=== PATIENT | female | born 1955 | race Caucasian/White ===

== ENCOUNTER 2023-02-05 12:57 | Outpatient (OUT) | payer MEDICARE, OTHER, SELFPAY ==
--- NOTE | 2023-02-05 | MM_ITS ---
Patient Name: SHANTA HANKINS MR#: [id number] : 1955 Exam Date: 02/05/2023 Ordering Doctor: MRS. Malini Gama NP RADIOLOGY REPORT PROCEDURE: MM TOMOSYNTHESIS SCREENING BI COMPARISON: MG MAMM SCREEN 3D KEE CAD, 01/24/2021. MG MAMM SCREEN 3D KEE CAD, 01/29/2022. INDICATIONS: screening for malignant neoplasm Calculator Name NCI Breast Cancer Risk Assessment Tool 5 Year Breast Cancer Risk 3.30% Lifetime Breast Cancer Risk 9.90% Personal Breast Cancer No Personal Ovarian Cancer No Treatments HYST Family Cancers Sister with breast cancer at age 49; Grandmother-maternal with lung cancer at age ~70; Aunt-maternal with lung cancer at age 38; Sister with blood cancer at age 55. LOCATION: [facility] BREAST COMPOSITION: Heterogeneously dense,which may obscure small masses. FINDINGS: DIAGNOSTIC CATEGORY 2--BENIGN FINDING. NO CHANGE FROM COMPARISON. Scattered benign-appearing nodules are present. Scattered benign-appearing calcifications are present. Scattered benign-appearing lymph nodes are present. RIGHT BREAST: No significant suspicious finding. LEFT BREAST: No significant suspicious finding. RECOMMENDATIONS: ROUTINE MAMMOGRAM AND CLINICAL EVALUATION IN 12 MONTHS. PLEASE NOTE: A NORMAL MAMMOGRAM DOES NOT EXCLUDE THE POSSIBILITY OF BREAST CANCER. A CLINICALLY SUSPICIOUS PALPABLE LUMP SHOULD BE BIOPSIED. Dictated by: Ochoa Pierre MD on 02/06/2023 at 07:53 Approved by: Ochoa Pierre MD on 02/06/2023 at 07:56
== END 2023-02-05 12:58 | disposition home or self-care (01) ==
LOC: MAMMO 12:57
PROVIDERS: PCP Internal Medicine; Visit Provider Nurse Practitioner Family
DX: Z12.31 Encounter for screening mammogram for malignant neoplasm of breast (principal); Z80.3 Family history of malignant neoplasm of breast; Z80.1 Family history of malignant neoplasm of trachea, bronchus and lung; Z80.8 Family history of malignant neoplasm of other organs or systems
CPT/HCPCS: 77063; 77067

== ENCOUNTER 2024-02-11 10:43 | Outpatient (OUT) | payer MEDICARE, OTHER, SELFPAY ==
--- OUTSIDE RECORDS SUMMARY | 2024-02-11 11:06 | XMS_ITS | CCD ---
Author Organization [facility] Care Team Providers Care Airline Reservationist Name Role Phone HSANE, DR CAMPBELL Attending Unavailable SHANE, DR CAMPBELL Consulting Unavailable SHANE, DR CAMPBELL Primary Care Unavailable SHANE, DR CAMPBELL Admitting Unavailable LANEY, DR CARLOS Pinon Consulting Unavailable HEMTRISH, DR HEIDI Hall Admitting Unavailable CHARLESTOWN, DR LEE Cowan Consulting Unavailable SHANE, DR CAMPBELL Primary Care Unavailable HEMTRISH, DR HEIDI Hall Attending Unavailable HEMTRISH, DR HEIDI Hall Consulting Unavailable Marika Vasquez Unavailable MICHELLE Lynn Primary Care Provider MD Marika Vasquez Attending Provider Shane, MICHELLE Campbell Primary Care Provider MD Marika Vasquez Attending Provider MICHELLE Lynn Primary Care Provider MD Marika Vasquez Attending Provider Shane, II Adrian Primary Care Provider MD Marika Vasquez Attending Provider [phone] MD Dwight Pan Attending Provider Adrian Lynn MD Primary Care Provider [phone] Adrian Lynn Primary Care Unavailable Marika Vasquez Admitting Unavailable Marika Vasquez Attending Unavailable Adrian Lynn Primary Care Unavailable Marika Vasquez Admitting Unavailable Marika Vasquez Attending Unavailable Marika Vasquez Attending Unavailable Marika Vasquez Admitting Unavailable Adrian Lynn Primary Care Unavailable Marika Vasquez Attending Unavailable Marika Vasquez Admitting Unavailable Adrian Lynn Primary Care Unavailable Adrian Lynn Primary Care Unavailable Calvey, Marika R Attending Unavailable Calvey, Marika R Admitting Unavailable Calvey, Marika R Admitting Unavailable Calvey, Marika R Attending Unavailable Shane Adrian Primary Care Unavailable Lynn, Adrian Primary Care Unavailable Calvey, Marika R Attending Unavailable Calvey, Marika R Admitting Unavailable Calvey, Marika R Admitting Unavailable Calvey, Marika R Attending Unavailable Lynn, Adrian Primary Care Unavailable MaximDwight anand R Admitting Unavailabl e Dwight Pan R Attending Unavailabl e Pancho Lynnel Primary Care Unavailable CLOVIS ABRAMS Attending Unavailable NIKKI PATTEN S Referring Unavailable LYNN, ADRIAN B Primary Care Unavailable NIENBERGNIKKI Attending Unavailable LYNN, ADRIAN B Referring Unavailable LYNN, ADRIAN B Primary Care Unavailable NIENBERGNIKKI S Referring Unavailable LYNN, ADRIAN B Primary Care Unavailable NIENBERGNIKKI S Attending Unavailable NINIKKI LEE S Referring Unavailable LYNN, ADRIAN B Primary Care Unavailable NIENBERG, NIKKI S Referring Unavailable LYNN, ADRIAN B Primary Care Unavailable NIENBERGNIKKI Attending Unavailable LYNN, ADRIAN B Referring Unavailable LYNN, ADRIAN B Primary Care Unavailable NIENBERGNKIKI Attending Unavailable LYNN, ADRIAN B Referring Unavailable LYNN, ADRIAN B Primary Care Unavailable HILL SY Admitting Unavailable HILL SY Attending Unavailable LYNN, ADRIAN B Referring Unavailable LYNN, ADRIAN B Primary Care Unavailable HILL SY Attending Unavailable HILL SY Referring Unavailable LYNN, ADRIAN B Primary Care Unavailable NIENBERGNIKKI Attending Unavailable LYNN, ADRIAN B Referring Unavailable LYNN, ADRIAN B Primary Care Unavailable HILL SY Attending Unavailable HILL SY Referring Unavailable LYNN, ADRIAN B Primary Care Unavailable HILL SY Admitting Unavailable HILL SY Attending Unavailable LYNN, ADRIAN B Referring Unavailable LYNN, ADRIAN B Primary Care Unavailable NIENBERGNIKKI Attending Unavailable LYNN, ADRIAN B Referring Unavailable LYNN, ADRIAN B Primary Care Unavailable HILL SY Attending Unavailable HILL SY Referring Unavailable LYNN, ADRIAN B Primary Care Unavailable HILL SY Admitting Unavailable HILL SY Attending Unavailable LYNN, ADRIAN B Referring Unavailable LYNN, ADRIAN B Primary Care Unavailable HEIDI RODRIGUEZ Referring Unavailable LYNN, ADRIAN B Primary Care Unavailable NINIKKI LEE Attending Unavailable LYNN, ADRIAN B Referring Unavailable LYNN, ADRIAN B Primary Care Unavailable SY, HILL E Admitting Unavailable SY, HILL E Attending Unavailable ADRIAN LYNN B Referring Unavailable SHANE ADRIAN B Primary Care Unavailable SY, HILL E Attending Unavailable SY, HILL E Referring Unavailable LYNN, ADRIAN B Primary Care Unavailable SY, HILL E Admitting Unavailable SY, HILL E Attending Unavailable SHANE, ADRIAN B Referring Unavailable LYNN, ADRIAN B Primary Care Unavailable SY, HILL E Attending Unavailable SY, HILL E Referring Unavailable LYNN, ADRIAN B Primary Care Unavailable NIENBERG, NIKKI S Attending Unavailable SHANE ADRIAN B Referring Unavailable LYNN, ADRIAN B Primary Care Unavailable NIENBERG, NIKKI S Referring Unavailable LYNN, ADRIAN B Primary Care Unavailable NIENBERG, NIKKI S Referring Unavailable SHANE ADRIAN B Primary Care Unavailable HEIDI RODRIGUEZ Attending Unavailable HEIDI RODRIGUEZ Referring Unavailable HEIDI RODRIGUEZ Attending Unavailable MADISYN WILLSON Attending Unavailable HEIDI RODRIGUEZ Attending Unavailable Adrian Lynn MD Primary Care Provider Adrian Lynn MD Unavailable [phone] Allergies Allergy Classification Reported Allergen(s) Allergy Type Date of Onset Reaction(s) Facility (1 source) Fish derivative Drug allergy (disorder) 0 [facility] (16 sources) Iodine Drug Allergy 8 Unknown, ate my skin out [facility] (12 sources) Chicken Derived; Translations: [CHICKEN DERIVED] Drug allergy (disorder) [address] [facility] Repository (15 sources) Fish Containing Products; Translations: [Fish Containing Products] Allergy to substance 8 [facility] (3 sources) chicken allergenic extract Drug Allergy 4 [facility] (5 sources) Povidone-Iodine ; Translations: [POVIDONE-IODIN E] Drug Allergy 4 [facility] (5 sources) Nutritional Supplement-Fibe r; Translations: [NUTRITIONAL SUPPLEMENT-FIBE R] Propensity to adverse reactions to drug 4 [facility] (1 source) Iodine Drug Allergy 4 [facility] Repository (1 source) chicken derived Drug allergy (disorder) 4 [facility] (3 sources) Fish - dietary Allergy to substance 4 Hives [facility] Work Phone: (3 sources) Iodine Drug Allergy 3 Unknown [facility] (3 sources) Chicken Allergy Propensity to adverse reactions 5 [facility] (3 sources) Egg-Derived Products Drug Allergy 3 Unknown [facility] Medications Current Medications Medication Drug Class(es) Dates Sig (Normalized) Sig (Original) acetaminophen 325 mg / HYDROcodone bitartrate 5 mg oral tablet (10 sources) Opioid Agonist Start: 02-10-2023 take 1 tablet by mouth every four to six hours Hydrocodone-Aceta minophen Active 1 - 2 TAB PO EVERY 4-6 HOURS 30 4 February 10, 2023 Start: 10-24-2022 End: 02-07-2023 take 1 tablet by mouth every four to six hours Hydrocodone-Acetaminophen Discontinued 1 - 2 TAB PO EVERY 4-6 HOURS 50 7 October 24, 2022 February 07, 2023 7:35am [id number] 200 actuat albuterol 0.09 mg/actuat metered dose inhaler (3 sources) beta2-Adrenergic Agonist Start: 09-25-2023 take 2 puff(s) by inhalation every four hours for wheezing albuterol HFA 90 mcg/act inhaler Indications: Acute bronchitis, unspecified organism Inhale 2 puffs every 4 (four) hours if needed for wheezing or shortness of breath 18 g 2 09/25/2023 Active ascorbic acid 250 mg oral tablet (3 sources) Vitamin C take 2 tablets by mouth in the morning ascorbic acid (Vitamin C) 250 MG tablet Take 500 mg by mouth in the morning. Active ascorbic acid 113 mg / beta carotene 7160 mg / cuprous oxide 0.4 mg / dl-alpha tocopheryl acetate 100 unt / zinc oxide 17.4 mg oral tablet (9 sources) Vitamin C Start: 12-02-2017 take 1 tablet by mouth once daily Vitamins A,C,U-Ohga-Tkvjbu (Preservision Areds) 7,160-113-100 qalw-ou-hugl Tablet Active 1 TAB PO Daily December 01, 2017 11:00pm Start: 12-02-2017 take [address] [facility] twice daily Vitamins A,C,R-Kpnh-Lmrged (Preservision Areds) 7,160-113-100 ridt-uc-gmro Tablet Active 1 TAB PO Twice daily December 02, 2017 12:00am Aspir-81 (6 sources) Aspir-81 Active aspirin 81 mg oral tablet (14 sources) Platelet Aggregation Inhibitor, Nonsteroidal Anti-inflammatory Drug Start: 10-10-2022 aspirin 81 mg capsule Daily 10/10/2022 Active Start: 10-10-2022 aspirin 81 mg capsule Daily 0 10/10/2022 Active Start: 10-10-2022 take 1 capsule by [facility] once daily aspirin ([place]) 81 MG capsule Take 81 mg by mouth Daily 10/10/2022 Active atorvastatin 40 mg oral tablet (20 sources) HMG-CoA Reductase Inhibitor Start: 10-10-2022 take 1 tablet by mouth once daily atorvastatin (Lipitor) 40 MG tablet Indications: Hyperlipidemia, unspecified hyperlipidemia type (CMS/HCC) Take 1 tablet by mouth once daily 90 tablet 10/16/2023 Active b complex vitamins capsule (6 sources) Start: 02-07-2023 take 1 capsule by mouth once daily b complex vitamins capsule Take 1 capsule by mouth Daily 02/07/2023 Active Start: 02-07-2023 b complex aries mins capsule 1 capsule. 02/07/2023 Active Start: 02-07-2023 b complex aries mins capsule 1 capsule. 0 02/07/2023 Active baclofen 10 mg oral tablet (20 sources) gamma-Aminobutyric Acid-ergic Agonist Start: 06-19-2023 take 0.5-1 tablets by mouth three times daily at mealtime baclofen (Lioresal) 10 MG tablet Indications: Degeneration of intervertebral disc of lumbar region TAKE 1/2 TO 1 (ONE-HALF TO ONE) TABLET BY MOUTH THREE TIMES DAILY WITH FOOD 270 tablet 06/19/2023 Active Start: 12-02-2017 take 10 mg by mouth twice kimberly y Baclofen Active 10 MG PO Twice daily December 01, 2017 11:00pm benzonatate 200 mg oral capsule (2 sources) Non-narcotic Antitussive Start: 01-16-2024 End: 01-23-2024 take 1 capsule by mouth three times daily as needed for cough benzonatate (Tessalon) 200 MG capsule Indications: COPD exacerbation (CMS/HCC) Take 1 capsule (200 mg) by mouth 3 (three) times a day as needed for cough for up to 7 days Do not crush or chew. 21 capsule 01/16/2024 01/23/2024 Active biotin 10 mg disintegrating oral tablet (20 sources) Start: 12-02-2017 take 1 tablet by mouth twice daily Biotin Active 1 TAB PO Twice daily December 01, 2017 11:00pm biotin (Biotin M aximum Strength) 10 MG tablet every 12 (twelve) hours. Active take 1 tablet by mp every twenty-four hours Biotin 10 MG 1 tablet Orally Once a day Active cefdinir 300 mg oral capsule (2 sources) Cephalosporin Antibacterial Start: 01-16-2024 End: 01-26-2024 take 1 capsule by mouth in the morning cefdinir (Omnicef) 300 MG capsule Indications: COPD exacerbation (CMS/HCC) , Acute non-recurrent pansinusitis Take 1 capsule (300 mg) by mouth in the morning and 1 capsule (300 mg) before bedtime. Do all this for 10 days. 20 capsule 01/16/2024 01/26/2024 Active celecoxib 200 mg oral capsule (20 sources) Nonsteroidal Anti-inflammatory Drug Start: 12-02-2017 take 1 capsule by mouth in the morning celecoxib (CeleBREX) 200 MG capsule Indications: Degeneration of intervertebral disc of lumbar region Take 1 capsule (200 mg) by mouth in the morning and 1 capsule (200 mg) before bedtime. 180 capsule 11/05/2023 Active take 1 capsule by mo [facility] every twenty-four hours Celecoxib 200 MG 1 capsule with food Orally Once a day Active Centrum (6 sources) Centrum Orally A ctive chlorhexidine gluconate 1.2 mg/ml mouthwash (2 sources) Start: 05-20-2023 take 15 mL by mouth in the morning chlorhexidine (PERIDEX) 0.12 % solution Apply 15 mL to the mouth or throat in the morning and 15 mL before bedtime. 05/20/2023 Active cinnamon bark 500 mg oral capsule (10 sources) Start: 02-07-2023 cinnamon bark 500 mg capsule Twice daily 02/07/2023 Active cinnamon 500 MG capsule 1 (one) time each day at the same time. Active citalopram 40 mg oral tablet (20 sources) Serotonin Reuptake Inhibitor Start: 12-02-2017 take 1 tablet by mouth once daily citalopram (CeleXA) 40 MG tablet Indications: Generalized anxiety disorder (CMS/HCC) Take 1 tablet by mouth once daily 90 tablet 12/17/2023 Active Diclofenac (3 sources) Nonsteroidal Anti-inflammatory Drug Start: 11-27-2022 Voltaren 1 % Apply 1-2 grams to the affected area Externally 4-5 times a day for 30 days Nov, Active doxycycline hyclate 100 mg oral tablet (10 sources) Tetracycline-class Drug Start: 02-10-2023 take 100 mg by mouth twice daily Doxycycline Hyclate Active 100 MG PO Twice daily 12 05February 10, 2023 12:00am Start: 10-24-2022 End: 02-07-2023 take 100 mg by mouth twice daily Doxycycline Hyclate Discontinued 100 MG PO Twice daily 12 05October 23, 2022 11:00pm February 07, 2023 7:35am esomeprazole 40 mg delayed release oral capsule (15 sources) Proton Pump Inhibitor Start: 07-30-2023 take 1 capsule by mouth before mealtime esomeprazole (NexIUM) [address] capsule Indications: Gastroesophageal reflux disease without esophagitis Take 1 capsule (40 mg) by mouth in the morning. Take before meals. Do not open capsule.. 90 capsule 3 07/30/2023 Active Start: 12-02-2017 take 1 capsule by [facility] once daily in the morning Esomeprazole Magnesium (Nexium) 20 mg Capsule,Delayed Release(Dr/Ec) Active 20 MG PO Every morning December 01, 2017 11:00pm esomeprazole (Ne xIUM) 20 mg packet Take 20 mg by mouth. 0 Active 30 actuat fluticasone furoate 0.1 mg/actuat / umeclidinium 0.0625 mg/actuat / vilanterol 0.025 mg/actuat dry powder inhaler (5 sources) Anticholinergic, Corticosteroid, beta2-Adrenergic Agonist Start: 07-30-2023 Vzknjsregfn-Twianazos-Xllrkm (Trelegy Ellipta) 100-62.5-25 MCG/ACT aerosol powder Indications: Chronic obstructive pulmonary disease, unspecified COPD type (CMS/HCC) Inhale 1 Inhalation Daily 3 each 3 07/30/2023 Active Start: 01-09-2023 take 1 puff(s) by inhalation in the morning gzxsxjstrzr-mutrxihnn-wjbczqad (TRELEGY ELLIPTA) 100-62.5-25 mcg blister with device Inhale 1 puff in the morning. 01/09/2023 Active gabapentin 300 mg oral capsule (20 sources) Anti-epileptic Agent Start: 12-02-2017 take 1 capsule by mouth three times daily gabapentin (Neurontin) 300 MG capsule Indications: Neuralgia of lower extremity TAKE 1 CAPSULE BY MOUTH THREE TIMES DAILY 270 capsule 10/29/2023 Active Start: 12-02-2017 take 300 mg by mouth twice radha ly Gabapentin Active 300 MG PO Twice daily December 02, 2017 12:00am take 1 capsule by [facility] every twenty-four hours Gabapentin 300 MG 1 capsule Orally Once a day Active hydroCHLOROthiazide 12.5 mg oral capsule (20 sources) Thiazide Diuretic Start: 12-02-2017 take 1 capsule by mouth once daily hydroCHLOROthiazide (Microzide) 12.5 MG capsule Indications: Mixed hyperlipidemia (CMS/HCC) Take 1 capsule by mouth once daily 100 capsule 3 10/29/2023 Active lisinopril 5 mg oral tablet (20 sources) Angiotensin Converting Enzyme Inhibitor Start: 12-02-2017 take 1 tablet by mouth once daily lisinopril 5 MG tablet Indications: Mixed hyperlipidemia (CMS/HCC) Take 1 tablet by mouth once daily 100 tablet 3 10/29/2023 Active loratadine 10 mg oral tablet (10 sources) Start: 02-07-2023 take 1 tablet by mouth once daily loratadine (Claritin) 10 MG tablet Indications: Seasonal allergic rhinitis due to pollen Take 1 tablet (10 mg) by mouth Daily 90 tablet 3 07/30/2023 Active methylPREDNISolone (2 sources) Corticosteroid Start: 01-16-2024 methylPREDNISolone (Medrol Dospak) 4 MG tablets Indications: COPD exacerbation (CMS/HCC) Follow schedule on package instructions 21 tablet 01/16/2024 Active Multiple Vitamins-Minerals (Centrum Silver Adult 50+) tablet (3 sources) Multiple Vitamins-Minerals (Centrum Silver Adult 50+) tablet Take by mouth. Active Gkrbfnkupima-Acps-Clegv Acid (Centrum) 18-400 mg-mcg Tablet (9 sources) Start: 12-02-2017 take 1 tablet by mouth once daily Ueqwqfguyikk-Yskb-Ymrp c Acid (Centrum) 18-400 mg-mcg Tablet Active 1 TAB PO Daily December 01, 2017 11:00pm Start: 12-02-2017 take 1 tablet by mp th once daily Pojdmnlgfwqg-Srln-Wiuun Acid (Centrum) 18-400 mg-mcg Tablet Active 1 TAB PO Daily December 02, 2017 12:00am NON FORMULARY (3 sources) NON FORMULARY Me d Name: Centrum Silver Active NON FORMULARY Me d Name: Centrum Silver 0 Active traZODone hydrochloride 50 mg oral tablet (20 sources) Serotonin Reuptake Inhibitor Start: 12-02-2017 take 1 tablet by mouth at bedtime traZODone (Desyrel) 50 MG tablet Indications: Primary insomnia TAKE 1 TABLET BY MOUTH AT BEDTIME 90 tablet 12/17/2023 Active vit A/vit C/vit E/zinc/copper (PRESERVISION AREDS ORAL) (3 sources) vit A/vit C/vit E/zinc/copper (PRESERVISION AREDS ORAL) Take by mouth. Active vit A/vit C/vit E/zinc/copper (PRESERVISION AREDS ORAL) Take by mouth. 0 Active Vitamin B Complex (4 sources) Start: 02-07-2023 take 1 capsule by mouth once daily Vitamin B Complex Active 1 CAP PO Daily February 07, 2023 12:00am vitamin e 180 mg oral capsule (4 sources) Start: 02-07-2023 take 450 mg by mouth once daily Vitamin E Active 450 MG PO Daily February 07, 2023 12:00am Completed/Discontinued Medications Medication Drug Class(es) Dates Sig (Normalized) Sig (Original) 1 ml triamcinolone acetonide 40 mg/ml prefilled syringe (4 sources) Corticosteroid Start: 01-16-2024 End: 01-16-2024 triamcinolone acetonide (Kenalog-40) injection 40 mg Start: 01-16-2024 End: 01-16-2024 inject 40 mg by intramuscular injection once 40 mg, Intramuscular, Once, On Fri01/16/24 at 1115, For 1 dose Problems Active Problems Problem Classification Problem Date Documented Da te Episodic/Chronic Anal and rectal conditions (6 sources) Rectal polyp; Translations: [Rectal polyp] Episodic Anxiety disorders (3 sources) Generalized anxiety disorder; Translations: [Generalized anxiety disorder] Onset: 04-03-2023 Chronic Chronic obstructive pulmonary disease and bronchiectasis (8 sources) Chronic obstructive lung disease; Translations: [Chronic obstructive pulmonary disease, unspecified] Onset: 4 04-03-2023 Chronic Disorders of lipid metabolism (3 sources) Hyperlipidemia; Translations: [Hyperlipidemia, unspecified] Onset: 4 04-03-2023 Chronic Diverticulosis and diverticulitis (6 sources) Diverticular disease of colon; Translations: [Diverticulosis of intestine, part unspecified, without perforation or abscess without bleeding] Chronic Esophageal disorders (3 sources) Gastroesophageal reflux disease without esophagitis; Translations: [Gastro-esophageal reflux disease without esophagitis] Onset: 4 07-30-2023 Chronic Essential hypertension (3 sources) Benign essential hypertension; Translations: [Essential (primary) hypertension] Onset: 4 04-03-2023 Chronic Joint disorders and dislocations; trauma-related (3 sources) Traumatic arthropathy-knee; Translations: [Traumatic arthropathy, right knee] Onset: 4 04-03-2023 Chronic Menopausal disorders (4 sources) Other primary ovarian failure; Translations: [Decreased estrogen level] Onset: 2 04-18-2023 Chronic Mood disorders (3 sources) Single episode of major depression in full remission; Translations: [Major depressive disorder, single episode, in full remission] Onset: 4 04-03-2023 Chronic Occlusion or stenosis of precerebral arteries (6 sources) Arteriosclerosis of carotid artery; Translations: [Occlusion and stenosis of bilateral carotid arteries] Onset: 4 Resolved: 4 04-03-2023 Chronic Osteoarthritis (20 sources) Osteoarthritis of joint of right hand; Translations: [Primary osteoarthritis, right hand] Onset: 5 Chronic Other and unspecified benign neoplasm (2 sources) Personal history of colonic polyps; Translations: [Personal history of colonic polyps] Onset: 4 04-15-2023 Episodic Other bone disease and musculoskeletal deformities (3 sources) Idiopathic scoliosis of lumbar spine; Translations: [Other idiopathic scoliosis, lumbar region] Onset: 4 04-22-2023 Chronic Other connective tissue disease (1 source) Pain in right hand Episodic Other connective tissue disease (1 source) Pain in unspecified limb; Translations: [Pain in unspecified limb] Onset: 3 Episodic Other gastrointestinal disorders (9 sources) Irritable bowel syndrome; Translations: [Irritable bowel syndrome without diarrhea] Onset: 4 04-03-2023 Chronic Other gastrointestinal disorders (6 sources) Disorder of intestine; Translations: [Other specified diseases of intestine] Episodic Other nervous system disorders (1 source) Other chronic pain; Translations: [Other chronic pain] Onset: 4 Chronic Other nervous system disorders (1 source) Other acute postprocedural pain; Translations: [Other acute postprocedural pain] Onset: 3 Episodic Other non-traumatic joint disorders (2 sources) Pain in right knee; Translations: [Pain in joint, lower leg] Onset: 4 01-13-2024 Episodic Other non-traumatic joint disorders (1 source) Pain in left knee; Translations: [Pain in left knee] Onset: 4 Episodic Other nutritional; endocrine; and metabolic disorders (6 sources) Body mass index 25-29 - overweight; Translations: [Body mass index (BMI) 27.0-27.9, adult] Episodic Other screening for suspected conditions (not mental disorders or infectious disease) (12 sources) Encounter for screening mammogram for malignant neoplasm of breast; Translations: [Full blood count abnormal] Onset: 2 Episodic Other upper respiratory disease (3 sources) Allergic rhinitis; Translations: [Allergic rhinitis, unspecified] Onset: 4 04-03-2023 Chronic Other upper respiratory infections (2 sources) Acute pansinusitis; Translations: [Acute pansinusitis, unspecified] 01-16-2024 Episodic Peripheral and visceral atherosclerosis (2 sources) Atherosclerosis of aorta; Translations: [Atherosclerosis of aorta] 01-16-2024 Chronic Residual codes; unclassified (3 sources) Obstructive sleep apnea syndrome; Translations: [Obstructive sleep apnea (adult) (pediatric)] Onset: 4 04-03-2023 Chronic Residual codes; unclassified (1 source) Family history of malignant neoplasm of trachea, bronchus and lung; Translations: [FAM HX MALIG NEOPLSM TRACH BRON LNG] Onset: 2 Episodic Residual codes; unclassified (1 source) Family history of malignant neoplasm of breast; Translations: [FAMILY HX MALIG NEOPLASM OF BREAST] Onset: 2 Episodic Residual codes; unclassified (1 source) Family history of malignant neoplasm of other organs or systems; Translations: [FAM HX MALIG NEOPLASM OTH ORGN/SYS] Onset: 2 Episodic Residual codes; unclassified (4 sources) Other specified postprocedural states; Translations: [Other specified postprocedural states] Onset: 4 Episodic Spondylosis; intervertebral disc disorders; other back problems (12 sources) Lumbosacral spondylosis without myelopathy; Translations: [Spondylosis without myelopathy or radiculopathy, lumbosacral region] Onset: 4 05-01-2023 Chronic Substance-related disorders (9 sources) Nicotine dependence, cigarettes, uncomplicated; Translations: [Tobacco dependence syndrome] Onset: 2 Chronic Unclassified (1 source) Encounter for screening for malignant neoplasm of colon; Translations: [Encounter for screening for malignant neoplasm of colon] Onset: 4 Unclassified (1 source) Primary osteoarthritis, left hand; Translations: [Primary osteoarthritis, left hand] Onset: 4 Unclassified (1 source) Encounter for other preprocedural examination; Translations: [Encounter for other preprocedural examination] Onset: 3 Unclassified (1 source) Primary osteoarthritis, right hand; Translations: [Primary osteoarthritis, right hand] Onset: 3 Unclassified (1 source) Encounter for preprocedural cardiovascular examination; Translations: [Encounter for preprocedural cardiovascular examination] Onset: 3 Unclassified (1 source) Pain in right hand; Translations: [Pain in right hand] Onset: 3 Unclassified (1 source) Consult Onset: 4 Unclassified (1 source) Spinal stenosis of lumbar region with neurogenic claudication [M48.062] Onset: 4 Unclassified (1 source) Low back pain, unspecified; Translations: [Low back pain, unspecified] Onset: 4 Past or Other Problems Problem Classification Problem Date Documented Da te Episodic/Chronic Diabetes mellitus without complication (3 sources) Impaired glucose tolerance; Translations: [Impaired glucose tolerance (oral)] Onset: 04-03-2023 04-03-2023 Episodic Mood disorders (3 sources) Mood disorders Onset: 04-18-2023 04-18-2023 Other and unspecified benign neoplasm (12 sources) History of polyp of colon; Translations: [Personal history of colonic polyps] Onset: 04-18-2023 12-02-2017 Episodic Other bone disease and musculoskeletal deformities (1 source) Other specified disorders of bone density and structure, unspecified site; Translations: [OTH D/O BONE DEN STRUCT UNS SITE] Onset: 05-04-2021 Episodic Other connective tissue disease (1 source) Muscle weakness (generalized); Translations: [Muscle weakness (generalized)] Onset: 05-01-2023 Episodic Other connective tissue disease (1 source) Neuralgia and neuritis, unspecified; Translations: [Neuralgia and neuritis, unspecified] Onset: 04-21-2023 Episodic Other connective tissue disease (3 sources) Muscle pain; Translations: [Myalgia, unspecified site] Onset: 12-12-2022 12-12-2022 Episodic Other connective tissue disease (3 sources) Peripheral neuralgia; Translations: [Neuralgia and neuritis, unspecified] Onset: 04-03-2023 04-03-2023 Episodic Other nervous system disorders (10 sources) Pain in limb; Translations: [Other acute postprocedural pain] Onset: 04-18-2023 10-24-2022 Episodic Other nervous system disorders (1 source) Other abnormalities of gait and mobility; Translations: [Other abnormalities of gait and mobility] Onset: 05-01-2023 Episodic Other non-traumatic joint disorders (1 source) Stiffness of unspecified joint, not elsewhere classified; Translations: [Stiffness of unspecified joint, not elsewhere classified] Onset: 05-01-2023 Episodic Residual codes; unclassified (1 source) Other specified postprocedural states; Translations: [Other specified postprocedural states] Onset: 11-27-2022 Episodic Residual codes; unclassified (3 sources) Insomnia; Translations: [Insomnia, unspecified] Onset: 04-03-2023 04-03-2023 Episodic Spondylosis; intervertebral disc disorders; other back problems (10 sources) Lumbar radiculopathy; Translations: [Radiculopathy, lumbar region] Onset: 05-01-2023 05-01-2023 Episodic Results Test Name Value Interpretation Reference Range Facility XR KNEE LT 3 VWSon 4 XR KNEE LT 3 VWS XR KNEE LT 3 VWS XR KNEE LT 3 VWS HISTORY: Chronic pain of both knees. COMPARISON: none IMPRESSION: Age compatible degenerative changes. No effusion. Finalized by Ezio Jamison MD on 01/13/2024 2:47 PM Normal [facility] XR KNEE RT 3 VWSon 4 XR KNEE RT 3 VWS XR KNEE RT 3 VWS XR KNEE RT 3 VWS HISTORY: Chronic bilateral knee pain COMPARISON: None FINDINGS: 3 views of the right knee obtained. No fracture or dislocation. There is no destructive osseous lesion. Mild joint space narrowing, subchondral sclerosis, and osteophytosis involving the medial tibiofemoral compartment. There is no significant joint effusion. IMPRESSION: Mild medial compartment osteoarthritis. Consider MRI if you suspect occult process. Approved by Carmen Johnson DO on 01/13/2024 1:12 PM IJesus MD have personally reviewed the image(s) and agree with and/or edited the report Finalized by Jesus Buckley MD on 01/13/2024 1:31 PM Normal [facility] XR Knee - left 3 Viewson XR KNEE LT 3 VWS HISTORY: Chronic pain of both knees. COMPARISON: none IMPRESSION: Age compatible degenerative changes. No effusion. Finalized by Ezio Jamison MD on 01/13/2024 2:47 PM SECTRAEzio Kimble MD - 01/13/2024 XR KNEE LT 3 VWS HISTORY: Chronic pain of both knees. COMPARISON: none IMPRESSION: Age compatible degenerative changes. No effusion. Finalized by Ezio Jamison MD on 01/13/2024 2:47 PM [facility] Radiology Study observation (narrative) [facility] XR Knee - left 3 ViewsOrdere d By: Ezio Jamison on 01-13-2024 [facility] Work Phone: XR Knee - right 3 Viewson XR KNEE RT 3 VWS HISTORY: Chronic bilateral knee pain COMPARISON: None FINDINGS: 3 views of the right knee obtained. No fracture or dislocation. There is no destructive osseous lesion. Mild joint space narrowing, subchondral sclerosis, and osteophytosis involving the medial tibiofemoral compartment. There is no significant joint effusion. IMPRESSION: Mild medial compartment osteoarthritis. Consider MRI if you suspect occult process. Approved by Carmen Johnson DO on 01/13/2024 1:12 PM Jesus Chris MD have personally reviewed the image(s) and agree with and/or edited the report Finalized by Jesus Buckley MD on 01/13/2024 1:31 PM [facility] - 01/13/2024 XR KNEE RT 3 VWS HISTORY: Chronic bilateral knee pain COMPARISON: None FINDINGS: 3 views of the right knee obtained. No fracture or dislocation. There is no destructive osseous lesion. Mild joint space narrowing, subchondral sclerosis, and osteophytosis involving the medial tibiofemoral compartment. There is no significant joint effusion. IMPRESSION: Mild medial compartment osteoarthritis. Consider MRI if you suspect occult process. Approved by Carmen Johnson DO on 01/13/2024 1:12 PM Jesus Chris MD have personally reviewed the image(s) and agree with and/or edited the report Finalized by Jesus Buckley MD on 01/13/2024 1:31 PM [facility] (narrative[facility] K[facility] - right 3 ViewsOrder ed By: Jesus Buckley on 01-13-2024 [facility] CT LUNG SCREENING LOW DOSEon 05-08-2023 CT LUNG SCREENING LOW DOSE This is a summary report. The complete report is available in the patient's medical record. If you cannot access the medical record, please contact the sending organization for a detailed fax or copy. EXAM: CT LUNG SCREENING LOW DOSE History: Lung cancer screening. Current smoker Technique: Multiple contiguous axial images were obtained of the thorax from the thoracic inlet through the upper abdomen without IV contrast. Multiplanar reformats were obtained. All CT scans at this facility use dose modulation, iterative reconstruction, and/or weight based dosing when appropriate to reduce radiation dose to as low as reasonably achievable. Comparison: CT chest May 03, 2021 Findings: Visualized portion of the thyroid gland is within normal limits. No axillary, mediastinal, or hilar lymphadenopathy. No thoracic aortic aneurysm. Atherosclerotic calcification of the thoracic aorta. Coronary artery calcifications are identified. Heart size is within normal limits. No significant pericardial effusion. Esophagus is within normal limits. Solid 8 mm right upper lobe nodule is new when compared to prior examination. Stable solid 4 mm right middle lobe nodule. Stable solid 6 mm left lower lobe nodule. Biapical pleural/parenchymal scarring. Mild emphysema. No consolidation, pleural effusion, or pneumothorax. No acute osseous abnormality. Visualized upper abdomen demonstrates no acute abnormality. IMPRESSION: Lung RADS score 4A. Recommendation: 3-month low-dose CT follow-up; PET/CT may be considered if there is a greater than or equal to 8 mm solid nodule. ELECTRONICALLY SIGNED BY: Jaime Lea DO Normal Not Available DEXA BONE DENSITYon 05-08-19 DEXA BONE DENSITY CLINICAL HISTORY: screening. COMPARISON: None available. TECHNIQUE: The lumbar spine and both hips were scanned. FINDINGS: The mean bone mineral density from L1 to L4 is 1.013 g/cm2 and this value is -0.3 standard of deviation below the standard reference value for a young adult. Bone mineral density of the left femoral neck is 0.661 g/cm2 and this value is -1.7 standard of deviation below the standard reference value. Bone mineral density of the right femoral neck is 0.645 g/cm2 and this value is -1.8 standard of deviation below the standard reference value. These values meet WHO criteria for osteopenia. 10 year probability (FRAX) of major osteoporotic fracture is 12%, and hip fracture 3.2%. IMPRESSION: OSTEOPENIA. ELECTRONICALLY SIGNED BY: Adrian Donovan MD Normal Not Available MR LUMBAR SPINE WO CONTon MR LUMBAR SPINE WO CONT MR LUMBAR SPINE WO CONT MR LUMBAR SPINE WO CONT HISTORY: Chronic lumbar pain/radiculopathy COMPARISON: Radiographs of the lumbar spine dated 04/21/2023 TECHNIQUE: Multisequence, multiplanar images of the lumbar spine without intravenous contrast. FINDINGS: Levoconvex curvature of the lumbar spine with apex at L4. Slight lateral listhesis of L2 on L3 and left lateral listhesis of L4 on L5. This degree of scoliotic changes also contributes degenerative endplate at L1-L2, L2-L3 and L4-L5. Additional intervertebral disc space narrowing is noted L5-S1. Slight edema along the L2-L3 endplates. Vertebral body heights are preserved. Grade 1 retrolisthesis of L2 on L3, degenerative in nature. No suspicious marrow signal changes. Conus medullaris terminates at the level of L1. No distal cord signal abnormality. Crowding and peripheralization of the cauda equina nerve roots at L4-L5 and L5-S1. L1-L2: Mild diffuse disc osteophyte complex and facet arthropathy contributes to mild right and orqw-vm-gpcpcjow left neuroforaminal narrowing. Minimal spinal canal narrowing. L2-L3: Eznz-ve-jyfbfxos diffuse disc bulge, facet arthropathy and dorsal epidural lipomatosis results in severe spinal canal narrowing with crowding the cauda equina nerve roots. Mild right and moderate left neuroforaminal narrowing. L3-L4: Mild diffuse disc bulge with small right paracentral disc annular tear/protrusion, abutting the right. Mild facet arthropathy also contributes to mild right and lhxv-ny-ffkpxrte left neuroforaminal narrowing. L4-L5: Moderate diffuse disc, severe facet arthropathy, ligamentum flavum hypertrophy results in severe spinal canal narrowing with severe right and qkelzbio-dk-wbdofs left neuroforaminal narrowing L5-S1: Mild diffuse disc osteophyte complex, moderate facet arthropathy rdatnmdw-gk-glwvsl right and severe left neuroforaminal narrowing. Mild spinal canal narrowing. IMPRESSION: * Scoliotic and degenerative spondylosis, with significant spinal canal narrowing at L2-L3 and L4-L5. Significant multilevel neuroforaminal narrowing most significant at the left L2-L3, right greater than left L4-L5 and left greater than right L5-S1 levels. * Slight abutment of the right L4 traversing nerve roots as a result of right paracentral disc protrusion at L3-L4. * Slight edema along the posterior L2-L3 endplates. Approved by Resident Chavez Cedeno MD on 05/08/2023 7:42 AM I, Barber Lyman have personally reviewed the image(s) and agree with and/or edited the report Finalized by Barber Lyman on 05/08/2023 9:37 AM Normal [facility] XR SPINE LUMBAR MIN 4 VWSon 04-21-2023 XR SPINE LUMBAR MIN 4 VWS XR SPINE LUMBAR MIN 4 VWS CLINICAL HISTORY: Degeneration of intervertebral disc of lumbar region; Neuralgia of lower extremity COMPARISON: None. For views of the lumbar spine were obtained. There are 5 lumbar vertebral bodies identified. Levoconvex lumbar scoliosis The vertebral body height and alignment are well maintained. Significant disc space narrowing with bony spurring at L1-2 and also vacuum phenomenon and disc space narrowing at L4-5 and L5-S1 level There is no evidence of spondylolysis or spondylolisthesis. There is no evidence of compression deformity or paraspinal opacity. Metallic clips in the pelvis bilaterally from prior surgery and metallic clips in the right upper quadrant likely from prior cholecystectomy. Vascular calcification in the abdominal aorta. IMPRESSION: Levoconvex lumbar scoliosis and multilevel lumbar spondylosis. Oblique views did not reveal any evidence of pars defects. Finalized by Kevin Murguia MD on 04/21/2023 9:57 PM Normal [facility] Pavel 04-15-2023 L Specimen: [id number] Received: 04/15/23 Status: [facility] Num: [id number] Spec Type: Surgical Subm Dr: Dwight Pan MD Tissues: A Colon Biopsy (RECTL POLYP) Procedures: HE/2, Gross/Micro L4 Age/ Patient Sex Location Account Attending Physician Zoë Montero 67/F [id number] Dwight Pan MD SPEC NUM: [id number] RECD: 04/15/23 STATUS[facility] NUM: [id number] KRISTEN: 04/15/23- SUBM DR: Dwight Pan MD ENTERED: 04/15/[address] [facility] DR: SPEC TYPE: Surgical DEPT: S ENTERED BY: [id number] RECV BY: [id number] ORDERED: HE/2, Gross/Micro L4 ORDERED: HE/2, Gross/Micro L4 Pathological Diagnosis Rectal polyp, biopsy: - Fragments of hyperplastic polyp. Clinical Information History of colon polyps Gross Description Received in formalin labeled with the patient's name, date of and rectal polyp biopsy are 3 bustamante soft tissue fragments, 0.3-0.4 cm in greatest dimensions. Entirely submitted in one cassette labeled A1. Microscopic Description Microscopic sections confirm the above rendered diagnosis. CPT Codes 05018 Specimen: [id number] Received: 04/15/23 Status: [facility] Num: [id number] Spec Type: Surgical Subm Dr: Dwight Pan MD Tissues: A Colon Biopsy (RECTL POLYP) Procedures: HE/Rahat, Gross/Micro L4 Patient: WinstonZoë [id number] (Continued) Signed (signature on file) Kathy Wilhelm MD 04/16/23 1036 [facility] XR hand LT min 3V*on 024 XR hand LT min 3V* [facility] Main [address] [address] XRay Report Signed Patient: Zoë Montero MR#: [id number] 0 : 1955 Acct:[id number] Age/Sex: 67 / F ADM Date: 03/19/23 Loc: [facility] Room: Type: [facility] Attending Dr: Marika Vasquez MD Copies to: Marika Vasquez MD Ordering Provider: Marika Vasquez MD Date of Service: 03/19/23 XR/XR hand LT min 3V*: Arthritis of left hand;Other specified postprocedural states 4 views left hand plain film COMPARISON: None HISTORY: Status post left first bony osteophyte excision. Second PIP effusion ACUTE FINDINGS: None DEGENERATIVE CHANGE: Unremarkable SOFT TISSUE FINDINGS: Unremarkable JOINT EFFUSION: None POSTOP CHANGES: Plate-screw fusion hardware of the first metacarpal phalangeal articulation. The bony fusion changes present. Intramedullary fusion screw at the second interphalangeal joint stable. Subtle interval fusion changes. BONY MINERALIZATION: Adequate XR/XR hand LT min 3V* IMPRESSION: No hardware failure. The interval bony fusion changes. Impression dictated by: German Clay M.D.03/19/2023 2:52 PM Dictation Location: [place] [address] Transcribed By: [facility] 03/19/23 1452 Dictated By: German Clay DO 03/19/23 1450 Signed By: 03/19/23 1452 [facility] XR hand LT min 3V* [facility] [employer] Other XR hand LT min 3V* [facility] Main [facility] [employer] Other XR hand LT min 3V* [address] [place] [address] [employer] Other XR hand LT min 3V* [place] [id number] [facility] [employer] Other XR hand LT min 3V* XRay Report [employer] Other XR hand LT min 3V* Signed [employer] Other XR hand LT min 3V* Patient: Zoë Montero MR#: [id number] [employer] Other XR hand LT min 3V* 0 [employer] Other XR hand LT min 3V* : 1955 Acct:[id number] [employer] Other XR hand LT min 3V* Age/Sex: 67 / F ADM Date: 03/19/23 [employer] Other XR hand LT min 3V* Loc: [facility] Room: Type: [facility] [employer] Other XR hand LT min 3V* Attending Dr: Marika Vasquez MD [employer] Other XR hand LT min 3V* Copies to: Marika Vasquez MD [employer] Other XR hand LT min 3V* Ordering Provider: Marika Vasquez MD [employer] Other XR hand LT min 3V* Date of Service: 03/19/23 [employer] Other XR hand LT min 3V* XR/XR hand LT min 3V*: Arthritis of left hand;Other specified [employer] Other XR hand LT min 3V* postprocedural states [employer] Other XR hand LT min 3V* 4 views left hand plain film [employer] Other XR hand LT min 3V* COMPARISON: None [employer] Other XR hand LT min 3V* HISTORY: Status post left first bony osteophyte excision. Second PIP effusion [employer] Other XR hand LT min 3V* ACUTE FINDINGS: None [employer] Other XR hand LT min 3V* DEGENERATIVE CHANGE: Unremarkable [employer] Other XR hand LT min 3V* SOFT TISSUE FINDINGS: Unremarkable [employer] Other XR hand LT min 3V* JOINT EFFUSION: None [employer] Other XR hand LT min 3V* POSTOP CHANGES: Plate-screw fusion hardware of the first metacarpal phalangeal articulation. The [employer] Other XR hand LT min 3V* bony fusion changes present. Intramedullary fusion screw at the second interphalangeal joint stable. [employer] Other XR hand LT min 3V* Subtle interval fusion changes. [employer] Other XR hand LT min 3V* BONY MINERALIZATION: Adequate [employer] Other XR hand LT min 3V* XR/XR hand LT min 3V* [employer] Other XR hand LT min 3V* IMPRESSION: No hardware failure. The interval bony fusion changes. [employer] Other XR hand LT min 3V* Impression dictated by: German Clay M.D.03/19/2023 2:52 PM [employer] Other XR hand LT min 3V* Dictation Location: [place] [address] [employer] Other XR hand LT min 3V* Transcribed By: PWS 03/19/23 [facility] [employer] Other XR hand LT min 3V* Dictated By: German Clay DO 03/19/23 [facility] [employer] Other XR hand LT min 3V* Signed By: [employer] Other XR hand LT min 3V* 03/19/[address] [place] [address] [employer] Other XR finger LT 2nd digiton XR finger LT 2nd digit [facility] [place] [address] XRay Report Signed Patient: Zoë Montero MR#: [id number] 0 : 1955 Acct:[id number] Age/Sex: 67 / F ADM Date: 02/10/23 Loc: [place] Room: Type: [facility] Attending Dr: Marika Vasquez MD Copies to: Marika Vasquez MD Ordering Provider: Marika Vasquez MD Date of Service: 02/10/23 XR/XR finger LT 2nd digit: SX XR finger LT 2nd digit 02/10/2023 11:34 AM SIGNS AND SYMPTOMS: Fusion of the left index finger PROTOCOL: Intraoperative views of the left index finger COMPARISON: 10/08/2022 FINDINGS: Intraoperative view of the left index finger demonstrates fusion hardware placement across the distal interphalangeal joint. Cumulative Air Kerma in mGy: 0.83 mGy XR/XR finger LT 2nd digit IMPRESSION: Intraoperative view of the left index finger demonstrates fusion hardware placement across the distal interphalangeal joint. Impression dictated by: Gabo Wright M.D.02/10/2023 2:31 PM Dictation Location: [place] [address] Transcribed By: [facility] 02/10/23 1431 Dictated By: Gabo Wright II, MD 02/10/23 1430 Signed By: 02/10/23 1431 Normal [facility] Alanine aminotransferase [En zymatic activity/volume] in Serum or PlasmaOrdered By: Marika Vasquez on 02-07-2023 ALT [Catalytic activity/Vol] 15 U/L 7-52 [facility] Albumin [Mass/volume] in Ser um or Plasma by Bromocresol green (BCG) dye binding methoOrdered By: Marika Vasquez on 02-07-2023 Albumin BCG dye [Mass/Vol] 4.1 g/dL 3.5-5.7 [facility] Alkaline phosphatase [Enzyma tic activity/volume] in Serum or PlasmaOrdered By: Marika Vasquez on 02-07-2023 ALP [Catalytic activity/Vol] 87 U/L 34-104 [facility] Aspartate aminotransferase [ Enzymatic activity/volume] in Serum or PlasmaOrdered By: Marika Vasquez on 02-07-2023 AST [Catalytic activity/Vol] 19 U/L 13-39 [facility] Basophils Auto (Bld) [#/Vol] Ordered By: Marika Vasquez on 02-07-2023 Basophils (Bld) [#/Vol] 0.1 10*3/uL 0.0-0.2 [facility] Basophils/100 WBC Auto (Bld) Ordered By: Marika Vasquez on 02-07-2023 Basophils/100 WBC (Bld) 0.7 % . F [facility] Bilirubin.total [Mass/volume ] in Serum or PlasmaOrdered By: Marika Vasquez on 02-07-2023 Bilirubin [Mass/Vol] 0.4 mg/dL 0.3-1.0 [facility] CMP with reflex to A1Con Albumin [Mass/Vol] 4.1 g/dL Normal 3.5-5.7 [facility] Comment on above: Performed By: #### C MP wRFX A1C, CBC #### [facility] [address] Albumin/Globulin [Mass ratio] 1.6 {ratio} Normal [facility] Comment on above: Performed By: #### C MP wRFX A1C, CBC #### [facility] [address] ALP [Catalytic activity/Vol] 87 U/L Normal 34-104 [facility] Comment on above: Result Comment: PERF ORMED BY: [facility] [address] [place] [address] PATHOLOGIST SKEIN MERCERIZING MACHINE OPERATOR GENI SKAGGS M.D. Performed By: #### C MP wRFX A1C, CBC #### [facility] [address] ALT [Catalytic activity/Vol] 15 U/L Normal 7-52 [facility] Comment on above: Performed By: #### C MP wRFX A1C, CBC #### [facility] [address] [place] [id number] [facility] Anion gap [Moles/Vol] 9.5 mmol/L Normal 6.0-15.0 [facility] Comment on above: Performed By: #### C MP wRFX A1C, CBC #### [facility] [address] [place] [id number] [facility] AST [Catalytic activity/Vol] 19 U/L Normal 13-39 [facility] Comment on above: Performed By: #### C MP wRFX A1C, CBC #### [facility] [address] Bilirubin [Mass/Vol] 0.4 mg/dL Normal 0.3-1.0 [facility] Comment on above: Performed By: #### C MP wRFX A1C, CBC #### [facility] [address] Calcium [Mass/Vol] 9.6 mg/dL Normal 8.6-10.3 [facility] Comment on above: Performed By: #### C MP wRFX A1C, CBC #### [facility] [address] [place] [address] [place] Chloride [Moles/Vol] 107 mmol/L Normal 98-107 [facility] Comment on above: Performed By: #### C MP wRFX A1C, CBC #### [facility] [address] [place] [id number] [place] CO2 [Moles/Vol] 29.6 mmol/L Normal 21.0-31.0 [facility] Comment on above: Performed By: #### C MP wRFX A1C, CBC #### [facility] [address] [place] [id number] [place] Creatinine [Mass/Vol] 0.80 mg/dL Normal 0.60-1.20 [facility] Comment on above: Performed By: #### C MP wRFX A1C, CBC #### [facility] [address] [place] [id number] [place] GFR/1.73 sq M.predicted MDRD (S/P/Bld) [Vol rate/Area] mL/min/{1.73_m2} Normal [facility] Comment on above: Performed By: #### C MP wRFX A1C, CBC #### [facility] [address] [place] [address] [place] Globulin (S) [Mass/Vol] 2.6 g/dL Normal F [facility] Comment on above: Performed By: #### C MP wRFX A1C, CBC #### [facility] [address] Glucose [Mass/Vol] 100 mg/dL Normal 70-100 [facility] Comment on above: Performed By: #### C MP wRFX A1C, CBC #### [facility] [address] Potassium [Moles/Vol] 4.1 mmol/L Normal 3.5-5.1 [facility] Comment on above: Performed By: #### C MP wRFX A1C, CBC #### [facility] [address] Protein [Mass/Vol] 6.7 g/dL Normal 6.4-8.9 [facility] Comment on above: Performed By: #### C MP wRFX A1C, CBC #### [facility] [address] [place] [address] [place] Sodium [Moles/Vol] 142 mmol/L Normal 136-145 [facility] Comment on above: Performed By: #### C MP wRFX A1C, CBC #### [facility] [address] [place] [address] [place] Urea nitrogen [Mass/Vol] 13 mg/dL Normal 7-25 [facility] Comment on above: Performed By: #### C MP wRFX A1C, CBC #### [facility] [address] [place] [address] [place] Calcium [Mass/volume] in Ser um or PlasmaOrdered By: Marika Vasquez on 02-07-2023 Calcium [Mass/Vol] 9.6 mg/dL 8.6-10.3 [facility] Carbon dioxide, total [Moles /volume] in Serum or PlasmaOrdered By: Marika Vasquez on 02-07-2023 CO2 [Moles/Vol] 29.6 mmol/L 21.0-31.0 [facility] Chloride [Moles/volume] in S michael or PlasmaOrdered By: Marika Vasquez on 02-07-2023 Chloride [Moles/Vol] 107 mmol/L 98-107 [facility] Complete Blood Count Auto Di ffon 02-07-2023 Basophils (Bld) [#/Vol] 0.1 10*3/uL Normal 0.0-0.2 [facility] Comment on above: Result Comment: PERF ORMED BY: [facility] [address] [place] [address] PATHOLOGIST SKEIN MERCERIZING MACHINE OPERATOR GENI SKAGGS M.D. Performed By: #### C MP wRFX A1C, CBC #### [facility] [address] [place] [address] [place] Basophils/100 WBC (Bld) 0.7 % Normal . [facility] Comment on above: Performed By: #### C MP wRFX A1C, CBC #### [facility] [address] [place] [address] [place] Eosinophils (Bld) [#/Vol] 0.3 10*3/uL Normal 0.0-0.45 [facility] Comment on above: Performed By: #### C MP wRFX A1C, CBC #### [facility] [address] [place] [address] [place] Eosinophils/100 WBC (Bld) 4.1 % Normal . [facility] Comment on above: Performed By: #### C MP wRFX A1C, CBC #### [facility] [address] [place] [address] [place] Erythrocyte distribution width (RBC) [Ratio] 18.2 % High 11.9-15.3 [facility] Comment on above: Performed By: #### C MP wRFX A1C, CBC #### [facility] [address] [place] [address] [place] Hematocrit (Bld) [Volume fraction] 33.5 % Low 34.0-46.4 [facility] Comment on above: Performed By: #### C MP wRFX A1C, CBC #### [facility] [address] Hemoglobin (Bld) [Mass/Vol] 10.7 g/dL Low 11.8-15.4 [facility] Comment on above: Performed By: #### C MP wRFX A1C, CBC #### [address] Lymphocytes (Bld) [#/Vol] 2.1 10*3/uL Normal 1.00-4.8 [facility] Comment on above: Performed By: #### C MP wRFX A1C, CBC #### [address] Lymphocytes/100 WBC (Bld) 30.3 % Normal . [facility] Comment on above: Performed By: #### C MP wRFX A1C, CBC #### [address] MCH (RBC) [Entitic mass] 25.3 pg Normal 24.7-34.3 [facility] Comment on above: Performed By: #### C MP wRFX A1C, CBC #### [address] MCV (RBC) [Entitic vol] 79.0 fL Low 80-100 [facility] Comment on above: Performed By: #### C MP wRFX A1C, CBC #### [address] Mean Corpuscular HGB Conc 32.0 g/dL Normal 32.0-35.0 [facility] Comment on above: Performed By: #### C MP wRFX A1C, CBC #### [place] [address] [place] Monocytes (Bld) [#/Vol] 0.5 10*3/uL Normal 0.0-0.8 [facility] Comment on above: Performed By: #### C MP wRFX A1C, CBC #### [place] [address] [place] Monocytes/100 WBC (Bld) 7.0 % Normal . [facility] Comment on above: Performed By: #### C MP wRFX A1C, CBC #### [facility] [address] [place] [address] Neutrophils (Bld) [#/Vol] 4.1 10*3/uL Normal 1.8-7.7 [facility] Comment on above: Performed By: #### C MP wRFX A1C, CBC #### [facility] [address] [place] [address] Neutrophils/100 WBC (Bld) 57.9 % Normal . [facility] Comment on above: Performed By: #### C MP wRFX A1C, CBC #### [facility] [address] [place] [address] NRBC% 0.0 /100{WBC} Normal 0-0.5 [facility] Comment on above: Performed By: #### C MP wRFX A1C, CBC #### [address] Platelet mean volume (Bld) [Entitic vol] 8.5 fL Normal 6.3-10.7 [facility] Comment on above: Performed By: #### C MP wRFX A1C, CBC #### [address] Platelets (Bld) [#/Vol] 209 10*3/uL Normal 150-450 [facility] Comment on above: Performed By: #### C MP wRFX A1C, CBC #### [facility] [address] [place] [address] RBC (Bld) [#/Vol] 4.24 10*6/uL Normal 3.60-5.00 [facility] Comment on above: Performed By: #### C MP wRFX A1C, CBC #### [address] WBC (Bld) [#/Vol] 7.0 10*3/uL Normal 3.8-11.6 [facility] Comment on above: Performed By: #### C MP wRFX A1C, CBC #### [facility] [address] [place] [id number] [facility] Creatinine [Mass/volume] in Serum or PlasmaOrdered By: Marika Vasquez on 02-07-2023 Creatinine [Mass/Vol] 0.80 mg/dL 0.60-1.20 [facility] Eosinophils Auto (Bld) [#/Vo l]Ordered By: Marika Vasquez on 02-07-2023 Eosinophils (Bld) [#/Vol] 0.3 10*3/uL 0.0-0.45 [facility] Eosinophils/100 WBC Auto (Bl d)Ordered By: Marika Vasquez on 02-07-2023 Eosinophils/100 WBC (Bld) 4.1 % . [facility] Erythrocyte distribution wid th Auto (RBC) [Ratio]Ordered By: Marika Vasquez on 02-07-2023 Erythrocyte distribution width (RBC) [Ratio] 18.2 % 11.9-15.3 [facility] Globulin Calc (S) [Mass/Vol] Ordered By: Marika Vasquez on 02-07-2023 Globulin (S) [Mass/Vol] 2.6 g/dL [facility] Glucose [Mass/volume] in Ser um or PlasmaOrdered By: Marika Vasquez on 02-07-2023 Glucose [Mass/Vol] 100 mg/dL 70-100 [facility] Hematocrit Auto (Bld) [Volum e fraction]Ordered By: Marika Vasquez on 02-07-2023 Hematocrit (Bld) [Volume fraction] 33.5 % 34.0-46.4 [facility] Hemoglobin [Mass/volume] in BloodOrdered By: Marika Vasquez on 02-07-2023 Hemoglobin (Bld) [Mass/Vol] 10.7 g/dL 11.8-15.4 [facility] Leukocytes [#/volume] correc kamila for nucleated erythrocytes in Blood by Automated counOrdered By: Marika Vasquez on 02-07-2023 WBC corrected for nucl RBC Auto (Bld) [#/Vol] 7.0 10*3/uL 3.8-11.6 [facility] Lymphocytes Auto (Bld) [#/Vo l]Ordered By: Marika Vasquez on 02-07-2023 Lymphocytes (Bld) [#/Vol] 2.1 10*3/uL 1.00-4.8 [facility] Lymphocytes/100 WBC Auto (Bl d)Ordered By: Marika Vasquez on 02-07-2023 Lymphocytes/100 WBC (Bld) 30.3 % . [facility] MCH Auto (RBC) [Entitic mass ]Ordered By: Marika Vasquez on 02-07-2023 MCH (RBC) [Entitic mass] 25.3 pg 24.7-34.3 [facility] MCHC Auto (RBC) [Mass/Vol]Or dered By: Marika Vasquez on 02-07-2023 MCHC (RBC) [Mass/Vol] 32.0 g/dL 32.0-35.0 [facility] MCV Auto (RBC) [Entitic vol] Ordered By: Marika Vasquez on 02-07-2023 MCV (RBC) [Entitic vol] 79.0 fL 80-100 [facility] Monocytes Auto (Bld) [#/Vol] Ordered By: Marika Vasquez on 02-07-2023 Monocytes (Bld) [#/Vol] 0.5 10*3/uL 0.0-0.8 [facility] Monocytes/100 WBC Auto (Bld) Ordered By: Marika aVsquez on 02-07-2023 Monocytes/100 WBC (Bld) 7.0 % . [facility] Neutrophils Auto (Bld) [#/Vo l]Ordered By: Marika Vasquez on 02-07-2023 Neutrophils (Bld) [#/Vol] 4.1 10*3/uL 1.8-7.7 [facility] Neutrophils/100 WBC Auto (Bl d)Ordered By: Marika Vasquez on 02-07-2023 Neutrophils/100 WBC (Bld) 57.9 % . [facility] No Panel InformationOrdered By: Marika Vasquez on 02-07-2023 Estimated GFR (CKD-EPI) > 60.0 mL/Min [facility] Creatinine Clearance (Chem N/A [facility] Nucleated erythrocytes [Pres ence] in Blood by Automated countOrdered By: Marika Vasquez on 02-07-2023 Nucleated RBC Auto Ql (Bld) 0.0 /100{WBC} 0-0.5 [facility] Platelet mean volume Auto (B ld) [Entitic vol]Ordered By: Marika Vasquez on 02-07-2023 Platelet mean volume (Bld) [Entitic vol] 8.5 fL 6.3-10.7 [facility] Platelets Auto (Bld) [#/Vol] Ordered By: Marika Vasquez on 02-07-2023 Platelets (Bld) [#/Vol] 209 10*3/uL 150-450 [facility] Potassium [Moles/volume] in Serum or PlasmaOrdered By: Marika Vasquez on 02-07-2023 Potassium [Moles/Vol] 4.1 mmol/L 3.5-5.1 [facility] Protein [Mass/volume] in Ser um or PlasmaOrdered By: Marika Vasquez on 02-07-2023 Protein [Mass/Vol] 6.7 g/dL 6.4-8.9 [facility] RBC Auto (Bld) [#/Vol]Ordere d By: Marika Vasquez on 02-07-2023 RBC (Bld) [#/Vol] 4.24 10*6/uL 3.60-5.00 [facility] Serum or plasma albumin/glob ulin mass ratioOrdered By: Marika Vasquez on 02-07-2023 Albumin/Globulin [Mass ratio] 1.6 {ratio} [facility] Serum or plasma anion gap de terminationOrdered By: Marika Vasquez on 02-07-2023 Anion gap [Moles/Vol] 9.5 mmol/L 6.0-15.0 [facility] Sodium [Moles/volume] in Ser um or PlasmaOrdered By: Marika Vasquez on 02-07-2023 Sodium [Moles/Vol] 142 mmol/L 136-145 [facility] Urea nitrogen [Mass/volume] in Serum or PlasmaOrdered By: Marika Vasquez on 02-07-2023 Urea nitrogen [Mass/Vol] 13 mg/dL 7-25 [facility] WBC Auto (Bld) [#/Vol]Ordere d By: Marika Vasquez on 02-07-2023 WBC (Bld) [#/Vol] 7.0 10*3/uL 3.8-11.6 [facility] XR hand RT min 3V*on 023 XR hand RT min 3V* [facility] Main [address] [address] XRay Report Signed Patient: Zoë Montreo MR#: [id number] 0 : 1955 Acct:[id number] Age/Sex: 67 / F ADM Date: 12/25/22 Loc: [facility] Room: Type: [facility] Attending Dr: Marika Vasquez MD Copies to: Marika Vasquez MD Ordering Provider: Marika Vasquez MD Date of Service: 12/25/22 XR/XR hand RT min 3V*: Other specified postprocedural states RIGHT HAND - 4 views COMPARISON: 11/27/2022 CLINICAL DATA: Follow-up distal interphalangeal joint fusion AP, lateral and oblique views were obtained along with supplemental AP view of the thumb. There are postoperative changes of fusion at the distal interphalangeal joints of the second through fourth fingers where screws are again noted. Appearance is stable. There is no developing fracture or dislocation. Minor degenerative change with joint space narrowing and hypertrophy is again noted at the distal interphalangeal joint of the thumb. There are no significant soft tissue abnormalities. XR/XR hand RT min 3V* IMPRESSION: STABLE FUSION AT THE DISTAL INTERPHALANGEAL JOINTS OF THE SECOND THROUGH FOURTH FINGERS Impression dictated by: Heidi Lara M.D.12/25/2022 1:42 PM Dictation Location: [place] [address] Transcribed By: [facility] 12/25/22 1342 Dictated By: Heidi Lara MD 12/25/22 1339 Signed By: 12/25/22 1342 Normal [facility] XR hand RT min 3V*on 023 XR hand RT min 3V* [facility] Main [address] [address] XRay Report Signed Patient: Zoë Montero MR#: [id number] 0 : 1955 Acct:[id number] Age/Sex: 67 / F ADM Date: 11/27/22 Loc: [facility] Room: Type: [facility] Attending Dr: Marika Vasquez MD Copies to: Marika Vasquez MD Ordering Provider: Marika Vasquez MD Date of Service: 11/27/22 XR/XR hand RT min 3V*: Other specified postprocedural states XR hand RT min 3V* 11/27/2022 10:49 AM SIGNS AND SYMPTOMS: Follow-up fusion distal interphalangeal joints PROTOCOL: Frontal, lateral, and oblique radiographs of the right hand COMPARISON: 10/08/2022 FINDINGS: There is screw fixation across a distal interphalangeal joints of the second through fourth digits. There is no hardware complication or malalignment. There is narrowing of the first carpometacarpal junction. There is soft tissue swelling of the digits which may be postoperative. XR/XR hand RT min 3V* IMPRESSION: There is fusion of the distal interphalangeal joints of the second through fourth digits without hardware complication. There is accompanying soft tissue swelling. Postoperative. Degenerative changes are noted in the first carpometacarpal junction. Impression dictated by: Gabo Wright M.D.11/27/2022 1:55 PM Dictation Location: [place] [address] Transcribed By: [facility] 11/27/22 1355 Dictated By: Gabo Wright II, MD 11/27/22 1348 Signed By: 11/27/22 1355 [facility] XR hand RT min 3V*on 023 XR hand RT min 3V* [facility] Main [place] [address] [place] [address] XRay Report Signed Patient: Zoë Montero MR#: [id number] 0 : 1955 Acct:[id number] Age/Sex: 67 / F ADM Date: 10/24/22 Loc: [place] Room: Type: [facility] Attending Dr: Marika Vasquez MD Copies to: Marika Vasquez MD Ordering Provider: Marika Vasquez MD Date of Service: 10/24/22 XR/XR hand RT min 3V*: RT. HAND DIP FUSION 2,3,4 DIGITS Fluoroscopic assessment for right infusion HISTORY: Distal interphalangeal fusion involving the second third and fourth right digits. 23 image was obtained. Cumulative Air Kerma in mGy: 3.3 mGy Adequate placement of fusion hardware complication. Adequate alignment. XR/XR hand RT min 3V* IMPRESSION: No procedural complication. Impression dictated by: German Clay M.D.10/24/2022 12:03 PM Dictation Location: [place] [address] Transcribed By: [facility] 10/24/22 1203 Dictated By: German Clay DO 10/24/22 1201 Signed By: 10/24/22 1203 Normal [facility] Alanine aminotransferase [En zymatic activity/volume] in Serum or PlasmaOrdered By: Marika Vasquez on 10-10-2022 ALT [Catalytic activity/Vol] 15 U/L 7-52 [facility] Albumin [Mass/volume] in Ser um or Plasma by Bromocresol green (BCG) dye binding methoOrdered By: Marika Vasquez on 10-10-2022 Albumin BCG dye [Mass/Vol] 4.4 g/dL 3.5-5.7 [facility] Alkaline phosphatase [Enzyma tic activity/volume] in Serum or PlasmaOrdered By: Marika Vasquez on 10-10-2022 ALP [Catalytic activity/Vol] 79 U/L 34-104 [facility] Aspartate aminotransferase [ Enzymatic activity/volume] in Serum or PlasmaOrdered By: Marika Vasquez on 10-10-2022 AST [Catalytic activity/Vol] 19 U/L 13-39 [facility] Basophils Auto (Bld) [#/Vol] Ordered By: Marika Vasquez on 10-10-2022 Basophils (Bld) [#/Vol] 0.0 10*3/uL 0.0-0.2 [facility] Basophils/100 WBC Auto (Bld) Ordered By: Marika Vasquez on 10-10-2022 Basophils/100 WBC (Bld) 0.5 % . [facility] Bilirubin.total [Mass/volume ] in Serum or PlasmaOrdered By: Marika Vasquez on 10-10-2022 Bilirubin [Mass/Vol] 0.5 mg/dL 0.3-1.0 [facility] CMP with reflex to A1Con Albumin [Mass/Vol] 4.4 g/dL Normal 3.5-5.7 [facility] Comment on above: Performed By: #### C MP wRFX A1C, CBC #### [facility] [address] Albumin/Globulin [Mass ratio] 1.8 {ratio} Normal [facility] Comment on above: Performed By: #### C MP wRFX A1C, CBC #### [facility] [address] ALP [Catalytic activity/Vol] 79 U/L Normal 34-104 [facility] Comment on above: Result Comment: PERF ORMED BY: [place] [address] PATHOLOGIST SKEIN [employer] MACHINE OPERATOR GENI SKAGGS M.D. Performed By: #### C MP wRFX A1C, CBC #### [facility] [address] ALT [Catalytic activity/Vol] 15 U/L Normal 7-52 [facility] Comment on above: Performed By: #### C MP wRFX A1C, CBC #### [facility] [address] [place] [id number] [facility] Anion gap [Moles/Vol] 10.2 mmol/L Normal 6.0-15.0 [facility] Comment on above: Performed By: #### C MP wRFX A1C, CBC #### [facility] [address] AST [Catalytic activity/Vol] 19 U/L Normal 13-39 [facility] Comment on above: Performed By: #### C MP wRFX A1C, CBC #### [facility] [address] [place] [id number] [facility] Bilirubin [Mass/Vol] 0.5 mg/dL Normal 0.3-1.0 [facility] Comment on above: Performed By: #### C MP wRFX A1C, CBC #### [facility] [address] Calcium [Mass/Vol] 10.3 mg/dL Normal 8.6-10.3 [facility] Comment on above: Performed By: #### C MP wRFX A1C, CBC #### [facility] [address] Chloride [Moles/Vol] 104 mmol/L Normal 98-107 [facility] Comment on above: Performed By: #### C MP wRFX A1C, CBC #### [facility] [address] CO2 [Moles/Vol] 31.1 mmol/L High 21.0-31.0 [facility] Comment on above: Performed By: #### C MP wRFX A1C, CBC #### [facility] [address] Creatinine [Mass/Vol] 0.88 mg/dL Normal 0.60-1.20 [facility] Comment on above: Performed By: #### C MP wRFX A1C, CBC #### [facility] [address] [place] [address] [place] GFR/1.73 sq M.predicted MDRD (S/P/Bld) [Vol rate/Area] mL/min/{1.73_m2} Normal [facility] Comment on above: Performed By: #### C MP wRFX A1C, CBC #### [facility] [address] [place] [address] [place] Globulin (S) [Mass/Vol] 2.4 g/dL Normal [facility] Comment on above: Performed By: #### C MP wRFX A1C, CBC #### [facility] [address] [place] [address] [place] Glucose [Mass/Vol] 82 mg/dL Normal 70-100 [facility] Comment on above: Performed By: #### C MP wRFX A1C, CBC #### [facility] [address] [place] [address] [place] Potassium [Moles/Vol] 4.3 mmol/L Normal 3.5-5.1 [facility] Comment on above: Performed By: #### C MP wRFX A1C, CBC #### [facility] [address] Protein [Mass/Vol] 6.8 g/dL Normal 6.4-8.9 [facility] Comment on above: Performed By: #### C MP wRFX A1C, CBC #### [facility] [address] Sodium [Moles/Vol] 141 mmol/L Normal 136-145 [facility] Comment on above: Performed By: #### C MP wRFX A1C, CBC #### [facility] [address] Urea nitrogen [Mass/Vol] 14 mg/dL Normal 7-25 [facility] Comment on above: Performed By: #### C MP wRFX A1C, CBC #### [facility] [address] Calcium [Mass/volume] in Ser um or PlasmaOrdered By: Marika Vasquez on 10-10-2022 Calcium [Mass/Vol] 10.3 mg/dL 8.6-10.3 [facility] Carbon dioxide, total [Moles /volume] in Serum or PlasmaOrdered By: Marika Vasquez on 10-10-2022 CO2 [Moles/Vol] 31.1 mmol/L 21.0-31.0 [facility] Chloride [Moles/volume] in S michael or PlasmaOrdered By: Marika Vasquez on 10-10-2022 Chloride [Moles/Vol] 104 mmol/L 98-107 [facility] Complete Blood Count Auto Di ffon 10-10-2022 Basophils (Bld) [#/Vol] 0.0 10*3/uL Normal 0.0-0.2 [facility] Comment on above: Result Comment: PERF ORMED BY: [place] [address] PATHOLOGIST SKEIN [employer]ING MACHINE OPERATOR GENI SKAGGS M.D. Performed By: #### C MP wRFX A1C, CBC #### [facility] [address] [place] [address] [place] Basophils/100 WBC (Bld) 0.5 % Normal . [facility] Comment on above: Performed By: #### C MP wRFX A1C, CBC #### [facility] [address] Eosinophils (Bld) [#/Vol] 0.1 10*3/uL Normal 0.0-0.45 [facility] Comment on above: Performed By: #### C MP wRFX A1C, CBC #### [facility] [address] Eosinophils/100 WBC (Bld) 1.7 % Normal . [facility] Comment on above: Performed By: #### C MP wRFX A1C, CBC #### [address] Erythrocyte distribution width (RBC) [Ratio] 16.5 % High 11.9-15.3 [facility] Comment on above: Performed By: #### C MP wRFX A1C, CBC #### [address] Hematocrit (Bld) [Volume fraction] 34.8 % Normal 34.0-46.4 [facility] Comment on above: Performed By: #### C MP wRFX A1C, CBC #### [place] [address] [place] Hemoglobin (Bld) [Mass/Vol] 11.3 g/dL Low 11.8-15.4 [facility] Comment on above: Performed By: #### C MP wRFX A1C, CBC #### [facility] [address] [place] [address] [place] Lymphocytes (Bld) [#/Vol] 2.2 10*3/uL Normal 1.00-4.8 [facility] Comment on above: Performed By: #### C MP wRFX A1C, CBC #### [place] [address] [place] Lymphocytes/100 WBC (Bld) 39.8 % Normal . [facility] Comment on above: Performed By: #### C MP wRFX A1C, CBC #### [address] MCH (RBC) [Entitic mass] 26.7 pg Normal 24.7-34.3 [facility] Comment on above: Performed By: #### C MP wRFX A1C, CBC #### [address] MCV (RBC) [Entitic vol] 82.3 fL Normal 80-100 [facility] Comment on above: Performed By: #### C MP wRFX A1C, CBC #### [address] Mean Corpuscular HGB Conc 32.4 g/dL Normal 32.0-35.0 [facility] Comment on above: Performed By: #### C MP wRFX A1C, CBC #### [address] Monocytes (Bld) [#/Vol] 0.4 10*3/uL Normal 0.0-0.8 [facility] Comment on above: Performed By: #### C MP wRFX A1C, CBC #### [address] Monocytes/100 WBC (Bld) 7.3 % Normal . [facility] Comment on above: Performed By: #### C MP wRFX A1C, CBC #### [address] Neutrophils (Bld) [#/Vol] 2.8 10*3/uL Normal 1.8-7.7 [facility] Comment on above: Performed By: #### C MP wRFX A1C, CBC #### [address] Neutrophils/100 WBC (Bld) 50.7 % Normal . [facility] Comment on above: Performed By: #### C MP wRFX A1C, CBC #### [address] NRBC% 0.1 /100{WBC} Normal 0-0.5 [facility] Comment on above: Performed By: #### C MP wRFX A1C, CBC #### [facility] [address] Platelet mean volume (Bld) [Entitic vol] 9.1 fL Normal 6.3-10.7 [facility] Comment on above: Performed By: #### C MP wRFX A1C, CBC #### [facility] [address] Platelets (Bld) [#/Vol] 179 10*3/uL Normal 150-450 [facility] Comment on above: Performed By: #### C MP wRFX A1C, CBC #### [facility] [address] RBC (Bld) [#/Vol] 4.23 10*6/uL Normal 3.60-5.00 [facility] Comment on above: Performed By: #### C MP wRFX A1C, CBC #### [facility] [address] WBC (Bld) [#/Vol] 5.6 10*3/uL Normal 3.8-11.6 [facility] Comment on above: Performed By: #### C MP wRFX A1C, CBC #### [address] Creatinine [Mass/volume] in Serum or PlasmaOrdered By: Marika Vasquez on 10-10-2022 Creatinine [Mass/Vol] 0.88 mg/dL 0.60-1.20 [facility] ECG 12 lead ECGon 10-10-2022 ECG 12 lead ECG [facility] Main [place] [address] [place] [address] Electrocardiograph Report Signed Patient: Zoë Montero MR#: [id number] 0 : 1955 Acct:[id number] Age/Sex: 67 / F ADM Date: 10/10/22 Loc: [place] Room: Type: [facility] CLI Attending Dr: Marika Vasquez MD Ordering Provider: Marika Vasquez MD Date of Service: 10/10/2212/23/1502 ECG/ECG 12 lead ECG: Pre op Copies to: Test Reason : Blood Pressure : / mmHG Vent. Rate : 054 BPM Atrial Rate : 054 BPM P-R Int : 130 ms QRS Dur : 078 ms QT Int : 420 ms P-R-T Axes : 070 045 055 degrees QTc Int : 398 ms Sinus bradycardia Nonspecific T wave abnormality Abnormal ECG No previous ECGs available Confirmed by AFTAB MARSHALL [facility], FREDY ([id number]) on 10/10/2022 8:11:18 PM Referred By: AKIRA Electronically Signed By:FREDY EL MD [facility] Transcribed By: MARLI Signed By Fredy El MD, FACC 10/10/222010 Normal [facility] Eosinophils Auto (Bld) [#/Vo l]Ordered By: Marika Vasquez on 10-10-2022 Eosinophils (Bld) [#/Vol] 0.1 10*3/uL 0.0-0.45 [facility] Eosinophils/100 WBC Auto (Bl d)Ordered By: Marika Vasquez on 10-10-2022 Eosinophils/100 WBC (Bld) 1.7 % . [facility] Erythrocyte distribution wid th Auto (RBC) [Ratio]Ordered By: Marika Vasquez on 10-10-2022 Erythrocyte distribution width (RBC) [Ratio] 16.5 % 11.9-15.3 [facility] Globulin Calc (S) [Mass/Vol] Ordered By: Marika Vasquez on 10-10-2022 Globulin (S) [Mass/Vol] 2.4 g/dL [facility] Glucose [Mass/volume] in Ser um or PlasmaOrdered By: Marika Vasquez on 10-10-2022 Glucose [Mass/Vol] 82 mg/dL 70-100 [facility] Hematocrit Auto (Bld) [Volum e fraction]Ordered By: Marika Vasquez on 10-10-2022 Hematocrit (Bld) [Volume fraction] 34.8 % 34.0-46.4 [facility] Hemoglobin [Mass/volume] in BloodOrdered By: Marika Vasquez on 10-10-2022 Hemoglobin (Bld) [Mass/Vol] 11.3 g/dL 11.8-15.4 [facility] [facility] Leukocytes [#/volume] correc kamila for nucleated erythrocytes in Blood by Automated counOrdered By: Marika Vasquez on 10-10-2022 WBC corrected for nucl RBC Auto (Bld) [#/Vol] 5.6 10*3/uL 3.8-11.6 [facility] Lymphocytes Auto (Bld) [#/Vo l]Ordered By: Marika Vasquez on 10-10-2022 Lymphocytes (Bld) [#/Vol] 2.2 10*3/uL 1.00-4.8 [facility] Lymphocytes/100 WBC Auto (Bl d)Ordered By: Marika Vasquez on 10-10-2022 Lymphocytes/100 WBC (Bld) 39.8 % . [facility] MCH Auto (RBC) [Entitic mass ]Ordered By: Marika Vasquez on 10-10-2022 MCH (RBC) [Entitic mass] 26.7 pg 24.7-34.3 [facility] MCHC Auto (RBC) [Mass/Vol]Or dered By: Marika Vasquez on 10-10-2022 MCHC (RBC) [Mass/Vol] 32.4 g/dL 32.0-35.0 [facility] MCV Auto (RBC) [Entitic vol] Ordered By: Marika Vasquez on 10-10-2022 MCV (RBC) [Entitic vol] 82.3 fL 80-100 F [facility] Monocytes Auto (Bld) [#/Vol] Ordered By: Marika Vasquez on 10-10-2022 Monocytes (Bld) [#/Vol] 0.4 10*3/uL 0.0-0.8 [facility] Monocytes/100 WBC Auto (Bld) Ordered By: Marika Vasquez on 10-10-2022 Monocytes/100 WBC (Bld) 7.3 % . F [facility] Neutrophils Auto (Bld) [#/Vo l]Ordered By: Marika Vasquez on 10-10-2022 Neutrophils (Bld) [#/Vol] 2.8 10*3/uL 1.8-7.7 [facility] Neutrophils/100 WBC Auto (Bl d)Ordered By: Marika Vasquez on 10-10-2022 Neutrophils/100 WBC (Bld) 50.7 % . [facility] No Panel InformationOrdered By: Marika Vasquez on 10-10-2022 Estimated GFR (CKD-EPI) > 60.0 mL/Min [facility] Creatinine Clearance (Chem N/A [facility] Nucleated erythrocytes [Pres ence] in Blood by Automated countOrdered By: Marika Vasquez on 10-10-2022 Nucleated RBC Auto Ql (Bld) 0.1 /100{WBC} 0-0.5 [facility] Platelet mean volume Auto (B ld) [Entitic vol]Ordered By: Marika Vasquez on 10-10-2022 Platelet mean volume (Bld) [Entitic vol] 9.1 fL 6.3-10.7 [facility] Platelets Auto (Bld) [#/Vol] Ordered By: Marika Vasquez on 10-10-2022 Platelets (Bld) [#/Vol] 179 10*3/uL 150-450 [facility] Potassium [Moles/volume] in Serum or PlasmaOrdered By: Marika Vasquez on 10-10-2022 Potassium [Moles/Vol] 4.3 mmol/L 3.5-5.1 [facility] Protein [Mass/volume] in Ser um or PlasmaOrdered By: Marika Vasquez on 10-10-2022 Protein [Mass/Vol] 6.8 g/dL 6.4-8.9 [facility] RBC Auto (Bld) [#/Vol]Ordere d By: Marika Vasquez on 10-10-2022 RBC (Bld) [#/Vol] 4.23 10*6/uL 3.60-5.00 [facility] Serum or plasma albumin/glob ulin mass ratioOrdered By: Marika Vasquez on 10-10-2022 Albumin/Globulin [Mass ratio] 1.8 {ratio} [facility] Serum or plasma anion gap de terminationOrdered By: Marika Vasquez on 10-10-2022 Anion gap [Moles/Vol] 10.2 mmol/L 6.0-15.0 [facility] Sodium [Moles/volume] in Ser um or PlasmaOrdered By: Marika Vasquez on 10-10-2022 Sodium [Moles/Vol] 141 mmol/L 136-145 [facility] Urea nitrogen [Mass/volume] in Serum or PlasmaOrdered By: Marika Vasquez on 10-10-2022 Urea nitrogen [Mass/Vol] 14 mg/dL 7-25 [facility] WBC Auto (Bld) [#/Vol]Ordere d By: Marika Vasquez on 10-10-2022 WBC (Bld) [#/Vol] 5.6 10*3/uL 3.8-11.6 [facility] XR hand BI 3Von 10-08-2022 XR hand BI 3V [facility] [place] [address] [place] [address] XRay Report Signed Patient: Zoë Montero MR#: [id number] 0 : 1955 Acct:[id number] Age/Sex: 67 / F ADM Date: 10/08/22 Loc: [facility] Room: Type: [facility] Attending Dr: Marika Vasquez MD Copies to: Marika Vasquez MD Ordering Provider: Marika Vasquez MD Date of Service: 10/08/22 XR/XR hand BI 3V: Right hand pain Bilateral hand series 4 views each Reason for exam: Right hand pain second through fourth digits. Left hand pain first CMC joint. Comparison: None. FINDINGS: Left hand: No focal soft tissue abnormality. No acute bony process is seen. Hardware fixation is seen involving the first MCP joint without evidence of hardware complication. Bones are grossly demineralized. Carpus demonstrates bony fusion involving the CMC joint of the thumb. DIP joints demonstrate mild degenerative changes. No bony erosions. Right hand: No focal soft tissue abnormality. No acute bony process is seen. Carpus demonstrates mild degenerative change without bony erosions. Moderate degenerative changes are noted involving the DIP joints particularly involving the second and third digits without bony erosions. Bones are grossly demineralized. XR/XR hand BI 3V Impression: 1. No acute bony process. 2. 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 3. There appears to be bony fusion involving the CMC joint of the left hand. 4. DIP joints demonstrate mild degenerative changes of the left hand without bony erosion. 5. Moderate degenerative changes involving the DIP joints of the right hand without bony erosion. Impression dictated by: Yves Rousseau Jr., D.O.10/08/2022 12:57 PM Dictation Location: [facility] Transcribed By: [facility] 10/08/22 1257 Dictated By: Yves Rousseau Jr, DO 10/08/22 1251 Signed By: 10/08/22 1257 Normal [facility] XR hand BI 3V [facility] [employer] Other XR hand BI 3V [facility] [employer] Other XR hand BI 3V [address] [place] [address] [employer] Other XR hand BI 3V [address] [employer] Other XR hand BI 3V XRay Report [facility] [employer] Other XR hand BI 3V Signed [employer] Other XR hand BI 3V Patient: Zoë Montero MR#: [id number] [employer] Other XR hand BI 3V 0 [employer] Other XR hand BI 3V : 1955 Acct:[id number] [employer] Other XR hand BI 3V Age/Sex: 67 / F ADM Date: 10/08/22 [employer] Other XR hand BI 3V Loc: [facility] Room: Type: [facility] [employer] Other XR hand BI 3V Attending Dr: Marika Vasquez MD [employer] Other XR hand BI 3V Copies to: Marika Vasquez MD [employer] Other XR hand BI 3V Ordering Provider: Marika Vasquez MD [employer] Other XR hand BI 3V Date of Service: 10/08/22 [employer] Other XR hand BI 3V XR/XR hand BI 3V: Right hand pain [employer] Other XR hand BI 3V Bilateral hand series 4 views each [employer] Other XR hand BI 3V Reason for exam: Right hand pain second through fourth digits. Left hand pain first CMC joint. [employer] Other XR hand BI 3V Comparison: None. [employer] Other XR hand BI 3V FINDINGS: Left hand: No focal soft tissue abnormality. No acute bony process is seen. Hardware [employer] Other XR hand BI 3V fixation is seen involving the first MCP joint without evidence of hardware complication. Bones are [employer] Other XR hand BI 3V grossly demineralized. Carpus demonstrates bony fusion involving the CMC joint of the thumb. DIP [employer] Other XR hand BI 3V joints demonstrate mild degenerative changes. No bony erosions. [employer] Other XR hand BI 3V Right hand: No focal soft tissue abnormality. No acute bony process is seen. Carpus demonstrates [employer] Other XR hand BI 3V mild degenerative change without bony erosions. Moderate degenerative changes are noted involving [employer] Other XR hand BI 3V the DIP joints particularly involving the second and third digits without bony erosions. Bones are [employer] Other XR hand BI 3V grossly demineralized. [employer] Other XR hand BI 3V XR/XR hand BI 3V [employer] Other XR hand BI 3V Impression: [employer] Other XR hand BI 3V 1. No acute bony process. [employer] Other XR hand BI 3V 2. 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 [employer] Other XR hand BI 3V 3. There appears to be bony fusion involving the CMC joint of the left hand. [employer] Other XR hand BI 3V 4. DIP joints demonstrate mild degenerative changes of the left hand without bony erosion. [employer] Other XR hand BI 3V 5. Moderate degenerative changes involving the DIP joints of the right hand without bony erosion. [employer] Other XR hand BI 3V Impression dictated by: Yves Rousseau Jr., D.O.10/08/2022 12:57 PM [employer] Other XR hand BI 3V Dictation Location: [place] [address] [employer] Other XR hand BI 3V Transcribed By: PWS 10/08/22 [facility] [employer] Other XR hand BI 3V Dictated By: Yves Rousseau Jr, DO 10/08/22 [facility] [employer] Other XR hand BI 3V Signed By: [employer] Other XR hand BI 3V 10/08/22 [facility] [employer] Other MG MAMM SCREEN 3D KEE CADon 01-29-2022 MG MAMM SCREEN 3D KEE CAD Patient: ZOË MONTERO Exam Date: 01/29/2022 : 1955 Gender:F Ordering : DR ADRIAN LYNN M.D. Admission #: [id number] Family : Order #: [id number] CLICK HERE TO VIEW EXAM RADIOLOGY REPORT PROCEDURE: MAMMOGRAM SCREENING 3D BILATERAL CAD COMPARISON: MG MAMM SCREEN 3D KEE CAD, 01/24/2021. MG MAMM SCREEN KEE W CAD, 01/12/2020. INDICATIONS: Screening mammography Calculator Name NCI Breast Cancer Risk Assessment Tool 5 Year Breast Cancer Risk 3.30% Lifetime Breast Cancer Risk 10.40% Personal Breast Cancer No Personal Ovarian Cancer No Treatments HYST Family Cancers Sister with breast cancer at age 49; Grandmother-maternal with lung cancer at age 70; Aunt-maternal with lung cancer at age 38; Sister with blood cancer at age 55. LOCATION: [facility] BREAST COMPOSITION: Heterogeneously dense,which may obscure small masses. FINDINGS: DIAGNOSTIC CATEGORY 2--BENIGN FINDING: RIGHT BREAST: No significant suspicious finding. Scattered benign-appearing nodules are present. No significant change has occurred. LEFT BREAST: No significant suspicious finding. Scattered benign-appearing nodules are present. No significant change has occurred. RECOMMENDATIONS: ROUTINE MAMMOGRAM AND CLINICAL EVALUATION IN 12 MONTHS. PLEASE NOTE: A NORMAL MAMMOGRAM DOES NOT EXCLUDE THE POSSIBILITY OF BREAST CANCER. A CLINICALLY SUSPICIOUS PALPABLE LUMP SHOULD BE BIOPSIED. Dictated by: Carlos Arce M.D. on 01/30/2022 at 14:33 Approved by: Carlos Arce M.D. on 01/30/2022 at 14:40 Normal [facility] CT LUNG CANCER SCREENINGon 0 05-03-2021 CT LUNG CANCER SCREENING EXAMINATION: CT LUNG CANCER SCREENING HISTORY: Primary ovarian failure , nicotine dependence COMPARISON: 04/17/2020 TECHNIQUE: Axial, Coronal, and Sagittal images were created without the administration of IV contrast material. Dose reduction techniques were achieved by using automated exposure control and/or adjustment of mA and/or kV according to patient size and/or use of iterative reconstruction technique. FINDINGS: LUNGS: Mild stable diffuse centrilobular and paraseptal emphysema. Biapical opacities likely chronic pleural parenchymal scarring, unchanged. Scattered subcentimeter calcified and noncalcified pulmonary nodules, the largest noncalcified nodule is identified in the left lower lobe measuring 6 mm in diameter, axial image #95. Some new linear opacities in both lung bases likely represent atelectasis and/or scarring. Mild peribronchial thickening. PLEURA: No mass, effusion, or pneumothorax. VASCULATURE: No abnormality. BAKARI: Small right hilar lymph nodes MEDIASTINUM: Small pretracheal calcified lymph nodes. No pathologic lymphadenopathy CARDIAC: No enlargement, pericardial thickening, or significant calcification. AORTA: No aortic aneurysm. Mild to moderate atherosclerosis CHEST WALL: No mass or axillary adenopathy BONES: Focal sclerosis right humeral head, benign enostosis is favored LIMITED ABDOMEN: No suspicious findings. Limited images of the upper abdomen. OTHER: Negative. IMPRESSION: LUNG SCREENING: Lung-RADS Category 2- Benign Appearance or Behavior. Nodules with a very low likelihood of becoming a clinically active cancer due to size or lack of growth. 2. Continue annual screening with LDCT in 12 months. Electronically authenticated by: LEE LEE Date: 2021-05-03 10:54 Normal [facility] XR DEXA BONE DENSITYon 05-03 XR DEXA BONE DENSITY EXAMINATION: XR DEX A BONE DENSITY, 05/03/2021 9:31 AM EST HISTORY: Tobacco dependence caused by cigarettes COMPARISON: 2004 TECHNIQUE: Dual-energy X-ray absorptiometry (DEXA) bone density study performed for the axial skeleton. FINDINGS: Bone mineral density AP spine L1-L4 measures 1.188 g/sq cm. T score 0.1. Stable from the prior exam. WHO classification: Normal Lowest bone mineral density right femur, 0.792 g/sq cm. T score -1.7. This is a 2.3% reduction from 2018, physiologic. WHO classification: Osteopenia IMPRESSION: Stable bone mineral density. Osteopenia, moderate fracture risk Electronically authenticated by: LEE LEE Date: 2021-05-03 10:31 Normal [facility] Complete Blood Count with Au to Diffon 04-16-2021 Basophils (Bld) [#/Vol] 0.04 10*3/uL Normal 0.00-0.20 [facility] [employer] Comment on above: Performed By: #### C BCAD, TSH reflex FT4, VITD, LIPD, CMP #### [facility] [address] [place], [place] [id number] Basophils/100 WBC (Bld) 0.7 % Normal [place] [employer] Comment on above: Performed By: #### C BCAD, TSH reflex FT4, VITD, LIPD, CMP #### [facility] [address] [place], [place] [id number] Eosinophils (Bld) [#/Vol] 0.19 10*3/uL Normal 0.02-0.50 [facility] [employer] Comment on above: Performed By: #### C BCAD, TSH reflex FT4, VITD, LIPD, CMP #### [facility] [address] [place], [place] [id number] Eosinophils/100 WBC (Bld) 3.3 % Normal [facility] Specialist Comment on above: Performed By: #### C BCAD, TSH reflex FT4, VITD, LIPD, CMP #### [facility] [address] [place], [place] [id number] Erythrocyte distribution width (RBC) [Ratio] 13.8 % Normal 11.0-15.0 [facility] Comment on above: Performed By: #### C BCAD, TSH reflex FT4, VITD, LIPD, CMP #### [facility] [address] [place], [place] [id number] Hematocrit (Bld) [Volume fraction] 38.0 % Normal 35.0-47.0 [facility] Special[facility] Comment on above: Performed By: #### C BCAD, TSH reflex FT4, VITD, LIPD, CMP #### [facility] [address] [place], [place] [id number] Hemoglobin (Bld) [Mass/Vol] 11.9 g/dL Normal 11.6-15.5 [facility] Specialist Comment on above: Performed By: #### C BCAD, TSH reflex FT4, VITD, LIPD, CMP #### [facility] [address] [place], [place] [id number] Lymphocytes (Bld) [#/Vol] 1.9 10*3/uL Normal 0.9-3.9 [facility] Comment on above: Performed By: #### C BCAD, TSH reflex FT4, VITD, LIPD, CMP #### [facility] [address] [place], [place] [id number] Lymphocytes/100 WBC (Bld) 33.2 % Normal [facility] Specialist Comment on above: Performed By: #### C BCAD, TSH reflex FT4, VITD, LIPD, CMP #### [facility] [address] [place], [place] [id number] MCH (RBC) [Entitic mass] 27.5 pg Normal 27.0-33.0 [facility] Special[facility] Comment on above: Performed By: #### C BCAD, TSH reflex FT4, VITD, LIPD, CMP #### [facility] [address] [place], [place] [id number] MCHC (RBC) [Mass/Vol] 31.3 g/dL Low 32.0-36.0 [facility] Comment on above: Performed By: #### C BCAD, TSH reflex FT4, VITD, LIPD, CMP #### [facility] [address] [place], [place] [id number] MCV (RBC) [Entitic vol] 88 fL Normal 80-100 [facility] Comment on above: Performed By: #### C BCAD, TSH reflex FT4, VITD, LIPD, CMP #### [facility] [address] [place], [place] [id number] Monocytes (Bld) [#/Vol] 0.4 10*3/uL Normal 0.2-0.9 [facility] Comment on above: Performed By: #### C BCAD, TSH reflex FT4, VITD, LIPD, CMP #### [facility] [address] [place], [place] [id number] Monocytes/100 WBC (Bld) 7.4 % Normal [facility] Comment on above: Performed By: #### C BCAD, TSH reflex FT4, VITD, LIPD, CMP #### [facility] [address] [place], [place] [id number] Neutrophils (Bld) [#/Vol] 3.2 10*3/uL Normal 1.5-7.8 [facility] Comment on above: Performed By: #### C BCAD, TSH reflex FT4, VITD, LIPD, CMP #### [facility] [address] [place], [place] [id number] Neutrophils/100 WBC (Bld) 55.2 % Normal [facility] Comment on above: Performed By: #### C BCAD, TSH reflex FT4, VITD, LIPD, CMP #### [facility] [address] [place], [place] [id number] Platelet mean volume (Bld) [Entitic vol] 11.40 fL Normal 7.50-12.50 [facility] Comment on above: Performed By: #### C BCAD, TSH reflex FT4, VITD, LIPD, CMP #### [facility] [address] [place], [place] [id number] Platelets (Bld) [#/Vol] 207 10*3/uL Normal 140-400 [facility] Specialist Comment on above: Performed By: #### C BCAD, TSH reflex FT4, VITD, LIPD, CMP #### [facility] [address] [place], [place] [id number] RBC (Bld) [#/Vol] 4.32 10*6/uL Normal 3.90-5.[address] [facility] Comment on above: Performed By: #### C BCAD, TSH reflex FT4, VITD, LIPD, CMP #### [facility] [address] [place], [place] [id number] RDW-SD 44.7 fL Normal 37.0-50.0 [facility] Specialist Comment on above: Performed By: #### C BCAD, TSH reflex FT4, VITD, LIPD, CMP #### [facility] [address] [place], [place] [id number] WBC (Bld) [#/Vol] 5.8 10*3/uL Normal 3.8-11.0 [facility] Specialist Comment on above: Performed By: #### C BCAD, TSH reflex FT4, VITD, LIPD, CMP #### [facility] [address] [place], [place] [id number] Comprehensive Metabolic Pane [facility] 04-16-2021 Albumin [Mass/Vol] 4.6 g/dL Normal 3.6-5.1 [facility] [employer] Comment on above: Performed By: #### C BCAD, TSH reflex FT4, VITD, LIPD, CMP #### [facility] [address] [place], [place] [id number] Albumin/Globulin [Mass ratio] 1.8 {ratio} Normal 1.0-2.5 [facility] Comment on above: Performed By: #### C BCAD, TSH reflex FT4, VITD, LIPD, CMP #### [facility] [address] [place], [place] [id number] ALP [Catalytic activity/Vol] 86 U/L Normal 35-119 [facility] Special[facility] Comment on above: Performed By: #### C BCAD, TSH reflex FT4, VITD, LIPD, CMP #### [facility] [address] [facility] [place] [id number] ALT [Catalytic activity/Vol] 11 U/L Normal 6-33 [facility] Comment on above: Result Comment: 01/31 Female reference range changed. Performed By: #### C BCAD, TSH reflex FT4, VITD, LIPD, CMP #### [facility] [address] [facility] [place] [id number] Anion gap [Moles/Vol] 17 mmol/L Normal 12-20 [facility] Comment on above: Result Comment: Effe ctive 03/08/2019 reference range changed. Performed By: #### C BCAD, TSH reflex FT4, VITD, LIPD, CMP #### [facility] [address] [facility] [place] [id number] AST [Catalytic activity/Vol] 15 U/L Normal 9-34 [facility] Comment on above: Performed By: #### C BCAD, TSH reflex FT4, VITD, LIPD, CMP #### [facility] [address] [facility] [place] [id number] Bilirubin [Mass/Vol] 0.34 mg/dL Normal 0.30-1.[address] [facility] Comment on above: Performed By: #### C BCAD, TSH reflex FT4, VITD, LIPD, CMP #### [facility] [address] [facility] [place] [id number] BUN/CREA 17 Ratio Normal 6-22 [facility] Comment on above: Performed By: #### C BCAD, TSH reflex FT4, VITD, LIPD, CMP #### [facility] [address] [place] [id number] Calcium [Mass/Vol] 10.0 mg/dL Normal 8.6-10.2 [facility] Comment on above: Performed By: #### C BCAD, TSH reflex FT4, VITD, LIPD, CMP #### [facility] [address] [facility] [place] [id number] Chloride [Moles/Vol] 105 mmol/L Normal 98-[address] [facility] Comment on above: Performed By: #### C BCAD, TSH reflex FT4, VITD, LIPD, CMP #### [facility] [address] [place], [place] [id number] CO2 [Moles/Vol] 25 mmol/L Normal 20-31 [facility] Comment on above: Performed By: #### C BCAD, TSH reflex FT4, VITD, LIPD, CMP #### [facility] [address] [place], [place] [id number] Creatinine [Mass/Vol] 0.7 mg/dL Normal 0.6-1.4 [facility] Comment on above: Performed By: #### C BCAD, TSH reflex FT4, VITD, LIPD, CMP #### [facility] [address] [place], [place] [id number] eGFRAA 95 mL/min/1.73m2 Normal >60 [facility] Comment on above: Performed By: #### C BCAD, TSH reflex FT4, VITD, LIPD, CMP #### [facility] [address] [place], [place] [id number] eGFRNAA 78 mL/min/1.73m2 Normal >60 [facility] Comment on above: Performed By: #### C BCAD, TSH reflex FT4, VITD, LIPD, CMP #### [facility] [address] [place], [place] [id number] Globulin (S) [Mass/Vol] 2.5 g/dL Normal 1.9-3.7 [facility] Comment on above: Performed By: #### C BCAD, TSH reflex FT4, VITD, LIPD, CMP #### [facility] [address] [place], [place] [id number] Glucose [Mass/Vol] 99 mg/dL Normal 65-99 [facility] Comment on above: Result Comment: For FASTING Glucose --- ADA reference ranges: Normal 65-99 mg/dl Prediabetes 100-125 Diabetes >/= 126 Performed By: #### C BCAD, TSH reflex FT4, VITD, LIPD, CMP #### [facility] [address] [place], [place] [id number] Potassium [Moles/Vol] 3.9 mmol/L Normal 3.5-5.5 [facility] Comment on above: Performed By: #### C BCAD, TSH reflex FT4, VITD, LIPD, CMP #### [facility] [address] [place], [place] [id number] Protein [Mass/Vol] 7.1 g/dL Normal 6.1-8.1 [facility]la [facility]ich[facility] Comment on above: Performed By: #### C BCAD, TSH reflex FT4, VITD, LIPD, CMP #### [facility] [address] [place], [place] [id number] Sodium [Moles/Vol] 143 mmol/L Normal 135-146 [facility] [employer] Comment on above: Performed By: #### C BCAD, TSH reflex FT4, VITD, LIPD, CMP #### [facility] [address] [place], [place] [id number] Urea nitrogen [Mass/Vol] 13 mg/dL Normal 7-25 [facility] [employer] Comment on above: Performed By: #### C BCAD, TSH reflex FT4, VITD, LIPD, CMP #### [facility] [address] [place], [place] [id number] Hemoglobin A1Con 04-16-2021 EAG 108.28 Normal [facility] Specialist Comment on above: Performed By: #### A 1C #### [facility] [address] [place], [place] [id number] HbA1c (Bld) [Mass fraction] 5.4 % Normal 4.0-6.0 [facility] Specialist Comment on above: Performed By: #### A 1C #### [facility] [address] [place], [place] [id number] Lipid Panelon 04-16-2021 Cholesterol [Mass/Vol] 266 mg/dL High 125-200 [facility] Comment on above: Result Comment: Low risk < 200mg/dL Borderline risk 201-239 mg/dl High risk > or equal to 240 Performed By: #### C BCAD, TSH reflex FT4, VITD, LIPD, CMP #### [facility] [address] [place], [place] [id number] Cholesterol in HDL [Mass/Vol] 73 mg/dL Normal >40 [facility] Specialist Comment on above: Result Comment: High Cardiovascular Risk HDL <40 mg/dL Low Cardiovascular Risk HDL > or equal to 60 mg/dl Performed By: #### C BCAD, TSH reflex FT4, VITD, LIPD, CMP #### [facility] [address] [place], [place] [id number] Cholesterol in LDL [Mass/Vol] 153 mg/dL Normal [facility] Specialist Comment on above: Result Comment: LDL ATP III CLASSIFICATION LDL less than 100 mg/dl Optimal LDL 100-129 mg/dl Near or above optimal LDL 130-159 Borderline high LDL 160-189 High LDL greater than 189 mg/dl Very High Performed By: #### C BCAD, TSH reflex FT4, VITD, LIPD, CMP #### [facility] [address] [place], [place] [id number] Cholesterol in VLDL [Mass/Vol] 40 mg/dL Normal [facility] Comment on above: Performed By: #### C BCAD, TSH reflex FT4, VITD, LIPD, CMP #### [facility] [address] [place], [place] [id number] Cholesterol.total/Holly sterol in HDL [Mass ratio] 4 {ratio} Normal [facility] Comment on above: Performed By: #### C BCAD, TSH reflex FT4, VITD, LIPD, CMP #### [facility] [address] [place], [place] [id number] Triglyceride [Mass/Vol] 200 mg/dL High 30-150 N [facility]los [facility] Hospital[facility] Comment on above: Result Comment: TRIG ATPIII CLASSIFICATIONS TRIG less than 150 mg/dl Normal TRIG 150-199 mg/dl Borderline High TRIG 200-500 mg/dl High TRIG greather than 500 mg/dl Very High Performed By: #### C BCAD, TSH reflex FT4, VITD, LIPD, CMP #### [facility] [address] [place], [place] [id number] TSH w/ Reflex to Free T4on 0 2- TSH 2.740 uIU/mL Normal 0.400-4.500 [facility] Specialist Comment on above: Performed By: #### C BCAD, TSH reflex FT4, VITD, LIPD, CMP #### [facility] [address] [place], [place] [id number] Vitamin D 25-OHon 04-16-2021 VIT D 25 OH 50 ng/ml Normal >29 [facility] [employer] Comment on above: Result Comment: Aries min D Status Deficiency <20 ng/mL Insufficiency 20-29 ng/mL Optimal 30-100 ng/mL Possible Toxicity >=150 ng/mL Performed By: #### C BCAD, TSH reflex FT4, VITD, LIPD, CMP #### [facility] [address] [place], [place] [id number] Vital Signs Date Time Vital Sign Value Performing Clinician Facility 01-16-2024 10:58-0500 Body height 160 cm Heidi Hemmer PA Work Phone: [facility] 01-16-2024 10:58-0500 Body mass index (BMI) [Ratio] 25.9 kg/m2 Heidi Hemmer PA Work Phone: [facility] 01-16-2024 10:58-0500 Body temperature 97.7 [degF] Heidi Hemmer PA Work Phone: [facility] 01-16-2024 10:58-0500 Body weight 66.32 kg Heidi Hemmer PA Work Phone: [facility] 01-16-2024 10:58-0500 Diastolic blood pressure 88 mm[Hg] Heidi Hemmer PA Work Phone: [facility] 01-16-2024 10:58-0500 Heart rate 54 /min Heidi Hemmer PA Work Phone: [facility] 01-16-2024 10:58-0500 Respiratory rate 16 /min Heidi Hemmer PA Work Phone: [facility] 01-16-2024 10:58-0500 SaO2% (BldA) [Mass fraction] 99 % Heidi Hemmer PA Work Phone: [facility] 01-16-2024 10:58-0500 Systolic blood pressure 136 mm[Hg] Heidi Hemmer PA Work Phone: [facility] 01-13-2024 09:40-0500 Body height 157.5 cm Nikkichanel Patten PA Work Phone: [facility] 01-13-2024 09:40-0500 Body mass index (BMI) [Ratio] 26.52 kg/m2 Nikkichanel Patten PA Work Phone: [facility] 01-13-2024 09:40-0500 Body weight 65.77 kg Nikkichanel Patten PA Work Phone: [facility] 01-13-2024 09:40-0500 Diastolic blood pressure 74 mm[Hg] Nikki Patten PA Work Phone: [facility] 01-13-2024 09:40-0500 Heart rate 51 /min Nikki Patten PA Work Phone: [facility] 01-13-2024 09:40-0500 Respiratory rate 18 /min Nikkichanel Patten PA Work Phone: [facility] 01-13-2024 09:40-0500 SaO2% (BldA) [Mass fraction] 93 % Nikki Patten PA Work Phone: [facility] 01-13-2024 09:40-0500 Systolic blood pressure 142 mm[Hg] Nikki Patten PA Work Phone: [facility] 06-05-2023 10:06-0400 Body mass index (BMI) [Ratio] 25.69 kg/m2 Nikki Patten PA Work Phone: [facility] 06-05-2023 10:06-0400 Body weight 65.77 kg Nikki Patten PA Work Phone: [facility] 06-05-2023 10:06-0400 Diastolic blood pressure 63 mm[Hg] Nikki Patten PA Work Phone: [facility] 06-05-2023 10:06-0400 Heart rate 63 /min Nikki Patten PA Work Phone: [facility] 06-05-2023 10:06-0400 Respiratory rate 16 /min Nikki Auenberg PA Work Phone: [facility] 06-05-2023 10:06-0400 SaO2% (BldA) [Mass fraction] 93 % Nikki Nienberg PA Work Phone: [facility] 06-05-2023 10:06-0400 Systolic blood pressure 133 mm[Hg] Nikki Nienberg PA Work Phone: [facility] 05-01-2023 12:35-0500 Body height 160 cm Nikki Nienberg PA Work Phone: [facility] 05-01-2023 12:35-0500 Body mass index (BMI) [Ratio] 25.69 kg/m2 Nikki Nienberg PA Work Phone: [facility] 05-01-2023 12:35-0500 Body weight 65.77 kg Nikki Nienberg PA Work Phone: [facility] 05-01-2023 12:35-0500 Diastolic blood pressure 76 mm[Hg] Nikki Nienberg PA Work Phone: [facility] 05-01-2023 12:35-0500 Heart rate 63 /min Nikki Nienberg PA Work Phone: [facility] 05-01-2023 12:35-0500 SaO2% (BldA) [Mass fraction] 98 % Nikki Nienberg PA Work Phone: [facility] 05-01-2023 12:35-0500 Systolic blood pressure 137 mm[Hg] Nikki Nienberg PA Work Phone: [facility] 04-15-2023 11:35-0500 Diastolic blood pressure 54 mm[Hg] II Adrian Lynn Work Phone: [facility] 04-15-2023 11:35-0500 Heart rate 60 /min II Adrian Lynn Work Phone: [facility] 04-15-2023 11:35-0500 Respiratory rate 16 /min II Adrian Lynn Work Phone: [facility] 04-15-2023 11:35-0500 SaO2% (BldA) [Mass fraction] 95 % II Adrian Lynn Work Phone: [facility] 04-15-2023 11:35-0500 Systolic blood pressure 117 mm[Hg] II Adrian Lynn Work Phone: [facility] 04-15-2023 09:09-0500 Body height 160.02 cm II Adrian Lynn Work Phone: [facility] 04-15-2023 09:09-0500 Body temperature 98 [degF] II Adrian Lynn Work Phone: [facility] 04-15-2023 09:09-0500 Body weight 65.77 kg II Adrian Lynn Work Phone: [facility] 02-10-2023 12:00-0500 Diastolic blood pressure 58 mm[Hg] II Adrian Lynn Work Phone: [facility] 02-10-2023 12:00-0500 Heart rate 53 /min II Adrian Lynn Work Phone: [facility] 02-10-2023 12:00-0500 Respiratory rate 16 /min II Adrian Lynn Work Phone: [facility] 02-10-2023 12:00-0500 SaO2% (BldA) [Mass fraction] 94 % II Adrian Lynn Work Phone: [facility] 02-10-2023 12:00-0500 Systolic blood pressure 116 mm[Hg] II Adrian Lynn Work Phone: [facility] 02-10-2023 09:46-0500 Body mass index (BMI) [Ratio] 26.5 kg/m2 II Adrian Lynn Work Phone: [facility] 02-10-2023 09:39-0500 Body height 160.02 cm II Adrian Lynn Work Phone: [facility] 02-10-2023 09:39-0500 Body weight 68 kg II Adrian Lynn Work Phone: [facility] 02-10-2023 09:10-0500 Body temperature 97.9 [degF] II Adrian Lynn Work Phone: [facility] 02-05-2023 10:30-0500 Body height 160.02 cm Marika Vasquez Other [facility] 02-05-2023 10:30-0500 Body mass index (BMI) [Ratio] 26.57 kg/m2 Marika [employer] Other [employer] Other 02-05-2023 10:30-0500 Body weight 68.04 kg Marika [employer] Other [employer] Other 02-05-2023 10:30-0500 Body weight 68.03 kg II Adrian Lynn Work Phone: [facility] 10-24-2022 10:42-0400 Diastolic blood pressure 65 mm[Hg] II Adrian Lynn Work Phone: [facility] 10-24-2022 10:42-0400 Heart rate 60 /min II Adrian Lynn Work Phone: [facility] 10-24-2022 10:42-0400 Respiratory rate 16 /min II Adrian Lynn Work Phone: [facility] 10-24-2022 10:42-0400 SaO2% (BldA) [Mass fraction] 94 % II Adrian Lynn Work Phone: [facility] 10-24-2022 10:42-0400 Systolic blood pressure 117 mm[Hg] II Adrian Lynn Work Phone: [facility] 10-24-2022 10:12-0400 Inhaled oxygen flow rate 6 L/min II Adrian Lynn Work Phone: [facility] 10-24-2022 07:11-0400 Body height 160.02 cm II Adrian Lynn Work Phone: [facility] 10-24-2022 07:11-0400 Body mass index (BMI) [Ratio] 26.2 kg/m2 II Adrian Lynn Work Phone: [facility] 10-24-2022 07:11-0400 Body weight 67 kg II Adrian Lynn Work Phone: [facility] 10-24-2022 06:10-0400 Body temperature 98.3 [degF] II Adrian Lynn Work Phone: [facility] 10-08-2022 08:00-0400 Body height 162.56 cm Marika Akira Other [employer] Other 10-08-2022 08:00-0400 Body mass index (BMI) [Ratio] 27.29 kg/m2 Marika Akira Other [employer] Other 10-08-2022 08:00-0400 Body weight 72.12 kg Marika Arunaenriqueta Other [employer] Other Encounters Encounter Date Encounter Type Care Provider Facility Start: 01-16-2024 End: 01-16-2024 MDdatacordena CARDENAS Work Phone: [facility] Start: 01-16-2024 End: 01-16-2024 BamEashmartheet Heidi CARDENAS Work Phone: [facility] Start: 01-16-2024 End: 01-16-2024 Office outpatient visit 15 minutes Heidi CARDENAS Work Phone: [facility] Comment on above: COPD exacerbation (C MS/HCC) (Primary Dx); Encounter for screening mammogram for malignant neoplasm of breast; Acute non-recurrent pansinusitis; Tobacco dependence; Atherosclerosis of aorta (CMS/HCC) Start: 01-16-2024 End: 01-16-2024 ambulatory HEIDI RODRIGUEZ Not Available Start: 01-13-2024 End: 01-13-2024 ambulatory [facility] Kalina Adena [facility] Start: 01-13-2024 End: 01-13-2024 ambulatory [facility] Kalina Adena [facility] Start: 01-13-2024 End: 01-13-2024 Office outpatient visit 15 minutes Nikki Kalina Aunathalia CARDENAS Work Phone: [facility] Comment on above: Chronic pain of both knees (Primary Dx) Start: 12-12-2023 End: 12-12-2023 ambulatory [facility] Start: 11-28-2023 End: 11-28-2023 ambulatory [facility] Start: 10-30-2023 End: 10-30-2023 ambulatory [facility] Start: 10-03-2023 End: 10-03-2023 ambulatory [facility] Start: 09-25-2023 End: 09-25-2023 ambulatory MADISYN WILLSON Not Available Start: 09-11-2023 End: 09-11-2023 ambulatory [facility] Start: 08-22-2023 End: 08-22-2023 ambulatory [facility] Start: 08-22-2023 End: 08-22-2023 ambulatory [facility] Start: 07-31-2023 End: 07-31-2023 ambulatory [facility] Start: 07-30-2023 End: 07-30-2023 ambulatory HEIDI RODRIGUEZ Not Available Start: 07-04-2023 End: 07-04-2023 ambulatory [facility] Start: 07-01-2023 End: 07-01-2023 ambulatory [facility] Start: 06-30-2023 End: 06-30-2023 ambulatory [facility] Start: 06-05-2023 End: 06-05-2023 Office outpatient visit 15 minutes Nikki CARDENAS Work Phone: [facility] Comment on above: Spinal stenosis of l umbar region with neurogenic claudication (Primary Dx) Start: 06-05-2023 End: 06-05-2023 ambulatory [facility] Start: 06-02-2023 End: 07-02-2023 ambulatory [facility] Start: 05-08-2023 End: 05-08-2023 ambulatory HEIDI RODRIGUEZ Not Available Start: 05-06-2023 End: 05-06-2023 ambulatory [facility] Start: 05-01-2023 End: 06-02-2023 ambulatory [facility] Start: 05-01-2023 End: 05-01-2023 Office outpatient new 45 minutes Nikki CARDENAS Work Phone: [facility] Comment on above: Lumbosacral spondylo sis without myelopathy (Primary Dx); Disc displacement, lumbar; Lumbar radiculopathy, chronic Start: 05-01-2023 End: 05-01-2023 ambulatory [facility] Start: 04-21-2023 End: 04-21-2023 ambulatory HEIDI DARRIANTRISH [facility] Start: 04-18-2023 End: 04-18-2023 ambulatory HEIDI RODRIGUEZ Not Available Start: 04-15-2023 End: 04-15-2023 ambulatory Dwight Pan Facility:[facility] Start: 04-15-2023 Non-patient / Non-visit II Audie Lynn Work Phone: [facility] Work Phone: Start: 04-15-2023 End: 04-15-2023 Admission to same day surgery center II Adrian Lynn Work Phone: [facility] Work Phone: Start: 04-15-2023 End: 04-15-2023 ambulatory II Adrian Lynn Work Phone: [facility] Work Phone: Start: 03-19-2023 Postop follow up vis it related to original px Marika Valdovinosey [facility] Start: 03-19-2023 End: 03-19-2023 ambulatory Marika R Calvey Facility:[facility] Start: 03-19-2023 End: 03-19-2023 ambulatory II Adrian Lynn Work Phone: [employer] Other Start: 03-19-2023 End: 03-19-2023 Patient encounter procedure II Adrian Lynn Work Phone: [facility] [place] [facility] Start: 03-19-2023 Patient encounter procedure II Adrian Lynn Work Phone: [facility]- Start: 02-18-2023 End: 02-18-2023 Patient encounter procedure II Adrian Lynn Work Phone: [facility] Work Phone: Start: 02-10-2023 End: 02-10-2023 ambulatory Marika R Arunaey Facility:[facility] Start: 02-10-2023 End: 02-10-2023 Admission to same day surgery center II Adrian Lynn Work Phone: [facility] [place] Start: 02-10-2023 End: 02-10-2023 ambulatory II Adrian Lynn Work Phone: [facility] Work Phone: Start: 02-07-2023 End: 02-07-2023 ambulatory Marika R Calvey Facility:[facility] Start: 02-07-2023 End: 02-07-2023 ambulatory II Adrian Lynn Work Phone: [facility] Work Phone: Start: 02-07-2023 End: 02-07-2023 Patient encounter procedure II Adrian Lynn Work Phone: [facility] [employer] Work Phone: Start: 02-05-2023 End: 02-05-2023 ambulatory Marika Vasquez Other [employer] Other Start: 02-05-2023 Office outpatient vi sit 25 minutes Marika Calvenriqueta [facility] Start: 02-05-2023 End: 02-05-2023 Patient encounter procedure II Adrian Lynn Work Phone: [facility] Work Phone: Start: 12-25-2022 End: 12-25-2022 ambulatory Adrianval Lynn Facility:[facility] Start: 12-25-2022 End: 12-25-2022 ambulatory II Adrian Lynn Work Phone: [facility] Work Phone: Start: 12-25-2022 End: 12-25-2022 Patient encounter procedure II Adrian Lynn Work Phone: [facility] Start: 11-27-2022 Postop follow up vis it related to original px Marikatravis Vasquez [facility] Start: 11-27-2022 End: 11-27-2022 ambulatory Adrianval Lynn Facility:[facility] Start: 11-27-2022 End: 11-27-2022 ambulatory II Adrian Lynn Work Phone: [facility] Work Phone: Start: 11-27-2022 End: 11-27-2022 Patient encounter procedure II Adrian Lynn Work Phone: [facility] Start: 10-24-2022 End: 10-24-2022 ambulatory Adrian Shane Facility:[facility] Start: 10-24-2022 End: 10-24-2022 Admission to same day surgery center II Adrian Lynn Work Phone: [facility] [place] Start: 10-24-2022 End: 10-24-2022 ambulatory II Adrian Lynn Work Phone: [facility] Work Phone: Start: 10-23-2022 End: 10-23-2022 ambulatory Marika Valdovinosenriqueta Other [employer] Other Start: 10-23-2022 Telephone encounter Marika Vasquez [facility] Start: 10-14-2022 End: 10-14-2022 ambulatory Marika Vasquez Other [employer] Other Start: 10-14-2022 Telephone encounter Marika Akira [facility] Start: 10-10-2022 End: 10-10-2022 ambulatory II Adrian Lynn Work Phone: [facility] Work Phone: Start: 10-10-2022 End: 10-10-2022 Patient encounter procedure II Adrian Lynn Work Phone: [facility] [employer] Work Phone: Start: 10-08-2022 Encounter for other preprocedural examination Marika Vasquez [facility] Start: 10-08-2022 Office outpatient ne w 45 minutes Marika Vasquez [facility] Start: 10-08-2022 End: 10-08-2022 ambulatory II Adrian Lynn Work Phone: [employer] Other Start: 10-08-2022 End: 10-08-2022 Patient encounter procedure II Adrian Lynn Work Phone: [facility] Start: 01-29-2022 End: 01-30-[address] ADRIAN LYNN Facility: Start: 05-03-2021 End: 05-04-[address] HEIDI RODRIGUEZ Facility:[facility] Procedures Date Procedure Procedure Detail Performing Clinician Start: 04-15-2023 End: 04-15-2023 Colonoscopy II Adrian Lynn Work Phone: Start: 04-03-2023 H/O: hysterectomy History of hysterectomy Heidi CARDENAS Work Phone: Start: 03-19-2023 Plain X-ray of left hand II Adrian Lynn Work Phone: Start: 02-10-2023 Release of trigger finger II Ardian Lynn Work Phone: Start: 02-10-2023 X-ray of index finger II Adrian Lynn Work Phone: Start: 02-06-2023 Mammography Heidi CARDENAS Work Phone: Start: 12-25-2022 Plain X-ray of right hand II Adrian Lynn Work Phone: Start: 11-27-2022 Plain X-ray of right hand II Adrian Lynn Work Phone: Start: 10-24-2022 Plain X-ray of right hand II Adrian Lynn Work Phone: Start: 10-24-2022 Release of trigger finger II Adrian Lynn Work Phone: Start: 10-08-2022 Plain X-ray of bilateral hands II Adrian Lynn Work Phone: Plan of Treatment Date Care Activity Detail Author Start: 04-15-2033 Screening for malign ant neoplasm of colon [facility] Start: 01-12-2025 Adult BMI Screening Adult BMI Screen ing [facility] Start: 01-12-2025 Tobacco Screening Tobacco Screening [facility] Start: 06-04-2024 Adult BMI Screening Adult BMI Screen ing [facility] Start: 06-04-2024 Tobacco Screening Tobacco Screening [facility] Start: 04-30-2024 Adult BMI Screening Adult BMI Screen ing [facility] Start: 04-30-2024 Tobacco Screening Tobacco Screening [facility] Start: 04-21-2024 End: 04-21-2024 Patient encounter procedure 04/21/2024 10:00 AM EST Office Visit [facility] [address] [facility] [address] [place] [id number] Heidi Rodriguez PA [address] [facility] [address] [place] [address] [facility] Start: 02-19-2024 End: 02-19-2024 Patient encounter procedure 02/19/2024 2:15 PM EST Office Visit [facility] [address] [place] [phone] Nikki Patten PA [address] [place] [address] [facility] Start: 02-07-2024 Screening for malign ant neoplasm of breast Mammogram [facility] Start: 01-16-2024 End: 03-17-2025 DBT Breast - bilateral screening Bilateral screening mammogram with tomosynthesis Imaging Routine Encounter for screening mammogram for malignant neoplasm of breast Expected: 01/16/2024, Expires: 03/17/2025 [facility] Work Phone: Comment on above: Expected: 01/16/2024 , Expires: 03/17/2025 Start: 11-02-2023 COVID-19 Vaccine ( season) COVID-19 Vaccine ( season) [facility] Start: 11-02-2023 Influenza vaccination Influenza Vacc ine [facility] Start: 06-30-2023 End: 06-30-2023 Patient encounter procedure 06/30/2023 10:50 AM EDT Office Visit [facility] [address] [facility] [address] [place] [address] Clovis Abrams MD [address], [facility] [address] [place] [address] [facility] Start: 06-05-2023 End: 06-05-2023 Patient encounter procedure 06/05/2023 9:45 AM EDT Office Visit [facility] [address] [place] [id number] Nikki Patten, PA [address] [place] [address] [facility] Start: 05-13-2023 End: 05-13-2023 Patient encounter procedure 05/13/2023 1:00 PM EDT Appointment [facility] [address] [place] [id number] Lumbosacral spondylosis without myelopathy; Disc displacement, lumbar [facility] Comment on above: Lumbosacral spondylo sis without myelopathy; Disc displacement, lumbar Start: 04-15-2023 [facility] Start: 02-10-2023 End: 02-10-2023 [facility] Start: 02-10-2023 X-ray of index finger XR finger LT 2 nd digit [facility] Start: 02-10-2023 XR Finger second - l eft Views [facility] Start: 10-24-2022 [facility] Start: 10-24-2022 Plain X-ray of right hand XR hand RT min 3V* [facility] Start: 10-24-2022 XR Hand - right GE 3 Views [facility] Start: 10-24-2022 [facility] Start: 2018 Fall Risk Screening Fall Risk Screen ing [facility] Start: 08-26-2013 Administration of varicella zoster vaccine Zoster (Shingles) Vaccine (2 of 3) [facility] Start: 1972 DTaP,Tdap and Td Vaccines (1 - Tdap) DTaP,Tdap and Td Vaccines (1 - Tdap) [facility] Start: 05-31-1971 Adult BMI Follow Up Plan Adult BMI Follow Up Plan [facility] Start: 1965 Depression Screening Depression Scre ening [facility] Start: 1953 Medicare Annual Well ness Visit Medicare Annual Well[email or web address] Start: 1955 Screening for malign ant neoplasm of colon [facility] Start: 1953 Tobacco Counseling Tobacco Counselin g [facility] [employer] End: 04-30-2024 MR Lumbar spine WO contrast MR lumbar spine without contrast Imaging Routine Lumbar radiculopathy, chronic 1 Occurrences starting 05/01/2023 until 04/30[facility] Comment on above: 1 Occurrences starti ng 05/01/2023 until 04/30/2024 Patient Education Colon Polypectomy (DC) [facility] Work Phone: Patient referral [facility] Work Phone: Immunizations Immunization Date Immunization Notes Care Provider Fa [facility] 01-09-2023 influenza virus vacc ine, unspecified formulation Nikki CARDENAS Work Phone: [facility] 11-27-2021 COVID-19 mRNA Bivale nt Booster (Pfizer) II Adrian Lynn Work Phone: [facility] 11-27-2021 Influenza, High-dose Seasonal, Quadrivalent, Preservative Free Heidi CARDENAS Work Phone: [facility] 06-07-2021 COVID-19 mRNA, Comir pilo (Pfizer) II Adrian Lynn Work Phone: [facility] 12-26-2020 Influenza, High-dose Seasonal, Quadrivalent, Preservative Free Heidi CARDENAS Work Phone: [facility] 12-12-2020 COVID-19 mRNA, Comir pilo (Pfizer) II Adrian Lynn Work Phone: [facility] 2020 COVID-19 mRNA, Comir pilo (Pfizer) II Adrian Lynn Work Phone: [facility] 05-08-2020 COVID-19 mRNA, Comir pilo (Pfizer) II Adrian Lynn Work Phone: [facility] 12-02-2019 influenza, injectabl e, quadrivalent, preservative free Heidi CARDENAS Work Phone: [facility] 12-02-2019 pneumococcal conjuga te vaccine, 13 valent Heidi CARDENAS Work Phone: [facility] 06-15-2018 pneumococcal polysaccharide vaccine, 23 valent Heidi CARDENAS Work Phone: [facility] 07-01-2013 zoster vaccine, live Heidi CARDENAS Work Phone: [facility] 07-01-2013 zoster vaccine, unspecified formulation Nikki Aunathalia PA Work Phone: [facility] [employer] 06-11-2013 zoster vaccine, live Heidi CARDENAS Work Phone: [facility] Healthcare Payers Date Payer Category Payer Self-pay [id number] 2018 Commercial Managed C are - POS [employer] [id number] 2018 Private Health Insurance [id number] 2017 Medicare [id number] 2017 Medicare [id number] 1959 Medicare [id number] 1959 Private Health Insurance [facility] [id number] 1953 Unknown [id number] .[id number] 1953 Unknown [id number] [id number] .2.593 1953 Unknown [id number] [id number] .2.128 1953 Unknown [id number] [id number] .2.128 1953 Unknown [id number] [id number] .2.1285 1953 Unknown [id number] [id number] .2.1285 1953 Unknown [id number] 2.840.1.649665.3.579 .2.1285 1953 Unknown [id number] 2.840.1.640193.3.579 .2.1285 1953 Unknown [id number] 2.840.1.467307.3.579 .2.1285 1953 Unknown [id number] 2.840.1.226499.3.579 .2.128 1953 Unknown [id number] 2.16840.1.224439.3.579 .2.1285 1953 Unknown [id number] 2.16.840.1.262159.3.579 .2.128 1953 Unknown [id number] 2.16.840.1.257444.3.579 .2.1285 1953 Unknown [id number] 2.16.840.1.308450.3.579 .2.128 1955 Unknown [id number] 2.16.840.1.141200.3.579 .2.128 1955 Unknown [id number] 2.16.840.1.231012.3.579 .2.1285 1955 Unknown [id number] 2.16.840.1.895646.3.579 .2.1285 1955 Unknown [id number] 2.16.840.1.887034.3.579 .2.1285 1955 Unknown [id number] 2.16.840.1.526847.3.579 .2.1285 1955 Unknown [id number] 2.16.840.1.134315.3.579 .2.1285 1955 Unknown [id number] 2.16.840.1.752741.3.579 .2.1285 1955 Unknown [id number] 2.16.840.1.370839.3.579 .2.1285 1955 Unknown [id number] 2.16.840.1.597169.3.579 .2.1285 1955 Unknown [id number] 2.16.840.1.039850.3.579 .2.1285 1955 Unknown [id number] 2.16.840.1.637791.3.579 .2.1285 1955 Unknown [id number] 2.16.840.1.315389.3.579 .2.1285 1955 Unknown [id number] 2.16.840.1.803055.3.579 .2.1258 1955 Unknown [id number] 2.16.840.1.394006.3.579 .2.1258 1955 Unknown [id number] 2.16.840.1.927545.3.579 .2.1258 1955 Unknown [id number] 2.16.840.1.429924.3.579 .2.1258 1955 Unknown [id number] 2.16.840.1.792647.3.579 .2.1259 1955 Unknown [id number] 2.16.840.1.238995.3.579 .2.1259 Unknown [facility] [id number] Unknown [id number] 2.16.840.1.279304.3.579 .2.531 Unknown [id number] 2.16.840.1.264694.3.579 .2.531 Unknown [id number] 2.16.840.1.378082.3.579 .2.531 Unknown [id number] 2.16.840.1.265458.3.579 .2.531 Unknown [id number] 2.16.840.1.610837.3.579 .2.531 Unknown [id number] 2.16.840.1.649492.3.579 .2.531 Unknown [id number] 2.16.840.1.118870.3.579 .2.531 Unknown [id number] 2.16.840.1.837703.3.579 .2.531 Unknown [id number] 2.16.840.1.873947.3.579 .2.531 Social History Date Type Detail Facility Start: 04-18-2023 End: 05-01-2023 Sex Assigned At [facility] Start: 1955 Sex Assigned At Female F [facility] Start: 10-10-2022 End: 04-15-2023 Tobacco smoking status CTIS Smoker (finding) [facility] Start: 04-18-2023 End: 05-01-2023 Tobacco smoking status CTIS Smokes tobacco daily [facility] use [facility] Start: 04-18-2023 End: 05-01-2023 Cigarettes smoked current (pack per day) - Reported 0.5 [facility] Start: 04-18-2023 End: 05-01-2023 Tobacco use and exposure Smokeless tobacco non-user [facility] Start: 05-01-2023 End: 06-05-2023 Alcohol intake Ex-drinker (finding) [facility] stem Childcare Unknown [facility] Start: 1955 Sex Assigned At Not on file P [facility] Start: 01-13-2024 End: 01-16-2024 Alcoholic beverage intake Current drinker of alcohol (finding) [facility] Start: 10-06-2014 Sex Female (finding) [facility] How often to you hav e a drink containing alcohol? 2-4 times a month [facility] How many standard drinks containing alcohol do you have on a typical day? 1 or 2 [facility] How often do you hav e 6 or more drinks on 1 occasion? Never [facility] Start: 04-18-2023 Alcohol Comment Caffeine intak e: coffee [facility] Medical Equipment Procedure Code Equipment Code Equipment Origin al Text Equipment Identifier Dates Trigger finger release Orthopaedic bone screw, non-bioabsorbable, non-sterile ()[id number] FDA Start: 10-24-2022 Trigger finger release Orthopaedic bone screw, non-bioabsorbable, non-sterile ()[id number] FDA Start: 10-24-2022 Trigger finger release Orthopaedic bone screw, non-bioabsorbable, non-sterile ()[id number] [facility] Start: 02-10-2023 Goals Date Patient Goal Desired Activity /State Clinical Notes 07-06-2014 to 01-16-2024 THERESA Martin - 01/16/2024 11:00 AM THERESA Mendes - 01/13/2024 9:15 AM THERESA Mendes - 06/05/2023 9:45 AM THERESA Wheatley - 05/01/2023 1:00 PM EST Note Date & Type Note Facility 01-16-2024 History of Present illness Narrative Images from the original note were not included. Subjective Patient ID: Zoë Montero is a 68 y.o. female who presents for sinus infection. Zoë is present today for evaluation of sinus issues. Admits sinus pressures, post nasal drainage, cough with green/yellow phlegm, nasal congestion, sore throat, fatigue, hoarseness. Started 3 days ago. She has been using chloraseptic and OTC cough medicine that is not helping. Current Outpatient Medications on File Prior to Visit Medication Sig Dispense Refill albuterol HFA 90 mcg/act inhaler Inhale 2 puffs every 4 (four) hours if needed for wheezing or shortness of breath 18 g 2 ascorbic acid (Vitamin C) 250 MG tablet Take 500 mg by mouth in the morning. aspirin (Vazalore) 81 MG capsule Take 81 mg by mouth Daily atorvastatin (Lipitor) 40 MG tablet Take 1 tablet by mouth once daily 90 tablet 0 b complex vitamins capsule Take 1 capsule by mouth Daily baclofen (Lioresal) 10 MG tablet TAKE 1/2 TO 1 (ONE-HALF TO ONE) TABLET BY MOUTH THREE TIMES DAILY WITH FOOD 270 tablet 0 biotin (Biotin Maximum Strength) 10 MG tablet every 12 (twelve) hours. celecoxib (CeleBREX) 200 MG capsule Take 1 capsule (200 mg) by mouth in the morning and 1 capsule (200 mg) before bedtime. 180 capsule 0 cinnamon 500 MG capsule 1 (one) time each day at the same time. citalopram (CeleXA) 40 MG tablet Take 1 tablet by mouth once daily 90 tablet 0 esomeprazole (NexIUM) [address] capsule Take 1 capsule (40 mg) by mouth in the morning. Take before meals. Do not open capsule.. 90 capsule 3 Hvxbykkngad-Ixwdpywud-Kmynhv (Trelegy Ellipta) 100-62.5-25 MCG/ACT aerosol powder Inhale 1 Inhalation Daily 3 each 3 gabapentin (Neurontin) 300 MG capsule TAKE 1 CAPSULE BY MOUTH THREE TIMES DAILY 270 capsule 0 hydroCHLOROthiazide (Microzide) 12.5 MG capsule Take 1 capsule by mouth once daily 100 capsule 3 lisinopril 5 MG tablet Take 1 tablet by mouth once daily 100 tablet 3 loratadine (Claritin) 10 MG tablet Take 1 tablet (10 mg) by mouth Daily 90 tablet 3 Multiple Vitamins-Minerals (Centrum Silver Adult 50+) tablet Take by mouth. traZODone (Desyrel) 50 MG tablet TAKE 1 TABLET BY MOUTH AT BEDTIME 90 tablet 0 No current facility-administered medications on file prior to visit. I have reviewed and reconciled the history and medication list with the patient today. Allergies Allergen Reactions Chicken Allergy Egg-Derived Products Unknown Other Reaction(s): hives/dyspnea Fish Allergy Hives Iodine Unknown Social History Tobacco Use Smoking status: Every Day Current packs/day: 0.50 Types: Cigarettes Smokeless tobacco: Never Vaping Use Vaping status: Never Used Substance Use Topics Alcohol use: Yes Comment: Caffeine intake: coffee Drug use: Yes Types: Hydrocodone Family History Problem Relation Name Age of Onset Diabetes Mother Hypertension Mother Diabetes Sibling Hypertension Sibling Mental illness Sibling Past Medical History: Diagnosis Date Allergies Anxiety Arthritis Cervical ca (CMS/HCC) Depression (CMS/HCC) History of hysterectomy Hypertension (CMS/HCC) Irritable bowel disease Osteoarthritis Submandibular abscess 10/2020 Past Surgical History: Procedure Laterality Date ARTHRODESIS Left 02/10/2023 Index Finger DIP CATARACT EXTRACTION CHOLECYSTECTOMY 2005 COLONOSCOPY W/ POLYPECTOMY 04/15/2023 HYSTERECTOMY JOINT REPLACEMENT Right 10/24/2022 Right 2nd, 3rd, and 4th Fingers Arthrodesis/Fusion NOSE SURGERY OTHER SURGICAL HISTORY 2016 back injections done by neurology OTHER SURGICAL HISTORY [address] [place] TOTAL ABDOMINAL HYSTERECTOMY W/ BILATERAL SALPINGOOPHORECTOMY 1992 Visit Vitals BP 136/88 Pulse 54 Temp 97.7 F Resp 16 Ht 5' 3 Wt 146 lb 3.2 oz SpO2 99% BMI 25.90 kg/m Smoking Status Every Day BSA 1.72 m Review of Systems Constitutional: Positive for fatigue. Negative for chills and fever. HENT: Positive for congestion, postnasal drip, rhinorrhea, sinus pressure, sinus pain, sore throat and voice change. Negative for ear pain. Respiratory: Positive for cough. Negative for shortness of breath and wheezing. Cardiovascular: Negative for chest pain, palpitations and leg swelling. Gastrointestinal: Negative for abdominal pain, constipation, diarrhea, nausea and vomiting. Objective Physical Exam Constitutional: General: She is not in acute distress. Appearance: Normal appearance. She is well-developed. HENT: Head: Normocephalic and atraumatic. Right Ear: Tympanic membrane and ear canal normal. Left Ear: Tympanic membrane and ear canal normal. Nose: Congestion present. Mouth/Throat: Mouth: Mucous membranes are moist. Pharynx: Posterior oropharyngeal erythema present. Eyes: General: No scleral icterus. Conjunctiva/sclera: Conjunctivae normal. Cardiovascular: Rate and Rhythm: Normal rate and regular rhythm. Heart sounds: Normal heart sounds. No murmur heard. Pulmonary: Effort: Pulmonary effort is normal. No respiratory distress. Breath sounds: Normal breath sounds. No wheezing, rhonchi or rales. Lymphadenopathy: Cervical: No cervical adenopathy. Skin: General: Skin is warm and dry. Neurological: General: No focal deficit present. Mental Status: She is alert and oriented to person, place, and time. Psychiatric: Mood and Affect: Mood normal. Behavior: Behavior normal. Assessment/Plan Diagnoses and all orders for this visit: COPD exacerbation ([facility]) - cefdinir (Omnicef) 300 MG capsule; Take 1 capsule (300 mg) by mouth in the morning and 1 capsule (300 mg) before bedtime. Do all this for 10 days. - benzonatate (Tessalon) 200 MG capsule; Take 1 capsule (200 mg) by mouth 3 (three) times a day as needed for cough for up to 7 days Do not crush or chew. - methylPREDNISolone (Medrol Dospak) 4 MG tablets; Follow schedule on package instructions - triamcinolone acetonide (Kenalog-40) injection 40 mg Provided pt with Kenalog 40 mg IM, she tolerated this well. Start the above medications as directed. Advised of potential side effects of the steroid. Patient is to take the steroid with food, starting tomorrow. Can take Tessalon Perles prn for cough. Increase water intake, get plenty of rest. Can take Tylenol prn for any discomfort or fever. No other anti-inflammatories while on steroid. Cough into elbow. Wash hands often. Advised patient that cough can linger with bronchitis. Follow up in our office if no improvement in one week. Encounter for screening mammogram for malignant neoplasm of breast - Bilateral screening mammogram with tomosynthesis; Future Provided patient with an order for an updated Mammogram. If results are negative/normal, will plan to continue with routine yearly screenings. Acute non-recurrent pansinusitis - cefdinir (Omnicef) 300 MG capsule; Take 1 capsule (300 mg) by mouth in the morning and 1 capsule (300 mg) before bedtime. Do all this for 10 days. Start Cefdinir as prescribed. Continue Loratadine daily. Tobacco dependence Is down to 1/2 PPD. Discussed smoking cessation with the patient. Encouraged patient to continue to cut back and soon quit smoking. Health risks of smoking, and benefits of quitting reviewed with the patient. Atherosclerosis of aorta Seen on previous imaging. Will continue to work on minimizing risk factors. Follow up in about 3 months (around 04/19/2024) for Medicare Wellness Visit. documented in this encounter [facility] 01-13-2024 History of Present illness Narrative [facility] [address] [place] [address] Patient: Zoë Montero Sex: female : 1955 Age: 68 y.o. PCP: ADRIAN LYNN MD 01/13/2024 Zoë Montero is here for a(n) post procedure follow up left L4/5 5/1 RFA with 50% relief that continues, and right L4/5 5/1 RFA with 60% relief that continues. Patient reports pain is currently a 3-4/10 and can increase to 8/10 depending on activity. Reports has constant aching on left side of back, and numbness to right anterior and lateral thigh and knee. Date of onset of pain: January 2023 , pain has lasted greater than 3 months. Pain scale before treatment: 8/10 Percentage of relief after and duration: left 50% relief, right 60% Pain scale after treatment: 3-4/10 Chief Complaint Patient presents with Back Pain HPI: Physical therapy started in May and continues. No noticeable improvement as of this visit. Back: 5-05-24 Caudal with 60% relief (none now). 08/22/23 Bilateral L4/5, 5/1 MBB with 80% relief for 6 days. Pre-proc pain 6/10 post proc -04/1210/03/23 Bilateral L4/5, 5/1 MBB with 90% relief for 6 days then by day 7 baseline pain of 6/10. Pre-proc pain 6/10 post proc 03/12. 11/28/23 Left L4/5 5/1 RFA 50% relief that continues Pain scale before treatment: 8/10 Pain scale after treatment: 3-4/10 12/12/23 Right L4/5 5/1 RFA 60% relief that continues Pain scale before treatment: 8/10 Pain scale after treatment: 3-4/10 Back Pain This is a chronic problem. The current episode started more than 1 year ago (years ago, flare up 4 months ago (Jan 2023)). The problem occurs constantly. The problem has been gradually improving (since RFAs) since onset. The pain is present in the lumbar spine, gluteal and sacro-iliac. The quality of the pain is described as aching (left side constant aching). Radiates to: BLE lateral to knee with cramping and in left hip. The pain is at a severity of 6/10 (can get to 8/10 depending on activity). The pain is moderate. Worse during: Rt side during day, Lt side at night. The symptoms are aggravated by bending, lying down, coughing, position, sitting, standing, stress and twisting. Stiffness is present: occasionally. Associated symptoms include leg pain (bilateral thighs anterior), numbness (RLE constant and right knee, bilateral toes and hands) and weakness (BLE). Pertinent negatives include no abdominal pain, bladder incontinence, bowel incontinence, chest pain, fever or tingling. (Constant Right anterior/ lateral thigh numbness and right knee Occasionally down left thigh N/T and cramping bilateral toes, hands ) She has tried chiropractic manipulation and home exercises (Prev Injs years ago, Prev PT, massage, baclofen, gabapentin, trazodone, icyhot, salonpas: PT May 24-current no relief) for the symptoms. The treatment provided mild relief. Knee Pain The incident occurred more than 1 week ago. There was no injury mechanism. The pain is at a severity of 5/10. The pain is moderate. The pain has been Worsening since onset. Associated symptoms include numbness (RLE constant and right knee, bilateral toes and hands). Pertinent negatives include no tingling. The symptoms are aggravated by weight bearing, palpation and movement. The effect of pain on patient's ADLS: Moderate Impairment. Past Medical History: Diagnosis Date Allergic rhinitis, seasonal Anxiety Arteriolosclerosis bilat carotids Arthritis Cervical cancer (CMS-HCC) Chronic pain disorder Cigarette nicotine dependence COPD (chronic obstructive pulmonary disease) ([facility]) Depression Estrogen deficiency Full dentures GERD (gastroesophageal reflux disease) Heberden's nodes Hyperlipidemia Hypertension IBS (irritable bowel syndrome) Insomnia Low back pain Lumbosacral disc disease Myalgia Neuralgia of both lower extremities Osteoarthritis Sleep apnea Submandibular abscess Past Surgical History: Procedure Laterality Date CATARACT EXTRACTION W/ INTRAOCULAR LENS IMPLANT CHOLECYSTECTOMY COLONOSCOPY W/ POLYPECTOMY HAND SURGERY HYSTERECTOMY INJECTION BLOCK EPIDURAL CAUDAL STEROID N/A 07/04/2023 Performed by Hill Sy MD at [facility] INJECTION BLOCK NERVE MEDIAL BRANCH: bilat L 4/5, 5/1 Bilateral 10/03/2023 Performed by Hill Sy MD at [facility] INJECTION BLOCK NERVE MEDIAL BRANCH: bilat L 4/5, 5/1 Bilateral 08/22/2023 Performed by Hill Sy MD at [facility] NOSE SURGERY RADIOFREQUENCY ABLATION SPINAL: right L 4/5, 5/1 Right 12/12/2023 Performed by Hill Sy MD at [facility] RADIOFREQUENCY ABLATION SPINAL: left L 4/5, 5/1 Left 11/28/2023 Performed by Hill Sy MD at [facility] Allergies Allergen Reactions Chicken Derived Hives Ezzs-Mhylyx-Nzcn [Nutritional Supplement-Fiber] Hives dyspnea Fish Containing Products Hives Povidone-Iodine Rash Family History Problem Relation Age of Onset Back Problems Mother Alzheimer's disease Mother Hypertension Mother Diabetes Mother Memory loss Father Cancer Sister Back Problems Sister Mental illness Sister Hypertension Sister Diabetes Sister Mental illness Brother Hypertension Brother Diabetes Brother Social History Socioeconomic History Marital status: Spouse name: Not on file Number of children: Not on file Years of education: Not on file Highest education level: Not on file Occupational History Not on file Tobacco Use Smoking status: Every Day Current packs/day: 0.50 Average packs/day: 0.5 packs/day for 40.0 years (20.0 ttl pk-yrs) Types: Cigarettes Smokeless tobacco: Never Vaping Use Vaping status: Never Used Substance and Sexual Activity Alcohol use: Yes Drug use: Never Sexual activity: Defer Other Topics Concern Not on file Social History Narrative Not on file Social Drivers of Health Financial Resource Strain: Not on file Food Insecurity: No Food Insecurity (01/13/2024) Hunger Screening Food Insecurity - Worry: Never True Food Insecurity - Inability: Never True Transportation Needs: Not on file Physical Activity: Not on file Stress: Not on file Social Connections: Not on file Interpersonal Safety: Not on file Housing Instability: Not on file Review of Systems Constitutional: Negative. Negative for chills, fatigue and fever. HENT: Negative. Negative for congestion and sore throat. Eyes: Negative. Respiratory: Negative. Negative for cough and shortness of breath. Cardiovascular: Negative. Negative for chest pain. Gastrointestinal: Negative. Negative for abdominal pain and bowel incontinence. Endocrine: Negative. Genitourinary: Negative. Negative for bladder incontinence. Musculoskeletal: Positive for back pain. Negative for gait problem. Skin: Negative. Negative for rash and wound. Allergic/Immunologic: Negative. Neurological: Positive for weakness (BLE) and numbness (RLE constant and right knee, bilateral toes and hands). Negative for tingling. Hematological: Negative. Does not bruise/bleed easily. Psychiatric/Behavioral: Negative. Negative for self-injury and suicidal ideas. Vital Signs: BP 142/74 (BP Site: Right Arm, BP Postition: Sitting) Pulse 51 Resp 18 Ht 157.5 cm (5' 2 ) Wt 65.8 kg (145 lb) SpO2 93% BMI 26.52 kg/m Physical Exam: GENERAL - Healthy patient that appears stated age. HEENT - Normocephalic / Atraumatic, Extraoccular movements intact, trachea midline, thyroid within normal limits. CV - pulse regular, Warm extremities with appropriate color of nailbeds. RESP - No obvious wheezing, No Shortness of Breath, No overexertion response to exam maneuvers. COORDINATION - remains intact. PSYCH - Alert and Oriented x4, Attentive and appropriate, constitutionally normal, displays normal mood and affect per situation, answered questions appropriately during examination, demonstrated appropriate attention during discussion, demonstrated appropriate cognitive reasoning and understanding of the medical condition by asking appropriate questions regarding the diagnosis and risks/benefits/alternatives of treatment modalities. No obvious deficits in memory, reasoning, or intellect. Distal Joint Exam - Lower Extremity: SKIN - No rashes or bruising in the area of the patient s pain. EXTREMITIES - Lower extremities are warm, with minimal edema and palpable pulses. Strength is 5/5 all muscle groups of the bilateral lower extremities. There is no obvious atrophy, fasciculations, or spasms. There are no notable sensory deficits in the overlying dermatomal distributions. Gait remains normal. Examination of the Bilateral knee reveals tenderness to palpation over the superior, inferior, lateral, and medial aspect of the knee. Some swelling is noted without significant erythema. Pain is elicited with flexion and extension of the knee both actively and passively. Some grinding is noted with these motions. There is no notable ligamental laxity or instability and drawer test is negative. Assessment/Treatment Plan: Zoë was seen today for back pain. Diagnoses and all orders for this visit: Chronic pain of both knees - X-ray knee right 3 views; Future - X-ray knee left 3 views; Future Bilateral Knee xrays Imaging/Diagnostic Testing - It is felt that additional diagnostic testing is necessary to further evaluate the patients current pain pathology. For this reason, we will order additional imaging/diagnostic testing noted above. It is hopeful that this study will identify a significant pain generator that will be amenable to therapy. It is felt that this modality is necessary due to the severity and chronicity of symptoms and physical exam findings combined with the lack of recent imaging/diagnostic testing of the area. Follow up 1 month The medications I have prescribed have been reviewed for medication interactions/contraindications and/or for upcoming procedures: continue current medication regimen without any changes. DISCUSSION: Treatment options discussed with patient and all questions answered to patient's satisfaction. Discussed the rules and regulations surrounding prescription of opioids and compliance at length. Failure to follow the rules and regulation will result in tapering and discontinuation of medications if applicable. Prescribed medication that requires intensive monitoring for toxicity We do not currently prescribe any controlled substance from this practice. Treatment plans discussed but not opted for at this time: Bilateral knee injections. Pain is under adequate control. It does appear that the patient benefited from the previous injection and the benefit has continued through this visit. At this time, we will monitor the patient s low back symptoms from an interventional standpoint and consider another injection in the future if the patient s symptoms return or intensify severely. The patient was made aware that they should call if symptoms worsen or if their pain begins to have a negative impact on their quality of life and activities of daily living again. The spine model was demonstrated and MRI was reviewed and used to explain the condition. OARRS: Reviewed. Scribe Statement: Scribed for and in the presence of THERESA BAUMANN by Therese Sandhu CNA. Provider Statement: I, THERESA BAUMANN, personally performed the services described in the documentation, as scribed by Therese Sandhu CNA in my presence, and it is both accurate and complete. Therese Sandhu CNA 01/13/24 1032 Therese Sandhu CNA 01/13/24 1041 THERESA Baumann 01/13/24 1119 documented in this encounter [facility] 06-05-2023 History of Present illness Narrative [facility] [address] [place] [address] Patient: Zoë Montero Sex: female : 1955 Age: 68 y.o. PCP: ADRIAN LYNN MD 06/05/2023 Zoë Montero is here for evaluation after PT and to review lumbar MRI results. Patient has completed 6 sessions of PT and has not noticed any improvement in symptoms. Chief Complaint Patient presents with Back Pain HPI: Physical therapy started in May and continues. No noticeable improvement as of this visit. Back Pain This is a chronic problem. The current episode started more than 1 year ago (years ago, flare up 4 months ago (Jan 2023)). The problem occurs constantly. The problem is unchanged. The pain is present in the lumbar spine, gluteal and sacro-iliac. The quality of the pain is described as shooting, burning and aching (throbbing Left lumbar). Radiates to: BLE. The pain is at a severity of 4/10 (can get to 8/10 depending on activity). The pain is moderate. Worse during: Rt side during day, Lt side at night. The symptoms are aggravated by bending, lying down, coughing, position, sitting, standing, stress and twisting. Stiffness is present: occasionally. Associated symptoms include leg pain (BLE with prolonged ambulation) and numbness (lateral aspect of thighs). Pertinent negatives include no bladder incontinence, bowel incontinence, chest pain, fever, tingling or weakness. She has tried chiropractic manipulation and home exercises (Prev Injs years ago, Prev PT, massage, baclofen, gabapentin, trazodone, icyhot, salonpas: PT May 24-current no relief) for the symptoms. The treatment provided mild relief. The effect of pain on patient's ADLS: Moderate Impairment. Past Medical History: Diagnosis Date Allergic rhinitis, seasonal Anxiety Arteriolosclerosis bilat carotids Arthritis Cervical cancer ([facility]) Cigarette nicotine dependence COPD (chronic obstructive pulmonary disease) ([facility]) Depression Estrogen deficiency Full dentures GERD (gastroesophageal reflux disease) Heberden's nodes Hyperlipidemia Hypertension IBS (irritable bowel syndrome) Insomnia Low back pain Lumbosacral disc disease Myalgia Neuralgia of both lower extremities Osteoarthritis Sleep apnea Submandibular abscess Past Surgical History: Procedure Laterality Date CATARACT EXTRACTION W/ INTRAOCULAR LENS IMPLANT CHOLECYSTECTOMY COLONOSCOPY W/ POLYPECTOMY HAND SURGERY HYSTERECTOMY NOSE SURGERY Allergies Allergen Reactions Chicken Derived Hives [id number] [Nutritional Supplement-Fiber] Hives dyspnea Fish Containing Products Hives Povidone-Iodine Rash Family History Problem Relation Age of Onset Hypertension Mother Diabetes Mother Mental illness Sister Hypertension Sister Diabetes Sister Mental illness Brother Hypertension Brother Diabetes Brother Social History Socioeconomic History Marital status: Spouse name: Not on file Number of children: Not on file Years of education: Not on file Highest education level: Not on file Occupational History Not on file Tobacco Use Smoking status: Every Day Packs/day: 0.50 Years: 40.00 Additional pack years: 0.00 Total pack years: 20.00 Types: Cigarettes Smokeless tobacco: Never Vaping Use Vaping Use: Never used Substance and Sexual Activity Alcohol use: Not Currently Drug use: Never Sexual activity: Defer Other Topics Concern Not on file Social History Narrative Not on file Social Determinants of Health Financial Resource Strain: Not on file Food Insecurity: No Food Insecurity (06/05/2023) Hunger Screening Food Insecurity - Worry: Never True Food Insecurity - Inability: Never True Transportation Needs: Not on file Physical Activity: Not on file Stress: Not on file Social Connections: Not on file Interpersonal Safety: Not on file Housing Instability: Not on file Review of Systems Constitutional: Negative for fever. Cardiovascular: Negative for chest pain. Gastrointestinal: Negative for bowel incontinence. Genitourinary: Negative for bladder incontinence. Musculoskeletal: Positive for back pain. Neurological: Positive for numbness (lateral aspect of thighs). Negative for tingling and weakness. Vital Signs: BP 133/63 Pulse 63 Resp 16 Wt 65.8 kg (145 lb) SpO2 93% BMI 25.69 kg/m Physical Exam: GENERAL - Healthy patient that appears stated age. HEENT - Normocephalic / Atraumatic, Extraoccular movements intact, trachea midline, thyroid within normal limits. CV - pulse regular, Warm extremities with appropriate color of nailbeds. RESP - No obvious wheezing, No Shortness of Breath, No overexertion response to exam maneuvers. COORDINATION - remains intact. PSYCH - Alert and Oriented x4, Attentive and appropriate, constitutionally normal, displays normal mood and affect per situation, answered questions appropriately during examination, demonstrated appropriate attention during discussion, demonstrated appropriate cognitive reasoning and understanding of the medical condition by asking appropriate questions regarding the diagnosis and risks/benefits/alternatives of treatment modalities. No obvious deficits in memory, reasoning, or intellect. Lumbar: SKIN - No rashes or bruising in the area of the patient s pain. LYMPH NODES - demonstrate no obvious enlargement. EXTREMITIES - Lower extremities are warm, with minimal edema and palpable pulses. Tenderness to palpation noted in the lumbar spine and paraspinal musculature. Pain is elicited with flexion, extension, and lateral rotation of the lumbar spine. Range of motion is diminished with these motions due to pain. Facet palpation is noted to be somewhat tender and facet loading maneuvers are mildly positive, but not concordant with the patient s normal pain complaints. STRENGTH - noted to be 5 out of 5 all muscle groups bilateral lower extremities including muscles involving hip flexion and abduction, knee flexion and extension, as well as foot dorsiflexion and plantarflexion. No notable atrophy, fasciculations or spasm. SENSORY - No notable sensory deficits in the bilateral lower extremities to touch or pinprick in all dermatomal distributions. Straight Leg Raise is negative. Gait is normal. Assessment/Treatment Plan: Zoë was seen today for back pain. Diagnoses and all orders for this visit: Spinal stenosis of lumbar region with neurogenic claudication - Ambulatory referral to Neurosurgery; Future [facility] Referral - It is felt that due to the severity of the patient s symptoms and lack of response to conservative treatment, surgical options need to be reviewed at this time. Hopefully this will provide more definitive treatment strategies for these symptoms. Follow up after consult The medications prescribed have been reviewed for medication interactions/contraindications and/or for upcoming procedures: continue current medication regimen without any changes. DISCUSSION: Treatment options discussed with patient and all questions answered to patient's satisfaction. Discussed the rules and regulations surrounding prescription of opioids and compliance at length. Failure to follow the rules and regulation will result in tapering and discontinuation of medications if applicable. Prescribed medication that requires intensive monitoring for toxicity We do not currently prescribe any controlled substance from this practice. Treatment plans discussed but not opted for at this time: Lumbar epidural steroid injections. Patient would like to proceed with the current outlined treatment plan before moving forward with any other options. The spine model was demonstrated and MRI was reviewed and used to explain the condition. OARRS: Reviewed. Scribe Statement: Scribed for and in the presence of THERESA BAUMANN by Therese Sandhu CNA. Provider Statement: I, THERESA BAUMANN, personally performed the services described in the documentation, as scribed by Therese Sandhu CNA in my presence, and it is both accurate and complete. Therese Sandhu CNA 06/05/23 1026 Therese Sandhu CNA 06/05/23 1057 THERESA Baumann 06/05/23 1322 documented in this encounter [facility] 05-01-2023 History of Present illness Narrative [facility] [address] [place] [address] Patient: Zoë Montero Sex: female : 1955 Age: 67 y.o. PCP: ADRIAN LYNN MD 05/01/2023 Zoë Montero is here for a(n) initial consultation for low back pian. Chief Complaint Patient presents with Back Pain HPI: Back Pain This is a chronic problem. The current episode started more than 1 year ago (years ago, flare up 4 months ago). The problem occurs constantly. The problem has been gradually worsening since onset. The pain is present in the lumbar spine, gluteal and sacro-iliac. The quality of the pain is described as shooting, burning and aching (throbbing). Radiates to: BLE. Pain scale: 6/10 then increased to 9/10 during OV. The pain is moderate. Worse during: Rt side during day, Lt side at night. The symptoms are aggravated by bending, lying down, coughing, position, sitting, standing, stress and twisting. Associated symptoms include leg pain (BLE) and numbness (BLE). Pertinent negatives include no chest pain, fever, tingling or weakness. (RLE worse w/walking. Lt Lumbar, LLE worse w/sitting) She has tried chiropractic manipulation and home exercises (Prev Injs years ago, Prev PT, massage, baclofen, gabapentin, trazodone, icyhot, salonpas) for the symptoms. The treatment provided mild relief. The effect of pain on patient's ADLS: Moderate Impairment. Past Medical History: Diagnosis Date Allergic rhinitis, seasonal Anxiety Arteriolosclerosis bilat carotids Arthritis Cervical cancer ([facility]) Cigarette nicotine dependence COPD (chronic obstructive pulmonary disease) ([facility]) Depression Estrogen deficiency Full dentures GERD (gastroesophageal reflux disease) Heberden's nodes Hyperlipidemia Hypertension IBS (irritable bowel syndrome) Insomnia Low back pain Lumbosacral disc disease Myalgia Neuralgia of both lower extremities Osteoarthritis Sleep apnea Submandibular abscess Past Surgical History: Procedure Laterality Date CATARACT EXTRACTION W/ INTRAOCULAR LENS IMPLANT CHOLECYSTECTOMY COLONOSCOPY W/ POLYPECTOMY HAND SURGERY HYSTERECTOMY NOSE SURGERY Allergies Allergen Reactions Chicken Derived Hives [id number] [Nutritional Supplement-Fiber] Hives dyspnea Fish Containing Products Hives Povidone-Iodine Rash Family History Problem Relation Age of Onset Hypertension Mother Diabetes Mother Mental illness Sister Hypertension Sister Diabetes Sister Mental illness Brother Hypertension Brother Diabetes Brother Social History Socioeconomic History Marital status: Spouse name: Not on file Number of children: Not on file Years of education: Not on file Highest education level: Not on file Occupational History Not on file Tobacco Use Smoking status: Every Day Packs/day: 0.50 Years: 40.00 Additional pack years: 0.00 Total pack years: 20.00 Types: Cigarettes Smokeless tobacco: Never Vaping Use Vaping Use: Never used Substance and Sexual Activity Alcohol use: Not Currently Drug use: Never Sexual activity: Defer Other Topics Concern Not on file Social History Narrative Not on file Social Determinants of Health Financial Resource Strain: Not on file Food Insecurity: No Food Insecurity (05/01/2023) Hunger Screening Food Insecurity - Worry: Never True Food Insecurity - Inability: Never True Transportation Needs: Not on file Physical Activity: Not on file Stress: Not on file Social Connections: Not on file Interpersonal Safety: Not on file Housing Instability: Not on file Review of Systems Constitutional: Negative for chills and fever. HENT: Negative. Eyes: Negative. Respiratory: Positive for cough (COPD). Negative for shortness of breath. Cardiovascular: Negative for chest pain. Gastrointestinal: Negative. Endocrine: Negative. Genitourinary: Negative. Musculoskeletal: Positive for back pain. Skin: Negative. Allergic/Immunologic: Positive for environmental allergies. Neurological: Positive for numbness (BLE). Negative for tingling and weakness. Hematological: Negative. Psychiatric/Behavioral: Negative. Vital Signs: BP 137/76 Pulse 63 Ht 160 cm (5' 3 ) Wt 65.8 kg (145 lb) SpO2 98% BMI 25.69 kg/m Physical Exam: GENERAL - Healthy patient that appears stated age. HEENT - Normocephalic / Atraumatic, Extraoccular movements intact, trachea midline, thyroid within normal limits. CV - pulse regular, Warm extremities with appropriate color of nailbeds. RESP - No obvious wheezing, No Shortness of Breath, No overexertion response to exam maneuvers. COORDINATION - remains intact. PSYCH - Alert and Oriented x4, Attentive and appropriate, constitutionally normal, displays normal mood and affect per situation, answered questions appropriately during examination, demonstrated appropriate attention during discussion, demonstrated appropriate cognitive reasoning and understanding of the medical condition by asking appropriate questions regarding the diagnosis and risks/benefits/alternatives of treatment modalities. No obvious deficits in memory, reasoning, or intellect. Lumbar: SKIN - No rashes or bruising in the area of the patient s pain. LYMPH NODES - demonstrate no obvious enlargement. EXTREMITIES - Lower extremities are warm, with minimal edema and palpable pulses. Tenderness to palpation noted in the lumbar spine and paraspinal musculature. Pain is elicited with flexion, extension, and lateral rotation of the lumbar spine. Range of motion is diminished with these motions due to pain. Facet palpation is noted to be somewhat tender and facet loading maneuvers are mildly positive, but not concordant with the patient s normal pain complaints. STRENGTH - noted to be 5 out of 5 all muscle groups bilateral lower extremities including muscles involving hip flexion and abduction, knee flexion and extension, as well as foot dorsiflexion and plantarflexion. No notable atrophy, fasciculations or spasm. SENSORY - No notable sensory deficits in the bilateral lower extremities to touch or pinprick in all dermatomal distributions. Straight Leg Raise is negative. Gait is normal. Assessment/Treatment Plan: Zoë was seen today for back pain. Diagnoses and all orders for this visit: Lumbosacral spondylosis without myelopathy - Ambulatory referral to Physical Therapy; Future Disc displacement, lumbar - Ambulatory referral to Physical Therapy; Future Lumbar radiculopathy, chronic - MR lumbar spine without contrast; Future Physical/Aquatic Therapy - It is felt that the patient will benefit from a course of physical therapy focusing on the above mentioned diagnosis. We will recommend that the physical therapist fully evaluate and treat at their discretion considering the modalities that are most useful for the condition being treated. This may include modalities of comfort including moist heat, ultrasound, and TENS therapy. It may also utilize manual therapy and myofascial release for the myofascial component of the patient s pain. It will likely advance to modalities aimed at stabilizing and strengthing the target area while improving range of motion as well. We are also requesting that the physical therapist send notes that will keep our clinic updated to the patient s progress. Lumbar spine MRI - It is felt that additional diagnostic testing is necessary to further evaluate the patients current pain pathology. For this reason, we will order additional imaging noted above. It is hopeful that this study will identify a significant pain generator that will be amenable to therapy. It is felt that this modality is necessary due to the severity and chronicity of symptoms and physical exam findings combined with the lack of recent imaging of the area. An MRI is specifically felt to be necessary due to the physical exam findings noted above and the patient s description of refractory pain in a neuropathic distribution that is not relieved by change in body position and interferes with the patient s activities of daily living Follow up 1 month The medications prescribed have been reviewed for medication interactions/contraindications and/or for upcoming procedures: continue current medication regimen without any changes. DISCUSSION: Treatment options discussed with patient and all questions answered to patient's satisfaction. Discussed the rules and regulations surrounding prescription of opioids and compliance at length. Failure to follow the rules and regulation will result in tapering and discontinuation of medications if applicable. Prescribed medication that requires intensive monitoring for toxicity We do not currently prescribe any controlled substance from this practice. Treatment plans discussed but not opted for at this time: Lumbar SHANTEL. Patient would like to proceed with the current outlined treatment plan before moving forward with any other options. The spine model was demonstrated and Xray was reviewed and used to explain the condition. Chronic conditions not treated during this visit that affected my overall medical decision making: Anxiety and COPD OARRS: Reviewed. Scribe Statement: Scribed for and in the presence of THERESA BAUMANN by Therese Sandhu CNA. Provider Statement: I, THERESA BAUMANN, personally performed the services described in the documentation, as scribed by Therese Sandhu CNA in my presence, and it is both accurate and complete. Therese Sandhu CNA 05/01/23 1353 Therese Sandhu CNA 05/01/23 1358 Therese Sandhu CNA 05/01/23 1400 THERESA Baumann 05/01/23 1405 documented in this encounter [facility] 04-15-[address] [facility] 03-19-2023 Evaluation note Encounter Date Diagnosis Assessment Notes Mar, Primary osteoarthritis of right hand (ICD-10 - M19.041) Mar, Arthritis of left hand (ICD-10 - M19.042) Mar, Other specified postprocedural states (ICD-10 - Z98.890) Advised she can discontinue using wrist splint and finger splint, she can wear them for comfort if she feel necessary. She can continue activity as tolerated. All questions were answered at this time. She will follow up in 5 weeks for reevaluation. [employer] Other 12-06-2023 Evaluation note* Encounter Date Diagnosis Assessment Notes Treatment Notes Treatment Clinical Notes Jan, Primary osteoarthritis of right hand (ICD-10 - M19.041) Jan, Arthritis of left hand (ICD-10 - M19.042) We will proceed with left index DIP fusion and excision of osteophyte left thumb metacarpal Jan, Other specified postprocedural states (ICD-10 - Z98.890) [employer] Other 09-27-2023 Evaluation note* Encounter Date Diagnosis Assessment Notes Treatment Notes Treatment Clinical Notes Nov, Primary osteoarthritis of right hand (ICD-10 - M19.041) Nov, Other specified postprocedural states (ICD-10 - Z98.890) Nov, Other X-rays of th e right hand was reviewed with the patient today, along with a physical examination. Patient can advance as tolerated, no restrictions at this time. For swelling, we recommend using Voltaren Gel. Patient advised to use finger compression to help reduce swelling. [employer] Other 08-08-2023 Evaluation note* Encounter Date Diagnosis Assessment Notes Treatment Notes Treatment Clinical Notes Oct, Right hand pain (ICD-10 - M79.641) Oct, Primary osteoarthritis of right hand (ICD-10 - M19.041) All treatment options as well as risks of the proposed procedure were thoroughly discussed with the patient including bleeding, nerve and vessel injury, infection, persistent pain, stiffness, failure of procedure, mechanical failure, need for further surgery, DVT, as well as risks of anesthesia. Patient has admitted full understanding of these risks and would like to proceed. Oct, Pre-op examination (ICD-10 - Z01.818) [employer] Other 05-06-2015 History general Narrative - Reported* Type Description Date Medical History 07-06-14 EGD with biopsy Medical History 07-06-14 Colonoscopy and polypecto my Medical History Cancer Medical History Hypertension Medical History Insomnia Medical History Depression Medical History Constipation Medical History Bloating Medical History Hiatal hernia Medical History Melanosis coli Medical History Colon spasm Medical History Hemorrhoids Medical History Tubular adenoma of colon Medical History History of colon polyps Medical History Tubular adenoma polyp of rectum Medical History high cholesterol Surgical History left hand/thumb sugery 2014 Surgical History hysterectomy-post cancer cervic al Surgical History cataract bilateral Surgical History gallbladder Hospitalization History see above [employer] Other 05-06-2015 History general Narrative - Reported* Type Description Date Medical History 07-06-14 EGD with biopsy Medical History 07-06-14 Colonoscopy and polypecto my Medical History Cancer Medical History Hypertension Medical History Insomnia Medical History Depression Medical History Constipation Medical History Bloating Medical History Hiatal hernia Medical History Melanosis coli Medical History Colon spasm Medical History Hemorrhoids Medical History Tubular adenoma of colon Medical History History of colon polyps Medical History Tubular adenoma polyp of rectum Medical History high cholesterol Surgical History left hand/thumb sugery 2014 Surgical History hysterectomy-post cancer cervic al Surgical History cataract bilateral Surgical History gallbladder Surgical History Right Index/Long/Rin g finger distal interphalangeal joint arthrodesis/ fusion / 11/2022 Hospitalization History see above [employer] Other Evaluation noteNo assessment information available [facility] Work Phone: evaluation noteNo [employer] Other evalucojov note* Diagnosis Onset Date Resolution Status History of colon polyps acut e [facility] Work Phone: evaluation note* Diagnosis Lumbosacral spondylosis without myelopathy- Primary Disc displacement, lumbar Displacement of lumbar intervertebral disc without myelopathy Lumbar radiculopathy, chronic Lumbosacral spondylosis without myelopathy Disc displacement, lumbar Displacement of lumbar intervertebral disc without myelopathy [facility] Diagnosis Spinal stenosis of lumbar region with neurogenic claudication- Primary [facility]* Diagnosis Chronic pain of both knees- Primary Chronic pain of both knees Chronic pain of both knees [facility]* Diagnosis COPD exacerbation (CMS/HCC)- Primary Obstructive chronic bronchitis with exacerbation Encounter for screening mammogram for malignant neoplasm of breast Acute non-recurrent pansinusitis Tobacco dependence Tobacco use disorder Atherosclerosis of aorta (CMS/HCC) Atherosclerosis of [facility] Instructions DR. VASQUEZ'S POST OP INSTRUCTIONS Take prescribed pain medication as directed and as needed to control your post- operative pain. -In addition to the prescribed medication, you may take ibuprofen (Advil, Motrin) or naproxen (Aleve/Naprosyn) to help control pain and decrease swelling. -DO NOT TAKE ibuprofen/Naprosyn/naproxen if you have a history of bleeding ulcer, are taking anticoagulation medication (Coumadin/warfarin, Eliquis, Xarelto, Plavix, Lovenox), if you have had a history of gastric bypass surgery, or if you have a history of kidney disease. Elevate the operative area as much as possible, using at least 2-3 pillows, keeping the hand higher than the elbow. Keep ice at the operative area as much as possible. It takes longer than 20 minutes for the cold to penetrate the bandages, so leave the ice bag or cold pack in place until the ice melts, then it is time to change to a fresh ice bag or cold pack. -Elevation and ice help to lessen the swelling post-operatively which helps to lessen pain so that you will need to take less pain medication, as well as maintaining better range of motion and function of your hand (more swelling, less movement). You may wiggle your fingers, bending, flexing, and move them to decrease stiffness. You may use your hands for light activities of 2-5 lbs. This is lifting your coffee cup, using your silverware, and typing on a computer or tablet. -Do NOT perform strenuous lifting or lift greater than 10 lbs until 4-6 weeks after surgery to minimize exacerbation of pain at the surgery site. You may remove your dressing on the third day after surgery, and get your surgical incision wet in the shower or when washing your hands with soap and water. -DO NOT soak your incision or submerge it under standing water such as dishwater or bathtub. -DO NOT apply perfumed moisturizers or ointments unless otherwise instructed by your physician. -Washing your incision gently with soap and water on a daily basis, helps to rid your skin of bacteria and decrease the risk of wound infections. -After showering or washing your hands, pat the incision dry, and keep covered with a clean dry gauze bandage. -You may apply Bacitracin, Neosporin, or generic triple antibiotic ointment to incision if you would like -You may use the removable plastic finger splints obtained at the office during activities to protect the finger from being hit or bumped which will exacerbate pain, may come out of the splint as often as you would like to work on range of motion - Patient was counseled on bone healing protocol including smoking cessation/ avoidance of nicotine products, appropriate weight bearing restrictions and limitations, and vitamin supplementation to aid in bone and fracture healing/ strengthening. Patient was counseled to take: 1) Vitamin C 500 mg PO Q daily 2) Calcium 500-600 mg/ Vitamin D 200-400 Units PO Q TID Take antibiotics as directed to decrease risk of infection after surgery [facility] Work Phone: Hospital Discharge instructions Additional Instructions DR. VASQUEZ'S POST OP INSTRUCTIONS Take prescribed pain medication as directed and as needed to control your post- operative pain. -In addition to the prescribed medication, you may take ibuprofen (Advil, Motrin) or naproxen (Aleve/Naprosyn) to help control pain and decrease swelling. -DO NOT TAKE ibuprofen/Naprosyn/naproxen if you have a history of bleeding ulcer, are taking anticoagulation medication (Coumadin/warfarin, Eliquis, Xarelto, Plavix, Lovenox), if you have had a history of gastric bypass surgery, or if you have a history of kidney disease. Elevate the operative area as much as possible, using at least 2-3 pillows, keeping the hand higher than the elbow. Keep ice at the operative area as much as possible. It takes longer than 20 minutes for the cold to penetrate the bandages, so leave the ice bag or cold pack in place until the ice melts, then it is time to change to a fresh ice bag or cold pack. -Elevation and ice help to lessen the swelling post-operatively which helps to lessen pain so that you will need to take less pain medication, as well as maintaining better range of motion and function of your hand (more swelling, less movement). You may wiggle your fingers, bending, flexing, and move them to decrease stiffness. You may use your hands for light activities of 2-5 lbs. This is lifting your coffee cup, using your silverware, and typing on a computer or tablet. -Do NOT perform strenuous lifting or lift greater than 10 lbs until directed by your surgeon at follow up You may remove your dressing on the third day after surgery, and get your surgical incision wet in the shower or when washing your hands with soap and water. -DO NOT soak your incision or submerge it under standing water such as dishwater or bathtub. -DO NOT apply perfumed moisturizers or ointments unless otherwise instructed by your physician. -Washing your incision gently with soap and water on a daily basis, helps to rid your skin of bacteria and decrease the risk of wound infections. -After showering or washing your hands, pat the incision dry, and keep covered with a clean dry gauze bandage. -You may apply Bacitracin, Neosporin, or generic triple antibiotic ointment to incision if you would like -You may use the finger splint for comfort when sleeping at night and during the day for activities. You may come out of the splint as much as you would like for range of motion exercises and for comfort - Patient was counseled on bone healing protocol including smoking cessation/ avoidance of nicotine products, appropriate weight bearing restrictions and limitations, and vitamin supplementation to aid in bone and fracture healing/ strengthening. Patient was counseled to take: 1) Vitamin C 500 mg PO Q daily 2) Calcium 500-600 mg/ Vitamin D 200-400 Units PO Q TID Take antibiotics as directed to decrease risk of infection after surgery [facility] Work Phone: InstructionsNot on filedocumented in this encounter [facility]Not on filedocumented in this encounter [facility] for [facility] (n[facility]ative[facility] Consultation (Routine) - Pending Review Specialty Diagnoses / Procedures Referred By Ally juarez Referred To Contact Neurosurgery Diagnoses Spinal stenosis of lumbar region with neurogenic claudication Nikki Patten PA [address] [facility], [address] [place] [address] [facility], [facility] [address] [address] Referral ID Status Reason Start Date Expiration Date Visits Requested Visits Authorized [id number] Pending Review Specialty Services Required 06/05/2023 06/04/2024 1 1 [employer] Summary Purpose Family History Relationship Condition Age at Onset Recorded Date/T arik sister Diabetes mellitus Unknown Hypertension Unknown Not Specified Hypertension Unknown sister Malignant neoplasm of breast Unknown brother Myocardial infarction Unknown Relationship Condition Age at Onset Recorded Date/T arik sister Diabetes mellitus Unknown Hypertension Unknown Not Specified Hypertension Unknown sister Malignant neoplasm of breast Unknown brother Myocardial infarction Unknown brother Heart disease Unknown father Motor vehicle accident Unknown Unknown Not Specified Diabetes mellitus Unknown Heart disease Unknown Advance Directives Advance Directive Response Recorded Date/ Time Advance Directives No November 4:50pm Advance Directive Response Recorded Date/ Time Advance Directives No November 3:50pm Chief Complaint and Reason for Visit Chief Complaint Right Hand Pain Chief Complaint M79.641 Right Hand Pain Right Hand Pain Chief Complaint M79.641 Right Hand Pain Right Hand Pain Z98.890 Chief Complaint Z98.890 Z98.890 left hand pain Chief Complaint Z98.890 Z98.890 left hand pain left hand pain Chief Complaint Z98.890 left hand pain left hand pain Chief Complaint 4-6 Wk Recheck left hand pain left hand pain 1 Wk Post Op M19.042/Z98.890 History of Colon Polyps History of Colon Polyps Reason for Visit History of colon emeka yps Reason for Referral Specialty Diagnoses / Procedures Referred By Ally juarez Referred To Contact Rehabilitation Diagnoses Lumbosacral spondylosis without myelopathy Disc displacement, lumbar Nikki Patten PA [address] [place] [address] Referral ID Status Reason Start Date Expiration Date Visits Requested Visits Authorized [id number] Authorized Specialty Services Required 05/01/2023 04/30/2024 12 12 Specialty Diagnoses / Procedures Referred By Ally juarez Referred To Contact Radiology Diagnoses Lumbar radiculopathy, chronic Procedures MR lumbar spine without contrast Nikki Patten PA [address], [address] [place] [id number] Referral ID Status Reason Start Date Expiration Date V isits Requested Visits Authorized [id number] Pending Review 05/01/2023 04/30/2024 1 1 Additional Source Comments INFORMATION SOURCE (unrecogn ized section and content) DATE CREATED AUTHOR 04/16/2021 [facility] dical Specialist DATE CREATED AUTHOR AUTHOR'S ORGANIZ ATION 02/02/2022 [facility] DATE CREATED AUTHOR AUTHOR'S ORGANIZ ATION 05/03/2023 [facility] DATE CREATED AUTHOR AUTHOR'S ORGANIZ ATION [facility]/01/2023 [facility] DATE CREATED AUTHOR AUTHOR'S ORGANIZ ATION [facility] DATE CREATED AUTHOR AUTHOR'S ORGANIZ ATION 01/19/2024 [facility] dical Specialists EPIC REASON FOR VISIT (unrecogniz ed section and content) Reason Comments Back Pain Reason Comments Back Pain Reason Comments Back Pain Care Teams (unrecognized sec tion and content) Team Status: Active Member Role Status Justin Lynn II MD Primary Care Provider Active Team Status: Inactive Member Role Status Justin Lynn II MD Primary Care Provider Active Marika Vasquez MD Attending Provider Active Team Status: Inactive Member Role Status Justin Lynn II MD Primary Care Provider Active Start: December 25, 2022 End: December 25, 2022 Marika Vasquez MD Attending Provider Active Start: December 25, 2022 End: December 25, 2022 Team Status: Inactive Member Role Status Justin Lynn II MD Primary Care Provider Active Start: February 07, 2023 End: February 07, 2023 Marika Vasquez MD Attending Provider Active Start: February 07, 2023 End: February 07, 2023 Team Status: Inactive Member Role Status Justin Lynn II MD Primary Care Provider Active Start: February 10, 2023 End: February 10, 2023 Marika Vasquez MD Attending Provider Active Start: February 10, 2023 End: February 10, 2023 Team Status: Inactive Member Role Status Justin Lynn II MD Primary Care Provider Active Start: March 19, 2023 End: March 19, 2023 Marika Vasquez MD Attending Provider Active Start: March 19, 2023 End: March 19, 2023 Team Status: Inactive Member Role Status Justin Vasquez MD Attending Provider Active Start: February 05, 2023 End: February 05, 2023 Team Status: Inactive Member Role Status Justin Vasquez MD Attending Provider Active Start: February 18, 2023 End: February 18, 2023 Team Status: Active Member Role Status Dates Provider Conversion Attending Provider Active St art: March 19, 2023 Team Status: Inactive Member Role Status Justin Lynn II MD Primary Care Provider Active Start: April 15, 2023 End: April 15, 2023 Dwight Pan MD Attending Provider Active Start: April 15, 2023 End: April 15, 2023 Team Status: Active Member Role Status Justin Lynn II MD Primary Care Provider Active Start: April 15, 2023 Dwight Pan MD Attending Prov ider, Other Provider Active Start: April 15, 2023 Airline Reservationist Relationship Specialty Start Date End Date Adrian Lynn MD [address] [place] [address] PCP - General Internal Medicine 10/15/20 [employer]line Reservationist Relationship Specialty Start Date End Date Adrian Lynn MD [address] [place] [address] PCP - General Internal Medicine 10/15/20 Airline Reservationist Relationship Specialty Start Date End Date Adrian Lynn MD [address] [place] [address] PCP - General Internal Medicine 10/15/20 Airline Reservationist Relationship Specialty Start Date End Date Adrian Lynn MD [address] [place] [address] PCP - General Internal Medicine 07/09/22 Adrian Lynn MD [address] [place] [address] PCP - ACO Reach 08/12/22 Airline Reservationist Relationship Specialty Start Date End Date Adrian Lynn MD [address] [place] [address] PCP - General Internal Medicine 07/09/22 Adrian Lynn MD [address] [place] [address] PCP - ACO Reach 08/12/22 Goals (unrecognized section and content) Goals may be documented in a n alternate section FOR RECORDS PERTAINING TO PATIENTS WHO ARE OR HAVE BEEN ENROLLED IN A CHEMICAL DEPENDENCY/SUBSTANCEABUSE PROGRAM, SOME INFORMATION MAY BE OMITTED. This clinical summary was aggregated from multiple sources. Caution should be exercised in using it in the provision of clinical care. This summary normalizes information from multiple sources, and as a consequence, information in this document may materially change the coding, format and clinical context of patient data. In addition, data may be omitted in some cases. CLINICAL DECISIONS SHOULD BE BASED ON THE PRIMARY CLINICAL RECORDS. [facility] [employer] [facility]. provides no warranty or guarantee of the accuracy or completeness of information in this document.
--- NOTE | 2024-02-11 11:09 | MM_ITS ---
Patient Name: SHANTA HANKINS MR#: [id number] : 1955 Exam Date: 02/11/2024 Ordering Doctor: DR HUSSEIN CARDENAS RADIOLOGY REPORT PROCEDURE: MM TOMOSYNTHESIS SCREENING BI COMPARISON: MM TOMOSYNTHESIS SCREENING BI, 02/05/2023. MG MAMM SCREEN 3D KEE CAD, 01/29/2022. INDICATIONS: Screening Calculator Name NCI Breast Cancer Risk Assessment Tool 5 Year Breast Cancer Risk 3.30% Lifetime Breast Cancer Risk 9.50% Personal Breast Cancer No Personal Ovarian Cancer No Treatments HYST Family Cancers Sister with breast cancer at age 49; Grandmother-maternal with lung cancer at age ~70; Aunt-maternal with lung cancer at age 38; Sister with blood cancer at age 55. LOCATION: [facility] BREAST COMPOSITION: The breasts are heterogeneously dense,which may obscure small masses. FINDINGS: DIAGNOSTIC CATEGORY 2--BENIGN FINDING. NO CHANGE FROM COMPARISON. Scattered benign-appearing calcifications are present. Scattered benign-appearing lymph nodes are present. RIGHT BREAST: No significant suspicious finding. LEFT BREAST: No significant suspicious finding. RECOMMENDATIONS: ROUTINE MAMMOGRAM AND CLINICAL EVALUATION IN 12 MONTHS. PLEASE NOTE: A NORMAL MAMMOGRAM DOES NOT EXCLUDE THE POSSIBILITY OF BREAST CANCER. A CLINICALLY SUSPICIOUS PALPABLE LUMP SHOULD BE BIOPSIED. Dictated by: Ochoa Pierre MD on 02/11/2024 at 12:34 Approved by: Ochoa Pierre MD on 02/11/2024 at 12:35
== END 2024-02-11 10:44 | disposition home or self-care (01) ==
LOC: MAMMO 10:44
PROVIDERS: PCP Internal Medicine; Visit Provider Physician Assistant
DX: Z12.31 Encounter for screening mammogram for malignant neoplasm of breast (principal); Z80.3 Family history of malignant neoplasm of breast; Z80.1 Family history of malignant neoplasm of trachea, bronchus and lung; Z80.8 Family history of malignant neoplasm of other organs or systems
CPT/HCPCS: 77063; 77067

== ENCOUNTER 2024-04-27 09:25 | Outpatient (OUT) | payer MEDICARE, OTHER, SELFPAY ==
--- NOTE | 2024-04-27 09:28 | CT_ITS ---
The [address] [address] Patient Name: SHANTA HANKINS MRN: [id number] date: 1955 Sex: F Assigned Patient Location: CT Current Patient Location: CT Accession/Order Number: [id number] Exam Date: 04/27/2024 11:53 Report Date: 04/27/2024 12:18 At the request of: HEIDI RODRIGUEZ Procedure: CT lung screening low-dose LOW-DOSE SCREENING CHEST CT WITHOUT CONTRAST COMPARISON: 05/03/2021 CLINICAL DATA: Current smoker with greater than 50 years of tobacco use. Spiral axial unenhanced images were obtained through the chest. Images were reviewed using both narrow and wide window settings. This CT exam was performed using one or more following dose reduction techniques: Automated exposure control, adjustment of the mA and/or kV according to patient size, or use of iterative reconstruction technique. The heart is within normal limits for size. No pericardial effusion is noted. Minimal coronary disease is seen. There is no aortic aneurysm. Atherosclerotic plaque is present at the aortic arch and proximal great vessels. Small calcified and noncalcified mediastinal lymph nodes are still visualized. The bony structures are intact. A sclerotic area is again noted at the right humeral head. There is obstructive lung disease. Apical scarring is again visualized. There is also basilar atelectasis and/or scarring which is slightly increased since the prior. No additional consolidation, pleural effusion or pneumothorax is seen. Scattered calcified and noncalcified pulmonary nodules are again visualized. The largest is at the left lower lobe. On the right, there is a nodular component to an area of scarring at the upper lobe measuring 5 mm in size (axial image 45). This is more prominent. The remaining nodules are stable. No other developing nodularity is seen. Limited imaging through the upper abdomen shows no contributory findings. CT/CT lung screening low-dose IMPRESSION: CONTINUED CALCIFIED AND NONCALCIFIED NODULES WITH SLIGHT INTERVAL ENLARGEMENT OF A NODULE AT THE RIGHT UPPER LOBE, DESCRIBED. ATELECTASIS AND/OR SCARRING. OBSTRUCTIVE LUNG DISEASE. Lung RADS category 2 12 month low-dose CT follow-up suggested. Impression dictated by: Heidi Lara M.D.04/27/2024 12:18 PM Dictation Location: [facility] Electronically authenticated by: [id number] Y Date: 04/27/2024 12:18
--- OUTSIDE RECORDS SUMMARY | 2024-04-27 09:46 | XMS_ITS | CCD ---
Author Organization [facility] Care Team Providers Care Research Program Internship Name Role Phone SHANE, DR GARCIA Attending Unavailable SHANE, DR GARCIA Consulting Unavailable SHANE, DR GARCIA Primary Care Unavailable SHANE, DR GARCIA Admitting Unavailable LANEY, DR CARLOS Pinon Consulting Unavailable HEMTRISH, DR HEIDI Hall Admitting Unavailable OTTAWA, DR LEE Cowan Consulting Unavailable SHANE, DR GARCIA Primary Care Unavailable JENNIFER, DR HEIDI Hall Attending Unavailable JENNIFER, DR HEIDI Hall Consulting Unavailable Marika Champion Unavailable MICHELLE Lynn Primary Care Provider [phone] MD Marika Champion Attending Provider [phone] MICHELLE Lynn Primary Care Provider MD Marika Champion Attending Provider [phone] MICHELLE Lynn Primary Care Provider MD Marika Champion Attending Provider Shane II Adrian Primary Care Provider MD Marika Champion Attending Provider MD Dwight Cruz Attending Provider [phone] Adrian Lynn Primary Care Unavailable Marika Champion Admitting Unavailable Marika Champion Attending Unavailable Adrian Lynn Primary Care Unavailable Marika Champion Admitting Unavailable Marika Champion Attending Unavailable Marika Champion Attending Unavailable Marika Champion Admitting Unavailable Adrian Lynn Primary Care Unavailable Marika Champion Attending Unavailable Marika Champion Admitting Unavailable Adrian Lynn Primary Care Unavailable Adrian Lynn Primary Care Unavailable Calvey, Marika R Attending Unavailable Calvey, Marika R Admitting Unavailable Calvey, Marika R Admitting Unavailable Calvey, Marika R Attending Unavailable Pancho Lynnel Primary Care Unavailable Pancho Lynnel Primary Care Unavailable Calvey, Marika R Attending Unavailable Calvey, Marika R Admitting Unavailable Calvey, Marika R Admitting Unavailable Calvey, Marika R Attending Unavailable Pancho Lynnel Primary Care Unavailable Maxim, Dwight R Admitting Unavailabl e Maxim, Dwight R Attending Unavailabl e Adrian Lynn Primary Care Unavailable CLOVIS BERMEO Attending Unavailable NIKKI CARBAJAL Referring Unavailable LYNN, ADRIAN B Primary Care Unavailable Adrian Lynn MD Primary Care Provider [phone] Adrian Lynn MD Unavailable Adrian Lynn MD Primary Care Provider HEIDI JIMENEZ Attending Unavailable HEIDI JIMENEZ Referring Unavailable HEIDI JIMENEZ Attending Unavailable MADISYN WILLSON Attending Unavailable HEIDI JIMENEZ Attending Unavailable NIKKI CARBAJAL S Attending Unavailable LYNN, ADRIAN B Referring Unavailable LYNN, ADRIAN B Primary Care Unavailable NIENBERGNIKKI S Referring Unavailable LYNN, ADRIAN B Primary Care Unavailable NIENBERGNIKKI S Attending Unavailable NIENBERGNIKKI S Referring Unavailable LYNN, ADRIAN B Primary Care Unavailable NIENBERGNIKKI S Referring Unavailable LYNN, ADRIAN B Primary Care Unavailable NIENBERGNIKKI S Attending Unavailable LYNN, ADRIAN B Referring Unavailable LYNN, ADRIAN B Primary Care Unavailable NIENBERGNIKKI S Attending Unavailable LYNN, ADRIAN B Referring Unavailable LYNN, ADRIAN B Primary Care Unavailable HILL SY Admitting Unavailable HILL SY Attending Unavailable LYNN, ADRIAN B Referring Unavailable LYNN, ADRIAN B Primary Care Unavailable HILL SY Attending Unavailable HILL SY Referring Unavailable LYNN, ADRIAN B Primary Care Unavailable NIENBERGNIKKI S Attending Unavailable LYNN, ADRIAN B Referring Unavailable LYNN, ADRIAN B Primary Care Unavailable HILL SY Attending Unavailable HILL SY Referring Unavailable SHANE, ADRIAN B Primary Care Unavailable HILL SY Admitting Unavailable HILL SY Attending Unavailable LYNN, ADRIAN B Referring Unavailable LYNN, ADRIAN B Primary Care Unavailable NIENBERGNIKKI S Attending Unavailable SHANE ADRIAN B Referring Unavailable LYNN, ADRIAN B Primary Care Unavailable HILL SY Attending Unavailable SYHILL BROWNING Referring Unavailable LYNN, ADRIAN B Primary Care Unavailable HILL SY Admitting Unavailable SYHILL BROWNING Attending Unavailable LYNN, ADRIAN B Referring Unavailable LYNN, ADRIAN B Primary Care Unavailable NIENBERG, NIKKI S Attending Unavailable LYNN, ADRIAN B Referring Unavailable LYNN, ADRIAN B Primary Care Unavailable HILL SY Admitting Unavailable SY, HILL Edgar Attending Unavailable LYNN, ADRIAN B Referring Unavailable LYNN, ADRIAN B Primary Care Unavailable SYHILL Attending Unavailable SY, HILL Edgar Referring Unavailable LYNN, ADRIAN B Primary Care Unavailable SY, HILL Edgar Admitting Unavailable SY, HILL Edgar Attending Unavailable LYNN, ADRIAN B Referring Unavailable LYNN, ADRIAN B Primary Care Unavailable SY, HILL Edgar Attending Unavailable SY, HILL E Referring Unavailable LYNN, ADRIAN B Primary Care Unavailable NIENBERG, NIKKI S Attending Unavailable LYNN, ADRIAN B Referring Unavailable LYNN, ADRIAN B Primary Care Unavailable NIENBERG, NIKKI S Referring Unavailable LYNN, ADRIAN B Primary Care Unavailable NIENBERG, NIKKI S Referring Unavailable LYNN, ADRIAN B Primary Care Unavailable NIENBERG, NIKKI S Attending Unavailable LYNN, ADRIAN B Referring Unavailable LYNN, ADRIAN B Primary Care Unavailable NIENBERG, NIKKI S Referring Unavailable LYNN, ADRIAN B Primary Care Unavailable NIENBERG, NIKKI S Attending Unavailable LYNN, ADRIAN B Referring Unavailable LYNN, ADRIAN B Primary Care Unavailable NIENBERG, NIKKI S Referring Unavailable LYNN, ADRIAN B Primary Care Unavailable NIENBERG, NIKKI S Attending Unavailable NIENBERG, NIKKI S Referring Unavailable LYNN, ADRIAN B Primary Care Unavailable HILL SY E Admitting Unavailable SY, HILL Edgar Attending Unavailable LYNN, ADRIAN B Referring Unavailable LYNN, ADRIAN B Primary Care Unavailable SY, HILL E Attending Unavailable SY, HILL E Referring Unavailable LYNN, ADRIAN B Primary Care Unavailable Allergies Allergy Classification Reported Allergen(s) Allergy Type Date of Onset Reaction(s) Facility (1 source) Fish derivative Drug allergy (disorder) 0 [facility] (16 sources) Iodine Drug Allergy 8 Unknown, ate my skin out [facility] (12 sources) Chicken Derived; Translations: [CHICKEN DERIVED] Drug allergy (disorder) 8 Hives [facility] (20 sources) Fish Containing Products; Translations: [Fish Containing Products] Allergy to substance 8 [facility] (1 source) Iodine Drug Allergy 4 [facility] (1 source) chicken derived Drug allergy (disorder) 4 [facility] (14 sources) Povidone-Iodine ; Translations: [POVIDONE-IODIN E] Drug Allergy 4 [facility] (13 sources) NUTRITIONAL SUPPLEMENT-FIBE R; Translations: [NUTRITIONAL SUPPLEMENT-FIBE R] Propensity to adverse reactions to food (disorder) 4 [facility] (6 sources) Fish - dietary Allergy to substance 4 [facility] Work Phone: (6 sources) Iodine Drug Allergy 3 Unknown [facility] (6 sources) Chicken Allergy Propensity to adverse reactions 5 [facility] (6 sources) Egg-Derived Products Drug Allergy 3 Unknown [facility] (10 sources) chicken allergenic extract Drug Allergy 4 [facility] Medications Current Medications Medication Drug Class(es) Dates [...] October 24, 2022 February 07, 2023 7:35am [id number] 200 actuat albuterol 0.09 mg/actuat metered dose inhaler (6 sources) beta2-Adrenergic Agonist Start: 09-25-2023 take 2 puff(s) by inhalation every four hours for wheezing albuterol HFA 90 mcg/act inhaler Indications: Acute bronchitis, unspecified organism Inhale 2 puffs every 4 (four) hours if needed for wheezing or shortness of breath 18 g 2 09/25/2023 Active ascorbic acid 250 mg oral tablet (6 sources) Vitamin C take 2 tablets by [...] 1 tablet by mouth once daily Vitamins A,C,I-Xvvv-Kmnuyr (Preservision Areds) 7,160-113-100 gwqb-ai-cuta Tablet Active 1 TAB PO Daily December 01, 2017 11:00pm Start: 12-02-2017 take 1 tablet by mp twice daily Vitamins A,C,W-Drcq-Eazpgi (Preservision Areds) 7,160-113-100 ecaw-ok-jvke Tablet Active 1 TAB PO Twice daily December 02, 2017 12:00am Aspir-81 (6 sources) Aspir-81 Active aspirin 81 mg oral tablet (20 sources) Platelet Aggregation Inhibitor, Nonsteroidal Anti-inflammatory Drug Start: 10-10-2022 aspirin 81 mg capsule Daily 10/10/2022 Active Start: 10-10-2022 aspirin 81 mg capsule Daily 0 10/10/2022 Active Start: 10-10-2022 take 1 capsule by mo [facility] once daily aspirin (Vazalore) 81 MG capsule Take 81 mg by mouth Daily 10/10/2022 Active atorvastatin 40 mg oral tablet (20 sources) HMG-CoA Reductase Inhibitor Start: 10-10-2022 take 1 tablet by mouth once daily atorvastatin (Lipitor) 40 MG tablet Indications: Hyperlipidemia, unspecified hyperlipidemia type (CMS/HCC) Take 1 tablet by mouth once daily 90 tablet 10/16/2023 Active b complex vitamins capsule (16 sources) Start: 02-07-2023 take 1 capsule by [...] hours. Active take 1 tablet by mp th every twenty-four hours Biotin 10 MG 1 tablet Orally Once a day Active cefdinir 300 mg oral capsule (4 sources) Cephalosporin Antibacterial Start: 04-21-2024 End: 04-28-2024 take 1 capsule by mouth in the morning cefdinir (Omnicef) 300 MG capsule Indications: Acute non-recurrent pansinusitis Take 1 capsule (300 mg) by mouth in the morning and 1 capsule (300 mg) before bedtime. Do all this for 7 days. 14 capsule 04/21/2024 04/28/2024 Active Start: 01-16-2024 End: 01-26-2024 take 1 capsule [...] capsule (20 sources) Nonsteroidal Anti-inflammatory Drug Start: 04-21-2024 take 1 capsule by mouth in the morning celecoxib (CeleBREX) 200 MG capsule Indications: Degeneration of intervertebral disc of lumbar region Take 1 capsule (200 mg) by mouth in the morning and 1 capsule (200 mg) before bedtime. Take with food. 180 capsule 3 04/21/2024 Active Start: 04-21-2024 take 1 capsule by mo uth in the morning celecoxib (CeleBREX) 200 MG capsule Indications: Degeneration of intervertebral disc of lumbar region Take 1 capsule (200 mg) by mouth in the morning and 1 capsule (200 mg) before bedtime. Take with food. 180 capsule 3 04/21/2024 Active Start: 12-02-2017 End: 04-21-2024 take 1 capsule by mouth in the morning celecoxib (CeleBREX) 200 MG capsule Indications: Degeneration of intervertebral disc of lumbar region Take 1 capsule (200 mg) by mouth in the morning and 1 capsule (200 mg) before bedtime. 180 capsule 11/05/2023 04/21/2024 Discontinued (Reorder) take 1 capsule by mo uth every twenty-four hours Celecoxib 200 MG 1 capsule with food Orally Once a day Active Centrum (6 sources) Centrum Orally A ctive chlorhexidine gluconate 1.2 mg/ml mouthwash (9 sources) Start: 05-20-2023 take 15 mL by mouth in the morning chlorhexidine (PERIDEX) 0.12 % solution Apply 15 mL to the mouth or throat in the morning and 15 mL before bedtime. 05/20/2023 Active cinnamon bark 500 mg oral capsule (20 sources) Start: 02-07-2023 cinnamon bark 500 mg capsule Twice daily 02/07/2023 Active cinnamon 500 MG capsule 1 (one) time each day at the same time. Active citalopram 40 mg oral tablet (20 sources) Serotonin Reuptake Inhibitor Start: 04-21-2024 take 1 tablet by mouth once daily citalopram (CeleXA) 40 MG tablet Indications: Generalized anxiety disorder (CMS/HCC) Take 1 tablet (40 mg) by mouth Daily 90 tablet 3 04/21/2024 Active Start: 04-21-2024 take 1 tablet by mp once daily citalopram (CeleXA) 40 MG tablet Indications: Generalized anxiety disorder (CMS/HCC) Take 1 tablet (40 mg) by mouth Daily 90 tablet 3 04/21/2024 Active Start: 12-02-2017 End: 04-21-2024 take 1 tablet by mouth once daily citalopram (CeleXA) 40 MG tablet Indications: Generalized anxiety disorder (CMS/HCC) Take 1 tablet by mouth once daily 90 tablet 03/16/2024 04/21/2024 Discontinued (Reorder) Diclofenac (3 sources) Nonsteroidal Anti-inflammatory Drug Start: [...] esomeprazole 40 mg delayed release oral capsule (20 sources) Proton Pump Inhibitor Start: 04-21-2024 take 1 capsule by mouth before mealtime esomeprazole (NexIUM) [address] capsule Indications: Gastroesophageal reflux disease without esophagitis Take 1 capsule (40 mg) by mouth in the morning. Take before meals. Do not open capsule.. 90 capsule 3 04/21/2024 Active Start: 04-21-2024 take 1 capsule by mo uth before mealtime esomeprazole (NexIUM) [address] capsule Indications: Gastroesophageal reflux disease without esophagitis Take 1 capsule (40 mg) by mouth in the morning. Take before meals. Do not open capsule.. 90 capsule 3 04/21/2024 Active Start: 07-30-2023 End: 04-21-2024 take 1 capsule by mouth before mealtime esomeprazole (NexIUM) [address] capsule Indications: Gastroesophageal reflux disease without esophagitis Take 1 capsule (40 mg) by mouth in the morning. Take before meals. Do not open capsule.. 90 capsule 3 07/30/2023 04/21/2024 Discontinued (Reorder) Start: 12-02-2017 take 1 capsule by mo uth once daily in the morning Esomeprazole Magnesium (Nexium) 20 mg Capsule,Delayed Release(Dr/Ec) Active 20 MG PO Every morning December 01, 2017 11:00pm esomeprazole (Ne xIUM) 20 mg packet Take 20 mg by mouth. Active 30 actuat fluticasone furoate 0.1 mg/actuat / umeclidinium 0.0625 mg/actuat / vilanterol 0.025 mg/actuat dry powder inhaler (17 sources) Anticholinergic, Corticosteroid, beta2-Adrenergic Agonist Start: 04-21-2024 Jbberytfdzq-Nmyrmaulo-Dhvqfg (Trelegy Ellipta) 100-62.5-25 MCG/ACT aerosol powder Indications: Chronic obstructive pulmonary disease, unspecified COPD type (CMS/HCC) Inhale 1 Inhalation Daily 3 each 3 04/21/2024 Active Start: 04-21-2024 Fluticasone-Um eclidin-Vilant (Trelegy Ellipta) 100-62.5-25 MCG/ACT aerosol powder Indications: Chronic obstructive pulmonary disease, unspecified COPD type (CMS/HCC) Inhale 1 Inhalation Daily 3 each 3 04/21/2024 Active Start: 07-30-2023 End: 04-21-2024 Gqkyplabwcv-Jnrktgdze-Ulkuye (Trelegy Ellipta) 100-62.5-25 MCG/ACT aerosol powder Indications: Chronic obstructive pulmonary disease, unspecified COPD type (CMS/HCC) Inhale 1 Inhalation Daily 3 each 3 07/30/2023 04/21/2024 Discontinued (Reorder) Start: 01-09-2023 take 1 puff(s) by inhalation in the morning ntvvbgcnpho-rjmfkdfkh-rtnzfqhj (TRELEGY ELLIPTA) 100-62.5-25 mcg blister with device Inhale 1 puff in the morning. 01/09/2023 Active gabapentin 300 mg oral capsule (20 sources) Anti-epileptic Agent Start: 04-21-2024 take 1 capsule by mouth in the morning, then take 1 capsule by mouth in the evening, then take 1 capsule by mouth at bedtime gabapentin (Neurontin) 300 MG capsule Indications: Neuralgia of lower extremity Take 1 capsule (300 mg) by mouth in the morning and 1 capsule (300 mg) in the evening and 1 capsule (300 mg) before bedtime. 270 capsule 1 04/21/2024 Active Start: 04-21-2024 take 1 capsule by mo uth in the morning, then take 1 capsule by mouth in the evening, then take 1 capsule by mouth at bedtime gabapentin (Neurontin) 300 MG capsule Indications: Neuralgia of lower extremity Take 1 capsule (300 mg) by mouth in the morning and 1 capsule (300 mg) in the evening and 1 capsule (300 mg) before bedtime. 270 capsule 1 04/21/2024 Active Start: 12-02-2017 End: 04-21-2024 take 1 capsule by mouth in the morning, then take 1 capsule by mouth in the evening, then take 1 capsule by mouth at bedtime gabapentin (Neurontin) 300 MG capsule Indications: Neuralgia of lower extremity Take 1 capsule (300 mg) by mouth in the morning and 1 capsule (300 mg) in the evening and 1 capsule (300 mg) before bedtime. 270 capsule 03/17/2024 04/21/2024 Discontinued (Reorder) Start: 12-02-2017 take 300 mg by mouth twice radha ly Gabapentin Active 300 MG PO Twice daily December 02, 2017 12:00am take 1 capsule by mo [facility] every twenty-four hours Gabapentin 300 MG 1 [...] 10/29/2023 Active loratadine 10 mg oral tablet (20 sources) Start: 02-07-2023 take 1 tablet by mouth once daily loratadine (Claritin) 10 MG tablet Indications: Seasonal allergic rhinitis due to pollen Take 1 tablet (10 mg) by mouth Daily 90 tablet 3 07/30/2023 Active methylPREDNISolone (5 sources) Corticosteroid Start: 01-16-2024 End: 04-21-2024 methylPREDNISolone (Medrol Dospak) 4 MG tablets Indications: COPD exacerbation (CMS/HCC) Follow schedule on package instructions 21 tablet 01/16/2024 04/21/2024 Discontinued (Therapy completed) Start: 01-16-2024 methylPREDNISo lone (Medrol Dospak) 4 MG tablets Indications: COPD exacerbation (CMS/HCC) Follow schedule on package instructions 21 tablet 01/16/2024 Active Multiple Vitamins-Minerals (Centrum Silver Adult 50+) tablet (6 sources) Multiple Vitamin s-Minerals (Centrum Silver Adult 50+) tablet Take by mouth. Active Jvemjctpodqz-Yhez-Wljex Acid (Centrum) 18-400 mg-mcg Tablet (9 sources) Start: 12-02-2017 take 1 tablet by mouth once daily Vvphuxvuajeb-Gnmh-Qfgqq Acid (Centrum) 18-400 mg-mcg Tablet Active 1 TAB PO Daily December 01, 2017 11:00pm Start: 12-02-2017 take 1 tablet by mp th once daily Wkokypolxnyy-Hbuf-Ldqqt Acid (Centrum) 18-400 mg-mcg Tablet Active 1 TAB PO Daily December 02, 2017 12:00am NON FORMULARY (10 sources) NON FORMULARY Me d Name: Centrum Silver Active NON FORMULARY Me d Name: Centrum Silver 0 Active traZODone hydrochloride 50 mg oral tablet (20 sources) Serotonin Reuptake Inhibitor Start: 04-21-2024 take 1 tablet by mouth at bedtime traZODone (Desyrel) 50 MG tablet Indications: Primary insomnia Take 1 tablet (50 mg) by mouth at bedtime 90 tablet 3 04/21/2024 Active Start: 04-21-2024 take 1 tablet by mp th at bedtime traZODone (Desyrel) 50 MG tablet Indications: Primary insomnia Take 1 tablet (50 mg) by mouth at bedtime 90 tablet 3 04/21/2024 Active Start: 12-02-2017 End: 04-21-2024 take 1 tablet by mouth at bedtime traZODone (Desyrel) 50 MG tablet Indications: Primary insomnia TAKE 1 TABLET BY MOUTH AT BEDTIME 90 tablet 03/16/2024 04/21/2024 Discontinued (Reorder) vit A/vit C/vit E/zinc/coppe r (PRESERVISION AREDS ORAL) (10 sources) vit A/vit C/vit E/zinc/copper (PRESERVISION AREDS [...] Classification Problem Date Documented Da te Episodic/Chronic Administrative/social admission (2 sources) Patient encounter status; Translations: [Other specified counseling] 04-21-2024 Episodic Anal and rectal conditions (6 sources) Rectal polyp; Translations: [Rectal polyp] Episodic Anxiety disorders (8 sources) Generalized anxiety disorder; Translations: [Generalized anxiety disorder] Onset: 4 04-03-2023 Chronic Chronic obstructive pulmonary disease and bronchiectasis (18 sources) Chronic obstructive lung disease; Translations: [Chronic obstructive pulmonary disease, unspecified] Onset: 4 04-03-2023 Chronic Diabetes mellitus without complication (8 sources) Impaired glucose tolerance; Translations: [Impaired glucose tolerance (oral)] Onset: 4 04-03-2023 Episodic Disorders of lipid metabolism (8 sources) Hyperlipidemia; Translations: [Hyperlipidemia, unspecified] Onset: 4 04-03-2023 Chronic Diverticulosis and diverticulitis (6 sources) Diverticular disease of colon; Translations: [Diverticulosis of intestine, part unspecified, without perforation or abscess without bleeding] Chronic Esophageal disorders (8 sources) Gastroesophageal reflux disease without esophagitis; Translations: [Gastro-esophageal reflux disease without esophagitis] Onset: 4 07-30-2023 Chronic Essential hypertension (8 sources) Benign essential hypertension; Translations: [Essential (primary) hypertension] Onset: 4 04-03-2023 Chronic Joint disorders and dislocations; trauma-related (8 sources) Traumatic arthropathy-knee; Translations: [Traumatic arthropathy, right knee] Onset: 4 04-03-2023 Chronic Menopausal disorders (9 sources) Other primary ovarian failure; Translations: [Decreased estrogen level] Onset: 2 04-18-2023 Chronic Miscellaneous mental health disorders (2 sources) Primary insomnia; Translations: [Primary insomnia] 04-21-2024 Chronic Mood disorders (8 sources) Single episode of major depression in full remission; Translations: [Major depressive disorder, single episode, in full remission] Onset: 4 04-03-2023 Chronic Occlusion or stenosis of precerebral arteries (14 sources) Arteriosclerosis of carotid artery; Translations: [Occlusion and stenosis of bilateral carotid arteries] Onset: 4 Resolved: 4 04-03-2023 Chronic Osteoarthritis (20 sources) Osteoarthritis of joint of right hand; Translations: [Primary osteoarthritis, right hand] Onset: 5 Chronic Other and unspecified benign neoplasm (17 sources) History of polyp of colon; Translations: [Personal history of colonic polyps] Onset: 4 12-02-2017 Episodic Other and unspecified benign neoplasm (2 sources) Personal history of colonic polyps; Translations: [Personal history of colonic polyps] Onset: 4 04-15-2023 Episodic Other and unspecified benign neoplasm (4 sources) Hemangioma of skin; Translations: [Hemangioma of skin and subcutaneous tissue] Onset: 5 04-21-2024 Episodic Other bone disease and musculoskeletal deformities (8 sources) Idiopathic scoliosis of lumbar spine; Translations: [Other idiopathic scoliosis, lumbar region] Onset: 4 04-22-2023 Chronic Other connective tissue disease (1 source) Pain in right hand Episodic Other connective tissue disease (1 source) Pain in unspecified limb; Translations: [Pain in unspecified limb] Onset: 3 Episodic Other connective tissue disease (8 sources) Muscle pain; Translations: [Myalgia, unspecified site] Onset: 3 12-12-2022 Episodic Other connective tissue disease (8 sources) Peripheral neuralgia; Translations: [Neuralgia and neuritis, unspecified] Onset: 4 04-03-2023 Episodic Other gastrointestinal disorders (14 sources) Irritable bowel syndrome; Translations: [Irritable bowel syndrome without diarrhea] Onset: 4 04-03-2023 Chronic Other gastrointestinal disorders (6 sources) Disorder of intestine; Translations: [Other specified diseases of intestine] Episodic Other lower respiratory disease (4 sources) Fibrosis of lung; Translations: [Pulmonary fibrosis, unspecified] Onset: 5 04-21-2024 Chronic Other nervous system disorders (7 sources) Mononeuropathy of lower limb; Translations: [Other specified mononeuropathies of left lower limb] Onset: 5 04-01-2024 Chronic Other nervous system disorders (1 source) Other specified mononeuropathies of left lower limb; Translations: [Other specified mononeuropathies of left lower limb] Onset: 5 Chronic Other nervous system disorders (1 source) Other chronic pain; Translations: [Other chronic pain] Onset: 4 Chronic Other nervous system disorders (15 sources) Pain in limb; Translations: [Other acute postprocedural pain] Onset: 4 10-24-2022 Episodic Other nervous system disorders (1 source) Other acute postprocedural pain; Translations: [Other acute postprocedural pain] Onset: 3 Episodic Other non-traumatic joint disorders (1 source) Knee pain Onset: 4 Episodic Other nutritional; endocrine; and metabolic disorders (6 sources) Body mass index 25-29 - overweight; Translations: [Body mass index (BMI) 27.0-27.9, adult] Episodic Other screening for suspected conditions (not mental disorders or infectious disease) (20 sources) Encounter for screening mammogram for malignant neoplasm of breast; Translations: [Full blood count abnormal] Onset: 2 Resolved: 5 Episodic Other upper respiratory disease (6 sources) Allergic rhinitis; Translations: [Allergic rhinitis, unspecified] Onset: 4 04-03-2023 Chronic Other upper respiratory disease (2 sources) Allergic rhinitis due to pollen; Translations: [Allergic rhinitis due to pollen] 04-21-2024 Chronic Other upper respiratory infections (4 sources) Acute pansinusitis; Translations: [Acute pansinusitis, unspecified] 01-16-2024 Episodic Peripheral and visceral atherosclerosis (2 sources) Atherosclerosis of aorta; Translations: [Atherosclerosis of aorta] 01-16-2024 Chronic Residual codes; unclassified (8 sources) Obstructive sleep apnea syndrome; Translations: [Obstructive [...] Spondylosis; intervertebral disc disorders; other back problems (20 sources) Degeneration of lumbar intervertebral disc; Translations: [Degeneration of intervertebral disc of lumbar region] Onset: 4 Resolved: 5 04-03-2023 Chronic Substance-related disorders (16 sources) Nicotine dependence, cigarettes, uncomplicated; Translations: [Tobacco [...] Unclassified (1 source) Consult Onset: 4 Unclassified (2 sources) Chronic pain of right knee 02-19-2024 Unclassified (1 source) Spinal stenosis of lumbar region with neurogenic claudication [M48.062] Onset: 4 Unclassified (1 source) Low back pain, unspecified; Translations: [Low back pain, unspecified] Onset: 4 Past or Other Problems Problem Classification Problem Date Documented Da te Episodic/Chronic Mood disorders (6 sources) Mood disorders Onset: 04-18-2023 Resolved: 04-21-2024 04-18-2023 Other bone disease and musculoskeletal deformities (1 source) Other specified disorders of bone density and structure, unspecified site; Translations: [[facility] D/O BONE DEN STRUCT UNS SITE] Onset: 05-04-2021 Episodic Other connective tissue disease (1 source) Muscle weakness (generalized); Translations: [Muscle weakness (generalized)] Onset: 05-01-2023 Episodic Other nervous system disorders (1 source) Other abnormalities of gait and mobility; Translations: [Other abnormalities of gait and mobility] Onset: 05-01-2023 Episodic Other non-traumatic joint disorders (4 sources) Pain in right knee; Translations: [Pain in joint, lower leg] Onset: 01-13-2024 02-19-2024 Episodic Other non-traumatic joint disorders (1 source) Pain in left knee; Translations: [Pain in left knee] Onset: 01-13-2024 Episodic Other non-traumatic joint disorders (1 source) Stiffness of unspecified joint, not elsewhere classified; Translations: [Stiffness of unspecified joint, not elsewhere classified] Onset: 05-01-2023 Episodic Residual codes; unclassified (1 source) Other specified postprocedural states; Translations: [Other specified postprocedural states] Onset: 11-27-2022 Episodic Residual codes; unclassified (6 sources) Insomnia; Translations: [Insomnia, unspecified] Onset: 04-03-2023 04-03-2023 Episodic Spondylosis; intervertebral disc disorders; other back problems (20 sources) Spinal stenosis, lumbar region with neurogenic claudication; Translations: [Spinal stenosis of lumbar region] Onset: 05-01-2023 07-24-2023 Episodic Results Test Name Value Interpretation Reference Range Facility MR KNEE RT WO CONTon 025 MR KNEE RT WO CONT MR KNEE RT WO CONT MR KNEE RT WO CONT CLINICAL INFORMATION: 68 years old Female with right knee pain x1 year. COMPARISON: Right knee radiographs dated 01/13/2024. PROCEDURE: ?Multisequence, multiplanar MR images of the knee were obtained. No intravenous contrast. FINDINGS: MENISCI Medial meniscus: Degenerative signal in the posterior horn. No discrete meniscal tear. Lateral meniscus: No tear. LIGAMENTS AND TENDONS Anterior Cruciate Ligament: Small cystic structure coursing throughout the fibers of the ACL consistent with a small ganglion. Posterior Cruciate Ligament: No tear. Medial collateral ligament complex: No tear. Lateral collateral ligament complex: No tear. Other: Unremarkable popliteus tendon and IT band. EXTENSOR MECHANISM Extensor mechanism: No significant tendinosis or discrete tear. The patella is normally positioned within the femoral groove. MPFL and LPFL are intact. FLUID Fluid: Small to moderate-sized suprapatellar effusion. No Tavera's cyst. OSSEOUS and ARTICULAR STRUCTURES Bones: Marked bone marrow edema within the anterior aspect of the lateral tibial plateau without discrete fracture line. Patellofemoral compartment: Mild diffuse chondral loss with small amount of subchondral edema in the patellar ridge and partial-thickness chondral defect within the lateral patellar facet. Medial compartment: Moderate diffuse chondral loss. Focal chondral defect with subchondral cyst and subchondral edema within the anterior aspect of the medial femoral condyle/inferior trochlea (series 13 image 14). Lateral compartment: Mild diffuse chondral loss with large focal defect in the anterior aspect of the tibial plateau (series 10 image 12 and series 13 image 18-19). SOFT TISSUES Muscles: Unremarkable. Other: None. IMPRESSION: * Marked bone marrow edema within the anterior aspect of the tibial plateau without discrete fracture line, however this is highly concerning for microtrabecular fracture. Patient is osteopenic. The edema does not extend into the subchondral region. Recommend correlation with bone mineral density. * Degenerative signal in the posterior horn of the medial meniscus. No discrete meniscal tear. 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 * Small to moderate sized suprapatellar effusion. Approved by Resident Cody Mclain DO on 04/23/2024 9:57 AM I, Jacob Pfeiffer MD have personally reviewed the image(s) and agree with and/or edited the report Finalized by Jacob Pfeiffer MD on 04/23/2024 11:46 AM Normal [facility] CBC (INCLUDES DIFF/PLT)on Basophils (Bld) [#/Vol] 0.03 10*3/uL Normal 0-200 [facility] Comment on above: Performed By: #### 7 600, 6399, 54385 #### [facility] of [place] [address] Speech Coach: Juanito You MD Basophils/100 WBC (Bld) 0.5 % Normal [facility] Comment on above: Performed By: #### 7 600, 6399, 54470 #### [facility] [place] [address] Speech Coach: Juanito You MD Eosinophils (Bld) [#/Vol] 0.21 10*3/uL Normal 15-500 [facility] Comment on above: Performed By: #### 7 600, 6399, 28349 #### [facility] [place] [address] Speech Coach: Juanito You MD Eosinophils/100 WBC (Bld) 3.5 % Normal [facility] Comment on above: Performed By: #### 7 600, 6399, 14167 #### [facility] [place] [address] Speech Coach: Juanito You MD Erythrocyte distribution width (RBC) [Ratio] 15.8 % High 11.0-15.0 [facility] Comment on above: Performed By: #### 7 600, 6399, 20654 #### [facility] of [address] [place] [address] Speech Coach: Juanito You MD Hematocrit (Bld) [Volume fraction] 38.6 % Normal 35.0-45.0 [facility] Comment on above: Performed By: #### 7 600, 6399, 15276 #### [facility] of [place] [address] Speech Coach: Juanito You MD Hemoglobin (Bld) [Mass/Vol] 12.1 g/dL Normal 11.7-15.5 [facility] Comment on above: Performed By: #### 7 600, 6399, 82653 #### [facility] of [place] [address] Speech Coach: Juanito You MD Lymphocytes (Bld) [#/Vol] 1.812 10*3/uL Normal 850-3900 [facility] Comment on above: Performed By: #### 7 600, 6399, 71670 #### [facility] of [place] [address] Speech Coach: Juanito You MD Lymphocytes/100 WBC (Bld) 30.2 % Normal [facility] Comment on above: Performed By: #### 7 600, 6399, 69083 #### [facility] of [place] [address] Speech Coach: Juanito You MD MCH (RBC) [Entitic mass] 27.3 pg Normal 27.0-33.0 [facility] Comment on above: Performed By: #### 7 600, 6399, 54157 #### [facility] of [place] [address] Speech Coach: Juanito You MD MCHC (RBC) [Mass/Vol] 31.3 g/dL Low 32.0-36.[address] [facility] Comment on above: Result Comment: For adults, a slight decrease in the calculated MCHC value (in the range of 30 to 32 g/dL) is most likely not clinically significant; however, it should be interpreted with caution in correlation with other red cell parameters and the patient's clinical condition. Performed By: #### 7 600, 6399, 43318 #### [facility] of [place] [address] Speech Coach: Juanito You MD MCV (RBC) [Entitic vol] 87.1 fL Normal 80.0-100.0 [facility] Comment on above: Performed By: #### 7 600, 6399, 78810 #### [facility] [place] [address] Speech Coach: Juanito You MD Monocytes (Bld) [#/Vol] 0.51 10*3/uL Normal 200-950 [facility] Comment on above: Performed By: #### 7 600, 6399, 07284 #### [facility] [place] [address] Speech Coach: Juanito You MD Monocytes/100 WBC (Bld) 8.5 % Normal [facility] Comment on above: Performed By: #### 7 600, 63, 64612 #### [facility] [place] [address] Speech Coach: Juanito You MD Neutrophils (Bld) [#/Vol] 3.438 10*3/uL Normal 9309-8317 [facility] Comment on above: Performed By: #### 7 600, 6399, 49944 #### [facility] [place] [address] Speech Coach: Juanito You MD Neutrophils/100 WBC (Bld) 57.3 % Normal [facility] Comment on above: Performed By: #### 7 600, 6399, 30575 #### [facility] [place] [address] Speech Coach: Juanito You MD Platelet mean volume (Bld) [Entitic vol] 14.0 fL High 7.5-12.5 [facility] Comment on above: Performed By: #### 7 600, 6399, 26068 #### [facility] of [address], [address] [place] [address] Speech Coach: Juanito You MD Platelets (Bld) [#/Vol] 148 10*3/uL Normal 140-400 [facility] Comment on above: Performed By: #### 7 600, 6399, 31315 #### [facility] of [address], [address] [place] [address] Speech Coach: Juanito You MD RBC (Bld) [#/Vol] 4.43 10*6/uL Normal 3.80-5.10 [facility] Comment on above: Performed By: #### 7 600, 6399, 12721 #### [facility] of [place] [address] Speech Coach: Juanito You MD WBC (Bld) [#/Vol] 6.0 10*3/uL Normal 3.8-10.8 [facility] Comment on above: Performed By: #### 7 600, 6399, 08652 #### [facility] of [place] [address] Speech Coach: Juanito You MD [facility] METABOL[facility] 04-22-2024 Albumin [Mass/Vol] 4.2 g/dL Normal 3.6-5.1 [facility] Comment on above: Performed By: #### 7 600, 6399, 00705 #### [facility] of [place] [address] Speech Coach: Juanito You MD Albumin/Globulin [Mass ratio] 1.6 {ratio} Normal 1.0-2.5 [facility] Comment on above: Performed By: #### 7 600, 6399, 23015 #### [facility] of [place] [address] Speech Coach: Juanito You MD ALP [Catalytic activity/Vol] 80 U/L Normal 37-153 [facility] Comment on above: Performed By: #### 7 600, 6399, 15421 #### [facility] of [address] [place] [address] Speech Coach: Juanito You MD ALT [Catalytic activity/Vol] 20 U/L Normal 6-29 [facility] Comment on above: Performed By: #### 7 600, 6399, 53100 #### [facility] of [address], [address] [place] [address] Speech Coach: Juanito You MD AST [Catalytic activity/Vol] 23 U/L Normal 10-35 [facility] Comment on above: Performed By: #### 7 600, 6399, 84321 #### [facility] of [address], [address] [place] [address] Speech Coach: Juanito You MD Bilirubin [Mass/Vol] 0.5 mg/dL Normal 0.2-1.2 [facility] Comment on above: Performed By: #### 7 600, 6399, 81607 #### [facility] of [address], [address] [place] [address] Speech Coach: Juanito You MD BUN/CREATININE RATIO SEE NOTE: Normal 6-22 [facility] Comment on above: Result Comment: Not Reported: BUN and Creatinine are within reference range. Performed By: #### 7 600, 6399, 38195 #### [facility] of [address], [address] [place] [address] Speech Coach: Juanito You MD Calcium [Mass/Vol] 9.7 mg/dL Normal 8.6-10.4 [facility] Comment on above: Performed By: #### 7 600, 6399, 38229 #### [facility] of [address], [address] [place] [address] Speech Coach: Juanito You MD Chloride [Moles/Vol] 102 mmol/L Normal 98-110 [facility] Comment on above: Performed By: #### 7 600, 6399, 85278 #### [facility] of [address], [address] [place] [address] Speech Coach: Juanito You MD CO2 [Moles/Vol] 31 mmol/L Normal 20-32 [facility] Comment on above: Performed By: #### 7 600, 6399, 25611 #### [facility] of [place] [address] Speech Coach: Juanito You MD Creatinine [Mass/Vol] 0.81 mg/dL Normal 0.60-1.[address] [facility] Comment on above: Performed By: #### 7 600, 6399, 76180 #### [facility] of [address], [address] [place] [address] Speech Coach: Juanito You MD GFR/1.73 sq M.predicted among non-blacks MDRD (S/P/Bld) [Vol rate/Area] 78 mL/min/{1.73_m2} Normal > OR = 60 [facility] Comment on above: Performed By: #### 7 600, 6399, 51684 #### [facility] of [address], [address] [place] [address] Speech Coach: Juanito You MD Globulin (S) [Mass/Vol] 2.7 g/dL Normal 1.9-3.7 [facility] Comment on above: Performed By: #### 7 600, 6399, 33403 #### [facility] of [place] [address] Speech Coach: Juanito You MD Glucose [Mass/Vol] 93 mg/dL Normal 65-99 [facility] Comment on above: Result Comment: Fasting reference interval Performed By: #### 7 600, 6399, 82885 #### [facility] of [place] [address] Speech Coach: Juanito You MD Potassium [Moles/Vol] 4.4 mmol/L Normal 3.5-5.[address] [facility] Comment on above: Performed By: #### 7 600, 6399, 37262 #### [facility] of [place] [address] Speech Coach: Juanito You MD Protein [Mass/Vol] 6.9 g/dL Normal 6.1-8.1 [facility] Comment on above: Performed By: #### 7 600, 6399, 76576 #### [facility] [address], [address] [place] [address] Speech Coach: Juanito You MD Sodium [Moles/Vol] 141 mmol/L Normal 135-146 [facility] Comment on above: Performed By: #### 7 600, 6399, 93666 #### [facility] [address], [address] [place] [address] Speech Coach: Juanito You MD Urea nitrogen [Mass/Vol] 11 mg/dL Normal 7-25 [facility] Comment on above: Performed By: #### 7 600, 6399, 21266 #### [facility] [address], [address] [place] [address] Speech Coach: Juanito You MD HEMOGLOBIN A1con 04-22-2024 HEMOGLOBIN A1c 5.8 % of total Hgb High <5.7 [facility] Comment on above: Result Comment: For someone without known diabetes, a hemoglobin A1c value between 5.7% and 6.4% is consistent with prediabetes and should be confirmed with a follow-up test. For someone with known diabetes, a value <7% indicates that their diabetes is well controlled. A1c targets should be individualized based on duration of diabetes, age, comorbid conditions, and other considerations. This assay result is consistent with an increased risk of diabetes. Currently, no consensus exists regarding use of hemoglobin A1c for diagnosis of diabetes for children. Performed By: #### 7 600, 6399, 27429 #### [facility] [address], [address] [place] [address] Speech Coach: Juanito You MD LIPID PANEL, STANDARDon 04-04 Cholesterol [Mass/Vol] 252 mg/dL High <200 [facility] Comment on above: Order Comment: PATIE NT UNABLE TO VOID; ADVISED TO RETURN FOR COLLECTION. Performed By: #### 7 600, 6399, 69507 #### [facility] [address], [address] [place] [address] Speech Coach: Juanito You MD Cholesterol in HDL [Mass/Vol] 68 mg/dL Normal > OR = 50 [facility] Comment on above: Order Comment: PATIE NT UNABLE TO VOID; ADVISED TO RETURN FOR COLLECTION. Performed By: #### 7 600, 6399, 47294 #### [facility] [address], [address] [place] [address] Speech Coach: Juanito You MD Cholesterol in LDL [Mass/Vol] 152 mg/dL High [facility] Comment on above: Order Comment: PATIE NT UNABLE TO VOID; ADVISED TO RETURN FOR COLLECTION. Result Comment: Refe rence range: <100 Desirable range <100 mg/dL for primary prevention; <70 mg/dL for patients with CHD or diabetic patients with > or = 2 CHD risk factors. LDL-C is now calculated using the Gabrielle calculation, which is a validated novel method providing better accuracy than the Friedewald equation in the estimation of LDL-C. Partha DAVIDSON et al. KEKE. 2013;310(19): 6889-1434 (http://education.[employer]/faq/DXZ964) Performed By: #### 7 600, 3197, 54333 #### [facility] [address], [address] [place] [address] Speech Coach: Juanito You MD Cholesterol.total/Holly sterol in HDL [Mass ratio] 3.7 {ratio} Normal <5.0 [facility] Comment on above: Order Comment: PATIE NT UNABLE TO VOID; ADVISED TO RETURN FOR COLLECTION. Performed By: #### 7 600, 8895, 76350 #### [facility] [address], [address] [place] [address] Speech Coach: Juanito You MD NON HDL CHOLESTEROL 184 mg/dL (calc) High <130 [facility] Comment on above: Order Comment: PATIE NT UNABLE TO VOID; ADVISED TO RETURN FOR COLLECTION. Result Comment: For patients with diabetes plus 1 major ASCVD risk factor, treating to a non-HDL-C goal of <100 mg/dL (LDL-C of <70 mg/dL) is considered a therapeutic option. Performed By: #### 7 186, 6399, 02483 #### [facility] [address], [address] [place] [address] Speech Coach: Juanito You MD Triglyceride [Mass/Vol] 181 mg/dL High <150 [facility] Comment on above: Order Comment: PATIE NT UNABLE TO VOID; ADVISED TO RETURN FOR COLLECTION. Performed By: #### 7 600, 6399, 72308 #### [facility] [address], [address] [place] [address] Speech Coach: Juanito You MD XR KNEE LT 3 VWSon 4 XR KNEE LT 3 VWS XR KNEE LT 3 VWS XR KNEE LT 3 VWS HISTORY: Chronic pain of both knees. COMPARISON: none IMPRESSION: Age compatible degenerative changes. No effusion. Finalized by Ezio Jamison MD on 01/13/2024 2:47 PM Normal [facility] XR KNEE RT 3 VWSon 4 XR [...] Buckley MD on 01/13/2024 1:31 PM Normal [facility] XR Knee - left 3 Viewson XR [...] Ezio Jamison MD on 01/13/2024 2:47 PM [facility] Radiology Study observation (narrative) [facility] XR Knee - left 3 ViewsOrdere d By: Ezio Jamison on 01-13-2024 [facility] [employer] Work Phone: XR Knee - right 3 [...] Jesus Buckley MD on 01/13/2024 1:[address] [facility] Jesus Buckley MD - 01/13/2024 XR KNEE [...] Jesus Buckley MD on 01/13/2024 1:31 PM [facility] Radiology Study observation (narrative) [facility] XR Knee - right 3 ViewsOrder ed By: Jesus Buckley on 01-13-2024 [employer] Work Phone: CT LUNG SCREENING LOW DOSEon [...] mm solid nodule. ELECTRONICALLY SIGNED BY: Jaime Lea, DO Normal Not Available DEXA BONE DENSITYon 05-08-19 24 DEXA BONE DENSITY CLINICAL HISTORY: screening. COMPARISON: [...] facet arthropathy contributes to mild right and yjir-uz-qsaavuyp left neuroforaminal narrowing. Minimal spinal canal narrowing. L2-L3: Pmpt-ge-lrjxeqqz diffuse disc bulge, facet arthropathy and dorsal epidural lipomatosis results in severe spinal canal narrowing with crowding the cauda equina nerve roots. Mild right and moderate left neuroforaminal narrowing. L3-L4: Mild diffuse disc bulge with small right paracentral disc annular tear/protrusion, abutting the right. Mild facet arthropathy also contributes to mild right and khqh-jl-aabjxsxy left neuroforaminal narrowing. L4-L5: Moderate diffuse disc, severe facet arthropathy, ligamentum flavum hypertrophy results in severe spinal canal narrowing with severe right and pxsupszs-vy-vviiob left neuroforaminal narrowing L5-S1: Mild diffuse disc osteophyte complex, moderate facet arthropathy vmvcifqf-ru-mgrvnq right and severe left neuroforaminal narrowing. Mild [...] Barber Lyman on 05/08/2023 9:37 AM Normal [facility] Pavel 04-15-2023 L Specimen: [id number] Received: 04/15/23 Status: HELEN Peter Num: [id number] Spec Type: Surgical Subm Dr: Dwight Cruz MD Tissues: A Colon Biopsy (RECTL POLYP) Procedures: HE/2, Gross/Micro L4 Age/ Patient Sex Location Account Attending Physician Zoë Montero 67/F [id number] Dwight Cruz MD SPEC NUM: [id number] RECD: 04/15/23 STATUS: HELEN PETER NUM: [id number] KRISTEN: 04/15/23 DR: Dwight Cruz MD ENTERED: 04/15/[address] [facility] DR: SPEC TYPE: Surgical DEPT: S ENTERED BY: [id number] RECV BY: [id number] ORDERED: HE/2, Gross/Micro L4 ORDERED: HE/2, Gross/Micro [...] confirm the above rendered diagnosis. CPT Codes 42854 Specimen: [id number] Received: 04/15/23 Status: HELEN Peter Num: [id number] Spec Type: Surgical Subm Dr: Dwight Cruz MD Tissues: A Colon Biopsy (RECTL POLYP) Procedures: HE/2, Gross/Micro L4 Patient: Zoë Montero Jay [id number] (Continued) Signed (signature on file) Kathy Wilhelm MD 04/16/23 1036 Normal [facility] XR hand LT min 3V*on 024 XR hand LT min 3V* [address] [address] XRay Report Signed Patient: Zoë Montero Jay MR#: [id number] 0 : 1955 Acct:[id number] Age/Sex: 67 / F ADM Date: 03/19/23 Loc: [facility] Room: Type: [facility] Attending Dr: Marika Champion MD Copies to: Marika Champion MD Ordering Provider: Marika Champion MD Date of Service: 03/19/23 XR/XR hand [...] German Clay M.D.03/19/2023 2:52 PM Dictation Location: [place] [address] Transcribed By: [facility] 03/19/23 1452 Dictated By: German Clay DO 03/19/23 1450 Signed By: 03/19/23 1452 Normal [facility] XR hand LT min 3V* [facility] [place] Other XR hand LT min 3V* [facility] [place] Other XR hand LT min 3V* [address] [place] [address] [employer] Other XR hand LT min 3V* [place] [address] [employer] Other XR hand LT min 3V* XRay Report [employer] Other XR hand LT min 3V* Signed [employer] Other XR hand LT min 3V* Patient: Zoë Montero MR#: [id number] [employer] Other XR hand LT min 3V* 0 [employer] Other XR hand LT min 3V* : 1955 Acct:[id number] [employer] Other XR hand LT min 3V* Age/Sex: 67 / F ADM Date: 03/19/23 [employer] Other XR hand LT min 3V* Loc: [facility] Room: Type: [facility] [employer] Other XR hand LT min 3V* Attending Dr: Marika Champion MD [employer] Other XR hand LT min 3V* Copies to: Marika Champion MD [employer] Other XR hand LT min 3V* Ordering Provider: Marika Champion MD [employer] Other XR hand LT min 3V* Date of Service: 03/19/23 [employer] Other XR hand LT min 3V* XR/XR hand LT min 3V*: Arthritis of left hand;Other specified [employer] Other XR hand LT min 3V* postprocedural states [employer] Other XR hand LT min 3V* 4 views left hand plain film [employer] Other XR hand LT min 3V* COMPARISON: None [employer] Other XR hand LT min 3V* HISTORY: Status post left first bony osteophyte excision. Second PIP effusion [employer] Other XR hand LT min 3V* ACUTE FINDINGS: None [employer] Other XR hand LT min 3V* DEGENERATIVE CHANGE: Unremarkable [employer] Other XR hand LT min 3V* SOFT TISSUE FINDINGS: Unremarkable [employer] Other XR hand LT min 3V* JOINT EFFUSION: None [employer] Other XR hand LT min 3V* POSTOP CHANGES: Plate-screw fusion hardware of the first metacarpal phalangeal articulation. The [employer] Other XR hand LT min 3V* bony fusion changes present. Intramedullary fusion screw at the second interphalangeal joint stable. [employer] Other XR hand LT min 3V* Subtle interval fusion changes. [employer] Other XR hand LT min 3V* BONY MINERALIZATION: Adequate [employer] Other XR hand LT min 3V* XR/XR hand LT min 3V* [employer] Other XR hand LT min 3V* IMPRESSION: No hardware failure. The interval bony fusion changes. [employer] Other XR hand LT min 3V* Impression dictated by: German Clay M.D.03/19/2023 2:52 PM [employer] Other XR hand LT min 3V* Dictation Location: [place] [address] [employer] Other XR hand LT min 3V* Transcribed By: MAURA 03/19/[address] [place] [address] [employer] Other XR hand LT min 3V* Dictated By: German Clay DO 03/19/23 [facility] [employer] Other XR hand LT min 3V* Signed By: [employer] Other XR hand LT min 3V* 03/19/[address] [place] [address] [employer] Other XR finger LT 2nd digiton XR finger LT 2nd digit [facility] [place] [address] [place] [address] XRay Report Signed Patient: Zoë Montero MR#: [id number] 0 : 1955 Acct:[id number] Age/Sex: 67 / F ADM Date: 02/10/23 Loc: [place] Room: Type: [facility] Attending Dr: Marika Champion MD Copies to: Marika Champion MD Ordering Provider: Marika Champion MD Date of Service: 02/10/23 XR/XR finger [...] Gabo Wright M.D.02/10/2023 2:31 PM Dictation Location: [place] [address] Transcribed By: [facility] 02/10/23 1431 Dictated By: Gabo Wright II, MD 02/10/23 1430 Signed By: 02/10/23 1431 Normal [facility] Alanine aminotransferase [En zymatic activity/volume] in Serum or PlasmaOrdered By: Marika Champion on 02-07-2023 ALT [Catalytic activity/Vol] 15 U/L 7-52 [facility] Albumin [Mass/volume] in Ser um or Plasma by Bromocresol green (BCG) dye binding methoOrdered By: Marika Champion on 02-07-2023 Albumin BCG dye [Mass/Vol] 4.1 g/dL 3.5-5.7 [facility] Alkaline phosphatase [Enzyma tic activity/volume] in Serum or PlasmaOrdered By: Marika Champion on 02-07-2023 ALP [Catalytic activity/Vol] 87 U/L 34-104 [facility] Aspartate aminotransferase [ Enzymatic activity/volume] in Serum or PlasmaOrdered By: Marika Champion on 02-07-2023 AST [Catalytic activity/Vol] 19 U/L 13-39 [facility] Basophils Auto (Bld) [#/Vol] Ordered By: Marika Champion on 02-07-2023 Basophils (Bld) [#/Vol] 0.1 10*3/uL 0.0-0.2 [facility] Basophils/100 WBC Auto (Bld) Ordered By: Marika Champion on 02-07-2023 Basophils/100 WBC (Bld) 0.7 % . [facility] Bilirubin.total [Mass/volume ] in Serum or PlasmaOrdered By: Marika Champion on 02-07-2023 Bilirubin [Mass/Vol] 0.4 mg/dL 0.3-1.0 [facility] CMP with reflex to A1Con Albumin [Mass/Vol] 4.1 g/dL Normal 3.5-5.7 [facility] Comment on above: Performed By: #### C MP wRFX A1C, CBC #### [facility] [address] Albumin/Globulin [Mass ratio] 1.6 {ratio} Normal [facility] Comment on above: Performed By: #### C MP wRFX A1C, CBC #### [facility] [address] [place] [id number] [facility] ALP [Catalytic activity/Vol] 87 U/L Normal 34-104 [facility] Comment on above: Result Comment: PERF ORMED BY: [place] [address] PATHOLOGIST [employer]I SKAGGS M.D. Performed By: #### C MP wRFX A1C, CBC #### [facility] [address] [place] [id number] [facility] ALT [Catalytic activity/Vol] 15 U/L Normal 7-52 [facility] Comment on above: Performed By: #### C MP wRFX A1C, CBC #### [facility] [address] [place] [id number] [place] Anion gap [Moles/Vol] 9.5 mmol/L Normal 6.0-15.0 [facility] Comment on above: Performed By: #### C MP wRFX A1C, CBC #### [facility] [address] AST [Catalytic activity/Vol] 19 U/L Normal 13-39 [facility] Comment on above: Performed By: #### C MP wRFX A1C, CBC #### [facility] [address] Bilirubin [Mass/Vol] 0.4 mg/dL Normal 0.3-1.0 [facility] Comment on above: Performed By: #### C MP wRFX A1C, CBC #### [facility] [address] Calcium [Mass/Vol] 9.6 mg/dL Normal 8.6-10.3 [facility] Comment on above: Performed By: #### C MP wRFX A1C, CBC #### [facility] [address] Chloride [Moles/Vol] 107 mmol/L Normal 98-107 [facility] Comment on above: Performed By: #### C MP wRFX A1C, CBC #### [facility] [address] CO2 [Moles/Vol] 29.6 mmol/L Normal 21.0-31.0 [facility] Comment on above: Performed By: #### C MP wRFX A1C, CBC #### [facility] [address] [place] [address] [place] Creatinine [Mass/Vol] 0.80 mg/dL Normal 0.60-1.20 [facility] Comment on above: Performed By: #### C MP wRFX A1C, CBC #### [facility] [address] [place] [address] [place] GFR/1.73 sq M.predicted MDRD (S/P/Bld) [Vol rate/Area] mL/min/{1.73_m2} [facility] Comment on above: Performed By: #### C MP wRFX A1C, CBC #### [facility] [address] [place] [address] [place] Globulin (S) [Mass/Vol] 2.6 g/dL Normal [facility] Comment on above: Performed By: #### C MP wRFX A1C, CBC #### [facility] [address] [place] [address] [place] Glucose [Mass/Vol] 100 mg/dL Normal 70-100 [facility] Comment on above: Performed By: #### C MP wRFX A1C, CBC #### [facility] [address] Potassium [Moles/Vol] 4.1 mmol/L Normal 3.5-5.1 [facility] Comment on above: Performed By: #### C MP wRFX A1C, CBC #### [facility] [address] Protein [Mass/Vol] 6.7 g/dL Normal 6.4-8.9 [facility] Comment on above: Performed By: #### C MP wRFX A1C, CBC #### [facility] [address] Sodium [Moles/Vol] 142 mmol/L Normal 136-145 [facility] Comment on above: Performed By: #### C MP wRFX A1C, CBC #### [facility] [address] Urea nitrogen [Mass/Vol] 13 mg/dL Normal 7-25 [facility] Comment on above: Performed By: #### C MP wRFX A1C, CBC #### [facility] [address] Calcium [Mass/volume] in Ser um or PlasmaOrdered By: Marika Champion on 02-07-2023 Calcium [Mass/Vol] 9.6 mg/dL 8.6-10.3 [facility] Carbon dioxide, total [Moles /volume] in Serum or PlasmaOrdered By: Marika Champion on 02-07-2023 CO2 [Moles/Vol] 29.6 mmol/L 21.0-31.0 [facility] Chloride [Moles/volume] in S michael or PlasmaOrdered By: Marika Champion on 02-07-2023 Chloride [Moles/Vol] 107 mmol/L 98-107 [facility] Complete Blood Count Auto Di ffon 02-07-2023 Basophils (Bld) [#/Vol] 0.1 10*3/uL Normal 0.0-0.2 [facility] Comment on above: Result Comment: PERF ORMED BY: [place] [address] PATHOLOGIST [employer]AGGS M.D. Performed By: #### C MP wRFX A1C, CBC #### [facility] [address] [place] [address] [place] Basophils/100 WBC (Bld) 0.7 % Normal . [facility] Comment on above: Performed By: #### C MP wRFX A1C, CBC #### [facility] [address] Eosinophils (Bld) [#/Vol] 0.3 10*3/uL Normal 0.0-0.45 [facility] Comment on above: Performed By: #### C MP wRFX A1C, CBC #### [facility] [address] [place] [address] [place] Eosinophils/100 WBC (Bld) 4.1 % Normal . [facility] Comment on above: Performed By: #### C MP wRFX A1C, CBC #### [facility] [address] Erythrocyte distribution width (RBC) [Ratio] 18.2 % High 11.9-15.3 [facility] Comment on above: Performed By: #### C MP wRFX A1C, CBC #### [facility] [address] Hematocrit (Bld) [Volume fraction] 33.5 % Low 34.0-46.4 [facility] Comment on above: Performed By: #### C MP wRFX A1C, CBC #### [facility] [address] [place] [address] [place] Hemoglobin (Bld) [Mass/Vol] 10.7 g/dL Low 11.8-15.4 [facility] Comment on above: Performed By: #### C MP wRFX A1C, CBC #### [facility] [address] [place] [address] [place] Lymphocytes (Bld) [#/Vol] 2.1 10*3/uL Normal 1.00-4.8 [facility] Comment on above: Performed By: #### C MP wRFX A1C, CBC #### [address] Lymphocytes/100 WBC (Bld) 30.3 % Normal . [facility] Comment on above: Performed By: #### C MP wRFX A1C, CBC #### [facility] [address] [place] [address] MCH (RBC) [Entitic mass] 25.3 pg Normal 24.7-34.3 [facility] Comment on above: Performed By: #### C MP wRFX A1C, CBC #### [address] MCV (RBC) [Entitic vol] 79.0 fL Low 80-100 [facility] Comment on above: Performed By: #### C MP wRFX A1C, CBC #### [address] Mean Corpuscular HGB Conc 32.0 g/dL Normal 32.0-35.0 [facility] Comment on above: Performed By: #### C MP wRFX A1C, CBC #### [address] Monocytes (Bld) [#/Vol] 0.5 10*3/uL Normal 0.0-0.8 [facility] Comment on above: Performed By: #### C MP wRFX A1C, CBC #### [address] Monocytes/100 WBC (Bld) 7.0 % Normal . [facility] Comment on above: Performed By: #### C MP wRFX A1C, CBC #### [address] Neutrophils (Bld) [#/Vol] 4.1 10*3/uL Normal 1.8-7.7 [facility] Comment on above: Performed By: #### C MP wRFX A1C, CBC #### [address] [place] [address] [place] Neutrophils/100 WBC (Bld) 57.9 % Normal . [facility] Comment on above: Performed By: #### C MP wRFX A1C, CBC #### [facility] [address] NRBC% 0.0 /100{WBC} Normal 0-0.5 [facility] Comment on above: Performed By: #### C MP wRFX A1C, CBC #### [facility] [address] Platelet mean volume (Bld) [Entitic vol] 8.5 fL Normal 6.3-10.7 [facility] Comment on above: Performed By: #### C MP wRFX A1C, CBC #### [facility] [address] Platelets (Bld) [#/Vol] 209 10*3/uL Normal 150-450 [facility] Comment on above: Performed By: #### C MP wRFX A1C, CBC #### [facility] [address] RBC (Bld) [#/Vol] 4.24 10*6/uL Normal 3.60-5.00 [facility] Comment on above: Performed By: #### C MP wRFX A1C, CBC #### [address] WBC (Bld) [#/Vol] 7.0 10*3/uL Normal 3.8-11.6 [facility] Comment on above: Performed By: #### C MP wRFX A1C, CBC #### [address] Creatinine [Mass/volume] in Serum or PlasmaOrdered By: Marika Champion on 02-07-2023 Creatinine [Mass/Vol] 0.80 mg/dL 0.60-1.20 [facility] Eosinophils Auto (Bld) [#/Vo l]Ordered By: Marika Champion on 02-07-2023 Eosinophils (Bld) [#/Vol] 0.3 10*3/uL 0.0-0.45 [facility] Eosinophils/100 WBC Auto (Bl d)Ordered By: Marika Champion on 02-07-2023 Eosinophils/100 WBC (Bld) 4.1 % . [facility] Erythrocyte distribution wid th Auto (RBC) [Ratio]Ordered By: Marika Champion on 02-07-2023 Erythrocyte distribution width (RBC) [Ratio] 18.2 % 11.9-15.3 [facility] Globulin Calc (S) [Mass/Vol] Ordered By: Marika Champion on 02-07-2023 Globulin (S) [Mass/Vol] 2.6 g/dL [facility] Glucose [Mass/volume] in Ser um or PlasmaOrdered By: Marika Champion on 02-07-2023 Glucose [Mass/Vol] 100 mg/dL 70-100 [facility] Hematocrit Auto (Bld) [Volum e fraction]Ordered By: Marika Champion on 02-07-2023 Hematocrit (Bld) [Volume fraction] 33.5 % 34.0-46.4 [facility] Hemoglobin [Mass/volume] in BloodOrdered By: Marika Champion on 02-07-2023 Hemoglobin (Bld) [Mass/Vol] 10.7 g/dL 11.8-15.4 [facility] Leukocytes [#/volume] correc kamila for nucleated erythrocytes in Blood by Automated counOrdered By: Marika Champion on 02-07-2023 WBC corrected for nucl RBC Auto (Bld) [#/Vol] 7.0 10*3/uL 3.8-11.6 [facility] Lymphocytes Auto (Bld) [#/Vo l]Ordered By: Marika Champion on 02-07-2023 Lymphocytes (Bld) [#/Vol] 2.1 10*3/uL 1.00-4.8 [facility] Lymphocytes/100 WBC Auto (Bl d)Ordered By: Marika Champion on 02-07-2023 Lymphocytes/100 WBC (Bld) 30.3 % . [facility] MCH Auto (RBC) [Entitic mass ]Ordered By: Marika Champion on 02-07-2023 MCH (RBC) [Entitic mass] 25.3 pg 24.7-34.3 [facility] MCHC Auto (RBC) [Mass/Vol]Or dered By: Marika Champion on 02-07-2023 MCHC (RBC) [Mass/Vol] 32.0 g/dL 32.0-35.0 [facility] MCV Auto (RBC) [Entitic vol] Ordered By: Marika Champion on 02-07-2023 MCV (RBC) [Entitic vol] 79.0 fL 80-100 [facility] Monocytes Auto (Bld) [#/Vol] Ordered By: Marika Champion on 02-07-2023 Monocytes (Bld) [#/Vol] 0.5 10*3/uL 0.0-0.8 [facility] Monocytes/100 WBC Auto (Bld) Ordered By: Marika Champion on 02-07-2023 Monocytes/100 WBC (Bld) 7.0 % . [facility] Neutrophils Auto (Bld) [#/Vo l]Ordered By: Marika Champion on 02-07-2023 Neutrophils (Bld) [#/Vol] 4.1 10*3/uL 1.8-7.7 [facility] Neutrophils/100 WBC Auto (Bl d)Ordered By: Marika Champion on 02-07-2023 Neutrophils/100 WBC (Bld) 57.9 % . [facility] No Panel InformationOrdered By: Marika Champion on 02-07-2023 Estimated GFR (CKD-EPI) > 60.0 mL/Min [facility] Creatinine Clearance (Chem N/A [facility] Nucleated erythrocytes [Pres ence] in Blood by Automated countOrdered By: Marika Champion on 02-07-2023 Nucleated RBC Auto Ql (Bld) 0.0 /100{WBC} 0-0.5 [facility] Platelet mean volume Auto (B ld) [Entitic vol]Ordered By: Marika Champion on 02-07-2023 Platelet mean volume (Bld) [Entitic vol] 8.5 fL 6.3-10.7 [facility] Platelets Auto (Bld) [#/Vol] Ordered By: Marika Champion on 02-07-2023 Platelets (Bld) [#/Vol] 209 10*3/uL 150-450 [facility] Potassium [Moles/volume] in Serum or PlasmaOrdered By: Marika Champion on 02-07-2023 Potassium [Moles/Vol] 4.1 mmol/L 3.5-5.1 [facility] Protein [Mass/volume] in Ser um or PlasmaOrdered By: Marika Champion on 02-07-2023 Protein [Mass/Vol] 6.7 g/dL 6.4-8.9 [facility] RBC Auto (Bld) [#/Vol]Ordere d By: Marika Champion on 02-07-2023 RBC (Bld) [#/Vol] 4.24 10*6/uL 3.60-5.00 [facility] Serum or plasma albumin/glob ulin mass ratioOrdered By: Marika Champion on 02-07-2023 Albumin/Globulin [Mass ratio] 1.6 {ratio} [facility] Serum or plasma anion gap de terminationOrdered By: Marika Champion on 02-07-2023 Anion gap [Moles/Vol] 9.5 mmol/L 6.0-15.0 [facility] Sodium [Moles/volume] in Ser um or PlasmaOrdered By: Marika Champion on 02-07-2023 Sodium [Moles/Vol] 142 mmol/L 136-145 [facility] Urea nitrogen [Mass/volume] in Serum or PlasmaOrdered By: Marika Champion on 02-07-2023 Urea nitrogen [Mass/Vol] 13 mg/dL 09-24 [facility] WBC Auto (Bld) [#/Vol]Ordere d By: Marika Champion on 02-07-2023 WBC (Bld) [#/Vol] 7.0 10*3/uL 3.8-11.6 [facility] XR hand RT min 3V*on 12-25- 023 XR hand RT min 3V* [address] [address] XRay Report Signed Patient: Zoë Montero MR#: [id number] 0 : 1955 Acct:[id number] Age/Sex: 67 / F ADM Date: 12/25/22 Loc[facility] Room: Type: REG CLI Attending Dr: Marika Champion MD Copies to: Marika Champion MD Ordering Provider: Marika Champion MD Date of Service: 12/25/22 XR/XR hand [...] Heidi Lara M.D.12/25/2022 1:42 PM Dictation Location: [place] [address] Transcribed By: [facility] 12/25/22 1342 Dictated By: Heidi Lara MD 12/25/22 1339 Signed By: 12/25/22 1342 Normal [facility] XR hand RT min 3V*on 023 XR hand RT min 3V* [facility] [place] [address] XRay Report Signed Patient: Zoë Montero MR#: [id number] 0 : 1955 Acct:[id number] Age/Sex: 67 / F ADM Date: 11/27/22 Loc: [facility] Room: Type: REG CLI Attending Dr: Marika Champion MD Copies to: Marika Champion MD Ordering Provider: Marika Champion MD Date of Service: 11/27/22 XR/XR hand [...] Gabo Wright M.D.11/27/2022 1:55 PM Dictation Location: [place] [address] Transcribed By: MAURA 11/27/22 1355 Dictated By: Gabo Wright II, MD 11/27/22 1348 Signed By: 11/27/22 1355 Normal [facility] XR hand RT min 3V*on 023 XR hand RT min 3V* [facility] [address] [place] [address] [place] [address] XRay Report Signed Patient: Zoë Montero MR#: [id number] 0 : 1955 Acct:[id number] Age/Sex: 67 / F ADM Date: 10/24/22 Loc: [place] Room: Type: [facility] Attending Dr: Marika Champion MD Copies to: Marika Champion MD Ordering Provider: Marika Champion MD Date of Service: 10/24/22 XR/XR hand [...] German Clay M.D.10/24/2022 12:03 PM Dictation Location: [place] [address] Transcribed By: MAURA 10/24/22 1203 Dictated By: German Clay DO 10/24/22 1201 Signed By: 10/24/22 1203 Normal [facility] Alanine aminotransferase [En zymatic activity/volume] in Serum or PlasmaOrdered By: Marika Champion on 10-10-2022 ALT [Catalytic activity/Vol] 15 U/L 7-52 [facility] Albumin [Mass/volume] in Ser um or Plasma by Bromocresol green (BCG) dye binding methoOrdered By: Marika Champion on 10-10-2022 Albumin BCG dye [Mass/Vol] 4.4 g/dL 3.5-5.7 [facility] Alkaline phosphatase [Enzyma tic activity/volume] in Serum or PlasmaOrdered By: Marika Champion on 10-10-2022 ALP [Catalytic activity/Vol] 79 U/L 34-104 [facility] Aspartate aminotransferase [ Enzymatic activity/volume] in Serum or PlasmaOrdered By: Marika Champion on 10-10-2022 AST [Catalytic activity/Vol] 19 U/L 13-39 [facility] Basophils Auto (Bld) [#/Vol] Ordered By: Marika Champion on 10-10-2022 Basophils (Bld) [#/Vol] 0.0 10*3/uL 0.0-0.2 [facility] Basophils/100 WBC Auto (Bld) Ordered By: Marika Champion on 10-10-2022 Basophils/100 WBC (Bld) 0.5 % . [facility] Bilirubin.total [Mass/volume ] in Serum or PlasmaOrdered By: Marika Champion on 10-10-2022 Bilirubin [Mass/Vol] 0.5 mg/dL 0.3-1.0 [facility] CMP with reflex to A1Con Albumin [Mass/Vol] 4.4 g/dL Normal 3.5-5.7 [facility] Comment on above: Performed By: #### C MP wRFX A1C, CBC #### [facility] [address] Albumin/Globulin [Mass ratio] 1.8 {ratio} Normal [facility] Comment on above: Performed By: #### C MP wRFX A1C, CBC #### [facility] [address] [place] [id number] [facility] ALP [Catalytic activity/Vol] 79 U/L Normal 34-104 [facility] Comment on above: Result Comment: PERF ORMED BY: [facility] [address] [facility] [place] [address] PATHOLOGIST [employer] SKAGGS M.D. Performed By: #### C MP wRFX A1C, CBC #### [facility] [address] [place] [id number] [facility] ALT [Catalytic activity/Vol] 15 U/L Normal 7-52 [facility] Comment on above: Performed By: #### C MP wRFX A1C, CBC #### [facility] [address] Anion gap [Moles/Vol] 10.2 mmol/L Normal 6.0-15.0 [facility] Comment on above: Performed By: #### C MP wRFX A1C, CBC #### [facility] [address] AST [Catalytic activity/Vol] 19 U/L Normal 13-39 [facility] Comment on above: Performed By: #### C MP wRFX A1C, CBC #### [facility] [address] [place] [address] [place] Bilirubin [Mass/Vol] 0.5 mg/dL Normal 0.3-1.0 [facility] Comment on above: Performed By: #### C MP wRFX A1C, CBC #### [facility] [address] [place] [id number] [place] Calcium [Mass/Vol] 10.3 mg/dL Normal 8.6-10.3 [facility] Comment on above: Performed By: #### C MP wRFX A1C, CBC #### [facility] [address] [place] [id number] [place] Chloride [Moles/Vol] 104 mmol/L Normal 98-107 [facility] Comment on above: Performed By: #### C MP wRFX A1C, CBC #### [facility] [address] CO2 [Moles/Vol] 31.1 mmol/L High 21.0-31.0 [facility] Comment on above: Performed By: #### C MP wRFX A1C, CBC #### [facility] [address] Creatinine [Mass/Vol] 0.88 mg/dL Normal 0.60-1.20 [facility] Comment on above: Performed By: #### C MP wRFX A1C, CBC #### [facility] [address] [place] [address] [place] GFR/1.73 sq M.predicted MDRD (S/P/Bld) [Vol rate/Area] mL/min/{1.73_m2} Normal [facility] Comment on above: Performed By: #### C MP wRFX A1C, CBC #### [address] Globulin (S) [Mass/Vol] 2.4 g/dL Normal [facility] Comment on above: Performed By: #### C MP wRFX A1C, CBC #### [address] Glucose [Mass/Vol] 82 mg/dL Normal 70-100 [facility] Comment on above: Performed By: #### C MP wRFX A1C, CBC #### [facility] [address] Potassium [Moles/Vol] 4.3 mmol/L Normal 3.5-5.1 [facility] Comment on above: Performed By: #### C MP wRFX A1C, CBC #### [address] Protein [Mass/Vol] 6.8 g/dL Normal 6.4-8.9 [facility] Comment on above: Performed By: #### C MP wRFX A1C, CBC #### [address] [place] [address] [place] Sodium [Moles/Vol] 141 mmol/L Normal 136-145 [facility] Comment on above: Performed By: #### C MP wRFX A1C, CBC #### [facility] [address] [place] [id number] [facility] Urea nitrogen [Mass/Vol] 14 mg/dL Normal 7-25 [facility] Comment on above: Performed By: #### C MP wRFX A1C, CBC #### [facility] [address] Calcium [Mass/volume] in Ser um or PlasmaOrdered By: Marika Champion on 10-10-2022 Calcium [Mass/Vol] 10.3 mg/dL 8.6-10.3 [facility] Carbon dioxide, total [Moles /volume] in Serum or PlasmaOrdered By: Marika Champion on 10-10-2022 CO2 [Moles/Vol] 31.1 mmol/L 21.0-31.0 [facility] Chloride [Moles/volume] in S michael or PlasmaOrdered By: Marika Champion on 10-10-2022 Chloride [Moles/Vol] 104 mmol/L 98-107 [facility] Complete Blood Count Auto Di ffon 10-10-2022 Basophils (Bld) [#/Vol] 0.0 10*3/uL Normal 0.0-0.2 [facility] Comment on above: Result Comment: PERF ORMED BY: [facility] [address] [place] [address] PATHOLOGIST [employer]AGGS M.D. Performed By: #### C MP wRFX A1C, CBC #### [facility] [address] [place] [address] [place] Basophils/100 WBC (Bld) 0.5 % Normal . [facility] Comment on above: Performed By: #### C MP wRFX A1C, CBC #### [facility] [address] [place] [address] [place] Eosinophils (Bld) [#/Vol] 0.1 10*3/uL Normal 0.0-0.45 [facility] Comment on above: Performed By: #### C MP wRFX A1C, CBC #### [address] Eosinophils/100 WBC (Bld) 1.7 % Normal . [facility] Comment on above: Performed By: #### C MP wRFX A1C, CBC #### [address] Erythrocyte distribution width (RBC) [Ratio] 16.5 % High 11.9-15.3 [facility] Comment on above: Performed By: #### C MP wRFX A1C, CBC #### [address] Hematocrit (Bld) [Volume fraction] 34.8 % Normal 34.0-46.4 [facility] Comment on above: Performed By: #### C MP wRFX A1C, CBC #### [address] Hemoglobin (Bld) [Mass/Vol] 11.3 g/dL Low 11.8-15.4 [facility] Comment on above: Performed By: #### C MP wRFX A1C, CBC #### [address] Lymphocytes (Bld) [#/Vol] 2.2 10*3/uL Normal 1.00-4.8 [facility] Comment on above: Performed By: #### C MP wRFX A1C, CBC #### [address] Lymphocytes/100 WBC (Bld) 39.8 % Normal . [facility] Comment on above: Performed By: #### C MP wRFX A1C, CBC #### [address] MCH (RBC) [Entitic mass] 26.7 pg Normal 24.7-34.3 [facility] Comment on above: Performed By: #### C MP wRFX A1C, CBC #### [address] MCV (RBC) [Entitic vol] 82.3 fL Normal 80-100 [facility] Comment on above: Performed By: #### C MP wRFX A1C, CBC #### [facility] [address] Mean Corpuscular HGB Conc 32.4 g/dL Normal 32.0-35.0 [facility] Comment on above: Performed By: #### C MP wRFX A1C, CBC #### [address] Monocytes (Bld) [#/Vol] 0.4 10*3/uL Normal 0.0-0.8 [facility] Comment on above: Performed By: #### C MP wRFX A1C, CBC #### [address] Monocytes/100 WBC (Bld) 7.3 % Normal . [facility] Comment on above: Performed By: #### C MP wRFX A1C, CBC #### [address] Neutrophils (Bld) [#/Vol] 2.8 10*3/uL Normal 1.8-7.7 [facility] Comment on above: Performed By: #### C MP wRFX A1C, CBC #### [address] Neutrophils/100 WBC (Bld) 50.7 % Normal . [facility] Comment on above: Performed By: #### C MP wRFX A1C, CBC #### [facility] [address] NRBC% 0.1 /100{WBC} Normal 0-0.5 [facility] Comment on above: Performed By: #### C MP wRFX A1C, CBC #### [address] Platelet mean volume (Bld) [Entitic vol] 9.1 fL Normal 6.3-10.7 [facility] Comment on above: Performed By: #### C MP wRFX A1C, CBC #### [facility] [address] [place] [id number] [place] Platelets (Bld) [#/Vol] 179 10*3/uL Normal 150-450 [facility] Comment on above: Performed By: #### C MP wRFX A1C, CBC #### [facility] [address] RBC (Bld) [#/Vol] 4.23 10*6/uL Normal 3.60-5.00 [facility] Comment on above: Performed By: #### C MP wRFX A1C, CBC #### [facility] [address] [place] [id number] [place] WBC (Bld) [#/Vol] 5.6 10*3/uL Normal 3.8-11.6 [facility] Comment on above: Performed By: #### C MP wRFX A1C, CBC #### [facility] [address] Creatinine [Mass/volume] in Serum or PlasmaOrdered By: Marika Champion on 10-10-2022 Creatinine [Mass/Vol] 0.88 mg/dL 0.60-1.20 [facility] ECG 12 lead ECGon 10-10-2022 ECG 12 lead ECG [facility] [address] [place] [address] [place] [address] Electrocardiograph Report Signed Patient: Zoë Montero MR#: [id number] 0 : 1955 Acct:[id number] Age/Sex: 67 / F ADM Date: 10/10/22 Loc: PS Room: Type: [facility] Attending Dr: Marika Champion MD Ordering Provider: Marika Champion MD Date of Service: 10/10/2212/23/1502 ECG/ECG 12 [...] previous ECGs available Confirmed by AFTAB MARSHALL [facility], FREDY ([id number]) on 10/10/2022 8:11:18 PM Referred By: AKIRA Electronically Signed By:FREDY UGALDE MD [facility] Transcribed By: MARLI Signed By Fredy Ugalde MD, [facility] 10/10/222010 Normal [facility] Eosinophils Auto (Bld) [#/Vo l]Ordered By: Marika Champion on 10-10-2022 Eosinophils (Bld) [#/Vol] 0.1 10*3/uL 0.0-0.45 [facility] Eosinophils/100 WBC Auto (Bl d)Ordered By: Marika Champion on 10-10-2022 Eosinophils/100 WBC (Bld) 1.7 % . [facility] Erythrocyte distribution wid th Auto (RBC) [Ratio]Ordered By: Marika Champion on 10-10-2022 Erythrocyte distribution width (RBC) [Ratio] 16.5 % 11.9-15.3 [facility] Globulin Calc (S) [Mass/Vol] Ordered By: Marika Champion on 10-10-2022 Globulin (S) [Mass/Vol] 2.4 g/dL [facility] Glucose [Mass/volume] in Ser um or PlasmaOrdered By: Marika Champion on 10-10-2022 Glucose [Mass/Vol] 82 mg/dL 70-100 [facility] Hematocrit Auto (Bld) [Volum e fraction]Ordered By: Marika Champion on 10-10-2022 Hematocrit (Bld) [Volume fraction] 34.8 % 34.0-46.4 [facility] Hemoglobin [Mass/volume] in BloodOrdered By: Marika Champion on 10-10-2022 Hemoglobin (Bld) [Mass/Vol] 11.3 g/dL 11.8-15.4 [facility] Leukocytes [#/volume] correc kamila for nucleated erythrocytes in Blood by Automated counOrdered By: Marika Champion on 10-10-2022 WBC corrected for nucl RBC Auto (Bld) [#/Vol] 5.6 10*3/uL 3.8-11.6 [facility] Lymphocytes Auto (Bld) [#/Vo l]Ordered By: Marika Champion on 10-10-2022 Lymphocytes (Bld) [#/Vol] 2.2 10*3/uL 1.00-4.8 [facility] Lymphocytes/100 WBC Auto (Bl d)Ordered By: Marika Champion on 10-10-2022 Lymphocytes/100 WBC (Bld) 39.8 % . [facility] MCH Auto (RBC) [Entitic mass ]Ordered By: Marika Champion on 10-10-2022 MCH (RBC) [Entitic mass] 26.7 pg 24.7-34.3 [facility] MCHC Auto (RBC) [Mass/Vol]Or dered By: Marika Champion on 10-10-2022 MCHC (RBC) [Mass/Vol] 32.4 g/dL 32.0-35.0 [facility] MCV Auto (RBC) [Entitic vol] Ordered By: Marika Champion on 10-10-2022 MCV (RBC) [Entitic vol] 82.3 fL 80-100 [facility] Monocytes Auto (Bld) [#/Vol] Ordered By: Marika Champion on 10-10-2022 Monocytes (Bld) [#/Vol] 0.4 10*3/uL 0.0-0.8 [facility] Monocytes/100 WBC Auto (Bld) Ordered By: Marika Champion on 10-10-2022 Monocytes/100 WBC (Bld) 7.3 % . [facility] Neutrophils Auto (Bld) [#/Vo l]Ordered By: Marika Champion on 10-10-2022 Neutrophils (Bld) [#/Vol] 2.8 10*3/uL 1.8-7.7 [facility] Neutrophils/100 WBC Auto (Bl d)Ordered By: Marika Champion on 10-10-2022 Neutrophils/100 WBC (Bld) 50.7 % . [facility] No Panel InformationOrdered By: Marika Champion on 10-10-2022 Estimated GFR (CKD-EPI) > 60.0 mL/Min [facility] Creatinine Clearance (Chem N/A [facility] Nucleated erythrocytes [Pres ence] in Blood by Automated countOrdered By: Marika Champion on 10-10-2022 Nucleated RBC Auto Ql (Bld) 0.1 /100{WBC} 0-0.5 [facility] Platelet mean volume Auto (B ld) [Entitic vol]Ordered By: Marika Champion on 10-10-2022 Platelet mean volume (Bld) [Entitic vol] 9.1 fL 6.3-10.7 [facility] Platelets Auto (Bld) [#/Vol] Ordered By: Marika Champion on 10-10-2022 Platelets (Bld) [#/Vol] 179 10*3/uL 150-450 [facility] Potassium [Moles/volume] in Serum or PlasmaOrdered By: Marika Champion on 10-10-2022 Potassium [Moles/Vol] 4.3 mmol/L 3.5-5.1 [facility] Protein [Mass/volume] in Ser um or PlasmaOrdered By: Marika Champion on 10-10-2022 Protein [Mass/Vol] 6.8 g/dL 6.4-8.9 [facility] RBC Auto (Bld) [#/Vol]Ordere d By: Marika Champion on 10-10-2022 RBC (Bld) [#/Vol] 4.23 10*6/uL 3.60-5.00 [facility] Serum or plasma albumin/glob ulin mass ratioOrdered By: Marika Champion on 10-10-2022 Albumin/Globulin [Mass ratio] 1.8 {ratio} [facility] Serum or plasma anion gap de terminationOrdered By: Marika Champion on 10-10-2022 Anion gap [Moles/Vol] 10.2 mmol/L 6.0-15.0 [facility] Sodium [Moles/volume] in Ser um or PlasmaOrdered By: Marika Champion on 10-10-2022 Sodium [Moles/Vol] 141 mmol/L 136-145 [facility] Urea nitrogen [Mass/volume] in Serum or PlasmaOrdered By: Marika Champion on 10-10-2022 Urea nitrogen [Mass/Vol] 14 mg/dL 7-25 [facility] WBC Auto (Bld) [#/Vol]Ordere d By: Marika Champion on 10-10-2022 WBC (Bld) [#/Vol] 5.6 10*3/uL 3.8-11.6 [facility] XR hand BI 3Von 10-08-2022 XR hand BI 3V [facility] [place] [address] [place] [id number] XRay Report Signed Patient: Zoë Montero MR#: [id number] 0 : 1955 Acct:[id number] Age/Sex: 67 / F ADM Date: 10/08/22 Loc: [facility] Room: Type: [facility] Attending Dr: Marika Champion MD Copies to: Marika Champion MD Ordering Provider: Marika Champion MD Date of Service: 10/08/22 XR/XR hand [...] erosion. Impression dictated by: Yves Rousseau Jr., D.OMaria Dolores10/08/2022 12:57 PM Dictation Location: [place] [address] Transcribed By: [facility] 10/08/22 1257 Dictated By: Yves Rousseau Jr, DO 10/08/22 1251 Signed By: 10/08/22 1257 Normal [facility] XR hand BI 3V [facility] Other XR hand BI 3V [facility] Main [facility] Other XR hand BI 3V [address] [facility] Other XR hand BI 3[place] [address] [facility] Other XR hand BI 3V XRay Report [facility] [employer] Other XR hand BI 3V Signed [place] [employer] Other XR hand BI 3V Patient: Zoë Montero MR#: [id number] [facility] Other XR hand BI 3V 0 [place] [employer] Other XR hand BI 3V : 1955 Acct:[id number] [facility] Other XR hand BI 3V Age/Sex: 67 / F ADM Date: 10/08/22 [place] [employer] Other XR hand BI 3V Loc: [facility] Room: Type: [facility] [employer] Other XR hand BI 3V Attending Dr: Marika Champion MD [employer] Other XR hand BI 3V Copies to: Marika Champion MD [employer] Other XR hand BI 3V Ordering Provider: Marika Champion MD [employer] Other XR hand BI 3V Date of Service: 10/08/22 [employer] Other XR hand BI 3V XR/XR hand BI 3V: Right hand pain [employer] Other XR hand BI 3V Bilateral hand series 4 views each [employer] Other XR hand BI 3V Reason for exam: Right hand pain second through fourth digits. Left hand pain first CMC joint. [employer] Other XR hand BI 3V Comparison: None. [place] [employer] Other XR hand BI 3V FINDINGS: Left hand: No focal soft tissue abnormality. No acute bony process is seen. Hardware [employer] Other XR hand BI 3V fixation is seen involving the first MCP joint without evidence of hardware complication. Bones are [employer] Other XR hand BI 3V grossly demineralized. Carpus demonstrates bony fusion involving the CMC joint of the thumb. DIP [employer] Other XR hand BI 3V joints demonstrate mild degenerative changes. No bony erosions. [employer] Other XR hand BI 3V Right hand: No focal soft tissue abnormality. No acute bony process is seen. Carpus demonstrates [employer] Other XR hand BI 3V mild degenerative change without bony erosions. Moderate degenerative changes are noted involving [employer] Other XR hand BI 3V the DIP joints particularly involving the second and third digits without bony erosions. Bones are [employer] Other XR hand BI 3V grossly demineralized. [employer] Other XR hand BI 3V XR/XR hand BI 3V [employer] Other XR hand BI 3V Impression: [employer] Other XR hand BI 3V 1. No acute bony process. [employer] Other XR hand BI 3V 2. 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 [employer] Other XR hand BI 3V 3. There appears to be bony fusion involving the CMC joint of the left hand. [employer] Other XR hand BI 3V 4. DIP joints demonstrate mild degenerative changes of the left hand without bony erosion. [employer] Other XR hand BI 3V 5. Moderate degenerative changes involving the DIP joints of the right hand without bony erosion. [employer] Other XR hand BI 3V Impression dictated by: Yves Rousseau Jr., D.O.10/08/2022 12:57 PM [employer] Other XR hand BI 3V Dictation Location: [place] [address] [employer] Other XR hand BI 3V Transcribed By: PWS 10/08/22 [facility] [employer] Other XR hand BI 3V Dictated By: Yves Rousseau Jr DO 10/08/22 125 [employer] Other XR hand BI 3V Signed By: [employer] Other XR hand BI 3V 10/08/22 [facility] [employer] Other MG MAMM SCREEN 3D JUAN CADon 01-29-2022 MG MAMM SCREEN 3D JUAN CAD Patient: ZOË MONTERO Exam Date: 01/29/2022 : 1955 Gender:F Ordering : DR ADRIAN LYNN M.D. Admission #: [id number] Family : Order #: [id number] CLICK HERE TO VIEW EXAM RADIOLOGY REPORT PROCEDURE: MAMMOGRAM SCREENING 3D BILATERAL CAD COMPARISON: MG MAMM SCREEN 3D JUAN CAD, 01/24/2021. MG MAMM SCREEN JUAN W CAD, 01/12/2020. INDICATIONS: Screening mammography Calculator [...] blood cancer at age 53. LOCATION: The [facility] BREAST COMPOSITION: Heterogeneously dense,which may obscure small [...] Arce M.D. on 01/30/2022 at 14:40 Normal [facility] CT LUNG CANCER SCREENINGon 0 05-03-2021 CT [...] by: LEE LEE Date: 2021-05-03 10:54 Normal [facility] XR DEXA BONE DENSITYon 05-03 XR DEXA [...] -1.7. This is a 2.3% reduction from 2019, physiologic. WHO classification: Osteopenia IMPRESSION: Stable bone mineral density. Osteopenia, moderate fracture risk Electronically authenticated by: LEE LEE Date: 2021-05-03 10:31 Normal [facility] Complete Blood Count with Au to Diffon 04-16-2021 Basophils (Bld) [#/Vol] 0.04 10*3/uL Normal 0.00-0.20 [facility] Comment on above: Performed By: #### C BCAD, TSH reflex FT4, VITD, LIPD, CMP #### [facility] [address], [place] [id number] Basophils/100 WBC (Bld) 0.7 % Normal N [facility] Comment on above: Performed By: #### C BCAD, TSH reflex FT4, VITD, LIPD, CMP #### [facility] [address], [place] [id number] Eosinophils (Bld) [#/Vol] 0.19 10*3/uL Normal 0.02-0.50 [facility] Comment on above: Performed By: #### C BCAD, TSH reflex FT4, VITD, LIPD, CMP #### [facility] [address], [place] [id number] Eosinophils/100 WBC (Bld) 3.3 % Normal [facility] Comment on above: Performed By: #### C BCAD, TSH reflex FT4, VITD, LIPD, CMP #### [facility] [address], [place] [id number] Erythrocyte distribution width (RBC) [Ratio] 13.8 % Normal 11.0-15.0 [facility] Comment on above: Performed By: #### C BCAD, TSH reflex FT4, VITD, LIPD, CMP #### [facility] [address], [place] [id number] Hematocrit (Bld) [Volume fraction] 38.0 % Normal 35.0-47.0 [facility] Comment on above: Performed By: #### C BCAD, TSH reflex FT4, VITD, LIPD, CMP #### [facility] [address], [place] [id number] Hemoglobin (Bld) [Mass/Vol] 11.9 g/dL Normal 11.6-15.5 [facility] Comment on above: Performed By: #### C BCAD, TSH reflex FT4, VITD, LIPD, CMP #### [facility] [address], [place] [id number] Lymphocytes (Bld) [#/Vol] 1.9 10*3/uL Normal 0.9-3.9 [facility] Comment on above: Performed By: #### C BCAD, TSH reflex FT4, VITD, LIPD, CMP #### [facility] [address], [place] [id number] Lymphocytes/100 WBC (Bld) 33.2 % Normal [facility] Comment on above: Performed By: #### C BCAD, TSH reflex FT4, VITD, LIPD, CMP #### [facility] [address], [place] [id number] MCH (RBC) [Entitic mass] 27.5 pg Normal 27.0-33.0 [facility] Comment on above: Performed By: #### C BCAD, TSH reflex FT4, VITD, LIPD, CMP #### [facility] [address], [place] [id number] MCHC (RBC) [Mass/Vol] 31.3 g/dL Low 32.0-36.0 [facility] Comment on above: Performed By: #### C BCAD, TSH reflex FT4, VITD, LIPD, CMP #### [facility] [address], [place] [id number] MCV (RBC) [Entitic vol] 88 fL Normal 80-100 N [facility] Comment on above: Performed By: #### C BCAD, TSH reflex FT4, VITD, LIPD, CMP #### [facility] [address] [place] [place] [id number] Monocytes (Bld) [#/Vol] 0.4 10*3/uL Normal 0.2-0.9 [facility] Comment on above: Performed By: #### C BCAD, TSH reflex FT4, VITD, LIPD, CMP #### [facility] [address] [facility] [id number] Monocytes/100 WBC (Bld) 7.4 % Normal N [facility] Comment on above: Performed By: #### C BCAD, TSH reflex FT4, VITD, LIPD, CMP #### [facility] [address] [facility] [place] [id number] Neutrophils (Bld) [#/Vol] 3.2 10*3/uL Normal 1.5-7.8 [facility] Comment on above: Performed By: #### C BCAD, TSH reflex FT4, VITD, LIPD, CMP #### [facility] [address] [facility] [place] [id number] Neutrophils/100 WBC (Bld) 55.2 % Normal [facility] Comment on above: Performed By: #### C BCAD, TSH reflex FT4, VITD, LIPD, CMP #### [facility] [address] [facility] [place] [id number] Platelet mean volume (Bld) [Entitic vol] 11.40 fL Normal 7.50-12.50 [facility] Specialist Comment on above: Performed By: #### C BCAD, TSH reflex FT4, VITD, LIPD, CMP #### [facility] [address] [facility] [place] [id number] Platelets (Bld) [#/Vol] 207 10*3/uL Normal 140-400 [facility] Comment on above: Performed By: #### C BCAD, TSH reflex FT4, VITD, LIPD, CMP #### [facility] [address] [facility] [place] [id number] RBC (Bld) [#/Vol] 4.32 10*6/uL Normal 3.90-5.20 [facility] Comment on above: Performed By: #### C BCAD, TSH reflex FT4, VITD, LIPD, CMP #### [facility] [address], [place] [id number] RDW-SD 44.7 fL Normal 37.0-50.0 [facility] Comment on above: Performed By: #### C BCAD, TSH reflex FT4, VITD, LIPD, CMP #### [facility] [address], [place] [id number] WBC (Bld) [#/Vol] 5.8 10*3/uL Normal 3.8-11.0 [facility] Comment on above: Performed By: #### C BCAD, TSH reflex FT4, VITD, LIPD, CMP #### [facility] [address], [place] [id number] Comprehensive Metabolic Pane pavel 04-16-2021 Albumin [Mass/Vol] 4.6 g/dL Normal 3.6-5.1 [facility] Comment on above: Performed By: #### C BCAD, TSH reflex FT4, VITD, LIPD, CMP #### [facility] [address], [place] [id number] Albumin/Globulin [Mass ratio] 1.8 {ratio} Normal 1.0-2.5 [facility] Comment on above: Performed By: #### C BCAD, TSH reflex FT4, VITD, LIPD, CMP #### [facility] [address], [place] [id number] ALP [Catalytic activity/Vol] 86 U/L Normal 35-119 [facility] Comment on above: Performed By: #### C BCAD, TSH reflex FT4, VITD, LIPD, CMP #### [facility] [address], [place] [id number] ALT [Catalytic activity/Vol] 11 U/L Normal 6-33 [facility] Comment on above: Result Comment: 01/31 Female reference range changed. Performed By: #### C BCAD, TSH reflex FT4, VITD, LIPD, CMP #### [facility] [address], [place] [id number] Anion gap [Moles/Vol] 17 mmol/L Normal 12-20 [facility] Comment on above: Result Comment: Effbennett ctive 03/08/2019 reference range changed. Performed By: #### C BCAD, TSH reflex FT4, VITD, LIPD, CMP #### [facility] [address], [place] [id number] AST [Catalytic activity/Vol] 15 U/L Normal 9-34 [facility] Comment on above: Performed By: #### C BCAD, TSH reflex FT4, VITD, LIPD, CMP #### [facility] [address], [place] [id number] Bilirubin [Mass/Vol] 0.34 mg/dL Normal 0.30-1.20 [facility] Comment on above: Performed By: #### C BCAD, TSH reflex FT4, VITD, LIPD, CMP #### [facility] [address], [place] [id number] BUN/CREA 17 Ratio Normal 6-22 [facility] Comment on above: Performed By: #### C BCAD, TSH reflex FT4, VITD, LIPD, CMP #### [facility] [address], [place] [id number] Calcium [Mass/Vol] 10.0 mg/dL Normal 8.6-10.2 [facility] Comment on above: Performed By: #### C BCAD, TSH reflex FT4, VITD, LIPD, CMP #### [facility] [address], [place] [id number] Chloride [Moles/Vol] 105 mmol/L Normal 98-107 [facility] Comment on above: Performed By: #### C BCAD, TSH reflex FT4, VITD, LIPD, CMP #### [facility] [address], [place] [id number] CO2 [Moles/Vol] 25 mmol/L Normal 20-31 [facility] Comment on above: Performed By: #### C BCAD, TSH reflex FT4, VITD, LIPD, CMP #### [facility] [address], [place] [id number] Creatinine [Mass/Vol] 0.7 mg/dL Normal 0.6-1.4 [facility] Specialist Comment on above: Performed By: #### C BCAD, TSH reflex FT4, VITD, LIPD, CMP #### [facility] [address], [place] [id number] eGFRAA 95 mL/min/1.73m2 Normal >60 [facility] Comment on above: Performed By: #### C BCAD, TSH reflex FT4, VITD, LIPD, CMP #### [facility] [address], [place] [id number] eGFRNAA 78 mL/min/1.73m2 Normal >60 [facility] Specialist Comment on above: Performed By: #### C BCAD, TSH reflex FT4, VITD, LIPD, CMP #### [facility] [address], [place] [id number] Globulin (S) [Mass/Vol] 2.5 g/dL Normal 1.9-3.7 [facility] Comment on above: Performed By: #### C BCAD, TSH reflex FT4, VITD, LIPD, CMP #### [facility] [address], [place] [id number] Glucose [Mass/Vol] 99 mg/dL Normal 65-99 [facility] [place] [facility] Comment on above: Result Comment: For FASTING Glucose --- ADA reference ranges: Normal 65-99 mg/dl Prediabetes 100-125 Diabetes >/= 126 Performed By: #### C BCAD, TSH reflex FT4, VITD, LIPD, CMP #### [facility] [address], [place] [id number] Potassium [Moles/Vol] 3.9 mmol/L Normal 3.5-5.5 [facility] Specialist Comment on above: Performed By: #### C BCAD, TSH reflex FT4, VITD, LIPD, CMP #### [facility] [address], [place] [id number] Protein [Mass/Vol] 7.1 g/dL Normal 6.1-8.1 [facility] [place] [facility] Comment on above: Performed By: #### C BCAD, TSH reflex FT4, VITD, LIPD, CMP #### [facility] [address] [place], [place] [id number] Sodium [Moles/Vol] 143 mmol/L Normal 135-146 [facility] Specialist Comment on above: Performed By: #### C BCAD, TSH reflex FT4, VITD, LIPD, CMP #### [facility] [address], [place] [id number] Urea nitrogen [Mass/Vol] 13 mg/dL Normal 7-25 [facility] Specialist Comment on above: Performed By: #### C BCAD, TSH reflex FT4, VITD, LIPD, CMP #### [facility] [address] [place], [place] [id number] Hemoglobin A1Con 04-16-2021 EAG 108.28 Normal [facility] Specialist Comment on above: Performed By: #### A 1C #### [facility] [address], [place] [id number] HbA1c (Bld) [Mass fraction] 5.4 % Normal 4.0-6.0 [facility] Specialist Comment on above: Performed By: #### A 1C #### [facility] [address] [place], [place] [id number] Lipid Panelon 04-16-2021 Cholesterol [Mass/Vol] 266 mg/dL High 125-200 [facility] Comment on above: Result Comment: Low risk < 200mg/dL Borderline risk 201-239 mg/dl High risk > or equal to 240 Performed By: #### C BCAD, TSH reflex FT4, VITD, LIPD, CMP #### [facility] [address] [place], [place] [id number] Cholesterol in HDL [Mass/Vol] 73 mg/dL Normal >40 [facility] Specialist Comment on above: Result Comment: High Cardiovascular Risk HDL <40 mg/dL Low Cardiovascular Risk HDL > or equal to 60 mg/dl Performed By: #### C BCAD, TSH reflex FT4, VITD, LIPD, CMP #### [facility] [address] [place], [place] [id number] Cholesterol in LDL [Mass/Vol] 153 mg/dL Normal [facility] Specialist Comment on above: Result Comment: LDL ATP III CLASSIFICATION LDL less than 100 mg/dl Optimal LDL 100-129 mg/dl Near or above optimal LDL 130-159 Borderline high LDL 160-189 High LDL greater than 189 mg/dl Very High Performed By: #### C BCAD, TSH reflex FT4, VITD, LIPD, CMP #### [facility] [address] [place], [place] [id number] Cholesterol in VLDL [Mass/Vol] 40 mg/dL Normal [facility] Comment on above: Performed By: #### C BCAD, TSH reflex FT4, VITD, LIPD, CMP #### [facility] [address] [place], [place] [id number] Cholesterol.total/Holly sterol in HDL [Mass ratio] 4 {ratio} Normal [facility] Comment on above: Performed By: #### C BCAD, TSH reflex FT4, VITD, LIPD, CMP #### [facility] [address] [place], [place] [id number] Triglyceride [Mass/Vol] 200 mg/dL High 30-150 N [facility] Specialist Comment on above: Result Comment: TRIG ATPIII CLASSIFICATIONS TRIG less than 150 mg/dl Normal TRIG 150-199 mg/dl Borderline High TRIG 200-500 mg/dl High TRIG greather than 500 mg/dl Very High Performed By: #### C BCAD, TSH reflex FT4, VITD, LIPD, CMP #### [facility] [address] [place], [place] [id number] TSH w/ Reflex to Free T4on 0 04-16-2021 TSH 2.740 uIU/mL Normal 0.400-4.500 [facility] Specialist Comment on above: Performed By: #### C BCAD, TSH reflex FT4, VITD, LIPD, CMP #### [facility] [address] [place], [place] [id number] Vitamin D 25-OHon 04-16-2021 VIT D 25 OH 50 ng/ml Normal >29 [facility] Specialist Comment on above: Result Comment: Aries min D Status Deficiency <20 ng/mL Insufficiency 20-29 ng/mL Optimal 30-100 ng/mL Possible Toxicity >=150 ng/mL Performed By: #### C BCAD, TSH reflex FT4, VITD, LIPD, CMP #### [facility] [address] [place], [place] [id number] Vital Signs Date Time Vital Sign Value Performing Clinician Facility 04-21-2024 10:15-0500 Body height 160 cm Heidi Hemmer PA Work Phone: [facility] 04-21-2024 10:15-0500 Body mass index (BMI) [Ratio] 26.61 kg/m2 Heidi Hemmer PA Work Phone: [facility] 04-21-2024 10:15-0500 Body weight 68.13 kg Heidi Hemmer PA Work Phone: [facility] 04-21-2024 10:15-0500 Diastolic blood pressure 86 mm[Hg] Heidi Hemmer PA Work Phone: [facility] 04-21-2024 10:15-0500 Heart rate 66 /min Heidi Hemmer PA Work Phone: [facility] 04-21-2024 10:15-0500 Respiratory rate 16 /min Heidi Hemmer PA Work Phone: [facility] 04-21-2024 10:15-0500 SaO2% (BldA) [Mass fraction] 97 % Heidi Hemmer PA Work Phone: [facility] 04-21-2024 10:15-0500 Systolic blood pressure 138 mm[Hg] Heidi Hemmer PA Work Phone: [facility] 04-01-2024 10:41-0500 Body height 157.5 cm Nikki Carbajal PA Work Phone: [facility] 04-01-2024 10:41-0500 Body mass index (BMI) [Ratio] 27.07 kg/m2 Nikki Carbajal PA Work Phone: [facility] 04-01-2024 10:41-0500 Body weight 67.13 kg Nikki Carbajal PA Work Phone: [facility] 01-30-2025 10:41-0500 Diastolic blood pressure 75 mm[Hg] [facility] 04-01-[facility]24 10:41-0500 Heart rate 83 /min [facility] 04-01-2024 10:41-0500 Respiratory rate 18 /min Nikki Nienberg PA Work Phone: [facility] [employer] 04-01-2024 10:41-0500 SaO2% (BldA) [Mass fraction] 95 % [facility]berg [facility] 04-01-2024 10:41-0500 Systolic blood pressure 125 mm[Hg] Nikki Nienberg PA Work Phone: [facility] [employer] [facility] 02-19-2024 14:37-0500 Diastolic blood pressure 75 mm[Hg] Nikki Nienberg PA Work Phone: [facility] [employer] 02-19-2024 14:37-0500 Heart rate 61 /min [facility]berg [facility] 02-19-2024 14:37-0500 Respiratory rate 20 /min [facility]berg [facility] 02-19-2024 14:37-0500 Systolic blood pressure 146 mm[Hg] Nikki Nienberg PA Work Phone: [facility] [employer] [facility] 01-16-2024 10:58-0500 Body height 160 cm Heidi Hemmer PA Work Phone: [facility] [employer] 01-16-2024 10:58-0500 Body mass index (BMI) [Ratio] 25.9 kg/m2 Heidi Hemmer PA Work Phone: [facility] 01-16-2024 10:58-0500 Body temperature 97.7 [degF] Heidi Hemmer PA Work Phone: [facility] 01-16-2024 10:58-0500 Body weight 66.32 kg Heidi Hemmer PA Work Phone: [facility] 01-16-2024 10:58-0500 Diastolic blood pressure 88 mm[Hg] Heidi Hemmer PA Work Phone: [facility] 01-16-2024 10:58-0500 Heart rate 54 /min Heidi Hemmer PA Work Phone: [facility] 01-16-2024 10:58-0500 Respiratory rate 16 /min Heidi Hemmer PA Work Phone: [facility] 01-16-2024 10:58-0500 SaO2% (BldA) [Mass fraction] 99 % Heidi Hemmer PA Work Phone: [facility] 01-16-2024 10:58-0500 Systolic blood pressure 136 mm[Hg] Heidi Hemmer PA Work Phone: [facility] 01-13-2024 09:40-0500 Body height 157.5 cm Nikki Angelynathalia PA Work Phone: [facility] 01-13-2024 09:40-0500 Body mass index (BMI) [Ratio] 26.52 kg/m2 Nikki Angelyenberg PA Work Phone: [facility] 01-13-2024 09:40-0500 Body weight 65.77 kg Nikki Auenberg PA Work Phone: [facility] 01-13-2024 09:40-0500 Diastolic blood pressure 74 mm[Hg] Nikki Carbajal PA Work Phone: [facility] 01-13-2024 09:40-0500 Heart rate 51 /min Nikki Nienberg PA Work Phone: [facility] [employer] [facility] 01-13-2024 09:40-0500 Respiratory rate 18 /min Nikki Nienberg PA Work Phone: [facility] 01-13-2024 09:40-0500 SaO2% (BldA) [Mass fraction] 93 % Nikki Auenberg PA Work Phone: [facility] 01-13-2024 09:40-0500 Systolic blood pressure 142 mm[Hg] Nikki Nienberg PA Work Phone: [facility] [employer] [facility] 10-30-2023 08:46-0400 Body height 157.5 cm Nikki Nienberg PA Work Phone: [facility] [employer] [facility] 10-30-2023 08:46-0400 Body mass index (BMI) [Ratio] 26.52 kg/m2 Nikki Nienberg PA Work Phone: [facility] [employer] [facility] 10-30-2023 08:46-0400 Body weight 65.77 kg Nikki Nienberg PA Work Phone: [facility] [employer] [facility] 10-30-2023 08:46-0400 Diastolic blood pressure 86 mm[Hg] Nikki Nienberg PA Work Phone: [facility] [employer] [facility] 10-30-2023 08:46-0400 Heart rate 55 /min Nikki Nienberg PA Work Phone: [facility] [employer] [facility] 10-30-2023 08:46-0400 Respiratory rate 18 /min Nikki Nienberg PA Work Phone: [facility] [employer] 10-30-2023 08:46-0400 SaO2% (BldA) [Mass fraction] 99 % Nikki Nienberg PA Work Phone: [facility] [employer] [facility] 10-30-2023 08:46-0400 Systolic blood pressure 155 mm[Hg] Nikki Nienberg PA Work Phone: [facility] [employer] [facility] 09-11-2023 12:50-0400 Body height 160 cm Nikki Nienberg PA Work Phone: [facility] [employer] [facility] 09-11-2023 12:50-0400 Body mass index (BMI) [Ratio] 25.33 kg/m2 Nikki Nienberg PA Work Phone: [facility] [employer] [facility] 09-11-2023 12:50-0400 Body weight 64.86 kg Nikki Nienberg PA Work Phone: [facility] [employer] [facility] 09-11-2023 12:50-0400 Diastolic blood pressure 66 mm[Hg] Nikki Nienberg PA Work Phone: [facility] [employer] [facility] 09-11-2023 12:50-0400 Heart rate 61 /min Nikki Nienberg PA Work Phone: [facility] [employer] [facility] 09-11-2023 12:50-0400 Respiratory rate 18 /min Nikki Nienberg PA Work Phone: [facility] [employer] [facility] 09-11-2023 12:50-0400 SaO2% (BldA) [Mass fraction] 98 % Nikki Nienberg PA Work Phone: [facility] [employer] [facility] 09-11-2023 12:50-0400 Systolic blood pressure 133 mm[Hg] Nikki Nienberg PA Work Phone: [facility] [employer] [facility] 07-31-2023 10:16-0400 Body height 160 cm Nikki Nienberg PA Work Phone: [facility] [employer] [facility] 07-31-2023 10:16-0400 Body mass index (BMI) [Ratio] 24.8 kg/m2 Nikki Nienberg PA Work Phone: [facility] [employer] [facility] 07-31-2023 10:16-0400 Body weight 63.5 kg Nikki Nienberg PA Work Phone: [facility] [employer] [facility] 07-31-2023 10:16-0400 Diastolic blood pressure 81 mm[Hg] Nikki Nienberg PA Work Phone: [facility] [employer] [facility] 07-31-2023 10:16-0400 Heart rate 60 /min Nikki Nienberg PA Work Phone: [facility] [employer] [facility] 07-31-2023 10:16-0400 Respiratory rate 18 /min Nikki Nienberg PA Work Phone: [facility] [employer] [facility] 07-31-2023 10:16-0400 SaO2% (BldA) [Mass fraction] 96 % Nikki Nienberg PA Work Phone: [facility] [employer] [facility] 07-31-2023 10:16-0400 Systolic blood pressure 135 mm[Hg] Nikki Nienberg PA Work Phone: [facility] [employer] [facility] 07-01-2023 10:52-0400 Body height 160 cm Nikki Aunathalia PA Work Phone: [facility] [employer] [facility] 07-01-2023 10:52-0400 Body mass index (BMI) [Ratio] 25.86 kg/m2 Nikki Aunathalia PA Work Phone: [facility] [employer] [facility] 07-01-2023 10:52-0400 Body weight 66.22 kg Nikki Aunathalia PA Work Phone: [facility] [employer] [facility] 07-01-2023 10:52-0400 Diastolic blood pressure 55 mm[Hg] Nikki Solomon PA Work Phone: [facility] [employer] [facility] 07-01-2023 10:52-0400 Heart rate 68 /min Nikki Aunathalia PA Work Phone: [facility] [employer] [facility] 07-01-2023 10:52-0400 Respiratory rate 18 /min Nikki Aunathalia PA Work Phone: [facility] [employer] [facility] 07-01-2023 10:52-0400 SaO2% (BldA) [Mass fraction] 97 % Nikki Aunathalia PA Work Phone: [facility] [employer] [facility] 07-01-2023 10:52-0400 Systolic blood pressure 121 mm[Hg] Nikki Aunathalia PA Work Phone: [facility] [employer] [facility] 06-30-2023 10:44-0400 Body height 160 cm Clovis Bermeo MD Work Phone: [facility] [employer] [facility] 06-30-2023 10:44-0400 Body mass index (BMI) [Ratio] 25.69 kg/m2 Clovis Bermeo MD Work Phone: [facility] [employer] [facility] 06-30-2023 10:44-0400 Body weight 65.77 kg Clovis Bermeo MD Work Phone: [facility] [employer] [facility] 06-05-2023 10:06-0400 Body mass index (BMI) [Ratio] 25.69 kg/m2 [facility] 06-05-2023 10:06-0400 Body weight 65.77 kg Nikki [facility]ienberg PA [facility] 06-05-2023 10:06-0400 Diastolic blood pressure 63 mm[Hg] Nikki [facility]ienberg PA [facility] 06-05-2023 10:06-0400 Heart rate 63 /min Nik[facility]berg [facility] 06-05-2023 10:06-0400 Respiratory rate 16 /min Nikki Nienberg PA [facility] 06-05-2023 10:06-0400 SaO2% (BldA) [Mass fraction] 93 % Nikki Nienberg PA [facility] 06-05-2023 10:06-0400 Systolic blood pressure 133 mm[Hg] Nikki Nienberg PA [facility] 05-01-2023 12:35-0500 Body height 160 cm Nikki Nienberg PA [facility] 05-01-2023 12:35-0500 Body mass index (BMI) [Ratio] 25.69 kg/m2 Nikki Nienberg PA [facility] 05-01-2023 12:35-0500 Body weight 65.77 kg Nikki N[facility]berg [facility] 05-01-2023 12:35-0500 Diastolic blood pressure 76 mm[Hg] Nik[facility]berg [facility] 05-01-2023 12:35-0500 Heart rate 63 /min Nikki [facility]ienberg PA [facility] 05-01-2023 12:35-0500 SaO2% (BldA) [Mass fraction] 98 % Nikki Nienberg PA Work Phone: [facility] 05-01-2023 12:35-0500 Systolic blood pressure 137 mm[Hg] Nikki CARDENAS Work Phone: [facility] 04-15-2023 11:35-0500 Diastolic blood pressure 54 mm[Hg] II Adrian Lynn Work Phone: [facility] 04-15-2023 11:35-0500 Heart rate 60 /min II Adrian Lynn Work Phone: [facility] 04-15-2023 11:35-0500 Respiratory rate 16 /min II Adrian Lynn Work Phone: [facility] 04-15-2023 11:35-0500 SaO2% (BldA) [Mass fraction] 95 % II Adrian Lynn Work Phone: [facility] 04-15-2023 11:35-0500 Systolic blood pressure 117 mm[Hg] II Adrian Lynn Work Phone: [facility] 04-15-2023 09:09-0500 Body height 160.02 cm II Adrian Lynn Work Phone: [facility] 04-15-2023 09:09-0500 Body temperature 98 [degF] II Adrian Lynn Work Phone: [facility] 04-15-2023 09:09-0500 Body weight 65.77 kg II Adrian Lynn Work Phone: [facility] 02-10-2023 12:00-0500 Diastolic blood pressure 58 mm[Hg] II Adrian Lynn Work Phone: [facility] 02-10-2023 12:00-0500 Heart rate 53 /min II Adrian Lynn Work Phone: [facility] 02-10-2023 12:00-0500 Respiratory rate 16 /min II Adrian Lynn Work Phone: [facility] 02-10-2023 12:00-0500 SaO2% (BldA) [Mass fraction] 94 % II Adrian Lynn Work Phone: [facility] 02-10-2023 12:00-0500 Systolic blood pressure 116 mm[Hg] II Adrian Lynn Work Phone: [facility] 02-10-2023 09:46-0500 Body mass index (BMI) [Ratio] 26.5 kg/m2 II Ardian Lynn Work Phone: [facility] 02-10-2023 09:39-0500 Body height 160.02 cm II Adrian Lynn Work Phone: [facility] 02-10-2023 09:39-0500 Body weight 68 kg II Adrian Lynn Work Phone: [facility] 02-10-2023 09:10-0500 Body temperature 97.9 [degF] II Adrian Lynn Work Phone: [facility] 02-05-2023 10:30-0500 Body height 160.02 cm Marika Champion Other [facility] 02-05-2023 10:30-0500 Body mass index (BMI) [Ratio] 26.57 kg/m2 Marika Champion Other [facility] [employer] Other 02-05-2023 10:30-0500 Body weight 68.04 kg Marikatravis Champion Other [facility] Other 02-05-2023 10:30-0500 Body weight 68.03 kg II Adrian Lynn Work Phone: [facility] 10-24-2022 10:42-0400 Diastolic blood pressure 65 mm[Hg] II Adrian Lynn Work Phone: [facility] 10-24-2022 10:42-0400 Heart rate 60 /min II Adrian Lynn Work Phone: [facility] 10-24-2022 10:42-0400 Respiratory rate 16 /min II Adrian Lynn Work Phone: [facility] 10-24-2022 10:42-0400 SaO2% (BldA) [Mass fraction] 94 % II Adrian Lynn Work Phone: [facility] 10-24-2022 10:42-0400 Systolic blood pressure 117 mm[Hg] II Adrian Lynn Work Phone: [facility] 10-24-2022 10:12-0400 Inhaled oxygen flow rate 6 L/min II Adrian Lynn Work Phone: [facility] 10-24-2022 07:11-0400 Body height 160.02 cm II Adrian Lynn Work Phone: [facility] 10-24-2022 07:11-0400 Body mass index (BMI) [Ratio] 26.2 kg/m2 II Adrian Lynn Work Phone: [facility] 10-24-2022 07:11-0400 Body weight 67 kg II Adrian Lynn Work Phone: [facility] 10-24-2022 06:10-0400 Body temperature 98.3 [degF] II Adrian Lynn Work Phone: [facility] 10-08-2022 08:00-0400 Body height 162.56 cm Marika Champion Other [employer] [facility] [employer] Other 10-08-2022 08:00-0400 Body mass index (BMI) [Ratio] 27.29 kg/m2 Marika Champion Other [facility] [facility] [employer] Other 10-08-2022 08:00-0400 Body weight 72.12 kg Marika Champion Other [employer] Other Encounters Encounter Date Encounter Type Care Provider Facility Start: 04-23-2024 End: 04-23-2024 [facility] [place] [facility] Start: 04-22-2024 End: 04-22-2024 ambulatory NIKKI Gilman SOLOMON [facility] Start: 04-21-2024 End: 04-21-2024 Bamboo flowsheet Heidi CARDENAS Work Phone: [facility] Start: 04-21-2024 End: 04-21-2024 Bamboo flowsheet Heidi CARDENAS Work Phone: [facility] Start: 04-21-2024 End: 04-21-2024 Patient encounter procedure Heidi CARDENAS Work Phone: [facility] Comment on above: Medicare annual well ness visit, subsequent (Primary Dx); ACP (advance care planning); Tobacco dependence; Primary insomnia; Neuralgia of lower extremity; Generalized anxiety disorder (CMS/HCC); Chronic obstructive pulmonary disease, unspecified COPD type (CMS/HCC); Gastroesophageal reflux disease without esophagitis; Degeneration of intervertebral disc of lumbar region; Benign essential hypertension (CMS/HCC); Myalgia; Abnormal CBC; Impaired glucose tolerance; Mixed hyperlipidemia (CMS/HCC); Acute non-recurrent pansinusitis; Major depression, single episode, in complete remission (CMS/HCC); History of hysterectomy; Estrogen deficiency; Seasonal allergic rhinitis due to pollen; Traumatic arthritis of right knee; Spinal stenosis of lumbar region with neurogenic claudication; Postoperative pain of extremity; Other idiopathic scoliosis, lumbar region; Primary osteoarthritis involving multiple joints; Lumbosacral spondylosis without myelopathy; Heberden's nodes; Arthropathy of hand; Arthritis of carpometacarpal (CMC) joint of left thumb; Irritable bowel syndrome, unspecified type; History of colon polyps; Arteriosclerosis of both carotid arteries; Pulmonary emphysema, unspecified emphysema type (CMS/HCC); Other specified mononeuropathies of left lower limb; ANAND (obstructive sleep apnea); Pulmonary fibrosis, unspecified (CMS/HCC); Hemangioma of skin Start: 04-21-2024 End: 04-21-2024 ambulatory HEIDI JIMENEZ Not Available Start: 04-05-[address] [facility] Start: 04-01-2024 End: 04-01-2024 Office outpatient visit 25 minutes Nikki CARDENAS Work Phone: [facility] Comment on above: Other specified mono neuropathies of left lower limb (Primary Dx); Chronic pain of right knee Start: 04-01-2024 End: 04-01-2024 ambulatory [facility] Start: 03-01-2024 ambulatory [facility] Start: 02-19-2024 End: 02-19-2024 Office outpatient visit 15 minutes Nikki Carbajal PA Work Phone: [facility] Comment on above: Chronic pain of righ t knee (Primary Dx) Start: 02-19-2024 End: 02-19-2024 ambulatory [facility] Start: 01-16-2024 End: 01-16-2024 Bamboo flowsheet Heidi Jimenez PA Work Phone: [facility] Start: 01-16-2024 End: 01-16-2024 Bamboo flowsheet Heidi Jimenez PA Work Phone: [facility] Start: 01-16-2024 End: 01-16-2024 Office outpatient visit 15 minutes Heidi Jimenez PA Work Phone: [facility] Comment on above: COPD exacerbation (C MS/HCC) (Primary Dx); Encounter for screening mammogram for malignant neoplasm of breast; Acute non-recurrent pansinusitis; Tobacco dependence; Atherosclerosis of aorta (CMS/HCC) Start: 01-16-2024 End: 01-16-2024 ambulatory HEIDI JIMENEZ Not Available Start: 01-13-2024 End: 01-13-2024 ambulatory [facility] Start: 01-13-2024 End: 01-13-2024 ambulatory [facility] Start: 01-13-2024 End: 01-13-2024 Office outpatient visit 15 minutes Nikki Carbajal PA Work Phone: [facility] Comment on above: Chronic pain of both knees (Primary Dx) Start: 12-12-2023 End: 12-12-2023 ambulatory [facility] Start: 11-28-2023 End: 11-28-2023 ambulatory [facility] Start: 10-30-2023 End: 10-30-2023 Office outpatient visit 25 minutes Nikki Carbajal PA Work Phone: [facility] Comment on above: Lumbosacral spondylo sis without myelopathy (Primary Dx) Start: 10-30-2023 End: 10-30-2023 ambulatory [facility] Start: 10-03-2023 End: 10-03-2023 ambulatory [facility] Start: 09-25-2023 End: 09-25-2023 ambulatory MADISYN WILLSON Not Available Start: 09-11-2023 End: 09-11-2023 Office outpatient visit 15 minutes Nikki Carbajal PA Work Phone: [facility] Comment on above: Lumbosacral spondylo sis without myelopathy (Primary Dx) Start: 09-11-2023 End: 09-11-2023 ambulatory [facility] Start: 08-22-2023 End: 08-22-2023 ambulatory [facility] Start: 08-22-2023 End: 08-22-2023 ambulatory [facility] Start: 07-31-2023 End: 07-31-2023 Office outpatient visit 25 minutes Nikki Carbajal PA Work Phone: [facility] Comment on above: Lumbosacral spondylo sis without myelopathy (Primary Dx) Start: 07-31-2023 End: 07-31-2023 ambulatory [facility] Start: 07-30-2023 End: 07-30-2023 ambulatory HEIDI JIMENEZ Not Available Start: 07-04-2023 End: 07-04-2023 ambulatory HLIL E SY [facility] Start: 07-01-2023 End: 07-01-2023 Office outpatient visit 25 minutes Nikki CARDENAS Work Phone: [facility] Comment on above: Spinal stenosis of l umbar region with neurogenic claudication (Primary Dx) Start: 07-01-2023 End: 07-01-2023 ambulatory [facility] Start: 06-30-2023 End: 06-30-2023 [facility] Start: 06-30-2023 End: 06-30-2023 Office outpatient new 45 minutes Clovis Bermeo MD Work Phone: [facility] Comment on above: Spinal stenosis of l umbar region with neurogenic claudication (Primary Dx) Start: 06-05-2023 End: 06-05-2023 Office outpatient visit 15 minutes Nikki CARDENAS Work Phone: [facility] Comment on above: Spinal stenosis of l umbar region with neurogenic claudication (Primary Dx) Start: 06-05-2023 End: 06-05-2023 ambulatory [facility] Start: 06-02-2023 End: 07-02-2023 [facility] Start: 05-08-2023 End: 05-08-2023 ambulatory HEIDI JIMENEZ Not Available Start: 05-06-2023 End: 05-06-2023 ambulatory [facility] Start: 05-01-2023 End: 06-02-2023 ambulatory [facility] Start: 05-01-2023 End: 05-01-2023 Office outpatient new 45 minutes Nikki CARDENAS Work Phone: [facility] Comment on above: Lumbosacral spondylo sis without myelopathy (Primary Dx); Disc displacement, lumbar; Lumbar radiculopathy, chronic Start: 05-01-2023 End: 05-01-2023 ambulatory NIKKI CARBAJAL [facility] Start: 04-15-2023 End: 04-15-2023 ambulatory Dwight Zi Maxim Facility:[facility] Start: 04-15-2023 Non-patient / Non-visit II Audie Lynn Work Phone: [facility] Work Phone: Start: 04-15-2023 End: 04-15-2023 Admission to same day surgery center II Adrian Lynn Work Phone: [facility] Work Phone: Start: 04-15-2023 End: 04-15-2023 ambulatory II Adrian Lynn Work Phone: [facility] Work Phone: Start: 03-19-2023 Postop follow up vis it related to original px Marika Champion [facility] Start: 03-19-2023 End: 03-19-2023 ambulatory Marika Champion Facility:[facility] Start: 03-19-2023 End: 03-19-2023 ambulatory II Adrian Lynn Work Phone: [employer] Other Start: 03-19-2023 End: 03-19-2023 Patient encounter procedure II Adrian Lynn Work Phone: [facility] Start: 03-19-2023 Patient encounter procedure II Adrian Lynn Work Phone: [facility]- Start: 02-18-2023 End: 02-18-2023 Patient encounter procedure II Adrian Lynn Work Phone: [facility] Work Phone: Start: 02-10-2023 End: 02-10-2023 ambulatory Marika Champion Facility:[facility] Start: 02-10-2023 End: 02-10-2023 Admission to same day surgery center II Adrian Lynn Work Phone: [facility] [place] Start: 02-10-2023 End: 02-10-2023 ambulatory II Adrian Lynn Work Phone: [facility] Work Phone: Start: 02-07-2023 End: 02-07-2023 ambulatory Marika Champion Facility:[facility] Start: 02-07-2023 End: 02-07-2023 ambulatory II Adrian Lynn Work Phone: [facility] Work Phone: Start: 02-07-2023 End: 02-07-2023 Patient encounter procedure II Adrian Lynn Work Phone: [facility] Work Phone: Start: 02-05-2023 End: 02-05-2023 ambulatory Marika Champion Other [employer] Other Start: 02-05-2023 Office outpatient vi sit 25 minutes Marika Champion [facility] Start: 02-05-2023 End: 02-05-2023 Patient encounter procedure II Adrian Lynn Work Phone: [facility] Work Phone: Start: 12-25-2022 End: 12-25-2022 ambulatory Adrian Lynn Facility:[facility] Start: 12-25-2022 End: 12-25-2022 ambulatory II Adrian Lynn Work Phone: [facility] Work Phone: Start: 12-25-2022 End: 12-25-2022 Patient encounter procedure II Adrian Lynn Work Phone: [facility] Start: 11-27-2022 Postop follow up vis it related to original px Marika Champion [facility] Start: 11-27-2022 End: 11-27-2022 ambulatory Adrian Lynn Facility:[facility] Start: 11-27-2022 End: 11-27-2022 ambulatory II Adrian Lynn Work Phone: [facility] Work Phone: Start: 11-27-2022 End: 11-27-2022 Patient encounter procedure II Adrian Lynn Work Phone: [facility] Start: 10-24-2022 End: 10-24-2022 ambulatory Adrian Lynn Facility:[facility] Start: 10-24-2022 End: 10-24-2022 Admission to same day surgery center II Adrian Lynn Work Phone: [facility] [place] Start: 10-24-2022 End: 10-24-2022 ambulatory II Adrian Lynn Work Phone: [facility] Work Phone: Start: 10-23-2022 End: 10-23-2022 ambulatory Marika Champion Other [employer] Other Start: 10-23-2022 Telephone encounter Marika Lucas [facility] Start: 10-14-2022 End: 10-14-2022 ambulatory Marika Champion Other [employer] Other Start: 10-14-2022 Telephone encounter Marika Lucas [facility] Start: 10-10-2022 End: 10-10-2022 ambulatory II Adrian Lynn Work Phone: [facility] Work Phone: Start: 10-10-2022 End: 10-10-2022 Patient encounter procedure II Adrian Lynn Work Phone: [facility] Work Phone: Start: 10-08-2022 Encounter for other preprocedural examination Marika Champion [facility] Start: 10-08-2022 Office outpatient ne w 45 minutes [facility] Start: 10-08-2022 End: 10-08-2022 ambulatory II Adrian Lynn Work Phone: [place] [employer] Other Start: 10-08-2022 End: 10-08-2022 Patient encounter procedure II Adrian Lynn Work Phone: [facility] Start: 01-29-2022 End: 01-30-[address] ADRIAN LYNN Facility:[facility] Start: 05-03-2021 End: 05-04-[address] HEIDI JIMENEZ Facility:[facility] Procedures Date Procedure Procedure Detail Performing Clinician Start: 02-11-2024 Mammography Heidi CARDENAS Work Phone: Start: 04-15-2023 End: 04-15-2023 Colonoscopy II Adrian Lynn Work Phone: Start: 04-03-2023 H/O: hysterectomy History of hysterectomy Heidi CARDENAS Work Phone: Start: 03-19-2023 Plain X-ray of left hand II Adrian Lynn Work Phone: Start: 02-10-2023 Release of trigger finger II Adrian Lynn Work Phone: Start: 02-10-2023 X-ray of [...] bilateral hands II Adrian Lynn Work Phone: Start: 12-02-2017 Colonoscopy Heidi CARDENAS Work Phone: H/O: hysterectomy History of hysterectomy Heidi CARDENAS Work Phone: Plan of Treatment Date Care Activity Detail Author Start: 04-15-2033 Screening for malignant neoplasm of colon [facility] Start: 12-03-2027 Screening for malignant neoplasm of colon [facility] Start: 04-01-2025 Adult BMI Screening Adult BMI Screening [facility] Start: 04-01-2025 Tobacco Screening Tobacco Screening [facility] Start: 02-18-2025 Tobacco Screening Tobacco Screening [facility] Start: 02-10-2025 Screening for malignant neoplasm of breast Mammogram [facility] Start: 01-12-2025 Adult BMI Screening Adult BMI Screening [facility] Start: 01-12-2025 Tobacco Screening Tobacco Screening [facility] Start: 10-29-2024 Adult BMI Screening Adult BMI Screening [facility] Start: 10-29-2024 Tobacco Screening Tobacco Screening [facility] Start: 09-10-2024 Adult BMI Screening Adult BMI Screening [facility] Start: 09-10-2024 Tobacco Screening Tobacco Screening [facility] Start: 07-30-2024 Adult BMI Screening Adult BMI Screening [facility] Start: 07-30-2024 Tobacco Screening Tobacco Screening [facility] Start: 06-30-2024 Adult BMI Screening Adult BMI Screening [facility] Start: 06-30-2024 Tobacco Screening Tobacco Screening [facility] Start: 06-29-2024 Adult BMI Screening Adult BMI Screening [facility] Start: 06-29-2024 Tobacco Screening Tobacco Screening [facility] Start: 06-04-2024 Adult BMI Screening Adult BMI Screening [facility] Start: 06-04-2024 Tobacco Screening Tobacco Screening [facility] Start: 05-12-2024 End: 05-12-2024 Patient encounter procedure 05/12/2024 10:45 AM EDT Office Visit [facility] [address] [place] [address] Nikki Carbajal, PA [address] [place] [address] Cindy Ross PA-C [address], [address] [place] [address] [facility] Start: 04-30-2024 Adult BMI Screening Adult BMI Screening [facility] Start: 04-30-2024 Tobacco Screening Tobacco Screening [facility] Start: 04-23-2024 End: 04-23-2024 Admission to same day surgery center 04/23/2024 7:15 AM EST - 04/23/2024 7:21 AM EST Surgery [facility] Procedures [address] [place] [phone] Hill Sy MD [address], [place] [id number] INJECTION BLOCK NERVE: left cluneal [49540 (CPT )] [facility] Comment on above: INJECTION BLOCK NERVE: left cluneal [644 50 (CPT )] Start: 04-23-2024 End: 04-23-2024 Injection aa&/strd other peripheral nerve/branch INJECTION BLOCK NERVE Other specified mononeuropathies of left lower limb 04/23/2024 7:15 AM EST [facility] Start: 04-23-2024 Subsequent hospital visit by physician 04/23/2024 7:15 AM EST Hospital Encounter [facility] [address] [place] [phone] Hill Sy MD [address], [place] [id number] [facility] Start: 04-21-2024 End: 04-21-2025 CT Chest for screening WO contrast CT lung screening low dose Imaging Routine Tobacco dependence Expected: 04/21/2024, Expires: 04/21/2025 [facility] Work Phone: Comment on above: Expected: 04/21/2024, Expires: Start: 04-21-2024 End: 04-21-2024 Patient encounter procedure [facility] Comment on above: Arrived Start: 04-06-2024 End: 04-06-2024 Patient encounter procedure 04/06/2024 1:00 PM EST Appointment [facility] [address] [place] [address] [facility] Start: 04-01-2024 End: 04-01-2025 MR Knee - right WO contrast MR knee right without contrast Imaging Routine Chronic pain of right knee Expected: 04/01/2024, Expires: 04/01/2025 [facility] Work Phone: Comment on above: Expected: 04/01/2024, Expires: Start: 04-01-2024 End: 04-01-2024 Patient encounter procedure 04/01/2024 10:45 AM EST Office Visit [facility] [address] [place] [phone] Nikki Carbajal PA [address] [place] [address] [facility] Start: 02-19-2024 End: 02-19-2024 Patient encounter procedure 02/19/2024 2:15 PM EST Office Visit [facility] [address] [place] [phone] Nikki Carbajal PA [address] [place] [address] [facility] Start: 02-07-2024 Screening for malignant neoplasm of breast Mammogram [facility] Start: 01-16-2024 End: 03-17-2025 DBT Breast - bilateral screening Bilateral screening mammogram with tomosynthesis Imaging Routine Encounter for screening mammogram for malignant neoplasm of breast Expected: 01/16/2024, Expires: 03/17/2025 [facility] [employer] Work Phone: Comment on above: Expected: 01/16/2024, Expires: Start: 01-13-2024 End: 01-13-2024 Patient encounter procedure 01/13/2024 9:15 AM EST Office Visit [facility] [address] [place] [address] Nikki Carbajal PA [address] [place] [address] [facility] Start: 12-12-2023 End: 12-12-2023 Admission to same day surgery center 12/12/2023 8:18 AM EDT - 12/12/2023 8:30 AM EDT Surgery [facility] [address] [place] [address] Hill Sy MD [address] [place] [address] RADIOFREQUENCY ABLATION SPINAL: right L4 51 [02762 (CPT )] [facility] Comment on above: RADIOFREQUENCY ABLATION SPINAL: right L4 51 [29090 (CPT )] Start: 12-12-2023 End: 12-12-2023 Dstr nrolytc agnt parverteb fct sngl lmbr/sacral RADIOFREQUENCY ABLATION SPINAL Lumbosacral spondylosis without myelopathy 12/12/2023 8:18 AM EDT [facility] Start: 12-12-2023 Subsequent hospital visit by physician 12/12/2023 8:18 AM EDT Hospital Encounter [facility] [address] [place] [phone] Hill Sy MD [address] [place] [id number] [facility] Start: 11-28-2023 End: 11-28-2023 Admission to same day surgery center 11/28/2023 8:27 AM EDT - 11/28/2023 8:39 AM EDT Surgery [facility] [address] [place] [phone] Hill Sy MD [address] [place], [place] [phone] RADIOFREQUENCY ABLATION SPINAL: left L45 51 [46664 (CPT )] [facility] Procedures Comment on above: RADIOFREQUENCY ABLATION SPINAL: left L45 51 [92098 (CPT )] Start: 11-28-2023 End: 11-28-2023 Dstr nrolytc agnt parverteb fct sngl lmbr/sacral RADIOFREQUENCY ABLATION SPINAL Lumbosacral spondylosis without myelopathy 11/28/2023 8:27 AM EDT [facility] Start: 11-28-2023 Subsequent hospital visit by physician 11/28/2023 8:27 AM EDT Hospital Encounter [facility] Procedures [address] [place] [phone] Hill Sy MD [address] [place], [place] [phone] [facility] Start: 11-02-2023 COVID-19 Vaccine ( season) COVID-19 Vaccine ( season) [facility] Start: 11-02-2023 Influenza vaccination Influenza Vaccine [facility] Start: 10-30-2023 End: 10-30-2023 Patient encounter procedure 10/30/2023 8:45 AM EDT Office Visit [facility] [address] [place] [address] Nikki Carbajal, THERESA [address] [place] [address] [facility] Start: 10-03-2023 End: 10-03-2023 Admission to same day surgery center 10/03/2023 7:42 AM EDT - 10/03/2023 7:49 AM EDT Surgery [facility] [address] [place] [phone] Hill Sy MD [address] [place] [place] [id number] INJECTION BLOCK NERVE MEDIAL BRANCH: bilat L 4/5, 5/1 [67894 (CPT )] [facility] Comment on above: INJECTION BLOCK NERVE MEDIAL BRANCH: juan at L 4/5, 5/1 [82369 (CPT )] Start: 10-03-2023 End: 10-03-2023 Njx dx/ther agt pvrt facet jt lmbr/sac 1 level INJECTION BLOCK NERVE MEDIAL BRANCH Lumbosacral spondylosis without myelopathy 10/03/2023 7:[address] [facility] Start: 10-03-2023 Subsequent hospital visit by physician 10/03/2023 7:42 AM EDT Hospital Encounter [facility] [address] [place] [phone] Hill Sy MD [address] [place], [place] [phone] [facility] Start: 09-11-2023 End: 09-11-2023 Patient encounter procedure 09/11/2023 12:45 PM EDT Office Visit [facility] [address] [place] [address] Nikki Carbajal PA [address] [place] [address] [facility] Start: 08-22-2023 End: 08-22-2023 Admission to same day surgery center 08/22/2023 11:11 AM EDT - 08/22/2023 11:18 AM EDT Surgery [facility] [address] [place] [address] Hill Sy MD [address] [place], [place] [phone] INJECTION BLOCK NERVE MEDIAL BRANCH: bilat L 4/5, 5/1 [48644 (CPT )] [facility] Comment on above: INJECTION BLOCK NERVE MEDIAL BRANCH: juan at L 4/5, 5/1 [88003 (CPT )] Start: 08-22-2023 End: 08-22-2023 Njx dx/ther agt pvrt facet jt lmbr/sac 1 level INJECTION BLOCK NERVE MEDIAL BRANCH Lumbosacral spondylosis without myelopathy 08/22/2023 11:11 AM EDT [facility] Start: 08-22-2023 Subsequent hospital visit by physician 08/22/2023 11:11 AM EDT Hospital Encounter [facility] [address] [place] [phone] Hill Sy MD [address] [place], [place] [phone] [facility] Start: 07-31-2023 End: 07-31-2023 Patient encounter procedure 07/31/2023 10:15 AM EDT Office Visit [facility] [address] [place] [phone] Nikki Carbajal PA [address] [place] [address] [facility] Start: 07-04-2023 End: 07-04-2023 Admission to same day surgery center 07/04/2023 7:27 AM EDT - 07/04/2023 7:32 AM EDT Surgery [facility] [address] [place] [address] Hill Sy MD [address] [place], [place] [phone] INJECTION BLOCK EPIDURAL CAUDAL STEROID [85654 (CPT )] [facility] Comment on above: INJECTION BLOCK EPIDURAL CAUDAL STEROID [12253 (CPT )] Start: 07-04-2023 End: 07-04-2023 Njx dx/ther sbst intrlmnr lmbr/sac w/img gdn INJECTION BLOCK EPIDURAL CAUDAL STEROID Spinal stenosis of lumbar region with neurogenic claudication 07/04/2023 7:[address] [facility] Start: 07-04-2023 Subsequent hospital visit by physician 07/04/2023 7:27 AM EDT Hospital Encounter [facility] [address] [place] [address] Hill Sy MD [address] [place] [address] [facility] Start: 07-01-2023 End: 07-01-2023 Patient encounter procedure 07/01/2023 10:45 AM EDT Office Visit [facility] [address] [place] [phone] iNkki Carbajal PA [address] [place], [place] [phone] [facility] Start: 06-30-2023 End: 06-30-2023 Patient encounter procedure 06/30/2023 10:50 AM EDT Office Visit [facility] [address] [facility] [address] [place] [phone] Clovis Bermeo MD [address] [facility] [address] [place] [address] [facility] Start: 06-05-2023 End: 06-05-2023 Patient encounter procedure 06/05/2023 9:45 AM EDT Office Visit [facility] [address] [place] [address] Nikki Carbajal PA [address] [facility] [place], [place] [phone] [facility] Start: 05-13-2023 End: 05-13-2023 Patient encounter procedure 05/13/2023 1:00 PM EDT Appointment [facility] [address] [place] [phone] Lumbosacral spondylosis without myelopathy; Disc displacement, lumbar [facility] Comment on above: Lumbosacral spondylosis without myelopat hy; Disc displacement, lumbar Start: 05-10-2023 COVID-19 Vaccine ( season) COVID-19 Vaccine ( season) [facility] Start: 04-15-2023 [facility] Start: 02-10-2023 End: 02-10-2023 [facility] Start: 02-10-2023 X-ray of index finger XR finger LT 2nd digit [facility] Start: 02-10-2023 XR Finger second - left Views [facility] Start: 10-24-2022 [facility] Start: 10-24-2022 Plain X-ray of right hand XR hand RT min 3V* [facility] Start: 10-24-2022 XR Hand - right GE 3 Views [facility] Start: 10-24-2022 [facility] Start: 2018 Fall Risk Screening Fall Risk Screening [facility] Start: 08-26-2013 Administration of varicella zoster vaccine Zoster (Shingles) Vaccine (2 of 3) [facility] Start: 1972 DTaP,Tdap and Td Vaccines (1 - Tdap) DTaP,Tdap and Td Vaccines (1 - Tdap) [facility] Start: 05-31-1971 Adult BMI Follow Up Plan Adult BMI Follow Up Plan [facility] Start: 1965 Depression Screening Depression Screening [facility] Start: 1955 Medicare Annual Wellness Visit Medicare Annual Wellness Visit [facility] Start: 1955 Screening for malignant neoplasm of colon [facility] Start: 1955 Tobacco Counseling Tobacco Counseling [facility] 25-hydroxyvitamin D3 [Mass/volume] in Serum or Plasma Vitamin D 25 hydroxy Total Lab Routine Medicare annual wellness visit, subsequent Myalgia Ordered: 04/21/2024 [facility] Comment on above: Ordered: 04/21/2024 CBC W Auto Different ial panel - Blood CBC and differential Lab Routine Medicare annual wellness visit, subsequent Benign essential hypertension (CMS/HCC) Abnormal CBC Mixed hyperlipidemia (CMS/HCC) Ordered: 04/21/2024 [facility] Comment on above: Ordered: 04/21/2024 Comprehensive metabo lic 2000 panel - Serum or Plasma Comprehensive metabolic panel Lab Routine Medicare annual wellness visit, subsequent Benign essential hypertension (CMS/HCC) Impaired glucose tolerance Mixed hyperlipidemia (CMS/HCC) Ordered: 04/21/2024 [facility] Comment on above: Ordered: 04/21/2024 Hemoglobin A1c/Hemoglobin.total in Blood Hemoglobin A1c Lab Routine Medicare annual wellness visit, subsequent Impaired glucose tolerance Ordered: 04/21/2024 [facility] Comment on above: Ordered: 04/21/2024 Lipid 1996 panel - Serum or Plasma Lipid panel Lab Routine Medicare annual wellness visit, subsequent Benign essential hypertension (CMS/HCC) Mixed hyperlipidemia (CMS/HCC) Ordered: 04/21/2024 [facility] Comment on above: Ordered: 04/21/2024 End: 04-30-2024 MR Lumbar spine WO contrast MR lumbar spine without contrast Imaging Routine Lumbar radiculopathy, chronic 1 Occurrences starting 05/01/2023 until 04/30/2024 [facility] Work Phone: Comment on above: 1 Occurrences starting 05/01/2023 until 04/30/2024 Patient Education Colon Polypectomy (DC) [facility] Work Phone: Patient referral [facility] Work Phone: Immunizations Immunization Date Immunization Notes Care Provider Fa cility 02-04-2024 ABRYSVO - Respirator y syncytial virus (RSV), vaccine, bivalent, protein subunit RSV prefusion F, diluent reconstituted, 0.5 mL, PF Heidi CARDENAS Work Phone: [facility] 02-04-2024 Pneumococcal Conjuga te PCV 20 Heidi CARDENAS Work Phone: [facility] 01-07-2024 influenza, high dose seasonal, preservative-free Heidi CARDENAS Work Phone: [facility] 01-09-2023 Influenza, High-dose Seasonal, Quadrivalent, Preservative Free Heidi CARDENAS Work Phone: [facility] 01-09-2023 influenza virus vacc ine, unspecified formulation Nikki CARDENAS Work Phone: [facility] 11-27-2021 COVID-19 mRNA Bivale nt Booster (Instinctiv) II Adrian Lynn Work Phone: [facility] 11-27-2021 Influenza, High-dose Seasonal, Quadrivalent, Preservative Free Heidi CARDENAS Work Phone: [facility] 06-07-2021 COVID-19 mRNA, Comir pilo (Instinctiv) II Adrian Lynn Work Phone: [facility] 12-26-2020 Influenza, High-dose Seasonal, Quadrivalent, Preservative Free Heidi CARDENAS Work Phone: [facility] 12-12-2020 COVID-19 mRNA, Comir pilo (Pfizer) II Adrian Lynn Work Phone: [facility] 2020 COVID-19 mRNA, Comir pilo (Pfizer) II Adrian Lynn Work Phone: [facility] 05-08-2020 COVID-19 mRNA, Comir pilo (Pfizer) II Adrian Lynn Work Phone: [facility] 12-02-2019 influenza, injectabl e, quadrivalent, preservative free Heidi CARDENAS Work Phone: [facility] 12-02-2019 pneumococcal conjuga te vaccine, 13 valent Heidi CARDENAS Work Phone: [facility] 06-15-2018 pneumococcal polysaccharide vaccine, 23 valent Heidi CARDENAS Work Phone: [facility] 07-01-2013 zoster vaccine, live Heidi CARDENAS Work Phone: [facility] 07-01-2013 zoster vaccine, unspecified formulation Nikki Solomon CARDENAS Work Phone: [facility] 06-11-2013 zoster vaccine, live Heidi CARDNEAS Work Phone: [facility] Healthcare Payers Date Payer Category Payer Self-pay [id number] 2018 Commercial Managed C are - POS [employer] [id number] 2018 Private Health Insurance [id number] 5 2017 Medicare [id number] 5 2017 Medicare [id number] 1959 Medicare [id number] 1959 Private Health Insurance [facility] [id number] 1953 Unknown [id number] [id number] .2.593 1953 Unknown [id number] 2.16.840.1.552400.3.579 .2.593 1953 Unknown [id number] 2.16.840.1.017554.3.579 .2.1286 1953 Unknown [id number] 2.16.840.1.840504.3.579 .2.1259 1953 Unknown [id number] 2.16.840.1.324637.3.579 .2.1259 1953 Unknown [id number] 2.16.840.1.748889.3.579 .2.1259 1953 Unknown [id number] 2.16.840.1.311460.3.579 .2.1259 1953 Unknown [id number] 2.16.840.1.218628.3.579 .2.1259 1953 Unknown [id number] 2.16.840.1.737879.3.579 .2.1259 1953 Unknown [id number] 2.16.840.1.073402.3.579 .2.1286 1953 Unknown [id number] 2.16.840.1.468438.3.579 .2.1286 1953 Unknown [id number] 2.16.840.1.113467.3.579 .2.1285 1953 Unknown [id number] 2.16.840.1.146116.3.579 .2.1285 1953 Unknown [id number] 2.16.840.1.537710.3.579 .2.1285 1953 Unknown [id number] 2.16840.1.335286.3.579 .2.1285 1955 Unknown [id number] 2.16840.1.079132.3.579 .2.1285 1955 Unknown [id number] 2.16840.1.906609.3.579 .2.1285 1955 Unknown [id number] 2.840.1.657342.3.579 .2.1285 1955 Unknown [id number] 2.840.1.581795.3.579 .2.1285 1955 Unknown [id number] 2.840.1.040576.3.579 .2.1285 1955 Unknown [id number] 2.840.1.314664.3.579 .2.1285 1955 Unknown [id number] 2.840.1.365871.3.579 .2.1285 1955 Unknown [id number] 2.16840.1.495269.3.579 .2.1285 1955 Unknown [id number] 2.16840.1.353737.3.579 .2.1285 1955 Unknown [id number] 2.16.840.1.717271.3.579 .2.1285 1955 Unknown [id number] 2.16840.1.049261.3.579 .2.1285 1955 Unknown [id number] 2.16.840.1.490366.3.579 .2.1285 1955 Unknown [id number] 2.840.1.162112.3.579 .2.1285 1955 Unknown [id number] 2..840.1.935667.3.579 .2.1285 1955 Unknown [id number] 2.840.1.988311.3.579 .2.1285 1955 Unknown [id number] .840.1.946971.3.579 .2.1285 1955 Unknown [id number] .0.1.753229.3.579 .2.1285 1955 Unknown [id number] .840.1.275831.3.579 .2.1285 1955 Unknown [id number] .0.1.002763.3.579 .2.1285 1955 Unknown [id number] .0.1.287540.3.579 .2.1285 1955 Unknown [id number] .840.1.695702.3.579 .2.1285 1955 Unknown [id number] 04.18.830.1.594659.3.579 .2.1285 1955 Unknown [id number] .840.1.203581.3.579 .2.1286 Unknown [facility] [id number] Unknown [id number] .840.1.814227.3.579 .2.531 Unknown [id number] 2.840.1.406786.3.579 .2.531 Unknown [id number] 2.840.1.611970.3.579 .2.531 Unknown [id number] 2.840.1.901469.3.579 .2.531 Unknown [id number] 2.16840.1.312665.3.579 .2.531 Unknown [id number] 2.16840.1.660070.3.579 .2.531 Unknown [id number] 2.16840.1.725772.3.579 .2.531 Unknown [id number] 2.840.1.147548.3.579 .2.531 Unknown [id number] 2.16840.1.642506.3.579 .2.531 Social History Date Type Detail Facility Start: 04-18-2023 End: 04-21-2024 Sex Assigned At [facility] [email or web address] Other Start: 1955 Sex Assigned At Female F [facility] Start: 10-10-2022 End: 04-15-2023 Tobacco smoking status MOIS Smoker (finding) [facility] Start: 04-18-2023 End: 06-30-2023 Tobacco smoking status [facility] Smokes tobacco daily [facility] History of tobacco use Cigarette Smoker P [facility] Start: 04-18-2023 End: 06-30-2023 Tobacco use and exposure Smokeless tobacco non-user [facility] Start: 01-16-2024 End: 04-21-2024 Alcoholic beverage intake Current drinker of alcohol (finding) [facility] Start: 04-18-2023 End: 04-21-2024 History of Social function [facility] How often to you hav e a drink containing alcohol? 2-4 times a month [facility] How many standard drinks containing alcohol do you have on a typical day? 1 or 2 [facility] How often do you hav e 6 or more drinks on 1 occasion? Never [facility] Start: 04-18-2023 Alcohol Comment Caffeine intak e: coffee [facility] Start: 1955 Sex assigned at Not on file P [facility] Childcare Unknown [facility] Start: 10-06-2014 Sex Female (finding) [facility] Start: 05-01-2023 End: 06-05-2023 Alcohol intake Ex-drinker (finding) [facility] Procedure Code Equipment Code Equipment Origin al Text Equipment Identifier Dates Trigger finger release Orthopaedic bone screw, non-bioabsorbable, non-sterile [id number] FDA Start: 10-24-2022 Trigger finger release Orthopaedic bone screw, non-bioabsorbable, non-sterile ()[id number] FDA Start: 10-24-2022 Trigger finger release Orthopaedic bone screw, non-bioabsorbable, non-sterile ()[id number] FDA Start: 02-10-2023 Goals Date Patient Goal Desired Activity /State Clinical Notes 07-06-2014 to 04-21-2024 THERESA Martin - 04/21/2024 10:00 AM THERESA Mendes - 04/01/2024 10:45 AM ESTPatient InstructionsTHERESA Baumann - 02/19/2024 2:15 PM ESTPatient InstructionsPatient Instructions Note Date & Type Note Facility 04-21-2024 History of Present illness Narrative Images from the original note were not included. HPI Med Refill Additional comments: Gabapentin, Trazodone, Citalopram, Esomeprazole, Celebrex Trelegy Sinus Problem Additional comments: Admits sinus pressure, headaches, nasal congestion, watery eyes, runny nose, face feels full. Started about a week ago. She has not been taking anything OTC. skin spots Additional comments: She has some red spot on her arms and chest she would like for you to take a look at. Last edited by Cecily Portillo LPN on 04/21/2024 10:19 AM. Subjective Patient ID: Zoë Montero is a 68 y.o. female who presents for Wellness visit Med Refill Associated symptoms include arthralgias, congestion, headaches, myalgias and a rash. Pertinent negatives include no abdominal pain, chest pain, chills, coughing, fatigue, fever, nausea, numbness, sore throat or vomiting. Sinus Problem Associated symptoms include congestion, headaches and sinus pressure. Pertinent negatives include no chills, coughing, ear pain, shortness of breath or sore throat. Medicare Wellness Over the past 2 weeks, how often have you been bothered by any of the following problems? Little interest or pleasure in doing things: Several days (she is currently on medication and it is controlling it) Feeling down, depressed, or hopeless: Several days Patient Health Questionnaire-2 Score: 2 Over the past 2 weeks, how often have you been bothered by any of the following problems? Trouble falling or staying asleep, or sleeping too much: Not at all Feeling tired or having little energy: Not at all Poor appetite or overeating: Not at all Feeling bad about yourself - or that you are a failure or have let yourself or your family down: Not at all Trouble concentrating on things, such as reading the newspaper or watching television: Not at all Moving or speaking so slowly that other people could have noticed? Or the opposite - being so fidgety or restless that you have been moving around a lot more than usual.: Not at all Thoughts that you would be better off or hurting yourself in some way: Not at all Patient Health Questionnaire-9 Score: 2 Marquez Fall Risk History of Falling, Immediate or Within 3 Months: No Health Risk Assessment Form Do you need help eating, bathing, using the toilet, dressing, or getting around your home?: No Can you prepare your own meals?: Yes Can you do your own housework without help?: Yes Can you shop for groceries or clothes without help?: Yes Do you exercise for about 20 minutes 3 or more days a week?: No How confident are you that you can control and manage most of your health problems?: Very confident Can you mange your money, credit cards and accounts, pay bills and taxes?: Yes Vision Screening: Yes, no gross abnormalities Hearing Screening: Yes, no gross abnormalities Cognitive Screening Self Assessment: No overt cognitive deficiency is apparent by direct observation Three Word Registration: Leader, Aurea, Table Clock Drawing: Normal Clock - 2 Three Word Recall: 2/3 words correct - 2 Total Score (0-5 Points): 4 Pain Assessment Pain Score: 5 - Moderate pain Advance Care Planning Do you have a living will?: No Do you have a medical power of qa automation architect?: No Current Outpatient Medications on File Prior to [...] 10 MG tablet every 12 (twelve) hours. cinnamon 500 MG capsule 1 (one) time each day at the same time. hydroCHLOROthiazide (Microzide) 12.5 MG capsule Take 1 capsule by mouth once daily 100 capsule 3 lisinopril 5 MG tablet Take 1 tablet by mouth once daily 100 tablet 3 loratadine (Claritin) 10 MG tablet Take 1 tablet (10 mg) by mouth Daily 90 tablet 3 Multiple Vitamins-Minerals (Centrum Silver Adult 50+) tablet Take by mouth. [DISCONTINUED] celecoxib (CeleBREX) 200 MG capsule Take 1 capsule (200 mg) by mouth in the morning and 1 capsule (200 mg) before bedtime. 180 capsule 0 [DISCONTINUED] citalopram (CeleXA) 40 MG tablet Take 1 tablet by mouth once daily 90 tablet 0 [DISCONTINUED] esomeprazole (NexIUM) [address] capsule Take 1 capsule (40 mg) by mouth in the morning. Take before meals. Do not open capsule.. 90 capsule 3 [DISCONTINUED] Pikhcftjduv-Wlglxzowx-Ctflvy (Trelegy Ellipta) 100-62.5-25 MCG/ACT aerosol powder Inhale 1 Inhalation Daily 3 each 3 [DISCONTINUED] gabapentin (Neurontin) 300 MG capsule Take 1 capsule (300 mg) by mouth in the morning and 1 capsule (300 mg) in the evening and 1 capsule (300 mg) before bedtime. 270 capsule 0 [DISCONTINUED] methylPREDNISolone (Medrol Dospak) 4 MG tablets Follow schedule on package instructions 21 tablet 0 [DISCONTINUED] traZODone (Desyrel) 50 MG tablet TAKE 1 TABLET BY MOUTH AT BEDTIME 90 tablet 0 No current facility-administered medications on file prior to visit. I have reviewed and reconciled the history and medication list with the patient today. Allergies Allergen Reactions Chicken Allergy Egg-Derived Products Unknown Other Reaction(s): hives/dyspnea Fish Allergy Hives Iodine Unknown Povidone-Iodine Rash No dye per pt/pain clinic use Social History Tobacco Use Smoking status: Every [...] injections done by neurology OTHER SURGICAL HISTORY [address] [place]upo [place]cho[place] TOTAL ABDOMINAL HYSTERECTOMY W/ BILATERAL SALPINGOOPHORECTOMY 1992 Visit Vitals BP 138/86 Pulse 66 Resp 16 Ht 5' 3 Wt 150 lb 3.2 oz SpO2 97% BMI 26.61 kg/m Smoking Status Every Day BSA 1.74 m Review of Systems Constitutional: Negative for chills, fatigue and fever. HENT: Positive for congestion, rhinorrhea, sinus pressure and sinus pain. Negative for ear pain and sore throat. Eyes: Positive for discharge (Watery). Negative for pain and visual disturbance. Respiratory: Negative for cough, shortness of breath and wheezing. Cardiovascular: Negative for chest pain, palpitations and leg swelling. Gastrointestinal: Negative for abdominal pain, constipation, diarrhea, nausea and vomiting. Genitourinary: Negative for difficulty urinating, dysuria and frequency. Musculoskeletal: Positive for arthralgias, back pain and myalgias. Skin: Positive for rash. Neurological: Positive for headaches. Negative for dizziness and numbness. Psychiatric/Behavioral: Negative for sleep disturbance. The patient is not nervous/anxious. Objective Physical Exam Constitutional: General: She is not in acute distress. Appearance: Normal appearance. She is well-developed. HENT: Head: Normocephalic and atraumatic. Right Ear: Ear canal normal. A middle ear effusion is present. Left Ear: Ear canal normal. A middle ear effusion is present. Nose: Right Turbinates: Swollen. Left Turbinates: Swollen. Right Sinus: Maxillary sinus tenderness and frontal sinus tenderness present. Left Sinus: Maxillary sinus tenderness and frontal sinus tenderness present. Mouth/Throat: Mouth: Mucous membranes are dry. Pharynx: Posterior oropharyngeal erythema present. Eyes: General: No scleral icterus. Extraocular Movements: Extraocular movements intact. Conjunctiva/sclera: Conjunctivae normal. Pupils: Pupils are equal, round, and reactive to light. Neck: Vascular: No carotid bruit. Cardiovascular: Rate and Rhythm: Normal rate and regular rhythm. Heart sounds: Normal heart sounds. No murmur heard. Pulmonary: Effort: Pulmonary effort is normal. No respiratory distress. Breath sounds: Decreased air movement present. No wheezing, rhonchi or rales. Abdominal: General: Bowel sounds are normal. There is no distension. Palpations: Abdomen is soft. Tenderness: There is no abdominal tenderness. There is no guarding. Musculoskeletal: General: No swelling or deformity. Cervical back: Normal range of motion and neck supple. No tenderness. Comments: Arthritic changes noted of knees and hands Skin: General: Skin is warm and dry. Capillary Refill: Capillary refill takes less than 2 seconds. Findings: No rash. Comments: Superficial hemangiomas noted right forearm and anterior chest Neurological: General: No focal deficit present. Mental Status: She is alert and oriented to person, place, and time. Cranial Nerves: No cranial nerve deficit. Sensory: No sensory deficit. Motor: No weakness. Gait: Gait abnormal. Deep Tendon Reflexes: Reflexes normal. Psychiatric: Mood and Affect: Mood normal. Behavior: Behavior normal. Thought Content: Thought content normal. Judgment: Judgment normal. Assessment & Plan 1. Medicare annual wellness visit, subsequent (Primary) Reviewed all relevant preventative screenings with the patient in detail. Medicare Wellness form completed and will be scanned into patient's chart. All needed testing was ordered. Will continue with yearly Medicare Wellness exams. - CBC and differential - Comprehensive metabolic panel - Hemoglobin A1c - Lipid panel - Vitamin D 25 hydroxy Total 2. ACP (advance care planning) Patient agreed to discuss advance care planning at today's wellness visit. We discussed that an advance directive is a legal document that only goes into effect if the patient is incapacitated and unable to speak for himself or herself. This would help healthcare providers to ensure that the patient gets the care that he or she wishes to receive. The goal is to provide a patient with the best possible quality of life. Encouraged patient to obtain a living will and durable power of qa automation architect for healthcare. We discussed telling bui people about their advance directives such as close family members, and requested a copy to scan into the patient's EHR. An advance directive packet was offered to the patient. 3. Tobacco dependence Discussed smoking cessation with the patient. Encouraged patient to cut back and soon quit smoking. Health risks of smoking, and benefits of quitting reviewed with the patient. Low dose CT ordered. - CT lung screening low dose; Future 4. Primary insomnia This is a chronic medical condition that is stable since last assessment. No changes in treatment are suggested at this time. Continue Trazodone as prescribed. - traZODone (Desyrel) 50 MG tablet; Take 1 tablet (50 mg) by mouth at bedtime Dispense: 90 tablet; Refill: 3 5. Neuralgia of lower extremity This is a chronic medical condition that is stable since last assessment. No changes in treatment are suggested at this time. Continue Gabapentin as prescribed. - gabapentin (Neurontin) 300 MG capsule; Take 1 capsule (300 mg) by mouth in the morning and 1 capsule (300 mg) in the evening and 1 capsule (300 mg) before bedtime. Dispense: 270 capsule; Refill: 1 6. Generalized anxiety disorder (CMS/HCC) This is a chronic medical condition that is stable since last assessment. No changes in treatment are suggested at this time. Continue Citalopram as prescribed. - citalopram (CeleXA) 40 MG tablet; Take 1 tablet (40 mg) by mouth Daily Dispense: 90 tablet; Refill: 3 7. Chronic obstructive pulmonary disease, unspecified COPD type (CMS/HCC) This is a chronic medical condition that is stable since last assessment. No changes in treatment are suggested at this time. Continue Trelegy as prescribed. - Shxvepjhzic-Ylahozexr-Wpqkzr (Trelegy Ellipta) 100-62.5-25 MCG/ACT aerosol powder ; Inhale 1 Inhalation Daily Dispense: 3 each; Refill: 3 8. Gastroesophageal reflux disease without esophagitis This is a chronic medical condition that is stable since last assessment. No changes in treatment are suggested at this time. Continue Nexium as prescribed. - esomeprazole (NexIUM) [address] capsule; Take 1 capsule (40 mg) by mouth in the morning. Take before meals. Do not open capsule.. Dispense: 90 capsule; Refill: 3 9. Degeneration of intervertebral disc of lumbar region This is a chronic medical condition that is stable since last assessment. No changes in treatment are suggested at this time. Continue Celebrex as prescribed, take with food. - celecoxib (CeleBREX) 200 MG capsule; Take 1 capsule (200 mg) by mouth in the morning and 1 capsule (200 mg) before bedtime. Take with food. Dispense: 180 capsule; Refill: 3 10. Benign essential hypertension (CMS/HCC) Patient's blood pressure is currently well controlled. Continue with current medications and I will continue to monitor. - CBC and differential - Comprehensive metabolic panel - Lipid panel 11. Myalgia This is a chronic medical condition that is stable since last assessment. Will check Vitamin D with today's fasting labs. - Vitamin D 25 hydroxy Total 12. Abnormal CBC This is a chronic medical condition that is stable since last assessment. No changes in treatment are suggested at this time. Will recheck with today's fasting labs. - CBC and differential 13. Impaired glucose tolerance This is a chronic medical condition that is stable since last assessment. No changes in treatment are suggested at this time. Will recheck with today's fasting labs. - Comprehensive metabolic panel - Hemoglobin A1c 14. Mixed hyperlipidemia (CMS/HCC) This is a chronic medical condition that is stable since last assessment. No changes in treatment are suggested at this time. Will recheck with today's fasting labs. - CBC and differential - Comprehensive metabolic panel - Lipid panel 15. Acute non-recurrent pansinusitis Start the above as directed. Reviewed potential s/e with patient. Encouraged probiotic while on antibiotic. Increase water intake, get plenty of rest. Can take OTC allergy medication for symptomatic relief. Tylenol/Motrin prn. Follow up if no improvement in one week. - cefdinir (Omnicef) 300 MG capsule; Take 1 capsule (300 mg) by mouth in the morning and 1 capsule (300 mg) before bedtime. Do all this for 7 days. Dispense: 14 capsule; Refill: 0 16. Major depression, single episode, in complete remission (CMS/HCC) This is a chronic medical condition that is stable since last assessment. No changes in treatment are suggested at this time. Continue Citalopram as prescribed. 17. History of hysterectomy Patient is s/p hysterectomy. Denies concerns at this time. 18. Estrogen deficiency This is a chronic medical condition that is stable since last assessment. No changes in treatment are suggested at this time. Will continue to monitor with routine screenings. 19. Seasonal allergic rhinitis due to pollen This is a chronic medical condition that is stable since last assessment. No changes in treatment are suggested at this time. Continue Claritin as prescribed. 20. Traumatic arthritis of right knee The patient is seeing a diploma medical assistant for this condition, treatment is deferred to that specialist. Correspondence from that specialist and any available testing were reviewed during today's visit. 21. Spinal stenosis of lumbar region with neurogenic claudication The patient is seeing a diploma medical assistant for this condition, treatment is deferred to that specialist. Correspondence from that specialist and any available testing were reviewed during today's visit. 22. Postoperative pain of extremity The patient is seeing a diploma medical assistant for this condition, treatment is deferred to that specialist. Correspondence from that specialist and any available testing were reviewed during today's visit. 23. Other idiopathic scoliosis, lumbar region The patient is seeing a diploma medical assistant for this condition, treatment is deferred to that specialist. Correspondence from that specialist and any available testing were reviewed during today's visit. 24. Primary osteoarthritis involving multiple joints This is a chronic medical condition that is stable since last assessment. No changes in treatment are suggested at this time. Continue Celebrex as prescribed. 25. Lumbosacral spondylosis without myelopathy The patient is seeing a diploma medical assistant for this condition, treatment is deferred to that specialist. Correspondence from that specialist and any available testing were reviewed during today's visit. 26. Heberden's nodes This is a chronic medical condition that is stable since last assessment. No changes in treatment are suggested at this time. Continue Celebrex as prescribed. 27. Arthropathy of hand This is a chronic medical condition that is stable since last assessment. No changes in treatment are suggested at this time. Continue Celebrex as prescribed. 28. Arthritis of carpometacarpal (CMC) joint of left thumb This is a chronic medical condition that is stable since last assessment. No changes in treatment are suggested at this time. Continue Celebrex as prescribed. 29. Irritable bowel syndrome, unspecified type This is a chronic medical condition that is stable since last assessment. No changes in treatment are suggested at this time. 30. History of colon polyps This is a chronic medical condition that is stable since last assessment. Continue to monitor with routine Colonoscopy. 31. Arteriosclerosis of both carotid arteries This is a chronic medical condition that is stable since last assessment. No changes in treatment are suggested at this time. Continue baby Aspirin as prescribed. 32. Pulmonary emphysema, unspecified emphysema type (CMS/HCC) This is a chronic medical condition that is stable since last assessment. No changes in treatment are suggested at this time. Continue Trelegy as prescribed. 33. Other specified mononeuropathies of left lower limb The patient is seeing a diploma medical assistant for this condition, treatment is deferred to that specialist. Correspondence from that specialist and any available testing were reviewed during today's visit. 34. ANAND (obstructive sleep apnea) This is a chronic medical condition that is stable since last assessment. No changes in treatment are suggested at this time. 35. Pulmonary fibrosis, unspecified (CMS/HCC) This is a chronic medical condition that is stable since last assessment. No changes in treatment are suggested at this time. Continue Trelegy as prescribed. 36. Hemangioma of skin Reassurance given that these are likely benign hemangiomas. Continue to monitor. Can refer pt to Dermatology int he future if needed for further evaluation. Follow up in about 1 year (around 04/21/2025) for Medicare Wellness Visit. Heidi HASSAN, PAPepperC documented in this encounter [facility] 04-01-2024 History of Present illness Narrative [facility] [address] [place] [address] Patient: Zoë Montero Sex: female : 1955 Age: 68 y.o. PCP: ADRIAN LYNN MD 04/01/2024 Zoë Montero is here for a(n) follow up for back pain left knee pain. Patient currently in PT and has completed about 10 sessions(Mick) with no relief. Obie also has right knee pain that is worsening. Chief Complaint Patient presents with Back Pain Knee Pain HPI: Physical therapy 03/2024 and continues. No noticeable improvement as of this visit. Back: 07-04-23 Caudal with 60% relief (none now). 08/22/23 [...] before treatment: 8/10 Pain scale after treatment: 3-06/1012/12/23 Right L4/5 5/1 RFA 60% relief that continues Pain scale before treatment: 8/10 Pain scale after treatment: 3-06/10 Knee Pain The incident occurred more than 1 week ago. There was no injury mechanism. The pain is present in the left knee. The quality of the pain is described as stabbing, shooting, aching, burning and cramping. The pain is at a severity of 6/10. The pain is moderate. The pain has been Worsening since onset. Associated symptoms include muscle weakness (bilateral knee pain) and numbness (RLE constant lateral hip to knee, bilateral toes and hands). Pertinent negatives include no tingling. Associated symptoms comments: Mobility is an issue . She reports no foreign bodies present. The symptoms are aggravated by weight bearing, palpation and movement. Treatments tried: Voltaren gel OTC with minimal relief; Did not use ice as directed; celebrex, gabapentin with no relief. The treatment provided mild relief. Back Pain This is a chronic problem. The current episode started more than 1 year ago (flared (Jan 2023)). The problem occurs constantly. The problem is unchanged. The pain is present in the lumbar spine, gluteal and sacro-iliac (left). The quality of the pain is described as aching, shooting and stabbing (left side irritating). The pain does not radiate. The pain is at a severity of 2/10. The pain is moderate. Worse during: varies depending on pt activity. The symptoms are aggravated by bending, lying down, coughing, position, sitting, standing, stress and twisting. Stiffness is present: occasionally. Associated symptoms include leg pain (RLE lateral thigh to knee), numbness (RLE constant lateral hip to knee, bilateral toes and hands) and weakness (BLE). Pertinent negatives include no abdominal pain, bladder incontinence, bowel incontinence, chest pain, fever or tingling. Risk factors include poor posture. She has tried chiropractic manipulation and home exercises (Prev Injs years ago, Prev PT, massage, baclofen, gabapentin, trazodone, icyhot, salonpas: PT May 24-current no relief) for the symptoms. The treatment provided mild relief. The effect of pain on patient's ADLS: Moderate Impairment. Past Medical History: Diagnosis Date Allergic rhinitis, seasonal Anxiety Arteriolosclerosis bilat carotids Arthritis Cervical cancer ([facility]) Chronic pain disorder Cigarette nicotine dependence COPD (chronic obstructive pulmonary disease) ([facility] [place] Depression Estrogen deficiency Full dentures GERD (gastroesophageal [...] 07/04/2023 Performed by Hill Sy MD at [facility] INJECTION BLOCK NERVE MEDIAL BRANCH: bilat L 4/5, 5/1 Bilateral 10/03/2023 Performed by Hill Sy MD at [facility] INJECTION BLOCK NERVE MEDIAL BRANCH: bilat L 4/5, 5/1 Bilateral 08/22/2023 Performed by Hill Sy MD at [facility] NOSE SURGERY RADIOFREQUENCY ABLATION SPINAL: right L 4/5, 5/ Right 12/12/2023 Performed by Hill Sy MD at [facility] RADIOFREQUENCY ABLATION SPINAL: left L 4/5, 5/1 Left 11/28/2023 Performed by Hill Sy MD at [facility] Allergies Allergen Reactions Chicken Derived Hives Oomo-Zeezgc-Lmxj [Nutritional Supplement-Fiber] Hives dyspnea Fish Containing Products Hives Povidone-Iodine Rash No dye per pt/pain clinic use Family History Problem Relation Age of Onset [...] on file Food Insecurity: No Food Insecurity (04/01/2024) Hunger Screening Food Insecurity - Worry: Never True Food Insecurity - Inability: Never True Transportation Needs: Not on file Physical Activity: Not on file Stress: Not on file Social Connections: Not on file Interpersonal Safety: Not on file Housing Instability: Not on file Review of Systems Constitutional: Negative. Negative for chills, fatigue and fever. HENT: Negative. Negative for congestion. Eyes: Negative. Respiratory: Negative. Negative for cough and shortness of breath. Cardiovascular: Negative. Negative for chest pain. Gastrointestinal: Negative. Negative for abdominal pain and bowel incontinence. Endocrine: Negative. Genitourinary: Negative. Negative for bladder incontinence. Musculoskeletal: Positive for arthralgias (left knee), back pain and gait problem (fall 03/31/24 dressing). Skin: Negative. Negative for rash and wound. Allergic/Immunologic: Negative. Neurological: Positive for weakness (BLE) and numbness (RLE constant lateral hip to knee, bilateral toes and hands). Negative for tingling. Hematological: Negative. Does not bruise/bleed easily. Psychiatric/Behavioral: Negative. Negative for self-injury and suicidal ideas. Vital Signs: BP 125/75 Pulse 83 Resp 18 Ht 157.5 cm (5' 2 ) Wt 67.1 kg (148 lb) SpO2 95% BMI 27.07 kg/m Physical Exam: GENERAL - Healthy patient [...] warm, with minimal edema and palpable pulses. No significant tenderness to palpation noted in the lumbar spine and paraspinal musculature. Mild pain is elicited with flexion, extension, and lateral rotation of the lumbar spine. Range of motion is not diminished with these motions. Facet palpation is negative for significant pain and facet loading maneuvers elicit only mild pain that is not concordant with the patient s normal [...] all dermatomal distributions. Straight Leg Raise is negative bilaterally. Tenderness to palpation is noted over the Left SacroIliac Joint: Fabere sign (Aiden's Test) is significantly positive, as is compression and distraction of the sacroiliac joints, which is consistent with some of the patient's normal pain. Hyperalgesia is noted over the Left cluneal nerve distribution. Distal Joint Exam - Lower Extremity: SKIN [...] in the overlying dermatomal distributions. Gait remains antalgic. Examination of the Right knee reveals tenderness to palpation over the [...] Plan: Zoë was seen today for back pain and knee pain. Diagnoses and all orders for this visit: Other specified mononeuropathies of left lower limb - Case request operating room: INJECTION BLOCK NERVE: left cluneal Chronic pain of right knee - MR knee right without contrast; Future Right Knee MRI - It is felt that additional [...] the patient s activities of daily living Left Cluneal Nerve Block - under fluoroscopy It is hopeful that the described procedure will provide symptomatic pain relief. It is felt to be medically necessary noting that the patient has tried and failed more conservative modalities of therapy and this is the next most appropriate step. The procedure was described in detail to the patient as well as the potential benefits of pain reduction alongside risks of the procedure and alternatives. Risks were described as including, but not limited to bleeding, infection, nerve damage, spinal cord injury, paralysis, stroke, dural puncture headache, and medication reaction. The patient expressed understanding regarding the risks and benefits and wishes to proceed. Cluneal nerve injections should provide information to confirm that the cluneal nerves are the patient s most significant pain generator. If this provides significant but only temporary pain relief, the patient may in the future be a candidate for radiofrequency denervation of the cluneal nerves to provide pain relief for approximately 1 year. Follow up 2 weeks after procedure The medications prescribed have been reviewed for [...] but not opted for at this time: Knee injection. Patient would like to proceed with the current outlined treatment plan before moving forward with any other options. The spine model was demonstrated and Xray and MRI was reviewed and used to explain the condition. Chronic conditions not treated during this visit that affected my overall medical decision making: Comorbidity- COPD The patient has a history of chronic obstructive pulmonary disease. Due to this reason, special consideration will need to be given to the prescription of narcotics in that they may depress respiratory function and lead to respiratory insufficiency or failure. Consideration will also be given to procedure safety in that sedation is used in the outpatient setting for any planned procedure. These records will be available to the anesthesiologist to tailor a safe anesthetic for the procedure. The patient will also be observed closely in the recovery area and may even require admission if they remain overly sedated for an extended period of time and cannot maintain an airway. These preparations will be made as necessary. Comorbidity- Depression The patient has an ongoing issue with depression and currently feels these symptoms are under control and further feels that appropriate pain management would also help these symptoms. The patient is optimistic about the treatment plan we have laid out. We will continue to monitor these symptoms and remain cogniscent that they may affect the patients perceived improvement from the treatment and willingness to pursue further treatment. At this time the patient appears to be mentally and emotionally stable to undergo procedural and medical therapy. If any warning signs become present, I may refer the patient to a mental health professional for further evaluation. OARRS: Reviewed. Scribe Statement: Therese Chris CNA, scribed for and in the presence of THERESA BAUMANN who performed the above service. Provider Statement: NIKKI Chris PA, personally performed the services described in the documentation, as scribed by Therese Sandhu CNA in my presence, and it is both accurate and complete. Therese Sandhu CNA 04/01/24 1141 THERESA Baumann 04/01/24 1201 documented in this encounter [facility] 04-01-2024 Instructions Therese SandhuTAHMINA - 04/01/2024 10:45 AM EST Facet Injection / Medial Branch Block (MBB) / Sacroiliac (SI) Joint Injection / Cluneal NB A facet injection and sacroiliac joint injection are injections of local anesthetic and steroid into a joint in the spine. A medial branch block is similar, but the medication is placed outside the joint space near the nerve that supplies the joint called the medial branch (steroid may or may not be used). You may require multiple injections depending upon how many joints are involved. How Long Will This Procedure Last? The extent and duration of pain relief may depend on the amount of inflammation and how many areas are involved. Other coexisting factors may be responsible for your pain. If your pain goes away for a short time, but then returns, you may be a candidate for radiofrequency ablation (RFA). Activity Be active. Attempt activities and movements that typically cause pain to see if it feels better while doing them. We will give you a pain diary. Please fill this out as directed by your nurse in pre-op. This will help your doctor determine the effectiveness of the injection, and how to proceed. Bring the pain diary with you to your follow-up appointment. Medications You should not take your pain medications for 4-6 hours before or after the injection in order to properly diagnose if the injection provides adequate relief. Resume your routine medications after your procedure. You may resume blood thinners per your regular schedule after the procedure. If you received sedation: If you received sedation for your procedure, you may feel sleepy or not yourself for several hours today. For the next 24 hours avoid activities that requires alertness or coordination. This includes: Driving or operating heavy machinery Using power tools Consuming alcohol Do not make important or complex decisions or sign legal documents in the next 24 hours. Other Instructions: If you feel severe pain at the injection site with swelling and redness, increased leg weakness, a fever of 101 or higher, headache (or worsening headache), changes in vision or urinary retention: Please call the office at , or have someone take you to the nearest emergency room. Tell the emergency room staff that you recently had a spine injection. A doctor must evaluate you for bleeding and injection complications. If you lose control over bowel, bladder, or legs: Go to the nearest emergency room. documented in this encounter [facility] 02-19-2024 History of Present illness Narrative [facility] [address] [place] [address] Patient: Zoë Montero Sex: female : 1955 Age: 68 y.o. PCP: ADRIAN LYNN MD 02/19/2024 Zoë Montero is here for a one month follow up after completing bilateral knee x-rays. Patient used Voltaren gel with minimal relief. She did not use ice as suggested at last office visit. Chief Complaint Patient presents with Knee Pain HPI: Physical therapy started in May and continues. No noticeable improvement as of this visit. Back: 07-04-23 Caudal with 60% relief (none now). 08/22/23 Bilateral L4/5, 5/1 MBB with 80% relief for 6 days. Pre-proc pain 6/10 post proc -04/1210/03/23 Bilateral L4/5, 5/1 MBB with 90% relief for 6 days then by day 7 baseline pain of 6/10. Pre-proc pain 6/10 post proc /. 11/28/23 Left L4/5 5/1 RFA 50% relief that continues Pain scale before treatment: 8/10 Pain scale after treatment: 3-4/10 12/12/23 Right L4/5 5/1 RFA 60% relief that continues Pain scale before treatment: 8/10 Pain scale after treatment: 3-4/10 Knee Pain The incident occurred more than 1 week ago. There was no injury mechanism. The pain is present in the left knee and right knee. The quality of the pain is described as stabbing, shooting, aching, burning and cramping. The pain is at a severity of 7/10. The pain is moderate. The pain has been Worsening since onset. Associated symptoms include muscle weakness (bilateral knee pain) and numbness (RLE constant and right knee, bilateral toes and hands). Pertinent negatives include no tingling. She reports no foreign bodies present. The symptoms are aggravated by weight bearing, palpation and movement. Treatments tried: Voltaren gel OTC with minimal relief; Did not use ice as directed; celebrex, gabapentin with no relief. Back Pain This is a chronic problem. The current episode started more than 1 year ago (years ago, flare up 4 months ago (Jan 2023)). The problem occurs constantly. The problem is unchanged. The pain is present in the lumbar spine, gluteal and sacro-iliac (left). The quality of the pain is described as aching, shooting and stabbing (left side irritating). The pain does not radiate. The pain is at a severity of 4/10. The pain is moderate. Worse during: varies depending on pt activity. The symptoms are aggravated by bending, lying down, coughing, position, sitting, standing, stress and twisting. Stiffness is present: occasionally. Associated symptoms include leg pain (bilateral thighs anterior), numbness (RLE constant and right knee, bilateral toes and hands) and weakness (BLE). Pertinent negatives include no abdominal pain, bladder incontinence, bowel incontinence, chest pain, fever or tingling. (Constant Right lateral thigh numbness) She has tried chiropractic manipulation and home exercises (Prev Injs years ago, Prev PT, massage, baclofen, gabapentin, trazodone, icyhot, salonpas: PT May 24-current no relief) for the symptoms. The treatment provided mild relief. The effect of pain on patient's ADLS: Moderate Impairment. Past Medical History: Diagnosis Date Allergic rhinitis, seasonal Anxiety Arteriolosclerosis bilat carotids Arthritis Cervical cancer ([facility]) Chronic pain disorder Cigarette nicotine dependence COPD (chronic obstructive pulmonary disease) ([facility] [place] Depression Estrogen deficiency Full dentures GERD (gastroesophageal [...] 07/04/2023 Performed by Hill Sy MD at [facility] INJECTION BLOCK NERVE MEDIAL BRANCH: bilat L 06/05, 5/1 Bilateral 10/03/2023 Performed by Hill Sy MD at [facility] INJECTION BLOCK NERVE MEDIAL BRANCH: bilat L 4/5, 5/1 Bilateral 08/22/2023 Performed by Hill Sy MD at [facility] NOSE SURGERY RADIOFREQUENCY ABLATION SPINAL: right L 4/5, 5/1 Right 12/12/2023 Performed by Hill Sy MD at [facility] RADIOFREQUENCY ABLATION SPINAL: left L 4/5, 5/1 Left 11/28/2023 Performed by Hill Sy MD at [facility] Allergies Allergen Reactions Chicken Derived Hives Tzqa-Juwnsl-Ahje [Nutritional Supplement-Fiber] Hives dyspnea Fish Containing Products [...] on file Food Insecurity: No Food Insecurity (02/19/2024) Hunger Screening Food Insecurity - Worry: Never [...] self-injury and suicidal ideas. Vital Signs: BP 146/75 (BP Site: Left Arm, BP Postition: Sitting) Pulse 61 Resp 20 Physical Exam: GENERAL - Healthy patient that [...] distributions. Gait remains normal. Examination of the Right knee reveals tenderness to palpation over the [...] Assessment/Treatment Plan: Zoë was seen today for knee pain. Diagnoses and all orders for this visit: Chronic pain of right knee - Ambulatory referral to Physical Therapy; Future Physical/Aquatic Therapy - It is felt [...] clinic updated to the patient s progress. Follow up in 4-6 weeks The medications I have prescribed have been [...] but not opted for at this time: knee injections. Patient would like to proceed with the current outlined treatment plan before moving forward with any other options. The spine model was demonstrated and knee Xray was reviewed and used to explain the condition. Chronic conditions not treated during this visit that affected my overall medical decision making: Anxiety, Depression. OARRS: Reviewed. Scribe Statement: Scribed for and in the presence of THERESA BAUMANN by Alpa Santos RN. Provider Statement: I, THERESA BAUMANN, personally performed the services described in the documentation, as scribed by Alpa Santos RN in my presence, and it is both accurate and complete. Alpa Santos RN 02/19/24 1534 THERESA Baumann 02/19/24 1605 documented in this encounter [facility] 02-19-2024 Instructions Alpa Santos RN - 02/19/2024 2:15 PM EST Begin physical therapy as ordered. Follow up in our office in 4-6 weeks. documented in this encounter [facility] 01-16-2024 History of Present illness Narrative Images [...] Do not open capsule.. 90 capsule 3 Zsnyiyarrmq-Knyfmntyj-Qjanrl (Trelegy Ellipta) 100-62.5-25 MCG/ACT aerosol powder Inhale [...] injections done by neurology OTHER SURGICAL HISTORY [address] [place] TOTAL ABDOMINAL HYSTERECTOMY W/ BILATERAL SALPINGOOPHORECTOMY 1992 [...] all orders for this visit: COPD exacerbation (CMS/HCC) - cefdinir (Omnicef) 300 MG capsule; Take [...] Medicare Wellness Visit. documented in this encounter [facility] 01-13-2024 History of Present illness Narrative [facility] [address] [place] [address] Patient: Zoë Montero Sex: female : 1955 [...] noticeable improvement as of this visit. Back: 5-3-24 Caudal with 60% relief (none now). 08/22/23 Bilateral L4/5, 5/1 MBB with 80% relief for 6 days. Pre-proc pain 6/10 post proc 1-04/1210/03/23 Bilateral L4/5, 5/1 MBB with 90% relief for 6 days then by day 7 baseline pain of 6/10. Pre-proc pain 6/10 post proc 03/12. 11/28/23 Left L4/5 5/1 RFA 50% relief that continues Pain scale before treatment: 8/10 Pain scale after treatment: 3-06/1012/12/23 Right L4/5 5/1 RFA 60% relief that continues Pain scale before treatment: 8/10 Pain scale after treatment: 3-06/10 Back Pain This is a chronic problem. [...] Arteriolosclerosis bilat carotids Arthritis Cervical cancer ([facility] [place] Chronic pain disorder Cigarette nicotine dependence COPD (chronic obstructive pulmonary disease) ([facility] [place]) Depression Estrogen deficiency Full dentures GERD (gastroesophageal [...] 07/04/2023 Performed by Hill Sy MD at [facility] INJECTION BLOCK NERVE MEDIAL BRANCH: bilat L 4/5, 5/1 Bilateral 10/03/2023 Performed by Hill Sy MD at [facility] INJECTION BLOCK NERVE MEDIAL BRANCH: bilat L 4/5, 5/1 Bilateral 08/22/2023 Performed by Hill Sy MD at [facility] NOSE SURGERY RADIOFREQUENCY ABLATION SPINAL: right L 4/5, 5/1 Right 12/12/2023 Performed by Hill Sy MD at [facility] RADIOFREQUENCY ABLATION SPINAL: left L 4/5, 5/1 Left 11/28/2023 Performed by Hill Sy MD at [facility] Allergies Allergen Reactions Chicken Derived Hives Eezi-Yxtxdx-Izxn [Nutritional Supplement-Fiber] Hives dyspnea Fish Containing Products [...] Baumann 01/13/24 1119 documented in this encounter [facility] 10-30-2023 History of Present illness Narrative [facility] [address] [place] [address] Patient: Zoë Montero Sex: female : 1955 Age: 68 y.o. PCP: ADRIAN LYNN MD 10/30/2023 Zoë Montero is here for a(n) 10/03/23 Bilateral L4/5, 5/1 MBB with 90% relief for 6 days then by day 7 baseline pain of 6/10. Pre-proc pain 6/10 post proc 03/12.. Date of onset of pain: 01/23 , pain has lasted greater than 3 months. Pain scale before treatment: 6/10 Pre-op pain score: 6/10 Post-op pain score: 1 /10 2 hour post-op pain score: 1/10 4 hour post-op pain score: 1/10 Percentage of relief after and duration: 90% for 6 days Pain scale after treatment: 6/10 Chief Complaint Patient presents with Back Pain HPI: Physical therapy started in May and continues. No noticeable improvement as of this visit. Back: 5-- Caudal with 60% relief (none now). 08/22/23 Bilateral L4/5, 5/1 MBB with 80% relief for 6 days. Pre-proc pain 6/10 post proc -04/1210/03/23 Bilateral L4/5, 5/1 MBB with 90% relief for 6 days then by day 7 baseline pain of 6/10. Pre-proc pain 6/10 post proc 03/12. Back Pain This is a chronic problem. The current episode started more than 1 year ago (years ago, flare up 4 months ago (Jan 2023)). The problem occurs constantly. The problem is unchanged. The pain is present in the lumbar spine, gluteal and sacro-iliac. The quality of the pain is described as shooting, burning and aching (throbbing Left lumbar). Radiates to: BLE lateral to knee with [...] Associated symptoms include leg pain (bilateral thighs anterior/posterior), numbness (RLE constant), tingling (RLE) and weakness (BLE). Pertinent negatives include no bladder incontinence, bowel incontinence, chest pain or fever. (BLE lateral to knee with cramping and in left hip) She has tried chiropractic manipulation and home exercises (Prev Injs years ago, Prev PT, massage, baclofen, gabapentin, trazodone, icyhot, salonpas: PT May 24-current no relief) for the symptoms. The treatment provided mild relief. The effect of pain on patient's ADLS: Moderate Impairment. Past Medical History: Diagnosis Date Allergic rhinitis, seasonal Anxiety Arteriolosclerosis bilat carotids Arthritis Cervical cancer ([facility]) Chronic pain disorder Cigarette nicotine dependence COPD (chronic obstructive pulmonary disease) ([facility]) Depression Estrogen deficiency Full dentures GERD (gastroesophageal [...] 07/04/2023 Performed by Hill Sy MD at [facility] INJECTION BLOCK NERVE MEDIAL BRANCH: bilat L 4/5, 5/1 Bilateral 10/03/2023 Performed by Hill Sy MD at [facility] INJECTION BLOCK NERVE MEDIAL BRANCH: bilat L 4/5, 5/1 Bilateral 08/22/2023 Performed by Hill Sy MD at [facility] NOSE SURGERY Allergies Allergen Reactions Chicken Derived Hives Tcsv-Izgaol-Pyvn [Nutritional Supplement-Fiber] Hives dyspnea Fish Containing Products [...] on file Food Insecurity: No Food Insecurity (10/30/2023) Hunger Screening Food Insecurity - Worry: Never True Food Insecurity - Inability: Never True Transportation Needs: Not on file Physical Activity: Not on file Stress: Not on file Social Connections: Not on file Interpersonal Safety: Not on file Housing Instability: Not on file Review of Systems Constitutional: Negative. Negative for chills, fatigue and fever. HENT: Negative. Eyes: Negative. Respiratory: Negative. Negative for cough and shortness of breath. Cardiovascular: Negative. Negative for chest pain. Gastrointestinal: Negative. Negative for bowel incontinence. Genitourinary: Negative. Negative for bladder incontinence. Musculoskeletal: Positive for back pain. Negative for gait problem. Skin: Negative. Negative for rash and wound. Neurological: Positive for tingling (RLE), weakness (BLE) and numbness (RLE constant). Hematological: Negative. Does not bruise/bleed easily. Psychiatric/Behavioral: Negative. Negative for self-injury and suicidal ideas. Vital Signs: BP 155/86 Pulse 55 Resp 18 Ht 157.5 cm (5' 2 ) Wt 65.8 kg (145 lb) SpO2 99% BMI 26.52 kg/m Physical Exam: GENERAL - [...] pain. Facet palpation is noted to be painful and facet loading maneuvers elicit pain that is concordant with the patient s normal pain complaints. Some muscle spasm is noted in the overlying musculature. STRENGTH - noted to be 5 out of 5 all muscle groups bilateral lower extremities including muscles involving hip flexion and abduction, knee flexion and extension, as well as foot dorsiflexion and plantarflexion. No notable atrophy, fasciculations or spasm. SENSORY - No notable sensory deficits in the bilateral lower extremities to touch or pinprick in all dermatomal distributions. Straight Leg Raise is negative bilaterally. Gait is normal. Assessment/Treatment Plan: Zoë was seen today for back pain. Diagnoses and all orders for this visit: Lumbosacral spondylosis without myelopathy - Case request operating room: RADIOFREQUENCY ABLATION SPINAL: left L45 51 - Case request operating room: RADIOFREQUENCY ABLATION SPINAL: right L4 51 Left then Right L4/5, 5/1 Facet Radiofrequency Ablation - under fluoroscopy It is hopeful that the described procedure will provide symptomatic pain relief. It is felt to be medically necessary noting that the patient has tried and failed more conservative modalities of therapy and this is the next most appropriate step. The procedure was described in detail to the patient as well as the potential benefits of pain reduction alongside risks of the procedure and alternatives. Risks were described as including, but not limited to bleeding, infection, nerve damage, spinal cord injury, paralysis, stroke, dural puncture headache, and medication reaction. The patient expressed understanding regarding the risks and benefits and wishes to proceed. The patient has undergone diagnostic injections targeting the above mentioned facet joints. There was significant improvement in the patient s pain and functionality for the duration of the local anesthetic (approximately 2 hours) with return of the original symptoms after that time. For this reason, it is felt that the patient is a good candidate to undergo thermal Radio Frequency Lesioning of the Medial Branch Nerves at 80 degrees celsius for 90 seconds. This will effectively denervate the arthritic facet joints previously targeted with the diagnostic injection. It is noted that the procedure often requires 3-4 weeks to provide benefit, but the benefit usually lasts for approximately 1 year and can then be repeated if necessary. Patients undergoing this procedure often have mild post-procedural pain for 3-4 days which is generally relieved with application of heat and over the counter pain relievers. Follow up 4 weeks after procedure The medications prescribed have been reviewed for [...] prescribe any controlled substance from this practice. The spine model was demonstrated and MRI was reviewed and used to explain the condition. Chronic conditions not treated during this visit that affected my overall medical decision making: Comorbidity- Anxiety The patient describes a significant issue with anxiety. Although treatment is helpful with this regard, the patient is likely need special accommodation due to this condition. For this reason, necessary procedures will likely need to be performed under sedation to decrease procedural anxiety. Comorbidity- Depression The patient has an ongoing issue with depression and currently feels these symptoms are under control and further feels that appropriate pain management would also help these symptoms. The patient is optimistic about the treatment plan we have laid out. We will continue to monitor these symptoms and remain cogniscent that they may affect the patients perceived improvement from the treatment and willingness to pursue further treatment. At this time the patient appears to be mentally and emotionally stable to undergo procedural and medical therapy. If any warning signs become present, I may refer the patient to a mental health professional for further evaluation. Comorbidity- COPD The patient has a history of chronic obstructive pulmonary disease. Due to this reason, special consideration will need to be given to the prescription of narcotics in that they may depress respiratory function and lead to respiratory insufficiency or failure. Consideration will also be given to procedure safety in that sedation is used in the outpatient setting for any planned procedure. These records will be available to the anesthesiologist to tailor a safe anesthetic for the procedure. The patient will also be observed closely in the recovery area and may even require admission if they remain overly sedated for an extended period of time and cannot maintain an airway. These preparations will be made as necessary. OARRS: Reviewed. Scribe Statement: Scribed for and in the presence of THERESA BAUMANN by Therese Sandhu CNA. Provider Statement: I, THERESA BAUMANN, personally performed the services described in the documentation, as scribed by Therese Sandhu CNA in my presence, and it is both accurate and complete. Therese Sandhu CNA 10/30/23 0921 THERESA Baumann 10/30/23 1404 documented in this encounter [facility] 10-30-2023 Instructions Therese Sandhu CNA - 10/30/2023 8:45 AM EDT Radiofrequency Ablation (RFA) Radiofrequency ablation (or RFA) is a procedure used to reduce pain. An electrical current produced by a radio wave is used to heat up a small area of nerve tissue, thereby decreasing pain signals from that specific area. Which Conditions Are Treated With Radiofrequency Ablation? RFA can be used to help patients with chronic (long-lasting) back and neck pain and pain related to the degeneration of joints from arthritis. How Long Does Pain Relief from Radiofrequency Ablation Last? The degree of pain relief varies, depending on the cause and location of the pain. Pain relief from RFA can last from six to 12 months and in some cases, relief can last for years. More than 70% of patients treated with RFA experience pain relief. Is Radiofrequency Ablation Safe? RFA has proven to be a safe and effective way to treat some forms of pain. It also is generally well-tolerated, with very few associated complications. There is a slight risk of infection and bleeding at the insertion site. Your doctor can advise you about your particular risk. Can I Resume My Normal Activities After Radiofrequency Ablation? You will have a few restrictions immediately following radiofrequency ablation: Do not drive or operate machinery for at least 24 hours after the procedure. You may resume your normal diet and prescribed medications (including blood thinners) when you get home. Do not engage in any strenuous activity for the first 24 hours after the procedure. You may remove any bandages in the evening before going to bed. You may experience the following effects after RFA: Leg numbness: If you have any leg numbness, walk only with assistance. This should only last a few hours and is due to the local anesthesia given during the procedure. Mild back discomfort: This may occur when the local anesthetic wears off and usually lasts two or three days. Apply heat to the area the day of the procedure and the day after the procedure. You may also use your usual pain medications and NSAID medications such as ibuprofen, naproxen, Aleve, Motrin, etc. if you are able. Expectations: Results will be gradual. It may take 3-4 weeks for full relief. If you feel severe pain at the injection site with swelling and redness, increased leg weakness, a fever of 101 or higher, headache (or worsening headache), changes in vision or urinary retention: Please call the office at , or have someone take you to the nearest emergency room. Tell the emergency room staff that you just had RFA. A doctor must evaluate you for bleeding and injection complications. If you lose control over bowel, bladder, or legs: Go to the nearest emergency room. If you are diabetic, the steroids used in this procedure can increase your blood sugar. If your blood sugar is 250mg/dL or higher, contact your primary care physician, or the doctor who manages your diabetes, to discuss how to get it back to normal. documented in this encounter [facility] 09-11-2023 History of Present illness Narrative [facility] [address] [place] [address] Patient: Zoë Montero Sex: female : 1955 Age: 68 y.o. PCP: ADRIAN LYNN MD 09/11/2023 Zoë Montero is here for a(n) post procedure follow up 08/22/23 Bilateral L4/5, 5/1 MBB with 80% relief for 6 days.. . Date of onset of pain: 01/2023 , pain has lasted greater than 3 months. Pain scale before treatment: 6/10 Pre-op pain score: 6/10 Post-op pain score: 6/10 2 hour post-op pain score: 1-2/10 4 hour post-op pain score: 1-2/10 Percentage of relief after and duration: see above Pain scale after treatment: 6/10 today Chief Complaint Patient presents with Back Pain HPI: Physical therapy started in May and continues. No noticeable improvement as of this visit. Back: 5-3-24 Caudal with 60% relief (none now). 08/22/23 Bilateral L4/5, 5/1 MBB with 80% relief for 6 days. Pre-proc pain 6/10 post proc 1-2/10 Back Pain This is a chronic problem. The current episode started more than 1 year ago (years ago, flare up 4 months ago (Jan 2023)). The problem occurs constantly. The problem is unchanged. The pain is present in the lumbar spine, gluteal and sacro-iliac. The quality of the pain is described as shooting, burning and aching (throbbing Left lumbar). Radiates to: BLE lateral to knee with [...] Associated symptoms include leg pain (bilateral thighs anterior/posterior), numbness (RLE constant), tingling (RLE) and weakness (BLE). Pertinent negatives include no bladder incontinence, bowel incontinence, chest pain or fever. (BLE lateral to knee with cramping and in left hip) She has tried chiropractic manipulation and home exercises (Prev Injs years ago, Prev PT, massage, baclofen, gabapentin, trazodone, icyhot, salonpas: PT May 24-current no relief) for the symptoms. The treatment provided mild relief. The effect of pain on patient's ADLS: Moderate Impairment. Past Medical History: Diagnosis Date Allergic rhinitis, seasonal Anxiety Arteriolosclerosis bilat carotids Arthritis Cervical [place] [place] Chronic pain disorder Cigarette nicotine dependence COPD (chronic obstructive pulmonary disease) ([facility] [place]) Depression Estrogen deficiency Full dentures GERD (gastroesophageal [...] 07/04/2023 Performed by Hill Sy MD at [facility] INJECTION BLOCK NERVE MEDIAL BRANCH: bilat L 06/05, 07/01 Bilateral 08/22/2023 Performed by Hill Sy MD at [facility] Allergies Allergen Reactions Chicken Derived Hives [id number] [Nutritional Supplement-Fiber] Hives dyspnea Fish Containing Products [...] on file Food Insecurity: No Food Insecurity (09/11/2023) Hunger Screening Food Insecurity - Worry: Never True Food Insecurity - Inability: Never True Transportation Needs: Not on file Physical Activity: Not on file Stress: Not on file Social Connections: Not on file Interpersonal Safety: Not on file Housing Instability: Not on file Review of Systems Constitutional: Negative. Negative for chills, fatigue and fever. HENT: Negative. Eyes: Negative. Respiratory: Negative. Negative for cough and shortness of breath. Cardiovascular: Negative. Negative for chest pain. Gastrointestinal: Negative. Negative for bowel incontinence. Genitourinary: Negative. Negative for bladder incontinence. Musculoskeletal: Positive for back pain. Negative for gait problem. Skin: Negative. Negative for rash and wound. Neurological: Positive for tingling (RLE), weakness (BLE) and numbness (RLE constant). Hematological: Negative. Psychiatric/Behavioral: Negative. Negative for self-injury and suicidal ideas. Vital Signs: BP 133/66 Pulse 61 Resp 18 Ht 160 cm (5' 3 ) Wt 64.9 kg (143 lb) SpO2 98% BMI 25.33 kg/m Physical Exam: GENERAL - Healthy patient [...] pain. Facet palpation is noted to be painful and facet loading maneuvers elicit pain that is concordant with the patient s normal pain complaints. Some muscle spasm is noted in the overlying musculature. STRENGTH - noted to be 5 out of 5 all muscle groups bilateral lower extremities including muscles involving hip flexion and abduction, knee flexion and extension, as well as foot dorsiflexion and plantarflexion. No notable atrophy, fasciculations or spasm. SENSORY - No notable sensory deficits in the bilateral lower extremities to touch or pinprick in all dermatomal distributions. Straight Leg Raise is negative bilaterally. Gait is normal. Assessment/Treatment Plan: Zoë was seen today for back pain. Diagnoses and all orders for this visit: Lumbosacral spondylosis without myelopathy - Case request operating room: INJECTION BLOCK NERVE MEDIAL BRANCH: kaushik [id number] Bilateral L4/5, 5/1 Facet Injection/Medial Branch Block - under fluoroscopy It is hopeful that the described procedure will provide symptomatic pain relief. It is felt to be medically necessary noting that the patient has tried and failed more conservative modalities of therapy and this is the next most appropriate step. The procedure was described in detail to the patient as well as the potential benefits of pain reduction alongside risks of the procedure and alternatives. Risks were described as including, but not limited to bleeding, infection, nerve damage, spinal cord injury, paralysis, stroke, dural puncture headache, and medication reaction. The patient expressed understanding regarding the risks and benefits and wishes to proceed. Diagnostic facet injections and medial branch blocks should provide information to confirm that the noted facet arthropathy is the patient s most significant pain generator. If this provides significant but only temporary pain relief, the patient may in the future be a candidate for radiofrequency denervation of the facet joints to provide pain relief for approximately 1 year. Follow up 2 weeks after procedure The medications prescribed have been reviewed for [...] not opted for at this time: Lumbar RFA. Patient would like to proceed with the current outlined treatment plan before moving forward with any other options. It is noted that the patient did have good response from the previously performed procedure. It is felt that the patient would benefit from an additional procedure of the same nature in that the same symptoms have returned. It is hopeful that this additional injection will provide additional benefit and duration when combined with the previous injection. The spine model was demonstrated and MRI [...] both accurate and complete. Therese Sandhu CNA 09/11/23 1317 THERESA Baumann 09/18/23 0903 documented in this encounter [facility] 09-11-2023 Instructions Therese Sandhu CNA - 09/11/2023 12:45 PM EDT Facet Injection / Medial Branch Block (MBB) / Sacroiliac (SI) Joint Injection A facet injection and sacroiliac joint injection are injections of local anesthetic and steroid into a joint in the spine. A medial branch block is similar, but the medication is placed outside the joint space near the nerve that supplies the joint called the medial branch (steroid may or may not be used). You may require multiple injections depending upon how many joints are involved. How Long Will This Procedure Last? The extent and duration of pain relief may depend on the amount of inflammation and how many areas are involved. Other coexisting factors may be responsible for your pain. If your pain goes away for a short time, but then returns, you may be a candidate for radiofrequency ablation (RFA). Activity Be active. Attempt activities and movements that typically cause pain to see if it feels better while doing them. We will give you a pain diary. Please fill this out as directed by your nurse in pre-op. This will help your doctor determine the effectiveness of the injection, and how to proceed. Bring the pain diary with you to your follow-up appointment. Medications You should not take your pain medications for 4-6 hours before or after the injection in order to properly diagnose if the injection provides adequate relief. Resume your routine medications after your procedure. You may resume blood thinners per your regular schedule after the procedure. If you received sedation: If you received sedation for your procedure, you may feel sleepy or not yourself for several hours today. For the next 24 hours avoid activities that requires alertness or coordination. This includes: Driving or operating heavy machinery Using power tools Consuming alcohol Do not make important or complex decisions or sign legal documents in the next 24 hours. Other Instructions: If you feel severe pain at the injection site with swelling and redness, increased leg weakness, a fever of 101 or higher, headache (or worsening headache), changes in vision or urinary retention: Please call the office at , or have someone take you to the nearest emergency room. Tell the emergency room staff that you recently had a spine injection. A doctor must evaluate you for bleeding and injection complications. If you lose control over bowel, bladder, or legs: Go to the nearest emergency room. documented in this encounter [facility] 07-31-2023 History of Present illness Narrative [facility] [address] [place] [address] Patient: Zoë Montero Sex: female : 1955 Age: 68 y.o. PCP: ADRIAN LYNN MD 07/31/2023 Zoë Montero is here for a(n) post procedure follow up 5-3-24 Caudal with 0% relief. Date of onset of pain: 01/2023 , pain has lasted greater than 3 months. Pain scale before treatment: 6/10 Pre-op pain score: 6/10 Percentage of relief after and duration: see above Pain scale after treatment: 4/10 Chief Complaint Patient presents with Back Pain HPI: Physical therapy started in May and continues. No noticeable improvement as of this visit. 5-3-24 Caudal with 60% relief (none now). Back Pain This is a chronic problem. [...] Associated symptoms include leg pain (bilateral thighs anterior/posterior), numbness (RLE constant), tingling (RLE) and weakness (BLE). Pertinent negatives include no bladder incontinence, bowel incontinence, chest pain or fever. She has tried chiropractic manipulation and home exercises (Prev Injs years ago, Prev PT, massage, baclofen, gabapentin, trazodone, icyhot, salonpas: PT May 24-current no relief) for the symptoms. The treatment provided mild relief. The effect of pain on patient's ADLS: Moderate Impairment. Past Medical History: Diagnosis Date Allergic rhinitis, seasonal Anxiety Arteriolosclerosis bilat carotids Arthritis Cervical cancer ([facility] [place] Chronic pain disorder Cigarette nicotine dependence COPD (chronic obstructive pulmonary disease) ([facility] [place] Depression Estrogen deficiency Full dentures GERD (gastroesophageal [...] 07/04/2023 Performed by Hill Sy MD at [facility] Allergies Allergen Reactions Chicken Derived Hives [id number] [Nutritional Supplement-Fiber] Hives dyspnea Fish Containing Products [...] on file Food Insecurity: No Food Insecurity (07/31/2023) Hunger Screening Food Insecurity - Worry: Never True Food Insecurity - Inability: Never True Transportation Needs: Not on file Physical Activity: Not on file Stress: Not on file Social Connections: Not on file Interpersonal Safety: Not on file Housing Instability: Not on file Review of Systems Constitutional: Negative. Negative for chills, fatigue and fever. HENT: Negative. Eyes: Negative. Respiratory: Negative. Negative for cough and shortness of breath. Cardiovascular: Negative. Negative for chest pain. Gastrointestinal: Negative. Negative for bowel incontinence. Genitourinary: Negative. Negative for bladder incontinence. Musculoskeletal: Positive for back pain. Negative for gait problem. Skin: Negative. Negative for rash and wound. Neurological: Positive for tingling (RLE), weakness (BLE) and numbness (RLE constant). Hematological: Negative. Psychiatric/Behavioral: Negative. Negative for self-injury and suicidal ideas. Vital Signs: BP 135/81 Pulse 60 Resp 18 Ht 160 cm (5' 3 ) Wt 63.5 kg (140 lb) SpO2 96% BMI 24.80 kg/m Physical Exam: GENERAL - Healthy patient [...] pain. Facet palpation is noted to be painful and facet loading maneuvers elicit pain that is concordant with the patient s normal pain complaints. Some muscle spasm is noted in the overlying musculature. STRENGTH - noted to be 5 out of 5 all muscle groups bilateral lower extremities including muscles involving hip flexion and abduction, knee flexion and extension, as well as foot dorsiflexion and plantarflexion. No notable atrophy, fasciculations or spasm. SENSORY - No notable sensory deficits in the bilateral lower extremities to touch or pinprick in all dermatomal distributions. Straight Leg Raise is negative bilaterally. Gait is normal. Assessment/Treatment Plan: Zoë was seen today for back pain. Diagnoses and all orders for this visit: Lumbosacral spondylosis without myelopathy - Case request operating room: INJECTION BLOCK NERVE MEDIAL BRANCH: kaushik L45 51 Bilateral L4/5, 5/1 Facet Injection/Medial Branch Block - under fluoroscopy It is hopeful that the described procedure will provide symptomatic pain relief. It is felt to be medically necessary noting that the patient has tried and failed more conservative modalities of therapy and this is the next most appropriate step. The procedure was described in detail to the patient as well as the potential benefits of pain reduction alongside risks of the procedure and alternatives. Risks were described as including, but not limited to bleeding, infection, nerve damage, spinal cord injury, paralysis, stroke, dural puncture headache, and medication reaction. The patient expressed understanding regarding the risks and benefits and wishes to proceed. Diagnostic facet injections and medial branch blocks should provide information to confirm that the noted facet arthropathy is the patient s most significant pain generator. If this provides significant but only temporary pain relief, the patient may in the future be a candidate for radiofrequency denervation of the facet joints to provide pain relief for approximately 1 year. Follow up 2 weeks after procedure The medications I have prescribed have been [...] not opted for at this time: Lumbar RFA. Patient would like to proceed with the [...] both accurate and complete. Therese Sandhu CNA 07/31/23 1046 THERESA Baumann 07/31/23 1130 documented in this encounter [facility] 07-01-2023 History of Present illness Narrative [facility] [address] [place] [address] Patient: Zoë Montero Sex: female : 1955 Age: 68 y.o. PCP: ADRIAN LYNN MD 07/01/2023 Zoë Montero is here for a(n) follow up after neurosurgical consult . Dr. Cid feels patient is a surgical candidate but recommends an epidural steroid injection prior to surgery. Chief Complaint Patient presents with Back Pain [...] The pain is at a severity of 5/10 (can get to 8/10 depending on activity). The pain is moderate. Worse during: Rt side during day, Lt side at night. The symptoms are aggravated by bending, lying down, coughing, position, sitting, standing, stress and twisting. Stiffness is present: occasionally. Associated symptoms include leg pain (bilateral thighs anterior/posterior), numbness (RLE constant), tingling (RLE) and weakness (BLE). Pertinent negatives include no bladder incontinence, bowel incontinence, chest pain or fever. She has tried chiropractic manipulation and home exercises (Prev Injs years ago, Prev PT, massage, baclofen, gabapentin, trazodone, icyhot, salonpas: PT May 24-current no relief) for the symptoms. The treatment provided mild relief. The effect of pain on patient's ADLS: Moderate Impairment. Past Medical History: Diagnosis Date Allergic rhinitis, seasonal Anxiety Arteriolosclerosis bilat carotids Arthritis Cervical cancer ([facility] Cigarette nicotine dependence COPD (chronic obstructive pulmonary disease) ([facility]) Depression Estrogen deficiency Full dentures GERD (gastroesophageal reflux disease) Heberden's nodes Hyperlipidemia Hypertension IBS (irritable bowel syndrome) Insomnia Low back pain Lumbosacral disc disease Myalgia Neuralgia of both lower extremities Osteoarthritis Sleep apnea Submandibular abscess Past Surgical History: Procedure Laterality Date CATARACT EXTRACTION W/ INTRAOCULAR LENS IMPLANT CHOLECYSTECTOMY COLONOSCOPY W/ POLYPECTOMY HAND SURGERY HYSTERECTOMY NOSE SURGERY Allergies Allergen Reactions Chicken Derived Hives [id number]-Fbdg [Nutritional Supplement-Fiber] Hives dyspnea Fish Containing Products [...] on file Food Insecurity: No Food Insecurity (07/01/2023) Hunger Screening Food Insecurity - Worry: Never True Food Insecurity - Inability: Never True Transportation Needs: Not on file Physical Activity: Not on file Stress: Not on file Social Connections: Not on file Interpersonal Safety: Not on file Housing Instability: Not on file Review of Systems Constitutional: Negative for fever. HENT: Negative. Eyes: Negative. Respiratory: Negative. Cardiovascular: Negative for chest pain. Gastrointestinal: Negative. Negative for bowel incontinence. Genitourinary: Negative. Negative for bladder incontinence. Musculoskeletal: Positive for back pain. Skin: Negative. Neurological: Positive for tingling (RLE), weakness (BLE) and numbness (RLE constant). Vital Signs: BP 121/55 (BP Site: Left Arm, BP Postition: Sitting) Pulse 68 Resp 18 Ht 160 cm (5' 3 ) Wt 66.2 kg (146 lb) SpO2 97% BMI 25.86 kg/m Physical Exam: GENERAL - Healthy patient [...] of lumbar region with neurogenic claudication - Case request operating room: INJECTION BLOCK EPIDURAL CAUDAL STEROID Caudal Epidural Steroid Injection - under fluoroscopy with the use of contrast dye (unless contraindicated) It is hopeful that the described procedure will provide symptomatic pain relief. It is felt to be medically necessary noting that the patient has tried and failed more conservative modalities of therapy and this is the next most appropriate step. The procedure was described in detail to the patient as well as the potential benefits of pain reduction alongside risks of the procedure and alternatives. Risks were described as including, but not limited to bleeding, infection, nerve damage, spinal cord injury, paralysis, stroke, dural puncture headache, and medication reaction. The patient expressed understanding regarding the risks and benefits and wishes to proceed. It was explained that Caudal injections often require a series of 2-3 before significant relief is noted, but we will determine after each injection if another one is indicated. Depending on the amount and duration of relief obtained from the injection, additional modalities of therapy including medications and physical therapy may need to be utilized alongside or following the injections. Follow up 2 weeks after procedure The medications prescribed have been reviewed for [...] prescribe any controlled substance from this practice. The spine model was demonstrated and MRI was reviewed and used to explain the condition. Chronic conditions not treated during this visit that affected my overall medical decision making: Comorbidity- Anxiety The patient describes a significant issue with anxiety. Although treatment is helpful with this regard, the patient is likely need special accommodation due to this condition. For this reason, necessary procedures will likely need to be performed under sedation to decrease procedural anxiety. Comorbidity- COPD The patient has a history of chronic obstructive pulmonary disease. Due to this reason, special consideration will need to be given to the prescription of narcotics in that they may depress respiratory function and lead to respiratory insufficiency or failure. Consideration will also be given to procedure safety in that sedation is used in the outpatient setting for any planned procedure. These records will be available to the anesthesiologist to tailor a safe anesthetic for the procedure. The patient will also be observed closely in the recovery area and may even require admission if they remain overly sedated for an extended period of time and cannot maintain an airway. These preparations will be made as necessary. OARRS: Reviewed. Scribe Statement: Scribed for and in the presence of THERESA BAUMANN by Therese Sandhu CNA. Provider Statement: I, THERESA BAUMANN, personally performed the services described in the documentation, as scribed by Therese Sandhu CNA in my presence, and it is both accurate and complete. Therese Sandhu CNA 07/01/23 1133 Therese Sandhu CNA 07/01/23 1146 THERESA Baumann 07/01/23 1150 documented in this encounter [facility] 07-01-2023 Instructions Therese Sandhu CNA - 07/01/2023 10:45 AM EDT Epidural Steroid Injection (SHANTEL) / Nerve Root Injection / Nerve Block These procedure(s) involve the injection of a steroid and anesthetic into the epidural space or the nerve sheath that is both diagnostic and potentially therapeutic for alleviating discomfort of the legs and arms secondary to compression of the respective nerves due to bulging discs, bone spurs and other potential causes. Steroids are potent anti-inflammatory drugs that act to decrease the swollen and inflamed nerves thus relieving your clinical symptoms. How Long Will This Procedure Last? The extent and duration of pain relief may depend on the amount of inflammation and how many areas are involved. Other coexisting factors may be responsible for your pain. You and your physician will discuss expected results of procedure(s). After Your Injection You may experience soreness and tenderness at the area of treatment. This pain may not occur until later today after the numbing medicine wears off. The steroid can take 3-5 days to work and provide noticeable improvement. Activity You may feel temporary numbness, weakness or tingling: In the neck, arm, or fingertips (if your procedure was done in your neck) In the legs (if your procedure was done in your lower back) These symptoms are normal, and should subside within 3-4 hours. In that time, be careful to avoid falls. As a safety precaution, you must have a taxi driver supervisor after a lumbar nerve root injection, even if you do not receive sedation. Resume activity as tolerated when function has returned. Medications Resume your routine medications after your procedure. You may resume blood thinners per your regular schedule after the procedure. If you received sedation: If you received sedation for your procedure, you may feel sleepy or not yourself for several hours today. For the next 24 hours avoid activities that requires alertness or coordination. This includes: Driving or operating heavy machinery Using power tools Consuming alcohol Do not make important or complex decisions or sign legal documents in the next 24 hours. Other Instructions: If you feel severe pain at the injection site with swelling and redness, increased leg weakness, a fever of 101 or higher, headache (or worsening headache), changes in vision or urinary retention: Please call the office at , or have someone take you to the nearest emergency room. Tell the emergency room staff that you recently had a spine injection. A doctor must evaluate you for bleeding and injection complications. If you lose control over bowel, bladder, or legs: Go to the nearest emergency room. If you are diabetic, the steroids used in this procedure can increase your blood sugar. If your blood sugar is 250mg/dL or higher, contact your primary care physician, or the doctor who manages your diabetes, to discuss how to get it back to normal. documented in this encounter [facility] 06-30-2023 History of Present illness Narrative Images from the original note were not included. [facility] [address] [place] [address], [address] [place] [address] * CHART NOTE ? 06/30/2023 Patient: Zoë Montero 1955 [id number] Physician: Clovis Bermeo MD, FAANS SUMMARY Low back pain with radicular symptoms down the bilateral lower extremities, mainly on the left side, with findings of severe right sided foraminal stenosis and severe central stenosis at L4-5 with spondylolisthesis and anterolisthesis. PLAN I will refer patient to pain management for possible SHANTEL into the lumbar spine. Additionally, I believe the patient is a candidate for surgical intervention. The goals and indications for neurosurgical intervention were discussed to the patient's understanding. Surgery would include a L4-5 PLIF. We discussed the details of the procedure, including benefits risks, and duration of recovery. All questions and concerns were addressed. I will follow-up with patient after she is seen by pain management to decide whether to proceed with surgery or not. Details of proposed procedure: L4-5 PLIF Surgery would include wide decompression including L4-5 laminectomy to decompress central canal,bilateral facetectomies and Denson procedures to decompress neuroforamina and lateral recesses at L4-5 to adequately decompress L4 and 5 nerve roots. L4 and L5 non-segmental pedicle screws and Two parallel rods fixation as well as posterior interbody fusion with lordotic Peek cages plus autologous bone graft locally harvested from laminectomy and facetectomy and prepared for placement in L4-5 disc space in addition to Puros allograft 2 cc for inside the two cages. A cross link would be placed between the rods. A lumbar epidural Tom Ordonez drain would be then placed prior to closure followed by subcutaneous injection of 0.25% plain Marcaine on each side of the midline incision. I have instructed the patient to contact my office if any new questions, concerns, or symptoms develop. HISTORY OF PRESENT ILLNESS Zoë Montero is a 68 y.o. female who presents to the clinic today as a new patient complaining of low back pain with radicular symptoms down the BLE. Patient admits to numbness in the bilateral lower extremities, more on the left side. She reports that she has completed physical therapy and was seen by pain management. She had an MR and was referred here by pain management due to the MR results. She states her pain worsens when standing or walking and is better with sitting. She has no known medical conditions and is not taking any blood thinners. HEALTH HISTORY Past Medical History Documented in chart and reviewed with the patient at this visit Family History Documented in chart and reviewed with the patient at this visit Social History Documented in chart and reviewed with the patient at this visit Surgeries/Hospitalizations Documented in chart and reviewed with the patient at this visit Current Medications Current Outpatient Medications on File Prior to Visit Medication Sig Dispense Refill aspirin 81 mg capsule Daily atorvastatin (LIPITOR) 40 mg tablet Every morning b complex vitamins capsule 1 capsule. baclofen (LIORESAL) 10 mg tablet TAKE 1/2 TO 1 (ONE-HALF TO ONE) TABLET BY MOUTH THREE TIMES DAILY WITH FOOD biotin 10 mg tablet every 12 (twelve) hours. celecoxib (CeleBREX) 200 mg capsule TAKE 1 CAPSULE BY MOUTH TWICE DAILY chlorhexidine (PERIDEX) 0.12 % solution Apply 15 mL to the mouth or throat in the morning and 15 mL before bedtime. cinnamon bark 500 mg capsule Twice daily citalopram (CeleXA) 40 mg tablet TAKE 1 TABLET BY MOUTH ONCE DAILY esomeprazole (NexIUM) 20 mg packet Take 20 mg by mouth. nuzjfycafmd-atvqgulov-oothoeaj (TRELEGY ELLIPTA) 100-62.5-25 mcg blister with device Inhale 1 puff in the morning. gabapentin (NEURONTIN) 300 mg capsule TAKE 1 CAPSULE BY MOUTH THREE TIMES DAILY hydroCHLOROthiazide (MICROZIDE) 12.5 mg capsule TAKE 1 CAPSULE BY MOUTH ONCE DAILY FOR 90 DAYS lisinopriL (PRINIVIL,ZESTRIL) 5 mg tablet Take 1 tablet (5 mg total) by mouth in the morning. loratadine (CLARITIN) 10 mg tablet Take 1 tablet (10 mg total) by mouth in the morning. NON FORMULARY Med Name: Centrum Silver traZODone (DESYREL) 50 mg tablet TAKE 1 TABLET BY MOUTH AT BEDTIME vit A/vit C/vit E/zinc/copper (PRESERVISION AREDS ORAL) Take by mouth. No current facility-administered medications on file prior to visit. Allergies Allergies Allergen Reactions Chicken Derived Hives Wngq-Axbwaw-Lpru [Nutritional Supplement-Fiber] Hives dyspnea Fish Containing Products Hives Povidone-Iodine Rash REVIEW OF SYSTEMS A complete and comprehensive 10-system review was completed. Pertinent positives and negatives are mentioned in the history of the present illness. PHYSICAL EXAMINATION GENERAL: Well developed, well nourished, in no acute distress. OPHTHALMOLOGIC: Pupils equal, round, reactive to light and accomodation, sclera non-icteric. Fundi were not examined. HEAD: Normocephalic, atraumatic. SKIN: Warm and dry, no suspicious lesions. EXTREMITIES: No clubbing, cyanosis, or edema. MUSCULOSKELETAL: There is no atrophy, no fasciculations. No pain with internal/external hip rotation. BACK: No tenderness to palpation of the lumbar spine, ROM of the lumbar spine is limited. NEUROLOGIC: The patient is alert and oriented to person, place, and time. Speech and language function is normal. Memory seems to be intact. Concentration and alertness are appropriate. General fund of knowledge is within normal limits. Gait is steady. Posture is normal. Strength is 5/5 in the lower extremities, moving all extremities freely. Sensation is intact. Reflexes are 2+ and symmetrical to ankle and knee jerk. Straight leg raising is positive and reproduces pain. Cerebellar functions are done well. DIAGNOSTICS MR lumbar spine was completed on 05-06-2023 and shows severe degnerative kyphoscoliosis of the lower lumbar spine. Severe right sided foraminal stenosis at L4-5 with spondyliolisthesis. Moderate foraminal stenosis on the left side and retrolisthesis at L2-3. Antrolisthesis at L4-5. Moderate central stenosis at L2-3. Severe central stenosis at L4-5. Moderate lateral recess stenosis at L5-S1. Sincerely, Electronically signed by Clovis Bermeo MD,FAANS This note was created with the assistance of a speech recognition program with the goal of generating a timely record of the patient encounter. Inadvertent computerized superintendent laundry errors related to syntax, spelling, homophones, and/or inaudibility may be present. Scribe Statement: Scribed for and in the presence of Dr. Clovis Bermeo MD, FAANS by Lias Brannon. Lisa Brannon 06/30/23 2546 documented in this encounter [facility] 06-30-2023 Instructions Lisa Brannon - 06/30/2023 10:50 AM EDT I will refer patient to pain management for possible SHANTEL into the lumbar spine. Additionally, I believe the patient is a candidate for surgical intervention. The goals and indications for neurosurgical intervention were discussed to the patient's understanding. Surgery would include a L4-5 PLIF. We discussed the details of the procedure, including benefits risks, and duration of recovery. All questions and concerns were addressed. I will follow-up with patient after she is seen by pain management to decide whether to proceed with surgery or not. documented in this encounter [facility] 06-05-2023 History of Present illness Narrative [facility] [address] [place] [address] Patient: Zoë Montero Sex: female : 1955 [...] Arteriolosclerosis bilat carotids Arthritis Cervical cancer ([facility] [place] Cigarette nicotine dependence COPD (chronic obstructive pulmonary disease) ([facility] [place]) Depression Estrogen deficiency Full dentures GERD (gastroesophageal reflux disease) Heberden's nodes Hyperlipidemia Hypertension IBS (irritable bowel syndrome) Insomnia Low back pain Lumbosacral disc disease Myalgia Neuralgia of both lower extremities Osteoarthritis Sleep apnea Submandibular abscess Past Surgical History: Procedure Laterality Date CATARACT EXTRACTION W/ INTRAOCULAR LENS IMPLANT CHOLECYSTECTOMY COLONOSCOPY W/ POLYPECTOMY HAND SURGERY HYSTERECTOMY NOSE SURGERY Allergies Allergen Reactions Chicken Derived Hives Punh-Itbgre-Zbez [Nutritional Supplement-Fiber] Hives dyspnea Fish Containing Products [...] Baumann 06/05/23 1322 documented in this encounter [facility] 05-01-2023 History of Present illness Narrative [facility] [address] [place] [address] Patient: Zoë Montero Sex: female : 1955 [...] Anxiety Arteriolosclerosis bilat carotids Arthritis Cervical cancer ([facility]) Cigarette nicotine dependence COPD (chronic obstructive pulmonary disease) ([facility]) Depression Estrogen deficiency Full dentures GERD (gastroesophageal reflux disease) Heberden's nodes Hyperlipidemia Hypertension IBS (irritable bowel syndrome) Insomnia Low back pain Lumbosacral disc disease Myalgia Neuralgia of both lower extremities Osteoarthritis Sleep apnea Submandibular abscess Past Surgical History: Procedure Laterality Date CATARACT EXTRACTION W/ INTRAOCULAR LENS IMPLANT CHOLECYSTECTOMY COLONOSCOPY W/ POLYPECTOMY HAND SURGERY HYSTERECTOMY NOSE SURGERY Allergies Allergen Reactions Chicken Derived Hives Ewdb-Cmelas-Sncn [Nutritional Supplement-Fiber] Hives dyspnea Fish Containing Products [...] Baumann 05/01/23 1405 documented in this encounter [facility]cl[facility] 04-15-2023 Procedure note [facility] 03-19-2023 Evaluation note Encounter Date Diagnosis Assessment [...] follow up in 5 weeks for reevaluation. [employer] [facility] Other 12-06-2023 Evaluation note* Encounter Date Diagnosis Assessment Notes Treatment Notes Treatment Clinical Notes Jan, Primary osteoarthritis of right hand (ICD-10 - M19.041) Jan, Arthritis of left hand (ICD-10 - M19.042) We will proceed with left index DIP fusion and excision of osteophyte left thumb metacarpal Jan, Other specified postprocedural states (ICD-10 - Z98.890) [facility] Other 09-27-2023 Evaluation note* Encounter Date Diagnosis [...] use finger compression to help reduce swelling. [employer] [facility] Other 08-08-2023 Evaluation note* Encounter Date Diagnosis [...] proceed. Oct, Pre-op examination (ICD-10 - Z01.818) [facility] Other 05-06-2015 History general Narrative - Reported* [...] Surgical History gallbladder Hospitalization History see above [facility] Other 05-06-2015 History general Narrative - Reported* [...] fusion / 11/2022 Hospitalization History see above [facility] Other evaluation noteNo assessment information available [facility] Work Phone: evaluation noteNo InformationNort [employer] Other evaluation note* Diagnosis Onset Date Resolution Status History of colon polyps acut e [facility] Work Phone: evaluation note* Diagnosis COPD exacerbation (CMS/HCC)- Primary Obstructive chronic bronchitis with exacerbation Encounter for screening mammogram for malignant neoplasm of breast Acute non-recurrent pansinusitis Tobacco dependence Tobacco use disorder Atherosclerosis of aorta (CMS/HCC) Atherosclerosis of aorta documented in this encounter [facility] Healthcare[facility]* Diagnosis Chronic pain of right knee- Primary documented in this encounter [facility]* Diagnosis Other specified mononeuropathies of left lower limb- Primary Chronic pain of right knee Other specified mononeuropathies of left lower limb- Primary Other specified mononeuropathies of left lower limb documented in this encounter [facility]* Diagnosis Spinal stenosis of lumbar region with neurogenic claudication- Primary documented in this encounter [facility]* Diagnosis Spinal stenosis of lumbar region with neurogenic claudication- Primary Spinal stenosis of lumbar region with neurogenic claudication- Primary Spinal stenosis of lumbar region with neurogenic claudication documented in this encounter [facility]* Diagnosis Lumbosacral spondylosis without myelopathy- Primary Lumbosacral spondylosis without myelopathy- Primary Lumbosacral spondylosis without myelopathy [facility] Diagnosis Lumbosacral spondylosis without myelopathy- Primary Disc displacement, lumbar Displacement of lumbar intervertebral disc without myelopathy Lumbar radiculopathy, chronic Lumbosacral spondylosis without myelopathy Disc displacement, lumbar Displacement of lumbar intervertebral disc without myelopathy documented in this encounter [facility]* Diagnosis Lumbosacral spondylosis without myelopathy- Primary Lumbosacral spondylosis without myelopathy- Primary Lumbosacral spondylosis without myelopathy documented in this encounter [facility]* Diagnosis Spinal stenosis of lumbar region with neurogenic claudication- Primary documented in this encounter [facility]* Diagnosis Lumbosacral spondylosis without myelopathy- Primary Lumbosacral spondylosis without myelopathy- Primary Lumbosacral spondylosis without myelopathy Lumbosacral spondylosis without myelopathy documented in this encounter [facility]* Diagnosis Chronic pain of both knees- Primary Chronic pain of both knees Chronic pain of both knees documented in this encounter [facility]* Diagnosis Medicare annual wellness visit, subsequent- Primary ACP (advance care planning) Other specified counseling Tobacco dependence Tobacco use disorder Primary insomnia Persistent disorder of initiating or maintaining sleep Neuralgia of lower extremity Generalized anxiety disorder (CMS/HCC) Generalized anxiety disorder Chronic obstructive pulmonary disease, unspecified COPD type (CMS/HCC) Gastroesophageal reflux disease without esophagitis Esophageal reflux Degeneration of intervertebral disc of lumbar region Benign essential hypertension (CMS/HCC) Essential hypertension, benign Myalgia Unspecified myalgia and myositis Abnormal CBC Other abnormal blood chemistry Impaired glucose tolerance Impaired glucose tolerance test Mixed hyperlipidemia (CMS/HCC) Mixed hyperlipidemia Acute non-recurrent pansinusitis Major depression, single episode, in complete remission (CMS/HCC) Major depressive disorder, single episode in full remission History of hysterectomy Acquired absence of both cervix and uterus Estrogen deficiency Other ovarian failure Seasonal allergic rhinitis due to pollen Traumatic arthritis of right knee Spinal stenosis of lumbar region with neurogenic claudication Postoperative pain of extremity Other idiopathic scoliosis, lumbar region Primary osteoarthritis involving multiple joints Lumbosacral spondylosis without myelopathy Heberden's nodes Arthropathy of hand Unspecified arthropathy, hand Arthritis of carpometacarpal (CMC) joint of left thumb Irritable bowel syndrome, unspecified type History of colon polyps Arteriosclerosis of both carotid arteries Pulmonary emphysema, unspecified emphysema type (CMS/HCC) Other specified mononeuropathies of left lower limb ANAND (obstructive sleep apnea) Obstructive sleep apnea (adult) (pediatric) Pulmonary fibrosis, unspecified (CMS/HCC) Hemangioma of skin Hemangioma of skin and subcutaneous tissue documented in this encounter [facility] Discharge instructions Additional Instructions [facility] OP INSTRUCTIONS Take prescribed pain medication [...] to decrease risk of infection after surgery [facility] Work Phone: Hospital Discharge instructions Additional Instructions [facility] OP INSTRUCTIONS Take prescribed pain medication [...] to decrease risk of infection after surgery [facility] Work Phone: InstructionsNot on filedocumented in this encounter [facility] SystemInstructionsNot on filedocumented in this encounter [facility] SystemReason for referral (narrative)* Consultation (Routine) - Pending Review Specialty Diagnoses / Procedures Referred By Ally juarez Referred To Contact Pain Medicine Diagnoses Spinal stenosis of lumbar region with neurogenic claudication Clovis Bermeo MD [address] [id number] Hill Sy MD [address] [place] [address] Referral ID Status Reason Start Date Expiration Date Visits Requested Visits Authorized [id number] Pending Review Specialty Services Required 06/30/2023 06/29/2024 [facility] Consultation (Routine) - Pending Review Specialty Diagnoses / Procedures Referred By Contac t Referred To Contact Neurosurgery Diagnoses Spinal stenosis of lumbar region with neurogenic claudication Nikki Carbajal PA [address] [place] [address] [facility] [address] [address] Referral ID Status Reason Start Date Expiration Date Visits Requested Visits Authorized [id number] Pending Review Specialty Services Required 06/05/2023 06/04/2024 1 1 [facility] Summary Purpose Family History No Family History Records Found Relationship Condition Age at Onset Recorded Date/T arki sister Diabetes mellitus Unknown Hypertension Unknown Not [...] mellitus Unknown Heart disease Unknown Advance Directives No Advanced Directives Records Found Advance Directive Response Recorded Date/ Time Advance [...] Referral Specialty Diagnoses / Procedures Referred By Contac t Referred To Contact Rehabilitation Diagnoses Lumbosacral spondylosis without myelopathy Disc displacement, lumbar Nikki Carbajal PA [address], [address] [place] [address] Referral ID Status Reason Start Date Expiration Date Visits Requested Visits Authorized [id number] Authorized Specialty Services Required 05/01/2023 04/30/2024 12 12 Specialty Diagnoses / Procedures Referred By Contac t Referred To Contact Radiology Diagnoses Lumbar radiculopathy, chronic Procedures MR lumbar spine without contrast Nikki Carbajal PA [address], [address] [place] [address] Referral ID Status Reason Start Date Expiration Date V isits Requested Visits Authorized [id number] Pending Review 05/01/2023 04/30/2024 1 1 Specialty Diagnoses / Procedures Referred By Contac t Referred To Contact Diagnoses Lumbosacral spondylosis without myelopathy Procedures Case request operating room: INJECTION BLOCK NERVE MEDIAL BRANCH: bilat L45 51 Nikki Carbajal PA [address], [address] [place] [address] Referral ID Status Reason Start Date Expiration Date V isits Requested Visits Authorized [id number] Pending Review 07/31/2023 07/30/2024 1 1 Specialty Diagnoses / Procedures Referred By Contac t Referred To Contact Diagnoses Spinal stenosis of lumbar region with neurogenic claudication Procedures Case request operating room: INJECTION BLOCK EPIDURAL CAUDAL STEROID Nikki Carbajal PA [address], [address] [place] [address] Referral ID Status Reason Start Date Expiration Date V isits Requested Visits Authorized [id number] Pending Review 07/01/2023 06/30/2024 1 1 Additional Source Comments INFORMATION SOURCE (unrecogn ized section and content) DATE CREATED AUTHOR 04/16/2021 [facility] DATE CREATED AUTHOR AUTHOR'S ORGANIZ ATION 02/02/2022 [facility] DATE CREATED AUTHOR AUTHOR'S ORGANIZ ATION 05/03/2023 [facility] DATE CREATED AUTHOR AUTHOR'S ORGANIZ ATION 07/01/2023 [facility] DATE CREATED AUTHOR AUTHOR'S ORGANIZ ATION 04/23/2024 [facility] EPIC DATE CREATED AUTHOR AUTHOR'S ORGANIZ ATION 04/24/2024 [facility] DATE CREATED AUTHOR AUTHOR'S ORGANIZ ATION 04/24/2024 [facility] REASON FOR VISIT (unrecogniz ed section and content) Reason Comments Knee Pain Reason Comments Back Pain Knee Pain Reason Comments 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, [address] [place] [address] Neurosurgery, [facility] [facility] [address] [address] Referral ID Status Reason Start Date Expiration Date Visits Requested Visits Authorized [id number] Pending Review Specialty Services Required 06/05/2023 06/04/2024 1 1 Reason Comments Back Pain Reason Comments Back Pain Reason Comments Back Pain Reason Comments Med Refill Gabapentin, Trazodon e, Citalopram, Esomeprazole, Celebrex Trelegy Sinus Problem Admits sinus pressur e, headaches, nasal congestion, watery eyes, runny nose, face feels full. Started about a week ago. She has not been taking anything OTC. skin spots She has some red spo t on her arms and chest she would like for you to take a look at. Care Teams (unrecognized sec tion and content) Team Status: Active Member Role Status Dates Adrian Lynn II MD Primary Care Provider Active Team Status: Inactive Member Role Status Dates Adrian Lynn , II MD Primary Care Provider Active Marika Champion MD Attending Provider Active Team Status: Inactive Member Role Status Justin Lynn II MD Primary Care Provider Active Start: December 25, 2022 End: December 25, 2022 Marika Champion MD Attending Provider Active Start: December 25, 2022 End: December 25, 2022 Team Status: Inactive Member Role Status Justin Lynn II MD Primary Care Provider Active Start: February 07, 2023 End: February 07, 2023 Marika Champion MD Attending Provider Active Start: February 07, 2023 End: February 07, 2023 Team Status: Inactive Member Role Status Justin Lynn II MD Primary Care Provider Active Start: February 10, 2023 End: February 10, 2023 Marika Champion MD Attending Provider Active Start: February 10, 2023 End: February 10, 2023 Team Status: Inactive Member Role Status Justin Lynn II MD Primary Care Provider Active Start: March 19, 2023 End: March 19, 2023 Marika Champion MD Attending Provider Active Start: March 19, 2023 End: March 19, 2023 Team Status: Inactive Member Role Status Justin Champion MD Attending Provider Active Start: February 05, 2023 End: February 05, 2023 Team Status: Inactive Member Role Status Justin Champion MD Attending Provider Active Start: February 18, 2023 End: February 18, 2023 Team Status: Active Member Role Status Dates Provider Conversion Attending Provider Active St art: March 19, 2023 Team Status: Inactive Member Role Status Justin Lynn II MD Primary Care Provider Active Start: April 15, 2023 End: April 15, 2023 Dwight Cruz MD Attending Provider Active Start: April 15, 2023 End: April 15, 2023 Team Status: Active Member Role Status Justin Lynn II MD Primary Care Provider Active Start: April 15, 2023 Dwight Cruz MD Attending Prov ider, Other Provider Active Start: April 15, 2023 Research Program Internship Relationship Specialty Start Date End Date Adrian yLnn MD [address] [place] [address] PCP - General Internal Medicine 07/09/22 Adrian Lynn MD [address] [place] [address] PCP - ACO Reach 08/12/22 Research Program Internship Relationship Specialty Start Date End Date Adrian Lynn MD [address] [place] [address] PCP - General Internal Medicine 07/09/22 Adrian Lynn MD [address] [place] [address] PCP - ACO Reach 08/12/22 Research Program Internship Relationship Specialty Start Date End Date Adrian Lynn MD [address], [address] [place] [address] PCP - General Internal Medicine 10/15/20 Research Program Internship Relationship Specialty Start Date End Date Adrian Lynn MD [address], [address] [place] [address] PCP - General Internal Medicine 10/15/20 Research Program Internship Relationship Specialty Start Date End Date Adrian Lynn MD [address], [address] [place] [address] PCP - General Internal Medicine 10/15/20 Research Program Internship Relationship Specialty Start Date End Date Adrian Lynn MD [address], [address] [place] [address] PCP - General Internal Medicine 10/15/20 Research Program Internship Relationship Specialty Start Date End Date Adrian Lynn MD [address], [address] [place] [address] PCP - General Internal Medicine 10/15/20 Research Program Internship Relationship Specialty Start Date End Date Adrian Lynn MD [address], [address] [place] [address] PCP - General Internal Medicine 10/15/20 Research Program Internship Relationship Specialty Start Date End Date Adrian Lynn MD [address], [address] [place] [address] PCP - General Internal Medicine 10/15/20 Research Program Internship Relationship Specialty Start Date End Date Adrian Lynn MD [address], [address] [place] [address] PCP - General Internal Medicine 10/15/20 Research Program Internship Relationship Specialty Start Date End Date Adrian Lynn MD [address] [place] [address] PCP - General Internal Medicine 07/09/22 Adrian Lynn MD [address] [place] [address] PCP - ACO Reach 08/12/22 Research Program Internship Relationship Specialty Start Date End Date Adrian Lynn MD [address] [place] [address] PCP - General Internal Medicine 07/09/22 Adrian Lynn MD [address] [place] [address] PCP - ACO Reach 08/12/22 Goals (unrecognized [...] BE BASED ON THE PRIMARY CLINICAL RECORDS. [facility] [employer] [facility]. provides no warranty or guarantee of the accuracy or completeness of information in this document.
== END 2024-04-27 09:26 | disposition home or self-care (01) ==
LOC: CT 09:25
PROVIDERS: PCP Internal Medicine; Visit Provider Physician Assistant
DX: F17.210 Nicotine dependence, cigarettes, uncomplicated (principal)
CPT/HCPCS: 71271

== ENCOUNTER 2025-02-18 09:35 | Outpatient (OUT) | payer MEDICARE, OTHER, SELFPAY ==
--- OUTSIDE RECORDS SUMMARY | 2025-02-18 09:39 | XMS_ITS | Clinical Summary ---
Author Organization [facility] Address [id number] [place] [address] Care Team Providers Care Instrument Maker Apprentice Name Role Phone Adrian Lynn MD Primary Care Provider [phone] Allergies Active AllergyReactionsCriticalityNoted DateCommentsChicken DerivedHives 05/01/2023Nutritional Supplement-LkoviMfaky11/29/2024 dyspnea Fish Containing YdsklldzPqgyw77/29/2024ovidone-DffckzFxopPzi68/29/2024 No dye per pt/pain clinic use Medications MedicationSigDispense QuantityRefillsLast FilledStart DateEnd DateStatus baclofen (LIORESAL) 10 mg tablet Take 0.5-1 tablets (5-10 mg total) by mouth 3 (three) times a day. Patient takes 1/2 tab in morningand 1 tab at night.Active hydroCHLOROthiazide (MICROZIDE) 12.5 mg capsule Take 1 capsule (12.5 mg total) by mouth every morning.Active celecoxib (CeleBREX) 200 mg capsule Active citalopram (CeleXA) 40 mg tablet Take 1 tablet (40 mg total) by mouth in the morning.Active gabapentin (NEURONTIN) 300 mg capsule 1 capsule (300 mg total) 3 (three) times a day.Active traZODone (DESYREL) 50 mg tablet Take 1 tablet (50 mg total) by mouth nightly.Active lisinopriL (PRINIVIL,ZESTRIL) 5 mg tablet Take 1 tablet (5 mg total) by mouth in the morning.Active atorvastatin (LIPITOR) 40 mg tablet Take 1 tablet (40 mg total) by mouth in the morning.10/10/2022ctive esomeprazole (NexIUM) 40 mg capsule Take 1 capsule (40 mg total) by mouth every morning before breakfast.Active biotin 10 mg tablet every 12 (twelve) hours.Active loratadine (CLARITIN) 10 mg tablet Take 1 tablet (10 mg total) by mouth in the morning.02/07/2023ctive cinnamon bark 500 mg capsule 02/07/2023ctive aspirin 81 mg capsule 10/10/2022ctive b complex vitamins capsule 1 capsule.02/07/2023ctive NON FORMULARY Med Name: Centrum SilverActive vit A/vit C/vit E/zinc/copper (PRESERVISION AREDS ORAL) Take by mouth.Active rnlwcwyadrl-kmmporsvi-pgeyquxs (TRELEGY ELLIPTA) 100-62.5-25 mcg blister with device Inhale 1 puff in the morning.01/09/2023ctive NON FORMULARY VITAMIN D3- OTC- Pt. Unsure of strength of medicationActive acetaminophen (TYLENOL EXTRA STRENGTH) 500 mg tablet Take 2 tablets (1,000 mg total) by mouth every 6 (six) hours. 30 tablet 06/30/2024tive Lactobacillus acidophilus (PROBIOTIC ACIDOPHILUS ORAL) Take 1 capsule by mouth in the morning.Active Active Problems ProblemNoted DateDiagnosed DateInfection of prosthetic right knee joint 10/01/2024Multiple drug resistant organism (MDRO) culture /01/2025 Presence of right artificial knee joint08/11/2024Primary osteoarthritis of right knee06/30/2024Other specified mononeuropathies of left lower limb04/01/2024 Lumbosacral spondylosis without gszuosohdt80/30/2024Spinal stenosis of lumbar region with neurogenic /30/2024 Encounters DateTypeDepartmentCare OyjyKuokkrdlgja17/02/2025 4:10 PM EST - 02/01/2025 11:59 PM ESTHospital Encounter [facility] - Radiology [address] [place] [address] Right knee pain, unspecified chronicity Discharge Disposition: Home02/01/2025 3:55 PM EST - 02/01/2025 4:09 PM EST Hospital Encounter [facility] - Cardiovascular [address] [place] [address] Knee pain, right Discharge Disposition: Home02/01/20251682Srwmpc52/18/0915Aqzuxr31Travel 12/07/20248761Tqgjfk50/02/2171Afdkry02/22/2025Travelfrom Last 3 Months Family History Medical HistoryRelationNameCommentsDiabetesBrotherHypertensionBrotherMental illnessBrotherMemory lossFatherAlzheimer's diseaseMotherBack ProblemsMother DiabetesMotherHypertensionMotherBack ProblemsSisterCancerSisterDiabetesSister HypertensionSisterMental illnessSisterAnesthesia problemsNeg HxBleeding Disorder Neg HxRelationNameStatusCommentsBrotherFatherMotherSister Social History Tobacco UseTypesPacks/DayYears UsedDateSmoking Tobacco: Every DayCigarettes0.540 Smokeless Tobacco: Never Tobacco Cessation:Ready to Q uit: Not Asked; Counseling Given: Not Answered Comments:Smokes about 4-5 cigarettes daily Alcohol UseStandard Drinks/WeekCommentsYes0 (1 standard drink = 0.6 oz pure alcohol)occasionalAHC UtilitiesAnswerDate RecordedIn the past 12 months has the [employer], gas, oil, or water [employer] threatened to shut off services in your home?No08/11/2024Overall Financial Resource Strain (CARDIA)AnswerDate Recorded How hard is it for you to pay for the very basics like food, housing, medical care, and heating?Not hard at all10/02/2024PRAPARE - TransportationAnswerDate RecordedIn the past 12 months, has lack of transportation kept you from medical appointments or from getting medications?No10/02/2024In the past 12 months, has lack of transportation kept you from meetings, work, or from getting things needed for daily living?No10/02/2024Housing InstabilityAnswerDate RecordedAre you worried or concerned that in the next two months you may not have stable housing that you own, rent or stay in as a part of a household?No10/02/2024 ChildcareAnswerDate ZpwdizheUzpwohrgsPprtznh75/12/2019EmploymentAnswerDate RsckekutJqfoysvgijQtqfgem80/12/2019Hunger ScreeningAnswerDate RecordedWithin the past 12 months we worried whether our food would run out before we got money to buy more.Never True10/02/2024Within the past 12 months the food we bought just didn't last and we didn't have money to get more.Never True10/02/2024 CommentsNoSex and Gender InformationValueDate RecordedSex Assigned at BirthNot on fileLegal JorUymhlu92/06/2015 11:55 AM EDTGender IdentityNot on fileSexual OrientationNot on file Last Filed Vital Signs Vital SignReadingTime TakenCommentsBlood Fdbctckj341/6909 8:10 AM EDT Detne371011/12/2024 8:10 AM UFCAtctnzrnxde43.3 ??C (97.4 ??F)11/12/2024 8:10 AM EDTRespiratory Cpcl155511/12/2024 8:10 AM EDTOxygen Czpclnzibt58%11/12/2024 8:10 AM EDTInhaled Oxygen Concentration--Bocnit64.9 kg (152 lb)11/12/2024 8:10 AM EDT Lhcyss499 cm (5' 2.99 )11/12/2024 8:10 AM EDTBody Mass Index26.9311/12/2024 8:10 AM EDT Plan of Treatment Health MaintenanceDue DateLast DoneCommentsTobacco Ofpzppstuz69/30/1954 Depression Rlqwmbzad29/30/1966Adult BMI Follow Up Plan05/31/1971DTaP,Tdap and Td Vaccines (1 - Tdap)1972Zoster (Shingles) Vaccine (3 of 3)06/21/2024 04/26/2024, 07/01/2013, 06/11/2013COVID-19 Vaccine (2024- season) /08/2023, 01/09/2023, 11/27/2021, Additional history existsInfluenza Nqsuvhl11/08/2023, 01/09/2023, 11/27/2021, Additional history exists Fall Risk Uujvszhpb33/Tobacco Qccwjptsq23/01/2025 Adult BMI Fggqljbnh43/01/2025RSV ( or age 60+ yrs)Completed 02/04/2024 Goals GoalPatient Goal TypeAssociated ProblemsRecent ProgressPatient-Stated?Author Return home Therese Dempsey MSW Note: Evaluation of progress towards goal: In progress: Return home with outpatient therapy set up for 07/06/24. Autogenerated Goal Care PlanAutogenerated ProblemNoJohnson, Mary Autogenerated Goal Care PlanAutogenerated ProblemNoJohnson, Mary Medical Devices ImplantedTypeAreaManufacturerDevice [facility] Expiration DateModel / Serial / LotCement Bn Bio 40gm Rpl [id number] - [id number] Implanted:Qty: 1 on 06/30/2024 [facility]: KneeZimmer [id number] / / [id number] Bn Bio 40gm Rpl [id number] - [id number] Implanted:Qty: 1 on 06/30/2024 by [facility]Right: KneeZimmer [id number] / / [id number] Artc 3-4 10mm Kn Rt Bicr Stab Xlpe Journey Ii - [id number] Implanted:Qty: 1 on 06/30/2024 by [facility] ImplantRight: KneeSMITH AND NEPHEW [id number] / / [id number] Fem 5 Kn Rt 67.5x62.7mm Bicr Stab Journey Ii Oxnm - [id number] Implanted:Qty: 1 on 06/30/2024 by [facility] ImplantRight: KneeSMITH AND NEPHEW [id number] / / [id number] Artc 3-4 10mm Kn Rt Bicr Stab Xlpe Journey Ii - [id number] Implanted:Qty: 1 on 08/11/2024 by [facility] ImplantRight: KneeSMITH AND NEPHEW ORTHO11/16/[id number] / / [id number] Tib 3 Kn Rt Bicr Stab Journey Npor - [id number] Implanted:Qty: 1 on 06/30/2024 by [facility]ateRight: KneeSMITH AND NEPHEW [id number] / / [id number] Hand WristExplantedTypeAreaManufacturerDevice IdentifierShelf Expiration DateModel / Serial / LotKnee Sn Hyb Inc Spcl Poly Mtl Construct - [id number] Implanted:Qty: 1 on 06/30/2024 by Jaime T[facility]ar MD at [facility] Explanted:Qty: 1 on 08/11/2024 by [facility] ImplantRight: KneeSMITH AND NEPHEW ORTHOSN-5 / / Procedures Procedure NamePriorityDate/TimeAssociated DiagnosisCommentsBASIC METABOLIC PANEL Tkdmral6702/01/2025 4:31 PM EST Localized swelling, mass and lump, unspecified Pain in right knee CBC WITH AUTO GLZCIDMBPRUFOrxkutp96/02/2025 4:31 PM EST Localized swelling, mass and lump, unspecified Pain in right knee XR CHEST 2 RHKGgxxnfm89/02/2025 4:28 PM EST Right knee pain, unspecified chronicity ECG 12-DXQDOsyojrh50/02/2025 3:57 PM EST Knee pain, right from Last 3 Months Results * (ABNORMAL) CBC auto differential (02/01/2025 4:31 PM EST)ComponentValueRef RangeTest MethodAnalysis TimePerformed AtPathologist SignatureWBC7.94 - 11 10^902/01/2025 10:35 PM [facility] LABORATORYRBC Count4.78 3.8 - 5.2 10^1202/01/2025 10:35 PM [facility] Yhttuimlrx37.211.7 - 15.5 g/dL02/01/2025 10:35 PM [facility] PBLUWBSKVTWbxxamonjn74.235 - 47 %02/01/2025 10:35 PM [facility] CRODVZMLZITYJ3192 - 100 fL02/01/2025 10:35 PM [facility] JDAKHWOYIZVGD87.727 - 34 pg02/01/2025 10:35 PM [facility] FKTTKOQLDJKQEF44.732 - 36 g/dL02/01/2025 10:35 PM [facility] FLUTNNPLXXLII56.6(H)11.5 - 15 %02/01/2025 10:35 PM [facility] LABORATORYPlatelet Ubkqo294825 - 450 10^02/01/2025 10:35 PM [facility] LABORATORYMPV9.97 - 12 fL02/01/2025 10:35 PM [facility] LABOR[facility]ORYNeutrophils %62.1%02/01/2025 10:35 PM [facility] LABORATORYLymphocytes %29.2%02/01/2025 10:35 PM [facility] LABORATORYMonocytes %5.7%02/01/2025 10:35 PM [facility] LAB[facility]ORYEosinophils %2.5%02/01/2025 10:35 PM [facility] LABORATORYBasophils %0.5%02/01/2025 10:35 PM [facility] LABORATORYNeutrophils Absolute (A)4.91.5 - 6.6 10^9/L 02/01/2025 10:35 PM [facility] LABORATORYLymphocytes Absolute 2.31.0 - 3.5 10^9/L104/04/2024 10:35 PM [facility] Monocytes Absolute0.50.0 - 0.9 10^9/L104/04/2024 10:35 PM [facility] LABORATORYEosinophils Absolute0.20.0 - 0.4 10^9/L104/04/2024 10:35 PM [facility] LABOR[facility]ORYBasophils Absolute0.00.0 - 0.2 10^9/L 02/01/2025 10:35 PM [facility] LABORATORYDifferential Type AUTOMATED NCQDEVBDDGQA17/02/2025 10:35 PM [facility] LABORATORYSpecimen (Source)Anatomical Location / LateralityCollection Method / VolumeCollection TimeReceived TimeBloodVenous blood / UnknownVenipuncture / Rpnioaz6102/01/2025 4:31 PM EST02/01/2025 4:34 PM EST Narrative Authorizing ProviderResult TypeResult StatusRobert Heath Tovar MDOSWEGO MED[facility]ENTER BLOOD ORDERABLESFinal ResultPerforming OrganizationAddressCity/State/ZIP CodePhone Number [facility] [address] [place] [address], * (ABNORMAL) Basic Metabolic Panel (02/01/2025 4:31 PM EST)ComponentValueRef RangeTest MethodAnalysis TimePerformed AtPathologist CnrveglqcYPRWSL524508 - 146 mmol/L104/04/2024 10:51 PM [facility] LABORATORYPOTASSIUM 3.53.5 - 5.0 mmol/L104/04/2024 10:51 PM [facility] UUZQYRKD55574 - 109 mmol/L104/04/2024 10:51 PM [facility] LABORATORYCARBON IRBRJCP7950 - 32 mmol/L104/04/2024 10:51 PM [facility] LABORATORYANION GAP95 - 15 mmol/L104/04/2024 10:51 PM [facility] LABORATORYBLOOD UREA RWDWLBII859 - 27 mg/dL02/01/2025 10:51 PM [facility] LABORATORYCREATININE0.770.40 - 1.00 mg/dL 02/01/2025 10:51 PM [facility] LABORATORYComment:METHOD TRACEABLE TO IDMS DDJMQGVCSKBYJCM353(H)65 - 99 mg/dL02/01/2025 10:51 PM EST [facility] LABORATORYCALCIUM9.68.5 - 10.5 mg/dL02/01/2025 10:51 PM [facility]ORYEGFR Non-Race Prcswigfy47>=60 ml/min/1.73sq.m104/04/2024 10:51 PM [facility] Comment: Reported eGFR is based on the CKD-EPI 2020 equation that does not use a race coefficient. Specimen (Source)Anatomical Location / LateralityCollection Method / Volume Collection TimeReceived TimeBloodVenous blood / UnknownVenipuncture / Unknown 02/01/2025 4:31 PM EST02/01/2025 4:34 PM EST Narrative Authorizing ProviderResult TypeResult StatusRobert Heath Tovar MDLAB BLOOD ORDERABLESFinal ResultPerforming OrganizationAddressCity/State/ZIP CodePhone Number [facility] [address] [place] [address], * X-ray chest 2 views (02/01/2025 4:28 PM EST)Anatomical RegionLaterality ModalityBody, ChestN/AComputed RadiographySpecimen (Source)Anatomical Location / LateralityCollection Method / VolumeCollection TimeReceived Time02/01/2025 4:46 PM EST Narrative 02/01/2025 4:47 PM EST XR CHEST 2 VWS Clinical Information: Right knee pain, unspecified chronicity Comparison: 06/10/2024. IMPRESSION: * ??Mild hyperinflation with no pulmonary edema or consolidation. Interstitial changes and scarring. Calcified granulomas are present. Finalized by Pawan Cornejo MD on 02/01/2025 4:47 PM Procedure Note Pawan Cornejo MD - 02/01/2025 XR CHEST 2 VWS Clinical Information: Right knee pain, unspecified chronicity Comparison: 06/10/2024. IMPRESSION: * Mild hyperinflation with no pulmonary edema or consolidation.Interstitial changes and scarring. Calcified granulomas are present. Finalized by Pawan Cornejo MD on 02/01/2025 4:47 PM Authorizing ProviderResult TypeResult StatusRobert Heath [facility] ORDERABLESFinal Result * ECG 12 lead (02/01/2025 3:57 PM EST)Specimen (Source)Anatomical Location / LateralityCollection Method / VolumeCollection TimeReceived Time02/01/2025 3:57 PM EST Narrative [facility] - 02/01/2025 8:51 PM EST Authorizing ProviderResult TypeResult StatusRobert Heath GLYNN ORDERABLES Final ResultPerforming OrganizationAddressCity/State/ZIP CodePhone Number [facility] from Last 3 Months Additional Health Concerns Active ProblemsNoted DateDiagnosed DateAutogenerated Tltqbnq7707/01/2024 Autogenerated Ykhlmnm6608/10/2024 Insurance Advance Directives * Full Code (Latest Code Status on File) Date ActivatedDate InactivatedComments08/11/2024 1:36 PM08/12/2024 5:52 PM * Full Code Date ActivatedDate InactivatedComments06/30/2024 7:54 AM06/30/2024 8:38 PM Care Teams Team MemberRelationshipSpecialtyStart DateEnd Date Adrian Lynn MD [address] [facility] [address] [place] [address] PCP - GeneralInternal Medicine10/15/20
--- OUTSIDE RECORDS SUMMARY | 2025-02-18 09:39 | XMS_ITS | Clinical Summary ---
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 Name Role Phone Adrian Lynn MD Primary Care Provider [phone] Adrian Lynn MD Unavailable [phone] Allergies Active AllergyReactionsCriticalityNoted DateCommentsChicken Metesmc2407/01/2014Egg Protein-Containing Drug IyojhihyWsrxctm87/08/2023 Other Reaction(s): hives/dyspnea Fish VyhtcsbYywdm91/29/3441JwoaroWmydqli51/08/2023ovidone-IodineRashLow 05/01/2023 No dye per pt/pain clinic use Medications MedicationSigDispense QuantityRefillsLast FilledStart DateEnd DateStatus ascorbic acid (Vitamin C) 250 MG tablet Take 500 mg by mouth in the morning.Active biotin (Biotin Maximum Strength) 10 MG tablet every 12 (twelve) hours.Active cinnamon 500 MG capsule 1 (one) time each day at the same time.Active Multiple Vitamins-Minerals (Centrum Silver Adult 50+) tablet Take by mouth.Active baclofen (Lioresal) 10 MG tablet Indications:Degeneration of intervertebral disc of lumbar regionTAKE 1/2 TO 1 (ONE-HALF TO ONE) TABLET BY MOUTH THREE TIMES DAILY WITH FOOD 270 tablet 06/19/2023ctive aspirin (Vazalore) 81 MG capsule Take 81 mg by mouth Daily On hold for 3 days10/10/2022ctive b complex vitamins capsule Take 1 capsule by mouth Daily02/07/2023ctive albuterol HFA 90 mcg/act inhaler Indications:Acute bronchitis, unspecified organismInhale 2 puffs every 4 (four) hours if needed for wheezing or shortness of breath 18 g 4Active traZODone (Desyrel) 50 MG tablet Indications:Primary insomniaTake 1 tablet (50 mg) by mouth at bedtime 90 tablet 5Active citalopram (CeleXA) 40 MG tablet Indications:Generalized anxiety disorderTake 1 tablet (40 mg) by mouth Daily 90 tablet 5Active Elaaohzmqhi-Jdjeissvd-Ikludx (Trelegy Ellipta) 100-62.5-25 MCG/ACT aerosol powder Indications:Chronic obstructive pulmonary disease, unspecified COPD type ([facility]) Inhale 1 Inhalation Daily 3 each 5Active esomeprazole (NexIUM) [address] capsule Indications:Gastroesophageal reflux disease without esophagitisTake 1 capsule (40 mg) by mouth in the morning. Take before meals. Do not open capsule.. 90 capsule 5Active atorvastatin (Lipitor) 40 MG tablet Indications:Hyperlipidemia, unspecified hyperlipidemia typeTake 1 tablet (40 mg) by mouth Daily 90 tablet 5Active acetaminophen (Tylenol) 500 MG tablet Take 1,000 mg by mouth in the morning and 1,000 mg at noon and 1,000 mg in the evening and 1,000 mgbefore bedtime.5Active meloxicam (Mobic) 15 MG tablet Take 15 mg by mouth Daily5Active doxycycline (Monodox) 100 MG capsule Take 100 mg by mouth in the morning and 100 mg before bedtime.5Active oxyCODONE-acetaminophen (Percocet) 5-325 MG tablet Take 1 tablet by mouth every 6 (six) hours if needed for severe pain09/08/2024 Active loratadine (Claritin) 10 MG tablet Indications:Seasonal allergic rhinitis due to pollenTake 1 tablet (10 mg) by mouth Daily 90 tablet 5Active hydroCHLOROthiazide (Microzide) 12.5 MG capsule Indications:Mixed hyperlipidemiaTake 1 capsule by mouth once daily 100 capsule 5Active lisinopril 5 MG tablet Indications:Mixed hyperlipidemiaTake 1 tablet by mouth once daily 100 tablet tive gabapentin (Neurontin) 300 MG capsule Indications:Neuralgia of lower extremityTake 1 capsule (300 mg) by mouth in the morning and 1 capsule (300 mg) in the evening and 1 capsule(300 mg) before bedtime. 270 capsule 5Active doxycycline (Vibra-Tabs) 100 MG tablet Take 100 mg by mouth in the morning and 100 mg before bedtime.5Active celecoxib (CeleBREX) 200 MG capsule Indications:Degeneration of intervertebral disc of lumbar regionTake 1 capsule (200 mg) by mouth in the morning and 1 capsule (200 mg) before bedtime. Take with food. 180 capsule 5Active celecoxib (CeleBREX) 200 MG capsule Indications:Degeneration of intervertebral disc of lumbar regionTake 1 capsule (200 mg) by mouth in the morning and 1 capsule (200 mg) before bedtime. Take with food. 180 capsule Discontinued(Reorder) Active Problems ProblemNoted DateDiagnosed DatePresence of right artificial knee joint08/11/2024 History of arthroplasty of right knee07/08/2024Pulmonary fibrosis, unspecified 04/21/2024Hemangioma of skin04/21/2024Other specified mononeuropathies of left lower limb04/01/2024Tobacco zhcwjaskml43/15/2024Lumbosacral spondylosis without /30/2024Gastroesophageal reflux disease without esophagitis 07/30/2023Spinal stenosis of lumbar region with neurogenic claudication 07/01/2023Other idiopathic scoliosis, lumbar xoouhe8304/22/2023History of colon iqaoqs2704/18/2023ostoperative pain of syqtspduo42/16/2024bnormal CBC04/03/2023 Allergic /01/2024rteriosclerosis of both carotid yzrkmrpy81/01/2024 Arthritis of carpometacarpal (CMC) joint of left thumb04/03/2023enign essential yukxjhgusoeb53/01/2024Estrogen fwgyefosxo70/01/2024egeneration of intervertebral disc of lumbar ajfigf7804/03/2023hronic obstructive pulmonary joprmna1404/03/2023Emphysema, zjmqxdapdzf58/01/2024Generalized anxiety disorder 04/03/2023History of ocqvhrsbdzmm63/01/7652Czlrlakswnnqlm49/01/2024IBS (irritable bowel syndrome)04/03/2023Impaired glucose utlechnby68/01/2024Insomnia 04/03/2023Major depression, single episode, in complete kbhhawojl21/01/2024 Neuralgia of lower izcofrlts23/01/2024OSA (obstructive sleep apnea)04/03/2023 Heberden's nodes04/03/20233827Ootszizabiafkc06/01/3517Tuadrvm98/12/2023rthropathy of hand04/11/2014 Resolved Problems ProblemNoted DateDiagnosed DateResolved DatePrimary osteoarthritis of right knee /10/2024Lumbar jwqqihxqwvu58/20/202402/bnormal mammogram of left /rteriosclerosis of carotid scxabs2504/03/2023 04/18/2023Traumatic arthritis of right knee/10/2024 Encounters DateTypeDepartmentCare SabuCltqbzmbqns47/04/2025Telephone [facility] [place] [facility] [address] [facility] [address] [place] [address] Adrian Lynn MD Med Mrkfjq4401/25/2025bstract [facility] [place] [facility] [address] [facility] [address] [place] [address] Adrian Lynn MD 01/05/2025 11:00 AM ESTOffice Visit [facility] [place] [facility] [address] [facility] [address] [place] [address] Hyun Malik NP Acute cough (Primary Dx); Influenza and gajbdpgom36/05/2025amboo flowsheet [facility] [place] [facility] [address] [facility] [address] [place] [address] Hyun Malik 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 01/05/20254026Asrfgk41/22/2025bstract [facility] [place] [facility] [address] [facility] [address] [place] [address] Adrian Lynn MD 12/21/2024Telephone [facility] [place] [facility] [address] [facility] [address] [place] [address] Adrian Lynn MD 12/21/2024Refill [facility] [address] [facility] [address] [place] [address] Hussein Jimenez PA Neuralgia of lower mwutaxzsc07/08/2025[facility] [address] [facility] [address] [place] [address] Adrian Lynn MD 12/07/2024bstract [facility] [address] [facility] [address] [place] [address] Adrian Lynn MD 11/29/2024[facility] [address] [facility] [address] [place] [address] Adrian Lynn MD from Last 3 Months Immunizations ImmunizationAdministration DatesNext DueABRYSVO - Respiratory syncytial virus (RSV), vaccine, bivalent, protein subunit RSV prefusion F, diluent reconstituted, 0.5 mL, PF02/04/2024Influenza, High Dose Seasonal, Preservative Free01/07/2024Influenza, High-dose Seasonal, Quadrivalent, Preservative Free 01/09/2023,11/27/2021,12/26/2020Influenza, injectable, quadrivalent, preservative free12/02/2019Pneumococcal Conjugate PCV 131Pneumococcal Conjugate PCV 4Pneumococcal Polysaccharide IFTV2733Zoster, Xwjsgofflyc14Zoster, live07/01/2013,06/11/2013 Family History Medical HistoryRelationNameCommentsDiabetesMotherHypertensionMotherDiabetes SiblingHypertensionSiblingMental illnessSiblingRelationNameStatusCommentsFather DeceasedMotherAliveSibling Social History Tobacco UseTypesPacks/DayYears UsedDateSmoking Tobacco: Every DayCigarettes Smokeless Tobacco: Never Tobacco Cessation:Ready to Q uit: Not Asked; Counseling Given: Yes Alcohol UseStandard Drinks/WeekCommentsYes0 (1 standard drink = 0.6 oz pure alcohol)Caffeine intake: coffeeAUDIT-CAnswerDate RecordedQ1: How often do you have a drink containing alcohol?2-4 times a month04/18/2023Q2: How many drinks containing alcohol do you have on a typical day when you are drinking?1 or 2 04/18/2023Q3: How often do you have six or more drinks on one occasion?Never 04/18/2023HQ-2AnswerDate RecordedPatient Health Questionnaire-2 Score1 01/05/2025CommentsUnknownSex and Gender InformationValueDate RecordedSex Assigned at BirthNot on fileLegal IimMoaqvz98/15/2023 6:58 PM EDTGender Identity Not on fileSexual OrientationNot on file Last Filed Vital Signs Vital SignReadingTime TakenCommentsBlood Eocrcouw088/8201/05/2025 10:43 AM EST Ndlun304101/05/2025 10:43 AM EJFGbveffeyrfy42.5 ??C (97.7 ??F)01/16/2024 10:58 AM ESTRespiratory Zrax987003/07/2024 10:43 AM ESTOxygen Qtyfobgmig69%01/05/2025 10:43 AM ESTInhaled Oxygen Concentration--Rxrlfn05.9 kg (143 lb)01/05/2025 10:43 AM CBPNgfcqm255 cm (5' 3 )01/05/2025 10:43 AM ESTBody Mass Index25.33103/07/2024 10:43 AM EST Plan of Treatment Health MaintenanceDue DateLast DoneCommentsCT Cqiqauyjlqrm61/30/1954FIT-DNA 1953FIT1955FOBT1953 0960Uglqvuqvpuimp54/30/1954OVID-19 Vaccine ( season)/08/2023, 01/09/2023, 11/27/2021, Additional history existsInfluenza Vaccine (#1)/08/2023, 01/09/2023, 11/27/2021, Additional history sxgipyKgjyuyvtj48/11/202512/01/2024, 02/06/2023, 01/29/2022, Additional history existsMedicare Annual Wellness (AWV)04/21/2025 04/21/2024, 04/18/2023, 04/17/2022, Additional history existsColonoscopy , 04/15/2023, 12/02/2017, Additional history exists Colorectal Cancer Frilcrpyi67/13/2034Pneumococcal Vaccine: 65+ YearsCompleted 02/04/2024, 12/02/2019, 06/15/2018 Procedures Procedure NamePriorityDate/TimeAssociated DiagnosisCommentsPOCT INFLUENZA A/B Zskhyoe5201/05/2025 11:39 AM EST Acute cough Influenza and pneumonia MM TOMOSYNTHESIS SCREENING BI02/11/2024 12:35 PM EST NBBWWDEJNZFLmhnfwk29/02/2018 12:00 PM EDT from Last 3 Months or Most Recently Relevant to Health Maintenance Results * (ABNORMAL) POCT Influenza A/B (01/05/2025 11:39 AM EST)ComponentValueRef Range Test MethodAnalysis TimePerformed AtPathologist SignatureRapid Influenza A Ag Positive(A)Negative, IndeterminateRapid Influenza B AgNegativeNegative, IndeterminateSpecimen (Source)Anatomical Location / LateralityCollection Method / VolumeCollection TimeReceived KwwxTdtb42/05/2025 11:39 AM EST Narrative Authorizing ProviderResult TypeResult StatusHyun Malik NPPOINT OF CARE TEST ENTER/EDIT ORDERABLESFinal Result * MM TOMOSYNTHESIS SCREENING BI (02/11/2024 12:35 PM EST)Anatomical Region LateralityModalityOtherSpecimen (Source)Anatomical Location / Laterality Collection Method / VolumeCollection TimeReceived Time02/11/2024 12:35 PM EST Narrative 02/11/2024 12:36 PM EST [facility] ?[address] ? [place] [address] ? Mammography Report ? Signed ? Patient: CR,SHANTA D ? MR#: [id number] ?? : 1955 ?Acct:[id number] ?? Age/Sex: 68 / F ?ADM Date: 12/11/24 ?? Loc: MAMMO ? Attending : HUSSEIN JIMENEZ ? Ordering Physician: HUSSEIN JIMENEZ ? Results: ? Date of Service: 02/11/24 ?Follow Up: ? Procedure(s): MM tomosynthesis screening BI ?? Accession Number(s): [id number] ? cc: ADRIAN LYNN ; UHSSEIN JIMENEZ ? Patient Name: ? SHANTA MONTERO ? MR#: [id number] ? : 1955 ? Exam Date: 02/11/2024 ?? Ordering Doctor: DR HUSSEIN CARDENAS ? RADIOLOGY REPORT ? PROCEDURE: ? MM TOMOSYNTHESIS SCREENING BI ? COMPARISON: ? MM TOMOSYNTHESIS SCREENING BI, 02/05/2023. ??MG MAMM SCREEN 3D ?? KEE CAD, 01/29/2022. ? INDICATIONS: ? Screening ? Calculator Name ? NCI Breast Cancer Risk Assessment Tool ?? 5 Year Breast Cancer Risk ? 3.30% ?? Lifetime Breast Cancer Risk ? 9.50% ?? Personal Breast Cancer ?No ?? Personal Ovarian Cancer ? No ?? Treatments ? HYST ?? Family Cancers ? Sister with breast cancer at age 49; Grandmother-maternal ?? with lung cancer at age ??70; Aunt-maternal with lung cancer at age 38; ?? Sister with blood cancer at age 55. ? LOCATION: ? [facility] ? BREAST COMPOSITION: ? The breasts are heterogeneously dense,which may ?? obscure small masses. ? FINDINGS: ? DIAGNOSTIC CATEGORY 2--BENIGN FINDING. NO CHANGE FROM COMPARISON. ??Scattered ?? benign-appearing calcifications are present. ??Scattered benign-appearing lymph ?? nodes are present. ? RIGHT BREAST: ??No significant suspicious finding. ? LEFT BREAST: ??No significant suspicious finding. ? RECOMMENDATIONS: ? ROUTINE MAMMOGRAM AND CLINICAL EVALUATION IN 12 MONTHS. ? PLEASE NOTE: ??A NORMAL MAMMOGRAM DOES NOT EXCLUDE THE POSSIBILITY OF BREAST ?? CANCER. ??A CLINICALLY SUSPICIOUS PALPABLE LUMP SHOULD BE BIOPSIED. ? Dictated by: Ochoa Pierre MD on 02/11/2024 at 12:34 ? Approved by: Ochoa Pierre MD on 02/11/2024 at 12:35 ? Dictated By: ?Ochoa Pierre M.D. ? Signed By: ?02/11/24 1236 ? DD/ 1235 ? TD/TT: ? Finance And Administration Manager: Procedure Note Radiology, Radiologist, MD - 02/11/2024 [place] [address] Mammography Report Signed Patient: SHANTA MONTERO DMR#: [id number] : 1955cct:[id number] Age/Sex: 68 / FADM Date: 02/11/24 Loc: MAMMO Attending Dr: HUSSEIN JIMENEZ Ordering Physician: [facility] Date of Service: 02/11/24Follow Up: Procedure(s): MM tomosynthesis screening BI Accession Number(s): [id number] cc: ADRIAN LYNN ; HUSSEIN JIMENEZ Patient Name: SHANTA MONTERO MR#: [id number] : 1955 Exam Date: 02/11/2024 Ordering Doctor: DR HUSSEIN CARDENAS RADIOLOGY REPORT PROCEDURE: MM TOMOSYNTHESIS SCREENING BI COMPARISON: MM TOMOSYNTHESIS SCREENING BI, 02/05/2023. MG MAMM LIMVBC7R KEE CAD, 01/29/2022. INDICATIONS: Screening Calculator Name NCI Breast Cancer Risk Assessment Tool 5 Year Breast Cancer Risk 3.30% Lifetime Breast Cancer Risk 9.50% Personal Breast Cancer No Personal Ovarian Cancer No Treatments HYST Family Cancers Sister with breast cancer at age 49;Grandmother-maternal with lung cancer at age 70; Aunt-maternal with lung cancer at age 38; Sister with blood cancer at age 55. LOCATION: [facility] BREAST COMPOSITION: The breasts are heterogeneously dense,which may obscure small masses. FINDINGS: DIAGNOSTIC CATEGORY 2--BENIGN FINDING. NO CHANGE FROM COMPARISON.Scattered benign-appearing calcifications are present. Scattered benign-appearinglymph nodes are present. RIGHT BREAST: No significant suspicious finding. LEFT BREAST: No significant suspicious finding. RECOMMENDATIONS: ROUTINE MAMMOGRAM AND CLINICAL EVALUATION IN 12 MONTHS. PLEASE NOTE: A NORMAL MAMMOGRAM DOES NOT EXCLUDE THE POSSIBILITY OFBREAST CANCER. A CLINICALLY SUSPICIOUS PALPABLE LUMP SHOULD BE BIOPSIED. Dictated by: Ochoa Pierre MD on 02/11/2024 at 12:34 Approved by: Ochoa Pierre MD on 02/11/2024 at 12:35 Dictated By: Ochoa Pierre M.D. Signed By:02/11/24 1236 DD/ 1235 TD/TT: Finance And Administration Manager: Authorizing ProviderResult TypeResult StatusHussein Jimenez [facility] Final Result * Colonoscopy (12/02/2017 12:00 PM EDT)Anatomical RegionLateralityModality EndoscopySpecimen (Source)Anatomical Location / LateralityCollection Method / VolumeCollection TimeReceived Time12/02/2017 12:00 PM EDT Narrative 12/02/2017 12:00 PM EDT PERFORMED AT [facility] LOCATION:[id number] polyps--repeat 5 years Procedure Note CONVERSION, GENERIC - 07/17/2022 PERFORMED AT [facility] LOCATION:[id number] polyps--repeat 5 years Authorizing ProviderResult TypeResult Andi Lynn MDENDOSCOPY PROCEDURE ORDERABLESFinal Result from Last 3 Months or Most Recently Relevant to Health Maintenance Insurance Care Teams Team MemberRelationshipSpecialtyStart DateEnd Date Adrian Lynn MD [address] [place] [address] [facility] - [facility]07/09/22 Adrian Lynn MD [address] [place] [address] PCP - [facility]08/12/22
--- OUTSIDE RECORDS SUMMARY | 2025-02-18 09:39 | XMS_ITS | Clinical Summary ---
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 Hand Crocheter Name Role Phone Adrian Lynn MD Primary Care Provider [phone] Allergies Active AllergyReactionsCriticalityNoted DateCommentsChicken DerivedHives 05/01/2023Fish Containing ZznwumxzRkbmd54/29/2024IodineRash,GctyieeZat39/09/2015 Nutritional Supplement-TkhhvNgyff98/29/2024 dyspnea Povidone-SopuriOrtxPxg49/29/2024 No dye per pt/pain clinic use Medications MedicationSigDispense QuantityRefillsLast FilledStart DateEnd DateStatus aspirin 81 mg capsule 10/10/2022ctive atorvastatin (Lipitor) 40 mg tablet Take 40 mg by mouth in the morning.10/10/2022ctive celecoxib (CeleBREX) 200 mg capsule 08/20/2024tive citalopram (CeleXA) 40 mg tablet Take 40 mg by mouth in the morning.Active esomeprazole (NexIUM) [address] capsule Take 40 mg by mouth.04/21/2024tive Trelegy Ellipta 100-62.5-25 mcg blister with device Inhale 1 puff in the morning.01/09/2023ctive gabapentin (Neurontin) 300 mg capsule 300 mg 3 times a day.04/21/2024tive hydroCHLOROthiazide (Microzide) 12.5 mg capsule Take 12.5 mg by mouth in the morning.10/29/2023ctive lisinopril 5 mg tablet Take 5 mg by mouth in the morning.10/29/2023ctive traZODone (Desyrel) 50 mg tablet Take 50 mg by mouth at bedtime.Active doxycycline (Vibra-Tabs) 100 mg tablet Indications:Coagulase-negative staphylococcal infection,Prosthetic joint infection, sequelaTake 1 tablet (100 mg) by mouth every 12 (twelve) hours. Take with a full glass of water and do notlie down for at least 30 minutes after. 30 tablet Expired Active Problems No known active problems Encounters DateTypeDepartmentCare CbsnArgkrlqrliz92/12/2025Telephone [facility] Infectious Disease [address] [place] [address] Monika Maguire MA from Last 3 Months Social History Tobacco UseTypesPacks/DayYears UsedDateSmoking Tobacco: Every DayCigarettes Smokeless Tobacco: NeverPHQ-2AnswerDate RecordedPatient Health Questionnaire-2 Dwlfg220CommentsUnknownSex and Gender InformationValueDate RecordedSex Assigned at OvdxhEwpyai81/29/2025 2:34 PM EDTLegal SexFemale 09/17/2024 9:16 AM EDTGender XummrcdhIlbtqh68/29/2025 2:34 PM EDTSexual OrientationChoose not to ojwyzdbz26/29/2025 2:34 PM EDT Last Filed Vital Signs Vital SignReadingTime TakenCommentsBlood Zcqgkqlb320/8411/15/2024 3:41 PM EDT Wjbob231611/15/2024 3:41 PM AALHfcdeiowhkb88.9 ??C (98.4 ??F)11/15/2024 3:41 PM EDTRespiratory Rate--Oxygen Daurarvbao33%09/28/2024 2:47 PM EDTInhaled Oxygen Concentration--Dpipwy77.6 kg (160 lb)11/15/2024 3:41 PM MNQZwfrte375.5 cm (5' 2 )11/15/2024 3:41 PM EDTBody Mass Index29.2609 3:41 PM EDT Plan of Treatment Health MaintenanceDue DateLast DoneCommentsCT Ozpjsiebxhrv86/30/1954FIT-DNA 1955FIT1955FOBT1953Medicare Annual Wellness (AWV)1955 Gepamruqjrjlp37/30/1954dult Kbhqaqk9805/31/19751377Bkpwxfokh89/30/1994Zoster Vaccines (2 of 2)502/, 07/01/2013, 06/11/2013COVID-19 Vaccine ( season)/08/2023, 01/09/2023, 11/27/2021, Additional history existsInfluenza Vaccine (#1)/08/2023, 01/09/2023, 11/27/2021, Additional history existsDepression Mbxpncvhw89/Fall Risk Xaculahhu20olonoscopy/, 12/02/2017 Colorectal Cancer Gvldydegy62/13/2034neumococcal Vaccine: 50+ YearsCompleted 02/04/2024, 12/02/2019, 06/15/2018HIB VaccinesAged OutNo longer eligible based on patient's age to complete this topicHPV VaccinesAged OutNo longer eligible based on patient's age to complete this topicIPV VaccinesAged OutNo longer eligible based on patient's age to complete this topicMeningococcal B Vaccine Aged OutNo longer eligible based on patient's age to complete this topic Meningococcal VaccineAged OutNo longer eligible based on patient's age to complete this topicRotavirus VaccinesAged OutNo longer eligible based on patient's age to complete this topic Insurance Care Teams Team MemberRelationshipSpecialtyStart DateEnd Date Adrian Lynn MD [address] [place] [address] PCP - GeneralInternal Medicine10/01/24
--- OUTSIDE RECORDS SUMMARY | 2025-02-18 09:39 | XMS_ITS | Clinical Summary ---
Author Organization [facility] Address [address] [facility] [place] [address] Care Team Providers Care Machine Rigger Name Role Phone Unavailable Primary Care Provider Unavailabl e Source Comments The following information is NOT included in Care Everywhere downloads:Psychiatric notes, ECG results, Cardiac Rehab notes, Pulmonary Function notes, data from SmartForms (includes but not limited toPregnancy data,audiograms, eye exams, pre-surgical evaluation notes, well-child exam data).[facility] Allergies Active AllergyReactionsCriticalityNoted DateCommentsChicken Faoroah0307/01/2014 SwcqhkEpgj41/09/2015Other (Review Comments!)07/01/2014 FISH Medications MedicationSigDispense QuantityRefillsLast FilledStart DateEnd DateStatus trazodone 50 MG tablet Take 50 mg by mouth at bedtime.Active tramadol (ULTRAM) 50 MG tablet Take 50 mg by mouth every 6 hours as needed.Active celecoxib (CELEBREX) 200 MG capsule Take 200 mg by mouth 2 times daily.Active lisinopril (ZESTRIL) 5 MG tablet Take 5 mg by mouth daily.Active hydrochlorothiazide (HYDRODIURIL) 25 MG tablet Take 12.5 mg by mouth daily.Active citalopram (CELEXA) 40 MG tablet Take 40 mg by mouth daily.Active esomeprazole (NEXIUM) 20 MG packet Take 20 mg by mouth daily (30 minutes before breakfast).Active fexofenadine (RYNE) 180 MG tablet Take 180 mg by mouth daily.Active vitamin C (ASCORBIC ACID) 250 MG tablet Take 500 mg by mouth daily.Active Multiple Vitamins-Minerals (CENTRUM SILVER ADULT 50+) TABS Take by mouth.Active C[place] 450 MG CAPS Take by mouth.Active Cinnamon 500 MG TABS Take 1,000 mg by mouth.Active Active Problems ProblemNoted DateDiagnosed DateUnspecified arthropathy, hand04/11/2014 Immunizations ImmunizationAdministration DatesNext DueZoster Live (ZVL,Shingles) (EIN=390) 06/11/2013 Social History Tobacco UseTypesPacks/DayYears UsedDateSmoking Tobacco: FormerCigarettes Smokeless Tobacco: Never Comments:quit 2007 Alcohol UseStandard Drinks/WeekCommentsYes0 (1 standard drink = 0.6 oz pure alcohol)occasionalSubstance UseTypesUse/WeekCommentsNoCommentsNoSex and Gender InformationValueDate RecordedSex Assigned at BirthNot on fileLegal Sex Etjego8903/28/2014 1:07 PM ESTGender IdentityNot on fileSexual OrientationNot on file Last Filed Vital Signs Vital SignReadingTime TakenCommentsBlood Uddnsoxv767/7105 4:15 PM EDT Jxnpc1652 4:25 PM FVUKovnxdvrpda44.7 ??C (98.1 ??F)07/12/2014 3:35 PM EDTRespiratory Xded931807/12/2014 4:25 PM EDTOxygen Mgrbxeexnq93%07/12/2014 4:25 PM EDTInhaled Oxygen Concentration--Weight--Height--Body Mass Index-- Plan of Treatment Health MaintenanceDue DateLast YcmhRpyqdumjNtveldwpaid60/30/1956Hepatitis C Rammxquh47/30/1972Tdap Lehaeoq8105/31/1971Hepatitis A (HAV) Vaccine (optional start 19+ years)05/30/19720955Psqslxmecxj75/30/1994CRC Nyxxyamjv39/30/1999 Ogwdxqkibed74/30/1999Cologuard (Stool DNA)1998FIT1998Pneumococcal Vaccine(s) (50+ yrs) (1 of 1 - PCV)05/31/2003Hepatitis B (HBV) Vaccine (optional start 60+ years)2013Shingles (RZV) Vaccine (2 of 3) Bone Pccmfnlwgwxz41/30/2019COVID-19 Vaccine ( - 2024-26 season)2024 Influenza Vaccine (#1)2024RSV vaccine (adult) (1 - 1-dose 75+ series) 2028Pap SmearDiscontinued Medical Devices ImplantedTypeAreaManufacturerDevice IdentifierShelf Expiration DateModel / Serial / LotGraft 2 X 4cm Alloderm [id number] - [id number] Implanted:Qty: 1 on 07/12/2014 by Grupo Ochoa MD at INPATIENT DEPARTMENTSGraft BiologicLeft: [id number] / / [id number] 2.3mm 5hole Straight L Compression Titanium [id number] - [id number] Implanted:Qty: 1 on 07/12/2014 by Grupo Ochoa MD at INPATIENT DEPARTMENTSPlateLeft: [id number] / / 0Screw 2.3 X 10mm Bone [id number] - [id number] Implanted:Qty: 1 on 07/12/2014 by Grupo Ochoa MD at INPATIENT DEPARTMENTSScrewLeft: [id number] / / 0Screw 2.3 X 10mm Bone [id number] - [id number] Implanted:Qty: 1 on 07/12/2014 by Grupo Ochoa MD at INPATIENT DEPARTMENTSScrewLeft: [id number] / / 0Screw 2.3 X 10mm Bone [id number] - [id number] Implanted:Qty: 1 on 07/12/2014 by Grupo Ochoa MD at INPATIENT DEPARTMENTSScrewLeft: [id number] / / 0Screw 2.5 X 12mm Emergency [id number] - [id number] Implanted:Qty: 1 on 07/12/2014 by Grupo Ochoa MD at INPATIENT DEPARTMENTSScrewLeft: [id number] / / 0 [place] [id number]
--- OUTSIDE RECORDS SUMMARY | 2025-02-18 09:39 | XMS_ITS | Clinical Summary ---
Author Organization [facility] Address [address] [place] [address] Care Team Providers Care Sewer Tapper Name Role Phone Unavailable Primary Care Provider Unavailabl e Social History Tobacco UseTypesPacks/DayYears UsedDateSmoking Tobacco: Never Assessed CommentsUnknownSex and Gender InformationValueDate RecordedSex Assigned at Not on fileLegal VlhIartzi77/03/2013 10:58 AM ESTGender IdentityNot on file Sexual OrientationNot on file Plan of Treatment Health MaintenanceDue DateLast DoneCommentsDEXA SCAN TCJETPVSOH23/30/1956 HEPATITIS C VIRUS DWCSBAWBK75/30/4864XDIAYQN24/30/1954TDAP (ADULT)1972 CERVICAL CANCER SCREENING AMPFUUELAZ70/30/1975LIPID WELXKYVJC99/30/1994MAMMOGRAM SCREENING CYGQWVIQFI21/30/1994COLORECTAL CANCER SCREENING KKSOFCQJYP32/30/1999 PNEUMOCOCCAL VACCINE SERIES (1 of 1 - PCV)05/31/2003ZOSTER (SHINGLES) VACCINE (1 of 2)05/31/2003COVID-19 VACCINE (1 - 2024- season)2024INFLUENZA VACCINE (#1)2024RSV VACCINE (1 - 1-dose 75+ series)2028HEP B VACCINEAged Out No longer eligible based on patient's age to complete this topic
--- OUTSIDE RECORDS SUMMARY | 2025-02-18 09:39 | XMS_ITS | Encounter Summary ---
Author Organization [facility] Address [address] [address] Care Team Providers Care Drug Safety Coordinator Name Role Phone Adrian Lynn MD Primary Care Provider [phone] Encounter Details DateTypeDepartmentCare Team (Latest Contact Info)Ebehbsqkrta61/12/2025Telephone [facility] Infectious Disease [address] [place] [address] Monika Maguire MA Social History Tobacco UseTypesPacks/DayYears UsedDateSmoking Tobacco: Every DayCigarettes Smokeless Tobacco: NeverPHQ-2AnswerDate RecordedPatient Health Questionnaire-2 Gvfgk353CommentsUnknownSex and Gender InformationValueDate RecordedSex Assigned at [place]29/29/2025 2:34 PM EDTLegal SexFemale 09/17/2024 9:16 AM EDTGender IkovinlrUrnsfl73/29/2025 2:34 PM EDTSexual OrientationChoose not to dfwesbpu33/29/2025 2:34 PM EDTdocumented as of this encounter Plan of Treatment Not on file documented as of this encounter Visit Diagnoses Not on filedocumented in this encounter Care Teams Team MemberRelationshipSpecialtyStart DateEnd Date Adrian Lynn MD [address] [facility] [address] [place], [place] [id number] PCP - GeneralInternal Medicine10/01/24documented as of this encounter
--- OUTSIDE RECORDS SUMMARY | 2025-02-18 09:39 | XMS_ITS | Clinical Summary ---
Author Organization [facility] Address [address] [facility] [place] [address] Phone Care Team Providers Care Director Business Management Name Role Phone Unavailable Primary Care Provider Unavailabl e Social History Tobacco UseTypesPacks/DayYears UsedDateSmoking Tobacco: Never Assessed CommentsUnknownSex and Gender InformationValueDate RecordedSex Assigned at Not on fileLegal ShjOvvcxk09/25/2022 7:44 PM ESTGender IdentityNot on fileSexual OrientationNot on file Plan of Treatment Not on file
--- NOTE | 2025-02-18 10:05 | MM_ITS ---
Patient Name: SHANTA HANKINS MR#: [id number] : 1955 Exam Date: 02/18/2025 Ordering Doctor: DR JOSE STEVENSON M.D. cRADIOLOGY REPORT PROCEDURE: MM TOMOSYNTHESIS SCREENING BI COMPARISON: MM TOMOSYNTHESIS SCREENING BI, 02/11/2024. MM TOMOSYNTHESIS SCREENING BI, 02/05/2023. MG MAMM SCREEN 3D KEE CAD, 01/29/2022. MG MAMM KEE SCRN W CAD DIG, 07/28/2012. INDICATIONS: Screening Calculator Name NCI Breast Cancer Risk Assessment Tool 5 Year Breast Cancer Risk 3.30% Lifetime Breast Cancer Risk 9.10% Personal Breast Cancer No Personal Ovarian Cancer No Treatments HYST Family Cancers Sister with breast cancer at age 49; Grandmother-maternal with lung cancer at age ~70; Aunt-maternal with lung cancer at age 38; Sister with blood cancer at age 55. LOCATION: [facility] BREAST COMPOSITION: The breasts are heterogeneously dense, which may obscure small masses. FINDINGS: RIGHT BREAST: No significant suspicious finding. LEFT BREAST: No significant suspicious finding. k DIAGNOSTIC CATEGORY 1--NEGATIVE. RECOMMENDATIONS: ROUTINE MAMMOGRAM AND CLINICAL EVALUATION IN 12 MONTHS. Dictated by: German Clay DO on 02/18/2025 at 10:40 Approved by: German Clay DO on 02/18/2025 at 10:41
== END 2025-02-18 09:36 | disposition home or self-care (01) ==
LOC: MAMMO 09:36
PROVIDERS: PCP Internal Medicine; Visit Provider Internal Medicine
DX: Z12.31 Encounter for screening mammogram for malignant neoplasm of breast (principal); Z80.3 Family history of malignant neoplasm of breast; Z80.1 Family history of malignant neoplasm of trachea, bronchus and lung; Z80.8 Family history of malignant neoplasm of other organs or systems
CPT/HCPCS: 77063; 77067